=== PATIENT | female | born 1950 | race African-American/Black ===

== ENCOUNTER 2017-05-20 10:31 | Observation (INO) | payer MEDICARE, OTHER ==
[~2017-05-20] VITALS: Ht 167.6 cm; Wt 63.0 kg
[2017-05-20] VITALS (10 sets, daily range): BP systolic 116–180; BP diastolic 57–77; PULSE 59–119; RESP 16–22; TEMP 97–98.6; O2SAT 87–100
[~2017-05-20 10:31] MED LIST: ALBU8I INH; CALC667C PO; GABA100C4 PO; HYDR100T2 PO; LABE100 PO; LEVA500T PO; NIFE60TA5 PO; PERC5TAB12 PO; Z.0.OXYGENDME NC; [UNRECOGNIZED DRUG - CODE] TOP
[2017-05-20] MEDS: RESP: ALBUTEROL 2.5 MG/IPRATROPIUM 0.5 MG NEB (SCH) INH (11:11)
[2017-05-20] MEDS ORDERED: methylPREDNISolone SOD SUCC 125 MG/2 ML VIAL IV PUSH ONE (11:15)
--- NOTE | 2017-05-20 11:19 | PD ---
HPI Chief Complaint: Cold / Flu Symptoms Time Seen by Provider: 10:53 Travel History International Travel<30 days: No Contact w/Intl Traveler<30days: No Traveled to known affect area: No History of Present Illness HPI 66-year-old female states that she missed her dialysis on Sunday because she wasn't feeling good. States that she's been having cough and congestion and flulike symptoms over the past couple of days. She states she feels worse when she moves around. She denies other modifying factors. Duration is about 3 days. She states [facility] but she cannot remember their name. She denies other specific concurrent complaints. She states she is on 2 L of oxygen all the time for her COPD. PFSH Past Medical History Asthma: Yes Cardiovascular Problems: Yes Congestive Heart Failure: Yes COPD: Yes Dialysis: Yes (M-W-F) Diminished Hearing: No Hypertension: Yes Implanted Vascular Access Dvce: Yes Insomnia: Yes Respiratory: Yes Renal Failure: Yes Ulcer: Yes Tetanus Vaccination: Unknown Influenza Vaccination: Yes Past Surgical History Cardiac Surgery: Yes (PACEMAKER) Gynecologic Surgery: Yes Hysterectomy: Yes (PARTIAL) Pacemaker: Yes Other Surgery: Yes (AV FISTULA RIGHT UPPER ARM) Social History Alcohol Use: No Tobacco Use: Yes (FORMER 1/2 PPD) Substance Use: Yes (occ. marijuana ) Allergies-Medications (Allergen,Severity, Reaction): Coded Allergies: penicillin G (Unverified Allergy, Intermediate, Hives, 12/05/16) Reported Meds & Prescriptions Reported Meds & Active Scripts Active Reported Renvela (Sevelamer Carbonate) 800 Mg Tab 800 Mg PO TID Omeprazole 20 Mg Tab 20 Mg PO DAILY Labetalol (Labetalol HCl) 300 Mg Tab 300 Mg PO TID Hydrocodone-Acetaminophen 10-325 mg Tab 1 Tab PO Q6H PRN Review of Systems Except as stated in HPI: all other systems reviewed are Neg Physical Exam Exam Limitations: Other: (Gen. weakness) Narrative GENERAL: Well-nourished, well-developed patient. SKIN: Warm and dry. HEAD: Normocephalic and atraumatic. EYES: No injection or drainage. ENT: No nasal drainage noted. NECK: Supple, trachea midline. CARDIOVASCULAR: Regular rate and rhythm RESPIRATORY: Expiratory wheezing bilaterally. No accessory muscle use. GASTROINTESTINAL: Abdomen nondistended. NEUROLOGICAL: Awake and alert. Moves all extremities and sensory grossly within normal limits. Normal speech. Data Data Last Documented VS Vital Signs Date Time Temp Pulse Resp B/P (MAP) Pulse Ox O2 Delivery O2 Flow Rate FiO2 05/20/17 12:00 72 19 180/77 (111) 100 Nasal Cannula 2.00 05/20/17 10:43 98.3 Orders Orders Electrocardiogram (05/20/17 10:52) Complete Blood Count With Diff (05/20/17 10:52) Comprehensive Metabolic Panel (05/20/17 10:52) Prothrombin Time / Inr (Pt) (05/20/17 10:52) Act Partial Throm Time (Ptt) (05/20/17 10:52) Lactic Acid Sepsis Protocol (05/20/17 10:52) Magnesium (Mg) (05/20/17 10:52) Phosphorus (Po4) (05/20/17 10:52) Blood Culture (05/20/17 10:52) Chest, Single Ap (05/20/17 10:52) Ecg Monitoring (05/20/17 10:52) Iv Access Insert/Monitor (05/20/17 10:52) Oximetry (05/20/17 10:52) Oxygen Administration (05/20/17 10:52) Influenzae A/B Antigen (05/20/17 10:52) Methylprednisolone So Succ Inj (Solumedr (05/20/17 11:15) Albuterol-Ipratropium Neb (Duoneb Neb) (05/20/17 11:15) Consult Nephrology (05/20/17 ) Sodium Polysty Sulfate Liq (Kayexalate L (05/20/17 13:00) (Hub Use Only)Inp Phy Cons/Ref (05/20/17 ) Admit Order (Ed Use Only) (05/20/17 13:12) Acetamin-Hydrocod 325-10 Mg (Sobieski 10-32 (05/20/17 13:15) Labetalol (Trandate) (05/20/17 18:00) Sevelamer (Renvela) (05/20/17 18:00) Pantoprazole (Protonix) (05/21/17 09:00) Labs Laboratory Tests Test 05/20/17 11:00 05/20/17 11:05 White Blood Count 6.4 TH/MM3 Red Blood Count 3.09 MIL/MM3 Hemoglobin 9.7 GM/DL Hematocrit 29.3 % Mean Corpuscular Volume 94.9 FL Mean Corpuscular Hemoglobin 31.3 PG Mean Corpuscular Hemoglobin Concent 33.0 % Red Cell Distribution Width 15.3 % Platelet Count 237 TH/MM3 Mean Platelet Volume 9.1 FL Neutrophils (%) (Auto) 76.1 % Lymphocytes (%) (Auto) 11.7 % Monocytes (%) (Auto) 10.9 % Eosinophils (%) (Auto) 0.2 % Basophils (%) (Auto) 1.1 % Neutrophils # (Auto) 4.9 TH/MM3 Lymphocytes # (Auto) 0.7 TH/MM3 Monocytes # (Auto) 0.7 TH/MM3 Eosinophils # (Auto) 0.0 TH/MM3 Basophils # (Auto) 0.1 TH/MM3 CBC Comment DIFF FINAL Differential Comment Prothrombin Time 12.5 SEC Prothromb Time International Ratio 1.2 RATIO Activated Partial Thromboplast Time 27.5 SEC Blood Urea Nitrogen 55 MG/DL Creatinine 10.72 MG/DL Random Glucose 83 MG/DL Total Protein 7.4 GM/DL Albumin 3.0 GM/DL Calcium Level 9.4 MG/DL Phosphorus Level 4.3 MG/DL Magnesium Level 2.6 MG/DL Alkaline Phosphatase 95 U/L Aspartate Amino Transf (AST/SGOT) 23 U/L Alanine Aminotransferase (ALT/SGPT) 10 U/L Total Bilirubin 0.8 MG/DL Sodium Level 137 MEQ/L Potassium Level 5.8 MEQ/L Chloride Level 99 MEQ/L Carbon Dioxide Level 25.0 MEQ/L Anion Gap 13 MEQ/L Estimat Glomerular Filtration Rate 4 ML/MIN Lactic Acid Level 1.5 mmol/L [facility] Medical Decision Making Medical Screen Exam Complete: Yes Emergency Medical Condition: Yes Medical Record Reviewed: Yes (past history confirmed, patient seen by dr han in past) Interpretation(s) CBC & BMP Diagram 05/20/17 11:00 Total Protein 7.4, Albumin 3.0 L, Calcium Level 9.4, Phosphorus Level 4.3, Magnesium Level 2.6 H, Alkaline Phosphatase 95, Aspartate Amino Transf (AST/SGOT ) 23, Alanine Aminotransferase (ALT/SGPT) 10, Total Bilirubin 0.8 Last 24 hours Impressions Chest X-Ray 05/20/17 1052 Signed Impressions: Service Date/Time: Saturday, May 20, 2017 11:41 - CONCLUSION: Chronic cardiac silhouette enlargement. No acute cardiopulmonary disease identified. Octaviano Irby MD Differential Diagnosis Pneumonia, influenza, effusion, fluid overload, anemia, COPD exacerbation Narrative Course Will check blood work, influenza, chest x-ray and dose with DuoNeb's and Solu- Medrol and reevaluate On recheck patient states she's having pain all over and out of her pain medication. She states that her breathing feels a little bit better. She agrees to observation Physician Communication Physician Communication dr dacosta states can give Kayexalate and will follow dr canchola agrees to admit Diagnosis Primary Impression: COPD exacerbation Additional Impressions: Upper respiratory infection Qualified Codes: J06.9 - Acute upper respiratory infection, unspecified missed dialysisis Hyperkalemia Admitting Information Admitting Physician Requests: Observation Joyce Souza MD May 20, 2017 11:19
[2017-05-20 11:42] LABS: AUTOMATED NEUTROPHIL # 4.9 TH/MM3 (1.8-7.7); BASOPHIL # 0.1 TH/MM3 (0-0.2); BASOPHIL % 1.1 % (0.0-2.0); EOSINOPHIL % 0.2 % (0.0-4.0); HEMATOCRIT 29.3 % (35.0-46.0); HEMOGLOBIN 9.7 GM/DL (11.6-15.3); LYMPH % 11.7 % (9.0-44.0); LYMPHOCYTE # 0.7 TH/MM3 (1.0-4.8); MEAN CELL VOLUME 94.9 FL (80.0-100.0); MEAN CORPUSCULAR HEMOGLOBIN 31.3 PG (27.0-34.0); MEAN PLATELET VOLUME 9.1 FL (7.0-11.0); MONO % 10.9 % (0.0-8.0); MONOCYTE # 0.7 TH/MM3 (0-0.9); NEUT % 76.1 % (16.0-70.0); PLATELET COUNT 237 TH/MM3 (150-450); RED BLOOD COUNT 3.09 MIL/MM3 (4.00-5.30); RED CELL DISTRIBUTION WIDTH 15.3 % (11.6-17.2); WHITE BLOOD COUNT 6.4 TH/MM3 (4.0-11.0)
[2017-05-20 11:51] LABS: INTERNATIONAL NORMALIZED RATIO 1.2 RATIO; PROTHROMBIN TIME - PATIENT 12.5 SEC (9.8-11.6)
[2017-05-20 12:07] LABS: ALKALINE PHOSPHATASE 95 U/L (45-117); ALT (GPT) 10 U/L (10-53); AST (GOT) 23 U/L (15-37); BLOOD UREA NITROGEN 55 MG/DL (7-18); CALCIUM 9.4 MG/DL (8.5-10.1); CHLORIDE 99 MEQ/L (98-107); GLOMERULAR FILTRATION RATE 4 ML/MIN (>89); GLUCOSE,RANDOM 83 MG/DL (74-106); MAGNESIUM 2.6 MG/DL (1.5-2.5); PHOSPHORUS 4.3 MG/DL (2.5-4.9); SODIUM (NA) 137 MEQ/L (136-145); TOTAL BILIRUBIN ADULT 0.8 MG/DL (0.2-1.0); TOTAL PROTEIN 7.4 GM/DL (6.4-8.2)
--- NOTE | 2017-05-20 12:24 | RADRPT ---
EXAM DATE/TIME: 05/20/2017 11:41 [facility] COMPARISON: CHEST SINGLE AP, August 28, 2015, 21:19. INDICATIONS : Short of Breath MEDICAL HISTORY : Chronic obstructive pulmonary disease. SURGICAL HISTORY : Pacemaker. ENCOUNTER: Initial ACUITY: 1 week PAIN SCORE: 0/10 LOCATION: chest FINDINGS: Single AP view of the chest. Moderate cardiac silhouette enlargement unchanged. Dual-lead cardiac pac emaker in place. The lungs are clear. No evidence of pleural effusion or pneumothorax. CONCLUSION: Chronic cardiac silhouette enlargement. No acute cardiopulmonary disease identified. Octaviano Irby MD on May 20, 2017 at 12:21 Board Certified Radiologist. This report was verified electronically.
[2017-05-20 12:40] LABS: CREATININE 10.72 MG/DL (0.50-1.00)
[2017-05-20] MEDS ORDERED: LABE300T PO (12:42)
[2017-05-20] MEDS ORDERED: HYDR-3583 PO (12:42)
[2017-05-20] MEDS ORDERED: OMEP20TA93 PO (12:42)
[2017-05-20] MEDS ORDERED: SEVEL800 PO (12:42)
[2017-05-20] MEDS ORDERED: SODIUM POLYSTYRENE SULFONATE SUSP 15 GM/60 ML CUP PO ONE (13:00)
[2017-05-20] MEDS ORDERED: SODIUM CHLORIDE 0.9% FLUSH 10 ML FLUSH IV FLUSH PRN ×2 (13:15→16:15)
[2017-05-20] MEDS ORDERED: BISACODYL 10 MG SUPP RECTAL PRN (13:15)
[2017-05-20] MEDS ORDERED: SENNOSIDES 8.6 MG TAB PO PRN (13:15)
[2017-05-20] MEDS ORDERED: RESP: ALBUTEROL 2.5 MG/IPRATROPIUM 0.5 MG NEB (PRN) NEB (13:15)
[2017-05-20] MEDS ORDERED: MAGNESIUM HYDROXIDE SUSP 30 ML CUP PO PRN (13:15)
[2017-05-20] MEDS ORDERED: NALOXONE HCL 0.4 MG/ML AMP IV PUSH PRN (13:15)
[2017-05-20] MEDS ORDERED: ONDANSETRON HCL 4 MG/2 ML VIAL IVP PRN (13:15)
[2017-05-20] MEDS ORDERED: ACETAMINOPHEN 325 MG TAB PO PRN ×2 (13:15→16:15)
[2017-05-20] MEDS ORDERED: LACTULOSE SYRUP 20 GM/30 ML CUP PO PRN (13:15)
--- NOTE | 2017-05-20 13:24 | HHI.HP ---
[facility] Krista Vieyra MD Admission Diagnosis copd exacerbation, hyperkalemia Diagnoses: Chief Complaint: sob Travel History International Travel<30 Days: No Contact w/Intl Traveler <30 Da: No Traveled to Known Affected Are: No History of Present Illness 66-year-old female with past medical history of ESRD on hemodialysis Sunday, COPD, hypertension, diabetes, states that she missed her dialysis on Sunday because she wasn't feeling good. States that she's been having cough and congestion and flulike symptoms over the past couple of days. She states she feels worse when she moves around. She denies other modifying factors. Duration is about 3 days. She states [facility] but she cannot remember their name. She denies other specific concurrent complaints. She states she is on 2 L of oxygen all the time for her COPD. Review of Systems ROS Limitations: Clinical Condition Except as stated in HPI: all other systems reviewed are Neg Past Family Social History Past Medical History Hypertension Diabetesstates only when she is in the hospital ESRD on hemodialysis COPD on home oxygen Status post pacemaker for bradycardia Past Surgical History AV fistula placement PPM Partial hysterectomy Allergies: Coded Allergies: penicillin G (Unverified Allergy, Intermediate, Hives, 12/05/16) Family History sister with lung cancer smoker mother cancer unspecified HTN runs in family Social History Quitting smoking. Denies any alcohol abuse or drug abuse. Physical Exam Vital Signs Vital Signs Date Time Temp Pulse Resp B/P (MAP) Pulse Ox O2 Delivery O2 Flow Rate FiO2 05/20/17 12:00 72 19 180/77 (111) 100 Nasal Cannula 2.00 05/20/17 11:15 77 22 98 Nasal Cannula 2.00 05/20/17 11:11 98 Nasal Cannula 2.00 05/20/17 11:01 79 16 99 Nasal Cannula 2.00 05/20/17 10:59 79 17 99 Nasal Cannula 2.00 05/20/17 10:59 96 Nasal Cannula 2.00 05/20/17 10:43 98.3 119 22 146/70 (95) 87 Physical Exam GENERAL: This is a well-nourished, well-developed patient, in no apparent distress. SKIN: No rashes, ecchymoses or lesions. Cool and dry. HEAD: Atraumatic. Normocephalic. No temporal or scalp tenderness. EYES: Pupils equal round and reactive. Extraocular motions intact. No scleral icterus. No injection or drainage. ENT: Nose without bleeding, purulent drainage or septal hematoma. Throat without erythema, tonsillar hypertrophy or exudate. Uvula midline. Airway patent. NECK: Trachea midline. No JVD or lymphadenopathy. Supple, nontender, no meningeal signs. CARDIOVASCULAR: Regular rate and rhythm without murmurs, gallops, or rubs. RESPIRATORY: Dereased breath sounds. No wheezes, rales, or rhonchi. GASTROINTESTINAL: Abdomen soft, non-tender, nondistended. No hepato-splenomegaly , or palpable masses. No guarding. MUSCULOSKELETAL: Extremities without clubbing, cyanosis, or edema. No joint tenderness, effusion, or edema noted. No calf tenderness. Negative Homans sign bilaterally. NEUROLOGICAL: Awake and alert. Cranial nerves II through XII intact. Motor and sensory grossly within normal limits. Five out of 5 muscle strength in all muscle groups. Normal speech. Laboratory Laboratory Tests Test 05/20/17 11:00 05/20/17 11:05 White Blood Count 6.4 Red Blood Count 3.09 Hemoglobin 9.7 Hematocrit 29.3 Mean Corpuscular Volume 94.9 Mean Corpuscular Hemoglobin 31.3 Mean Corpuscular Hemoglobin Concent 33.0 Red Cell Distribution Width 15.3 Platelet Count 237 Mean Platelet Volume 9.1 Neutrophils (%) (Auto) 76.1 Lymphocytes (%) (Auto) 11.7 Monocytes (%) (Auto) 10.9 Eosinophils (%) (Auto) 0.2 Basophils (%) (Auto) 1.1 Neutrophils # (Auto) 4.9 Lymphocytes # (Auto) 0.7 Monocytes # (Auto) 0.7 Eosinophils # (Auto) 0.0 Basophils # (Auto) 0.1 CBC Comment DIFF FINAL Differential Comment Prothrombin Time 12.5 Prothromb Time International Ratio 1.2 Activated Partial Thromboplast Time 27.5 Blood Urea Nitrogen 55 Creatinine 10.72 Random Glucose 83 Total Protein 7.4 Albumin 3.0 Calcium Level 9.4 Phosphorus Level 4.3 Magnesium Level 2.6 Alkaline Phosphatase 95 Aspartate Amino Transf (AST/SGOT) 23 Alanine Aminotransferase (ALT/SGPT) 10 Total Bilirubin 0.8 Sodium Level 137 Potassium Level 5.8 Chloride Level 99 Carbon Dioxide Level 25.0 Anion Gap 13 Estimat Glomerular Filtration Rate 4 Lactic Acid Level 1.5 Date/Time Source Procedure Growth Status 05/20/17 11:05 Blood Peripheral Aerobic Blood Culture Pending Received 05/20/17 11:05 Blood Peripheral Anaerobic Blood Culture Pending Received 05/20/17 11:05 Nasal Aspirate Influenza Types A,B Antigen (SHANTHI) - Final NEGATIVE FOR FLU A AND B ANTIGEN.... Complete Result Diagram: 05/20/17 1100 05/20/17 1100 Caprini VTE Risk Assessment Caprini VTE Risk Assessment: Mod/High Risk (score >= 2) Caprini Risk Assessment Model Point Value = 1 Point Value = 2 Point Value = 3 Point Value = 5 Age 41-60 Minor surgery BMI > 25 kg/m2 Swollen legs Varicose veins or History of unexplained or recurrent spontaneous Oral contraceptives or hormone replacement Sepsis (< 1 month) Serious lung disease, including pneumonia (< 1 month) Abnormal pulmonary function Acute myocardial infarction Congestive heart failure (< 1 month) History of inflammatory bowel disease Medical patient at bed rest Age 61-74 Arthroscopic surgery Major open surgery (> 45 min) Laparoscopic surgery (> 45 min) Malignancy Confined to bed (> 72 hours) Immobilizing plaster cast Central venous access Age >= 75 History of VTE Family history of VTE Factor V Leiden Prothrombin [id number] Lupus anticoagulant Anticardiolipin antibodies Elevated serum homocysteine Heparin-induced thrombocytopenia Other congenital or acquired thrombophilia Stroke (< 1 month) Elective arthroplasty Hip, pelvis, or leg fracture Acute spinal cord injury (< 1 month) Prophylaxis Regimen Total Risk Factor Score Risk Level Prophylaxis Regimen 0-1 Low Early ambulation 2 Moderate Order ONE of the following: *Sequential Compression Device (SCD) *Heparin 5000 units SQ BID 3-4 Higher Order ONE of the following medications: *Heparin 5000 units SQ TID *Enoxaparin/Lovenox 40 mg SQ daily (WT < 150 kg, CrCl > 30 mL/min) *Enoxaparin/Lovenox 30 mg SQ daily (WT < 150 kg, CrCl > 10-29 mL/min) *Enoxaparin/Lovenox 30 mg SQ BID (WT < 150 kg, CrCl > 30 mL/min) AND/OR *Sequential Compression Device (SCD) 5 or more Highest Order ONE of the following medications: *Heparin 5000 units SQ TID (Preferred with Epidurals) *Enoxaparin/Lovenox 40 mg SQ daily (WT < 150 kg, CrCl > 30 mL/min) *Enoxaparin/Lovenox 30 mg SQ daily (WT < 150 kg, CrCl > 10-29 mL/min) *Enoxaparin/Lovenox 30 mg SQ BID (WT < 150 kg, CrCl > 30 mL/min) AND *Sequential Compression Device (SCD) Assessment and Plan Assessment and Plan COPD with exacerbation, chronic respiratory failure on 2L home oxygen Status post pacemaker for bradycardia Hypertension Fluid overload Missed dialysis session Suspect medications noncompliance and dialysis noncompliance Chronic pain syndrome Anxiety/from social issues at home Diabetesstates only when she is in the hospital ESRD on hemodialysis, nephrology consult to resume HD Plan: Duonebs, solumedrol, taper as tolerated O2 supplement keep O2 sat > 92 % HD today Resume home meds as appropriate Case management consult for discharge planning. DVT ppx scd/teds//heparin Discussed Condition With Patient, nurse, ED physician Alexandria Wright MD May 20, 2017 13:24
[2017-05-20] MEDS: methylPREDNISolone SOD SUCC 40 MG/1 ML VIAL IV PUSH SCH ×2 (13:44→21:33)
[2017-05-20] MEDS: HEPARIN SODIUM - SQ 10,000 UNITS/ML VIAL SQ SCH (14:00)
[2017-05-20] MEDS: ACETAMINOPHEN/HYDROcodone 325 MG/10 MG TAB PO PRN ×2 (14:28→21:42)
[2017-05-20] MEDS ORDERED: SODIUM CHLOR 0.9% 1000 ML INJ 1,000 ML OTHER PRN ×2 (16:03)
[2017-05-20] MEDS ORDERED: SODIUM CHLOR 0.9% 1000 ML INJ 1,000 ML IV PRN (16:03)
[2017-05-20] MEDS ORDERED: diphenhydrAMINE HCL 25 MG CAP PO PRN (16:15)
[2017-05-20] MEDS ORDERED: NITROGLYCERIN 0.4 MG SL 25 TABS/BTL SL PRN (16:15)
[2017-05-20] MEDS ORDERED: EPOETIN ALFA 10,000 UNITS/ML VIAL IV PUSH PRN (16:15)
[2017-05-20] MEDS ORDERED: MANNITOL 12.5 GM/50 ML VIAL IV PRN (16:15)
[2017-05-20] MEDS ORDERED: HEPARIN SODIUM - IV 10,000 UNITS/10 ML VIAL IV FLUSH PRN (16:15)
[2017-05-20] MEDS ORDERED: HEPARIN SODIUM - IV 10,000 UNITS/10 ML VIAL PRN (16:15)
[2017-05-20] MEDS ORDERED: ONDANSETRON HCL 4 MG/2 ML VIAL IV PUSH PRN (16:15)
[2017-05-20] MEDS ORDERED: cloNIDine HCL 0.1 MG TAB PO PRN (16:15)
[2017-05-20] MEDS ORDERED: GENTAMICIN SULFATE 20 MG/2 ML VIAL OTHER PRN (16:15)
[2017-05-20] MEDS ORDERED: ALBUMIN 25% INJ 100 ML IV PRN (16:15)
[2017-05-20] MEDS ORDERED: GELATIN 12 MM/7 MM FOAM TOP PRN (16:15)
[2017-05-20] MEDS: RESP: ALBUTEROL 2.5 MG/IPRATROPIUM 0.5 MG NEB (SCH) NEB ×2 (16:24→19:02)
--- NOTE | 2017-05-20 17:08 | PD.CONS ---
HPI Service Nephrology Consult Requested By Reason for Consult ESRD, hyperkalemia Primary Care Physician Krista Vieyra MD History of Present Illness This is a 66 year old lady with history of ESRD for which she is on HD MWF. Apparently missed dialysis treatment on Sunday because of cough, not feeling well. Denies fever. Has had abdominal discomfort and diarrhea. Nausea is also a complaint. Came to the ER with these complaints. Found to be hyperkalemic and hypoxic. CXR is unremarkable. Because of hyperkalemia and also due to the fact that she had missed dialysis on Sunday, dialysis was arranged. She was seen during dialysis: on 1K, BFR 350 ml/min. AVF in the right arm is currently cannulated. She is tolerating dialysis. Review of Systems Constitutional: COMPLAINS OF: Fatigue, DENIES: Fever Respiratory: COMPLAINS OF: Cough, Wheezing, Shortness of breath, DENIES: Hemoptysis, Sputum production Cardiovascular: DENIES: Chest pain, Palpitations Gastrointestinal: COMPLAINS OF: Abdominal pain, Diarrhea, Nausea Hematologic/lymphatic: DENIES: Bruising Neurologic: DENIES: Localized weakness Psychiatric: DENIES: Confusion Past Family Social History Allergies: Coded Allergies: penicillin G (Unverified Allergy, Intermediate, Hives, 12/05/16) Past Medical History ESRD Hypertension COPD s/p pacemaker: for bradycardia Past Surgical History pacemaker placement. AVF placement. Hysterectomy Reported Medications Renvela (Sevelamer Carbonate) 800 Mg Tab 800 Mg PO TID Omeprazole 20 Mg Tab 20 Mg PO DAILY Labetalol (Labetalol HCl) 300 Mg Tab 300 Mg PO TID Hydrocodone-Acetaminophen 10-325 mg Tab 1 Tab PO Q6H PRN Active Ordered Medications Current Medications Medications (Trade) Dose Ordered Sig/Quinton Route Start Time Stop Time Status Last Admin ([place] 10-325 Mg) 1 tab Q6H PRN PO 05/20/17 13:15 05/20/17 14:28 (Trandate) 300 mg TID PO 05/20/17 18:00 (Renvela) 800 mg TID PO 05/20/17 18:00 (Protonix) 20 mg DAILY PO 05/21/17 09:00 (NS Flush) 2 ml UNSCH PRN IV FLUSH 05/20/17 13:15 (NS Flush) 2 ml BID IV FLUSH 05/20/17 21:00 (Tylenol) 650 mg Q4H PRN PO 05/20/17 13:15 (Zofran Inj) 4 mg Q6H PRN IVP 05/20/17 13:15 (Heparin Inj) 5,000 units Q12H SQ 05/20/17 14:00 (Narcan Inj) 0.4 mg UNSCH PRN IV PUSH 05/20/17 13:15 (Maria G-Colace) 1 tab BID PO 05/20/17 21:00 (Milk Of Magnesia Liq) 30 ml Q12H PRN PO 05/20/17 13:15 (Senokot) 17.2 mg Q12H PRN PO 05/20/17 13:15 (Dulcolax Supp) 10 mg DAILY PRN RECTAL 05/20/17 13:15 (Lactulose Liq) 30 ml DAILY PRN PO 05/20/17 13:15 (Duoneb Neb) 1 ampule Q2HR NEB PRN NEB 05/20/17 13:15 (Duoneb Neb) 1 ampule Q4HR WHILE AWAKE NEB NEB 05/20/17 16:00 (SoluMEDROL INJ) 40 mg Q8HR IV PUSH 05/20/17 14:00 Sodium Chloride 1,000 ml @ 0 mls/hr Q0M PRN OTHER 05/20/17 16:03 (Heparin Inj) 8,000 units UNSCH PRN IV FLUSH 05/20/17 16:15 Sodium Chloride 1,000 ml @ 200 mls/hr Q5H PRN IV 05/20/17 16:03 Sodium Chloride 1,000 ml @ 0 mls/hr Q0M PRN OTHER 05/20/17 16:03 (Mannitol Inj) 12.5 gm UNSCH PRN IV 05/20/17 16:15 Albumin Human 100 ml @ 60 mls/hr UNSCH PRN IV 05/20/17 16:15 (NS Flush) 5 ml UNSCH PRN IV FLUSH 05/20/17 16:15 (Heparin Inj) UNSCH PRN .XX 05/20/17 16:15 (Gentamicin Inj) 20 mg UNSCH PRN OTHER 05/20/17 16:15 (Zofran Inj) 4 mg UNSCH PRN IV PUSH 05/20/17 16:15 (Tylenol) 650 mg UNSCH PRN PO 05/20/17 16:15 (Benadryl) 25 mg UNSCH PRN PO 05/20/17 16:15 (Nitrostat Sl) 0.4 mg UNSCH PRN SL 05/20/17 16:15 (Catapres) 0.1 mg UNSCH PRN PO 05/20/17 16:15 (Epogen Inj) 10,000 units UNSCH PRN IV PUSH 05/20/17 16:15 05/20/17 16:25 (Gelfoam 12 Mm/7 Mm Top) 1 foam UNSCH PRN TOP 05/20/17 16:15 05/20/17 16:25 Family History reviewed, non contributory Social History continues to smoke, she reports that she is trying to quit. No ETOH. Lives alone in an apartment. Physical Exam Vital Signs Vital Signs Date Time Temp Pulse Resp B/P (MAP) Pulse Ox O2 Delivery O2 Flow Rate FiO2 05/20/17 14:22 98.6 63 18 149/72 (97) 98 05/20/17 13:56 05/20/17 12:00 72 19 180/77 (111) 100 Nasal Cannula 2.00 05/20/17 11:15 77 22 98 Nasal Cannula 2.00 05/20/17 11:11 98 Nasal Cannula 2.00 05/20/17 11:01 79 16 99 Nasal Cannula 2.00 05/20/17 10:59 79 17 99 Nasal Cannula 2.00 05/20/17 10:59 96 Nasal Cannula 2.00 05/20/17 10:43 98.3 119 22 146/70 (95) 87 Physical Exam GENERAL: awake, alert. SKIN: Warm and dry. HEAD: Normocephalic. EYES: No scleral icterus. No injection or drainage. NECK: Supple, trachea midline. No JVD or lymphadenopathy. CARDIOVASCULAR: Regular rate and rhythm without murmurs, gallops, or rubs. RESPIRATORY: Breath sounds equal bilaterally. No accessory muscle use. GASTROINTESTINAL: Abdomen soft, non-tender, nondistended. MUSCULOSKELETAL: No cyanosis, or edema. BACK: Nontender without obvious deformity. No CVA tenderness. Laboratory Laboratory Tests Test 05/20/17 11:00 05/20/17 11:05 White Blood Count 6.4 Red Blood Count 3.09 Hemoglobin 9.7 Hematocrit 29.3 Mean Corpuscular Volume 94.9 Mean Corpuscular Hemoglobin 31.3 Mean Corpuscular Hemoglobin Concent 33.0 Red Cell Distribution Width 15.3 Platelet Count 237 Mean Platelet Volume 9.1 Neutrophils (%) (Auto) 76.1 Lymphocytes (%) (Auto) 11.7 Monocytes (%) (Auto) 10.9 Eosinophils (%) (Auto) 0.2 Basophils (%) (Auto) 1.1 Neutrophils # (Auto) 4.9 Lymphocytes # (Auto) 0.7 Monocytes # (Auto) 0.7 Eosinophils # (Auto) 0.0 Basophils # (Auto) 0.1 CBC Comment DIFF FINAL Differential Comment Prothrombin Time 12.5 Prothromb Time International Ratio 1.2 Activated Partial Thromboplast Time 27.5 Blood Urea Nitrogen 55 Creatinine 10.72 Random Glucose 83 Total Protein 7.4 Albumin 3.0 Calcium Level 9.4 Phosphorus Level 4.3 Magnesium Level 2.6 Alkaline Phosphatase 95 Aspartate Amino Transf (AST/SGOT) 23 Alanine Aminotransferase (ALT/SGPT) 10 Total Bilirubin 0.8 Sodium Level 137 Potassium Level 5.8 Chloride Level 99 Carbon Dioxide Level 25.0 Anion Gap 13 Estimat Glomerular Filtration Rate 4 Lactic Acid Level 1.5 Date/Time Source Procedure Growth Status 05/20/17 11:05 Blood Peripheral Aerobic Blood Culture Pending Received 05/20/17 11:05 Blood Peripheral Anaerobic Blood Culture Pending Received 05/20/17 11:05 Nasal Aspirate Influenza Types A,B Antigen (SHANTHI) - Final NEGATIVE FOR FLU A AND B ANTIGEN.... Complete Result Diagram: 05/20/17 1100 05/20/17 1100 Assessment and Plan Problem List: (1) ESRD (end stage renal disease) on dialysis ICD Codes: N18.6 - End stage renal disease; Z99.2 - Dependence on renal dialysis Status: Acute Plan: usually dialyzes MWF. Dialysis arranged today due to hyperkalemia and symptoms of shortness of breath. Dialysis tomorrow and MWF. Monitor fluid and electrolyte status. Monitor phosphorus intermittently and use binder if appropriate. (2) Hyperkalemia ICD Codes: E87.5 - Hyperkalemia Status: Acute Plan: Low potassium diet. Dialysis. Monitor. (3) COPD exacerbation ICD Codes: J44.1 - Chronic obstructive pulmonary disease with (acute) exacerbation Status: Acute Plan: bronchodilators. Smoking cessation encouraged. (4) Anemia ICD Codes: D64.9 - Anemia, unspecified Plan: Epogen ordered to be administered with dialysis. Assessment and Plan Thanks for the consult. Kirby Deleon MD May 20, 2017 17:08
[2017-05-20] MEDS: SEVELAMER CARBONATE 800 MG TAB PO SCH (18:01)
[2017-05-20] MEDS: LABETALOL HCL 300 MG TAB PO SCH (18:01)
[2017-05-20] MEDS: DOCUSATE SODIUM 50 MG/SENNA 8.6 MG TAB PO SCH (21:00)
[2017-05-20] MEDS: SODIUM CHLORIDE 0.9% FLUSH 10 ML FLUSH IV FLUSH SCH (21:33)
[2017-05-21] VITALS (7 sets, daily range): BP systolic 90–119; BP diastolic 51–70; PULSE 62–71; RESP 18–19; TEMP 97.5–98.1; O2SAT 95–100
[2017-05-21] MEDS: HEPARIN SODIUM - SQ 10,000 UNITS/ML VIAL SQ SCH ×2 (02:17→13:52)
[2017-05-21] MEDS: methylPREDNISolone SOD SUCC 40 MG/1 ML VIAL IV PUSH SCH ×3 (05:33→21:46)
[2017-05-21] MEDS: ACETAMINOPHEN/HYDROcodone 325 MG/10 MG TAB PO PRN ×3 (05:34→21:47)
[2017-05-21] MEDS: RESP: ALBUTEROL 2.5 MG/IPRATROPIUM 0.5 MG NEB (SCH) NEB ×4 (07:54→20:14)
[2017-05-21 08:27] LABS: AUTOMATED NEUTROPHIL # 4.2 TH/MM3 (1.8-7.7); BASOPHIL % 0.2 % (0.0-2.0); HEMATOCRIT 28.8 % (35.0-46.0); HEMOGLOBIN 9.6 GM/DL (11.6-15.3); LYMPH % 6.5 % (9.0-44.0); LYMPHOCYTE # 0.3 TH/MM3 (1.0-4.8); MEAN CELL VOLUME 93.9 FL (80.0-100.0); MEAN CORPUSCULAR HEMOGLOBIN 31.2 PG (27.0-34.0); MEAN CORPUSCULAR HGB CONC 33.2 % (32.0-36.0); MEAN PLATELET VOLUME 9.1 FL (7.0-11.0); MONO % 5.5 % (0.0-8.0); MONOCYTE # 0.3 TH/MM3 (0-0.9); NEUT % 87.8 % (16.0-70.0); PLATELET COUNT 217 TH/MM3 (150-450); RED BLOOD COUNT 3.07 MIL/MM3 (4.00-5.30); RED CELL DISTRIBUTION WIDTH 15.4 % (11.6-17.2); WHITE BLOOD COUNT 4.8 TH/MM3 (4.0-11.0)
[2017-05-21] MEDS: DOCUSATE SODIUM 50 MG/SENNA 8.6 MG TAB PO SCH ×2 (09:00→21:47)
[2017-05-21 09:07] LABS: BICARBONATE 29.4 MEQ/L (21.0-32.0); CALCIUM 9.8 MG/DL (8.5-10.1); CREATININE 7.28 MG/DL (0.50-1.00)
[2017-05-21 10:35] LABS: OVALOCYTES 1+ (NORMAL); TEARDROP RBCS 1+ (NORMAL)
--- NOTE | 2017-05-21 10:42 | HHI.NPPN ---
Subjective History of Present Illness 66 year old female with ESRD HTN, had missed dialysis on Sunday came with cough shortness of breath Review of Systems Respiratory Lungs: SOB, Cough Cardiovascular Cardiac: JACOBSON Objective Data Data Vital Signs Date Time Temp Pulse Resp B/P (MAP) Pulse Ox O2 Delivery O2 Flow Rate FiO2 05/21/17 07:55 100 Nasal Cannula 3.00 05/21/17 03:39 97.5 68 18 118/70 (86) 98 05/20/17 23:53 97.4 64 18 116/57 (76) 99 05/20/17 20:25 97.0 59 18 120/62 (81) 94 05/20/17 19:04 96 Nasal Cannula 2.50 05/20/17 18:05 97.5 68 18 135/72 (93) 94 05/20/17 14:22 98.6 63 18 149/72 (97) 98 05/20/17 13:56 05/20/17 12:00 72 19 180/77 (111) 100 Nasal Cannula 2.00 05/20/17 11:15 77 22 98 Nasal Cannula 2.00 05/20/17 11:11 98 Nasal Cannula 2.00 05/20/17 11:01 79 16 99 Nasal Cannula 2.00 05/20/17 10:59 79 17 99 Nasal Cannula 2.00 05/20/17 10:59 96 Nasal Cannula 2.00 05/20/17 10:43 98.3 119 22 146/70 (95) 87 -: 05/21/17 0813 05/21/17 0813 Microbiology 05/20/17 Aerobic Blood Culture, Received Pending 05/20/17 Anaerobic Blood Culture, Received Pending 05/20/17 Aerobic Blood Culture, Received Pending 05/20/17 Anaerobic Blood Culture, Received Pending 05/20/17 Influenza Types A,B Antigen (SHANTHI) - Final, Complete NEGATIVE FOR FLU A AND B ANTIGEN.... Physical Exam General Appearance: Well Developed, Well Nourished Neck Neck Exam: Neck Supple Pulmonary Resp Exam: Clear Bilaterally, Breath Sounds Equal Cardiology CV Exam: Regular, Normal Sinus Rhythm Gastrointestinal/Abdomen GI Exam: Soft, Non-Tender, Bowel Sounds Present Extremeties Extremities Exam: No Edema Assessment/Plan Problem List: (1) ESRD (end stage renal disease) on dialysis ICD Codes: N18.6 - End stage renal disease; Z99.2 - Dependence on renal dialysis Status: Acute Plan: seen during dialysis UF 3 L tolerating it well Monitor fluid and electrolyte status. Monitor phosphorus intermittently and use binder if appropriate. (2) Hyperkalemia ICD Codes: E87.5 - Hyperkalemia Status: Acute Plan: Low potassium diet. Dialysis. Monitor. (3) COPD exacerbation ICD Codes: J44.1 - Chronic obstructive pulmonary disease with (acute) exacerbation Status: Acute Plan: bronchodilators. Smoking cessation encouraged. (4) Anemia ICD Codes: D64.9 - Anemia, unspecified Plan: Epogen ordered to be administered with dialysis. Lisa Ferro MD May 21, 2017 10:42
[2017-05-21] MEDS: PANTOPRAZOLE SOD 20 MG DELAYED RELEASE TAB PO SCH (12:25)
[2017-05-21] MEDS: SEVELAMER CARBONATE 800 MG TAB PO SCH ×3 (12:25→17:13)
[2017-05-21] MEDS: LABETALOL HCL 300 MG TAB PO SCH ×3 (12:25→17:13)
[2017-05-21] MEDS: SODIUM CHLORIDE 0.9% FLUSH 10 ML FLUSH IV FLUSH SCH ×2 (12:26→21:46)
--- NOTE | 2017-05-21 16:22 | HHI.FF ---
Face to Face Verification Diagnosis: (1) HTN (hypertension) (2) ESRD (end stage renal disease) on dialysis (3) Anemia (4) COPD (chronic obstructive pulmonary disease) (5) Upper respiratory infection Physical Therapy Order: Evaluate and Treat, Improve ambulation, Strength and gait training Home Health Nursing Order: Medical education Signs/symptoms of disease process Oxygen administration education Nursing assessment with vital signs Home Health Aide Order: To Assist In: Bathing and personal care, credit director and meal prep I have seen patient Micah Estrada on 05/21/17. My clinical findings support the need for the requested home health care services because: Ltd mobility - disease progression Patient has SOB Deconditioned w/ increased weakness Limited ability to care for self I certify that my clinical findings support that this patient is homebound because: Hx COPD- exertion dyspnea/weakness Unsafe to leave home unassisted Unable to use public transportation Juana Guajardo PA-C May 21, 2017 4:22 pm
--- NOTE | 2017-05-21 17:14 | HHI.PR ---
Subjective Remarks Follow up for fluid overload, dehydration, URI. The patient is seen after dialysis today. She does not feel well. She reports continued nonproductive cough and shortness of breath, although improving compared to yesterday. Denies fevers/chills. She does not want to go home. She states she just feels weak. Blood pressure low this afternoon, 90/54. She states sometimes she has low blood pressures during dialysis. She lives in independent living apartment but has friends that help her out. She is requesting if we can arrange additional help for in the home. Objective Vitals Vital Signs Date Time Temp Pulse Resp B/P (MAP) Pulse Ox O2 Delivery O2 Flow Rate FiO2 05/21/17 13:49 97.8 71 18 90/54 (66) 95 05/21/17 13:38 22 05/21/17 07:55 100 Nasal Cannula 3.00 05/21/17 03:39 97.5 68 18 118/70 (86) 98 05/20/17 23:53 97.4 64 18 116/57 (76) 99 05/20/17 20:25 97.0 59 18 120/62 (81) 94 05/20/17 19:04 96 Nasal Cannula 2.50 05/20/17 18:05 97.5 68 18 135/72 (93) 94 I/O 05/20/17 05/20/17 05/20/17 05/21/17 05/21/17 05/21/17 06:59 14:59 22:59 06:59 14:59 22:59 Intake Total 840 ml Output Total 3000 ml 3000 ml Balance -3000 ml 840 ml -3000 ml Intake Oral 840 ml Hemodialysis 3000 ml 3000 ml # Bowel Movements 3 Result Diagram: 05/21/17 0813 05/21/17 0813 Imaging Last Impressions Chest X-Ray 05/20/17 1052 Signed Impressions: Service Date/Time: Saturday, May 20, 2017 11:41 - CONCLUSION: Chronic cardiac silhouette enlargement. No acute cardiopulmonary disease identified. Octaviano Irby MD Objective Remarks GENERAL: Well-nourished, well-developed patient in [facility]. SKIN: Warm and dry. No rash. RUE AV fistula with +thrill. HEENT: Normocephalic. Atraumatic.Pupils equal and round. Mucous membranes pink and moist. NECK: Supple. Trachea midline. CARDIOVASCULAR: Regular rate and rhythm. S1, S2 noted. No murmur appreciated. RESPIRATORY: No accessory muscle use. Breath sounds diminished at bilateral bases, some upper airway congestion noted, otherwise clear to auscultation. Breath sounds equal bilaterally. GASTROINTESTINAL: Abdomen soft, non-tender, nondistended. Normoactive bowel sounds x4. MUSCULOSKELETAL: No obvious deformities. Extremities without clubbing, cyanosis , or edema. NEUROLOGICAL: Awake and alert. No obvious cranial nerve deficits. Motor grossly within normal limits. Moves all extremities spontaneously. Normal speech. PSYCHIATRIC: Appropriate mood and affect; insight and judgment normal. Medications and IVs Current Medications Medications (Trade) Dose Ordered Sig/[place] Route Start Time Stop Time Status Last Admin ([place] 10-325 Mg) 1 tab Q6H PRN PO 05/20/17 13:15 05/21/17 12:30 (Trandate) 300 mg TID PO 05/20/17 18:00 05/21/17 12:25 (Renvela) 800 mg TID PO 05/20/17 18:00 05/21/17 13:52 (Protonix) 20 mg DAILY PO 05/21/17 09:00 05/21/17 12:25 (NS Flush) 2 ml UNSCH PRN IV FLUSH 05/20/17 13:15 (NS Flush) 2 ml BID IV FLUSH 05/20/17 21:00 05/21/17 12:26 (Tylenol) 650 mg Q4H PRN PO 05/20/17 13:15 (Zofran Inj) 4 mg Q6H PRN IVP 05/20/17 13:15 (Heparin Inj) 5,000 units Q12H SQ 05/20/17 14:00 05/21/17 13:52 (Narcan Inj) 0.4 mg UNSCH PRN IV PUSH 05/20/17 13:15 (Maria G-Colace) 1 tab BID PO 05/20/17 21:00 (Milk Of Magnesia Liq) 30 ml Q12H PRN PO 05/20/17 13:15 (Senokot) 17.2 mg Q12H PRN PO 05/20/17 13:15 (Dulcolax Supp) 10 mg DAILY PRN RECTAL 05/20/17 13:15 (Lactulose Liq) 30 ml DAILY PRN PO 05/20/17 13:15 (Duoneb Neb) 1 ampule Q2HR NEB PRN NEB 05/20/17 13:15 (Duoneb Neb) 1 ampule Q4HR WHILE AWAKE NEB NEB 05/20/17 16:00 05/21/17 07:54 (SoluMEDROL INJ) 40 mg Q8HR IV PUSH 05/20/17 14:00 05/21/17 13:52 Sodium Chloride 1,000 ml @ 0 mls/hr Q0M PRN OTHER 05/20/17 16:03 (Heparin Inj) 8,000 units UNSCH PRN IV FLUSH 05/20/17 16:15 Sodium Chloride 1,000 ml @ 200 mls/hr Q5H PRN IV 05/20/17 16:03 Sodium Chloride 1,000 ml @ 0 mls/hr Q0M PRN OTHER 05/20/17 16:03 (Mannitol Inj) 12.5 gm UNSCH PRN IV 05/20/17 16:15 Albumin Human 100 ml @ 60 mls/hr UNSCH PRN IV 05/20/17 16:15 (NS Flush) 5 ml UNSCH PRN IV FLUSH 05/20/17 16:15 (Heparin Inj) UNSCH PRN .XX 05/20/17 16:15 (Gentamicin Inj) 20 mg UNSCH PRN OTHER 05/20/17 16:15 (Zofran Inj) 4 mg UNSCH PRN IV PUSH 05/20/17 16:15 (Tylenol) 650 mg UNSCH PRN PO 05/20/17 16:15 (Benadryl) 25 mg UNSCH PRN PO 05/20/17 16:15 (Nitrostat Sl) 0.4 mg UNSCH PRN SL 05/20/17 16:15 (Catapres) 0.1 mg UNSCH PRN PO 05/20/17 16:15 (Epogen Inj) 10,000 units UNSCH PRN IV PUSH 05/20/17 16:15 05/20/17 16:25 (Gelfoam 12 Mm/7 Mm Top) 1 foam UNSCH PRN TOP 05/20/17 16:15 05/20/17 16:25 A/P Assessment and Plan 66-year-old female with past medical history of ESRD on hemodialysis MWF, COPD O2 dependent, hypertension, diabetes, states that she missed her dialysis on Sunday because she wasn't feeling good. States that she's been having cough and congestion and flulike symptoms over the past couple of days. Acute on Chronic Respiratory Failure: secondary to URI with COPD Exacerbation. O2 dependent at home. O2 sat 87% upon arrival. Suspect combination of COPD exacerbation with fluid overload secondary to missing dialysis. CXR images reviewed, shows no acute findings. Afebrile, no leukocytosis, however does meet sepsis criteria secondary to tachycardia HR 119, RR 22, and suspected source URI /bronchitis. -influenza negative -check urinary legionella and pneumococcal antigen -check sputum culture -in light of productive cough w/sepsis, will start on antibiotics with IV Levaquin for possible early pneumonia -continue duonebs q4h -continue steroids with IV Solumedrol 40mg q8h, can likely change to prednisone in am -continue O2, incentive spirometry -monitor for improvement ESRD on HD MWF: patient missed dialysis Thursday 05/18 secondary to feeling ill. -consult nephrology -patient received dialysis 05/20 and 05/21 -continue patient's phosphate binder Generalized Weakness: suspect secondary to infection as above. -consult PT, awaiting recommendations -case management consulted to arrange [facility] Diabetes Mellitus: chronic, patient reports only requiring insulin while in the hospital. Expect blood glucose to be higher while on steroids -monitor Accu-checks and cover with SSI -check HgbA1c for baseline Hypertension: chronic, now with hypotension following dialysis -continue patient's labetalol with hold parameters -monitor BP, adjust antihypertensives as needed Chronic Pain: patient reports chronic back pain, on lortab at home prescribed by PCP Dr. Vieyra -continue lortab for now -patient requesting refill for lortab at discharge as she ran out recently and does not see her PCP until 05/31 DVT Prophylaxis: heparin sq Discharge Planning Likely discharge tomorrow. Awaiting PT recommendations. C ordered for now unless PT recommends rehab. Discussed with case management. Juana Guajardo PA-C May 21, 2017 5:14 pm
[2017-05-21] MEDS ORDERED: DEXTROSE 50% IN WATER 50 ML VIAL(D50) IV PUSH PRN (17:15)
[2017-05-21] MEDS ORDERED: GLUCAGON 1 MG/ML VIAL OTHER PRN (17:15)
[2017-05-21] MEDS ORDERED: LEVOFLOXACIN 750 MG PREMIX INJ 150 ML IV SCH (18:00)
--- NOTE | 2017-05-21 18:40 | EKG ---
Date Performed: 05/20/2017 Time Performed: 10:58:46 PTAGE: 66 years EKG: ELECTRONIC ATRIAL PACEMAKER ELECTRONIC VENTRICULAR PACEMAKER Prolonged corrected QT interva l. ABNORMAL RHYTHM ECG PREVIOUS TRACING : 08/26/2015 16.51 DOCTOR: Eladio Vieira Interpretating Date/Time 05/21/2017 18:39:40
[2017-05-21] MEDS: INSULIN ASPART SUPPLEMENTAL SCALE SQ SCH (21:46)
[2017-05-21 22:20] LABS: HEMOGLOBIN A1C 5.1 % (4.3-6.0)
[2017-05-22] MEDS: HEPARIN SODIUM - SQ 10,000 UNITS/ML VIAL SQ SCH ×2 (01:49→15:13)
[2017-05-22 04:02] VITALS: BP 110/61; PULSE 65; RESP 18; TEMP 97.8; O2SAT 99
[2017-05-22] MEDS: methylPREDNISolone SOD SUCC 40 MG/1 ML VIAL IV PUSH SCH ×2 (04:32→15:12)
[2017-05-22] MEDS: ACETAMINOPHEN/HYDROcodone 325 MG/10 MG TAB PO PRN ×2 (04:32→12:38)
[2017-05-22 06:54] LABS: AUTOMATED NEUTROPHIL # 9.1 TH/MM3 (1.8-7.7); BASOPHIL % 0.2 % (0.0-2.0); HEMATOCRIT 30.8 % (35.0-46.0); HEMOGLOBIN 10.3 GM/DL (11.6-15.3); LYMPH % 2.7 % (9.0-44.0); LYMPHOCYTE # 0.3 TH/MM3 (1.0-4.8); MEAN CELL VOLUME 95.3 FL (80.0-100.0); MEAN CORPUSCULAR HEMOGLOBIN 31.8 PG (27.0-34.0); MEAN CORPUSCULAR HGB CONC 33.4 % (32.0-36.0); MEAN PLATELET VOLUME 9.2 FL (7.0-11.0); MONO % 3.7 % (0.0-8.0); MONOCYTE # 0.4 TH/MM3 (0-0.9); NEUT % 93.4 % (16.0-70.0); PLATELET COUNT 236 TH/MM3 (150-450); RED BLOOD COUNT 3.23 MIL/MM3 (4.00-5.30); RED CELL DISTRIBUTION WIDTH 15.1 % (11.6-17.2); WHITE BLOOD COUNT 9.7 TH/MM3 (4.0-11.0)
[2017-05-22 07:20] LABS: BICARBONATE 32.4 MEQ/L (21.0-32.0); CALCIUM 10.1 MG/DL (8.5-10.1); CREATININE 5.37 MG/DL (0.50-1.00)
[2017-05-22 08:26] VITALS: BP 116/66; PULSE 61; RESP 16; TEMP 97.6; O2SAT 99
[2017-05-22] MEDS: RESP: ALBUTEROL 2.5 MG/IPRATROPIUM 0.5 MG NEB (SCH) NEB ×3 (08:26→15:29)
[2017-05-22 08:29] VITALS: O2SAT 99
[2017-05-22] MEDS: SEVELAMER CARBONATE 800 MG TAB PO SCH ×2 (09:23→12:37)
[2017-05-22] MEDS: PANTOPRAZOLE SOD 20 MG DELAYED RELEASE TAB PO SCH (09:23)
[2017-05-22] MEDS: DOCUSATE SODIUM 50 MG/SENNA 8.6 MG TAB PO SCH (09:23)
[2017-05-22] MEDS: LABETALOL HCL 300 MG TAB PO SCH ×2 (09:23→12:37)
[2017-05-22] MEDS: SODIUM CHLORIDE 0.9% FLUSH 10 ML FLUSH IV FLUSH SCH (09:24)
[2017-05-22] MEDS ORDERED: GETGO ROLLING W1 MI1 (12:23)
[2017-05-22] MEDS: INSULIN ASPART SUPPLEMENTAL SCALE SQ SCH ×2 (12:39→12:40)
--- NOTE | 2017-05-22 12:40 | HHI.NPPN ---
Subjective History of Present Illness 66 year old female with ESRD HTN, had missed dialysis on Sunday came with cough shortness of breath Review of Systems Respiratory Lungs: SOB, Cough Cardiovascular Cardiac: [place] Objective Data Data Vital Signs Date Time Temp Pulse Resp B/P (MAP) Pulse Ox O2 Delivery O2 Flow Rate FiO2 05/22/17 10:30 22 05/22/17 08:29 99 Nasal Cannula 2.00 05/22/17 08:26 97.6 61 16 116/66 (83) 99 05/22/17 04:02 97.8 65 18 110/61 (77) 99 05/21/17 23:36 97.8 62 18 119/64 (82) 99 05/21/17 20:14 99 Nasal Cannula 3.00 05/21/17 19:24 98.1 62 18 119/55 (76) 98 05/21/17 16:26 97.8 70 19 91/51 (64) 96 05/21/17 13:49 97.8 71 18 90/54 (66) 95 05/21/17 13:38 22 -: 05/22/17 0615 05/22/17 0615 Physical Exam General Appearance: Well Developed, Well Nourished Neck Neck Exam: Neck Supple Pulmonary Resp Exam: Decreased Bases Cardiology CV Exam: Regular, Normal Sinus Rhythm Gastrointestinal/Abdomen GI Exam: Soft, Non-Tender, Bowel Sounds Present Extremeties Extremities Exam: No Edema Assessment/Plan Problem List: (1) ESRD (end stage renal disease) on dialysis ICD Codes: N18.6 - End stage renal disease; Z99.2 - Dependence on renal dialysis Status: Acute Plan: Hemodialysis on Sunday, Sunday and Sunday Still has some cough Monitor fluid and electrolyte status. Monitor phosphorus intermittently and use binder if appropriate. (2) Hyperkalemia ICD Codes: E87.5 - Hyperkalemia Status: Acute Plan: Low potassium diet. Dialysis. Monitor. (3) COPD exacerbation ICD Codes: J44.1 - Chronic obstructive pulmonary disease with (acute) exacerbation Status: Acute Plan: bronchodilators. Smoking cessation encouraged. (4) Anemia ICD Codes: D64.9 - Anemia, unspecified Plan: Epogen ordered to be administered with dialysis. Lisa Ferro MD May 22, 2017 12:40
[2017-05-22 14:05] VITALS: RESP 22
[2017-05-22] MEDS ORDERED: HYDR-3583 PO (15:33)
[2017-05-22] MEDS ORDERED: LEVA750T9 PO (15:33)
--- NOTE | 2017-05-22 16:46 | HHI.DS ---
Discharge Summary Admission Date May 20, 2017 at 1:14 pm Discharge Date: May 22, 2017 Admitting Diagnosis copd exacerbation, hyperkalemia (1) Upper respiratory infection ICD Code: J06.9 - Acute upper respiratory infection, unspecified (2) ESRD (end stage renal disease) on dialysis ICD Code: N18.6 - End stage renal disease; Z99.2 - Dependence on renal dialysis Status: Acute Procedures None. Brief History - From Admission 66-year-old female with past medical history of ESRD on hemodialysis Sunday, COPD, hypertension, diabetes, states that she missed her dialysis on Sunday because she wasn't feeling good. States that she's been having cough and congestion and flulike symptoms over the past couple of days. She states she feels worse when she moves around. She denies other modifying factors. Duration is about 3 days. She states [facility] but she cannot remember their name. She denies other specific concurrent complaints. She states she is on 2 L of oxygen all the time for her COPD. CBC/BMP: 05/22/17 0615 05/22/17 0615 Significant Findings Laboratory Tests Test 05/20/17 11:00 05/20/17 11:05 05/21/17 08:13 05/22/17 06:15 Red Blood Count 3.09 MIL/MM3 (4.00-5.30) 3.07 MIL/MM3 (4.00-5.30) 3.23 MIL/MM3 (4.00-5.30) Hemoglobin 9.7 GM/DL (11.6-15.3) 9.6 GM/DL (11.6-15.3) 10.3 GM/DL (11.6-15.3) Hematocrit 29.3 % (35.0-46.0) 28.8 % (35.0-46.0) 30.8 % (35.0-46.0) Neutrophils (%) (Auto) 76.1 % (16.0-70.0) 87.8 % (16.0-70.0) 93.4 % (16.0-70.0) Monocytes (%) (Auto) 10.9 % (0.0-8.0) Lymphocytes # (Auto) 0.7 TH/MM3 (1.0-4.8) 0.3 TH/MM3 (1.0-4.8) 0.3 TH/MM3 (1.0-4.8) Prothrombin Time 12.5 SEC (9.8-11.6) Blood Urea Nitrogen 55 MG/DL (7-18) 41 MG/DL (7-18) 33 MG/DL (7-18) Creatinine 10.72 MG/DL (0.50-1.00) 7.28 MG/DL (0.50-1.00) 5.37 MG/DL (0.50-1.00) Albumin 3.0 GM/DL (3.4-5.0) Magnesium Level 2.6 MG/DL (1.5-2.5) Potassium Level 5.8 MEQ/L (3.5-5.1) Estimat Glomerular Filtration Rate 4 ML/MIN (>89) 7 ML/MIN (>89) 10 ML/MIN (>89) Lymphocytes (%) (Auto) 6.5 % (9.0-44.0) 2.7 % (9.0-44.0) Tear Drop Cells 1+ (NORMAL) Ovalocytes 1+ (NORMAL) Random Glucose 189 MG/DL (74-106) 143 MG/DL (74-106) Sodium Level 134 MEQ/L (136-145) 134 MEQ/L (136-145) Chloride Level 93 MEQ/L (98-107) 92 MEQ/L (98-107) Neutrophils # (Auto) 9.1 TH/MM3 (1.8-7.7) Carbon Dioxide Level 32.4 MEQ/L (21.0-32.0) Imaging Last Impressions Chest X-Ray 05/20/17 1052 Signed Impressions: Service Date/Time: Saturday, May 20, 2017 11:41 - CONCLUSION: Chronic cardiac silhouette enlargement. No acute cardiopulmonary disease identified. Octaviano Irby MD PE at Discharge GENERAL: Well-nourished, well-developed patient in [facility]. SKIN: Warm and dry. No rash. RUE AV fistula with +thrill. HEENT: Normocephalic. Atraumatic.Pupils equal and round. Mucous membranes pink and moist. NECK: Supple. Trachea midline. CARDIOVASCULAR: Regular rate and rhythm. S1, S2 noted. No murmur appreciated. RESPIRATORY: No accessory muscle use. Breath sounds diminished at bilateral bases, some upper airway congestion noted, otherwise clear to auscultation. Breath sounds equal bilaterally. GASTROINTESTINAL: Abdomen soft, non-tender, nondistended. Normoactive bowel sounds x4. MUSCULOSKELETAL: No obvious deformities. Extremities without clubbing, cyanosis , or edema. NEUROLOGICAL: Awake and alert. No obvious cranial nerve deficits. Motor grossly within normal limits. Moves all extremities spontaneously. Normal speech. PSYCHIATRIC: Appropriate mood and affect; insight and judgment normal. Pt update on day of discharge Patient is currently doing well. No fever, chills. PT recommended a walker with seat which will be delivered to her house in the next day or so. Patient agrees with our discharge plan. Hospital Course 66-year-old female with past medical history of ESRD on hemodialysis MWF, COPD O2 dependent, hypertension, diabetes, states that she missed her dialysis on Sunday because she wasn't feeling good. States that she's been having cough and congestion and flulike symptoms over the past couple of days. Acute on Chronic Respiratory Failure: secondary to URI with COPD Exacerbation. O2 dependent at home. O2 sat 87% upon arrival. Suspect combination of COPD exacerbation with fluid overload secondary to missing dialysis. CXR images reviewed, shows no acute findings. Afebrile, no leukocytosis, however does meet sepsis criteria secondary to tachycardia HR 119, RR 22, and suspected source URI /bronchitis. -influenza negative -in light of productive cough w/sepsis, started antibiotics with IV Levaquin -continue duonebs q4h -continue steroids with IV Solumedrol 40mg q8h in patient. -continue O2, incentive spirometry. Patient has home O2. ESRD on HD MWF: patient missed dialysis Thursday 05/18 secondary to feeling ill. -consulted nephrology -patient received dialysis 05/20 and 05/21 -continue patient's phosphate binder Generalized Weakness: suspect secondary to infection as above. -consult PT - recommended C if walker with seat can be arranged. -case management consulted to arrange HHC Diabetes Mellitus: chronic, patient reports only requiring insulin while in the hospital. Expect blood glucose to be higher while on steroids -monitor Accu-checks and cover with SSI -check HgbA1c for baseline Hypertension: chronic, now with hypotension following dialysis -continue patient's labetalol with hold parameters -monitor BP, adjust antihypertensives as needed Chronic Pain: patient reports chronic back pain, on lortab at home prescribed by PCP Dr. Vieyra -continue lortab for now -patient requesting refill for lortab at discharge as she ran out recently and does not see her PCP until 05/31 - Will give [place] #20 - this should be enough until patient sees her PCP. DVT Prophylaxis: heparin sq Pt Condition on Discharge: Good Discharge Disposition: Disch w/ Home Health Serv Discharge Time: <= 30 minutes Discharge Instructions DIET: Follow Instructions for: Renal Failure Diet Activities you can perform: Regular-No Restrictions Follow up Referrals: PCP Follow-up - 1 Week New Medications: Levofloxacin (Levaquin) 750 Mg Tablet 750 MG PO EVERY OTHER DAY for Infection, #3 TAB 0 Refills START on 05/23/2017. Walker Rolling/GetGo (Walker Rolling/GetGo) 1 Mis Mis EA .XX DIRECTED, #1 Continued Medications: Hydrocodone-Acetaminophen (Hydrocodone-Acetaminophen) 10-325 mg Tab 1 TAB PO Q6H PRN for PAIN, #20 TAB 0 Refills (This prescription has been renewed ) Labetalol (Labetalol) 300 Mg Tab 300 MG PO TID for Blood Pressure Management, TAB 0 Refills Omeprazole (Omeprazole) 20 Mg Tab 20 MG PO DAILY, #30 TAB 0 Refills Sevelamer Carbonate (Renvela) 800 Mg Tab 800 MG PO TID for Control phosphorous levels, #90 TAB 0 Refills Kelsey Hicks DO May 22, 2017 16:46
== END 2017-05-22 18:00 | disposition home or self-care (01) ==
LOC: NEPC 10:31 → NEDA 13:14 → NEPHCDU 14:13
PROVIDERS: ADMIT Hospitalist; ATTEND Hospitalist
DX: J44.1 Chronic obstructive pulmonary disease with (acute) exacerbation (principal); J06.9 Acute upper respiratory infection, unspecified; E87.5 Hyperkalemia; N18.6 End stage renal disease; Z99.2 Dependence on renal dialysis; E11.22 Type 2 diabetes mellitus with diabetic chronic kidney disease; Z99.81 Dependence on supplemental oxygen; R00.1 Bradycardia, unspecified; F41.9 Anxiety disorder, unspecified; R11.0 Nausea; R09.02 Hypoxemia; R06.02 Shortness of breath; F17.200 Nicotine dependence, unspecified, uncomplicated; D64.9 Anemia, unspecified; I95.9 Hypotension, unspecified; G89.29 Other chronic pain; M54.9 Dorsalgia, unspecified; I50.9 Heart failure, unspecified; I13.2 Hypertensive heart and chronic kidney disease with heart failure and with stage 5 chronic kidney disease, or end stage renal disease; G47.00 Insomnia, unspecified; Z79.899 Other long term (current) drug therapy; R19.7 Diarrhea, unspecified; R94.31 Abnormal electrocardiogram [ECG] [EKG]; D63.1 Anemia in chronic kidney disease
CPT/HCPCS: 71045; 80048; 80053; 82948; 83036; 83605; 83735; 84100; 85025; 85610; 85730; 87040; 87804; 93005; 94150; 94640; 94664; 96365; 96372; 96374; 96375; 96376; 97162; 99285; G0257; G0378; G8987; G8988; J1644; J1815; J1956; J2920; J2930; Q4081; 90935

== ENCOUNTER 2017-06-20 12:04 | Inpatient (IN) | payer MEDICARE, OTHER ==
[~2017-06-20] VITALS: Ht 167.6 cm; Wt 66.3 kg
[2017-06-20] VITALS (8 sets, daily range): BP systolic 117–169; BP diastolic 69–83; PULSE 68–83; RESP 17–20; TEMP 97.6–97.9; O2SAT 94–99
[~2017-06-20 12:04] MED LIST changes: -ALBU8I INH; -CALC667C PO; -GABA100C4 PO; +GETGO ROLLING W1 MI1; +HYDR-3583 PO; -HYDR100T2 PO; -LABE100 PO; +LABE300T PO; -LEVA500T PO; +LEVA750T9 PO; -NIFE60TA5 PO; +OMEP20TA93 PO; -PERC5TAB12 PO; +SEVEL800 PO; -Z.0.OXYGENDME NC; -[UNRECOGNIZED DRUG - CODE] TOP
--- NOTE | 2017-06-20 13:02 | RADRPT ---
EXAM DATE/TIME: 06/20/2017 12:32 [place] COMPARISON: CHEST SINGLE AP, August 28, 2015, 21:19. CHEST SINGLE AP, May 20, 2017, 11: 41. INDICATIONS : Chest pain. MEDICAL HISTORY : Chronic obstructive pulmonary disease. Renal failure, chronic. Cardiac D isorder. Asthma. SURGICAL HISTORY : Pacemaker. ENCOUNTER: Initial ACUITY: 1 day PAIN SCORE: 3/10 LOCATION: Left upper chest FINDINGS: Portable AP view of the chest demonstrates mildly enlarged cardiac silhouette. Left chest wall cardia c pacing device remains present. There is right lower lung zone airspace consolidation with blunting of the right costophrenic sulcus. Prominent interstitial opacities are present bilaterally. No pneumo thorax is identified. Bones demonstrate no acute finding. CONCLUSION: Airspace consolidation at the right lung base with small right pleural effusion. This could represent an infectious process in the appropriate clinical setting. Aurelio Zayas MD on June 20, 2017 at 13:00 Board Certified Radiologist. This report was verified electronically.
[2017-06-20 13:26] LABS: AUTOMATED NEUTROPHIL # 6.2 TH/MM3 (1.8-7.7); BASOPHIL % 0.5 % (0.0-2.0); EOSINOPHIL # 0.1 TH/MM3 (0-0.4); EOSINOPHIL % 0.9 % (0.0-4.0); HEMATOCRIT 28.5 % (35.0-46.0); HEMOGLOBIN 9.3 GM/DL (11.6-15.3); LYMPH % 11.1 % (9.0-44.0); LYMPHOCYTE # 0.9 TH/MM3 (1.0-4.8); MEAN CELL VOLUME 92.4 FL (80.0-100.0); MEAN CORPUSCULAR HEMOGLOBIN 30.3 PG (27.0-34.0); MEAN CORPUSCULAR HGB CONC 32.8 % (32.0-36.0); MONO % 6.5 % (0.0-8.0); MONOCYTE # 0.5 TH/MM3 (0-0.9); PLATELET COUNT 298 TH/MM3 (150-450); RED BLOOD COUNT 3.08 MIL/MM3 (4.00-5.30); RED CELL DISTRIBUTION WIDTH 15.8 % (11.6-17.2); WHITE BLOOD COUNT 7.7 TH/MM3 (4.0-11.0)
--- NOTE | 2017-06-20 14:03 | PD ---
HPI Chief Complaint: Chest Pain Time Seen by Provider: 13:41 Travel History International Travel<30 days: No Contact w/Intl Traveler<30days: No Traveled to known affect area: No History of Present Illness HPI 66-year-old female with end-stage renal disease on hemodialysis, COPD, asthma, status post pacemaker presents emergency department with intermittent chest pain for about 3 days. Says the pain is located in the left midsternal border without radiation. Patient states that she was laying down at the onset and has been occurring about 5-10 minute intervals lasting 10 minutes and goes away on its own. She has multiple episodes of these a day. No palliative or provocative factors. States that she received nitroglycerin which decreased her pain from 9/10 to 0 /10. States that she was at dialysis today and she determined that she was tired of having this pain, decided to come to the emergency department. Patient states that she had 1 hour of dialysis left. Says that she is on constant 2-3 L/min nasal cannula at home. Has hemodialysis Sunday and Sunday. No family history of heart problems to include heart attacks or congestive heart failure. Patient states she does have a history of hypertension and is a previous history of tobacco use. Denies history of hyperlipidemia. PFSH Past Medical History Asthma: No Blood Disorders: No Heart Rhythm Problems: No Cancer: No Cardiovascular Problems: Yes (PACER) High Cholesterol: No Chest Pain: No Congestive Heart Failure: Yes COPD: Yes Dialysis: Yes (-W-) Diminished Hearing: No Endocrine: No Gastrointestinal Disorders: Yes (BLEEDING GASTRIC ULCER) Genitourinary: Yes (ESRD) Hypertension: Yes Immune Disorder: No Implanted Vascular Access Dvce: Yes Insomnia: Yes Musculoskeletal: No Neurologic: Yes (RIGHT LOWER ARM NEUROPATHY) Psychiatric: No Reproductive: Yes (PARTIAL HYSTERECTOMY) Respiratory: Yes Renal Failure: Yes Sleep Apnea: No Ulcer: Yes Tetanus Vaccination: < 5 Years Influenza Vaccination: Yes Past Surgical History Body Medical Devices: PACER Cardiac Surgery: Yes (PACEMAKER) Gynecologic Surgery: Yes Hysterectomy: Yes (PARTIAL) Pacemaker: Yes Other Surgery: Yes (AV FISTULA RIGHT UPPER ARM) Social History Alcohol Use: No Tobacco Use: No Substance Use: No Allergies-Medications (Allergen,Severity, Reaction): Coded Allergies: penicillin G (Verified Allergy, Intermediate, Hives, 06/20/17) Reported Meds & Prescriptions Reported Meds & Active Scripts Active Hydrocodone-Acetaminophen 10-325 mg Tab 1 Tab PO Q6H PRN Reported Renvela (Sevelamer Carbonate) 800 Mg Tab 800 Mg PO TID Omeprazole 20 Mg Tab 20 Mg PO DAILY Labetalol (Labetalol HCl) 300 Mg Tab 300 Mg PO TID Review of Systems Except as stated in HPI: all other systems reviewed are Neg Physical Exam Narrative GENERAL: Well developed, well-nourished in no apparent distress SKIN: Focused skin assessment warm/dry. HEAD: Atraumatic. Normocephalic. EYES: Pupils equal and round. No scleral icterus. No injection or drainage. ENT: No nasal bleeding or discharge. Mucous membranes pink and moist. NECK: Trachea midline. No JVD. No lymphadenopathy CARDIOVASCULAR: Regular rate and rhythm. No murmur appreciated. RESPIRATORY: No accessory muscle use. Clear to auscultation. Breath sounds equal bilaterally. GASTROINTESTINAL: Abdomen soft, non-tender, nondistended. Hepatic and splenic margins not palpable. MUSCULOSKELETAL: No obvious deformities. No clubbing. No cyanosis. No edema. Pacemaker in left midsternal region. No CVA tenderness NEUROLOGICAL: Awake and alert. No obvious cranial nerve deficits. Motor grossly within normal limits. Normal speech. PSYCHIATRIC: Appropriate mood and affect; insight and judgment normal. Data Data Last Documented VS Vital Signs Date Time Temp Pulse Resp B/P (MAP) Pulse Ox O2 Delivery O2 Flow Rate FiO2 06/20/17 15:12 77 18 169/83 (111) 97 Nasal Cannula 3.00 06/20/17 14:35 97.8 Orders Orders Electrocardiogram (06/20/17 12:12) Complete Blood Count With Diff (06/20/17 12:12) Basic Metabolic Panel (Bmp) (06/20/17 12:12) Ckmb (Isoenzyme) Profile (06/20/17 12:12) Troponin I (06/20/17 12:12) Chest, Single Ap (06/20/17 12:12) Iv Access Insert/Monitor (06/20/17 12:12) Ecg Monitoring (06/20/17 12:12) Oxygen Administration (06/20/17 12:12) Oximetry (06/20/17 12:12) Act Partial Throm Time (Ptt) (06/20/17 12:12) Prothrombin Time / Inr (Pt) (06/20/17 12:12) Levofloxacin 750 Mg Premix Inj (Levaquin (06/20/17 14:30) Acetamin-Hydrocod 325-7.5 Mg ([place] 7.5 (06/20/17 14:30) Diet Heart Healthy (06/20/17 Dinner) Admit Order (Ed Use Only) (06/20/17 16:47) Labs Laboratory Tests Test 06/20/17 13:00 06/20/17 13:30 White Blood Count 7.7 TH/MM3 Red Blood Count 3.08 MIL/MM3 Hemoglobin 9.3 GM/DL Hematocrit 28.5 % Mean Corpuscular Volume 92.4 FL Mean Corpuscular Hemoglobin 30.3 PG Mean Corpuscular Hemoglobin Concent 32.8 % Red Cell Distribution Width 15.8 % Platelet Count 298 TH/MM3 Mean Platelet Volume 8.0 FL Neutrophils (%) (Auto) 81.0 % Lymphocytes (%) (Auto) 11.1 % Monocytes (%) (Auto) 6.5 % Eosinophils (%) (Auto) 0.9 % Basophils (%) (Auto) 0.5 % Neutrophils # (Auto) 6.2 TH/MM3 Lymphocytes # (Auto) 0.9 TH/MM3 Monocytes # (Auto) 0.5 TH/MM3 Eosinophils # (Auto) 0.1 TH/MM3 Basophils # (Auto) 0.0 TH/MM3 CBC Comment AUTO DIFF Differential Total Cells Counted 100 Neutrophils % (Manual) 71 % Band Neutrophils % 2 % Lymphocytes % 12 % Monocytes % 11 % Neutrophils # (Manual) 5.9 TH/MM3 Myelocytes 4 % Differential Comment FINAL DIFF MANUAL Toxic Vacuolation PRESENT Platelet Estimate NORMAL Platelet Morphology Comment NORMAL Tear Drop Cells 1+ Ovalocytes 1+ Prothrombin Time 11.4 SEC Prothromb Time International Ratio 1.1 RATIO Activated Partial Thromboplast Time 26.4 SEC Blood Urea Nitrogen 10 MG/DL Creatinine 3.98 MG/DL Random Glucose 72 MG/DL Calcium Level 8.7 MG/DL Sodium Level 137 MEQ/L Potassium Level 3.6 MEQ/L Chloride Level 100 MEQ/L Carbon Dioxide Level 32.3 MEQ/L Anion Gap 5 MEQ/L Estimat Glomerular Filtration Rate 14 ML/MIN Total Creatine Kinase 56 U/L Troponin I 0.09 NG/ML MDM Medical Decision Making Medical Screen Exam Complete: Yes Emergency Medical Condition: Yes Differential Diagnosis STEMI, pneumonia, pleural effusion, PE, upper respiratory infection Narrative Course 66-year-old female with a complicated medical history presents to the emergency department from her dialysis center with a 3 day history of right midsternal chest pain without radiation that occurs in 5-10 minute intervals lasting 5 minutes then resolving without intervention. Patient denies nausea or vomiting. States she did not feel more short of breath than normal with these episodes. Patient was at the dialysis center and was having episode and decided that she went to come to the emergency department. Dialysis administered nitroglycerin and decreased her pain from 9/10-0/10. Patient has no prior history of heart attack or stroke. Vital signs stable although patient requires 4 L/min oxygen nasal cannula to remain at 97%. Her normal O2 administrations to 3 L/min. for a time. Last Impressions Chest X-Ray 06/20/17 1212 Signed Impressions: Service Date/Time: Tuesday, June 20, 2017 12:32 - CONCLUSION: Airspace consolidation at the right lung base with small right pleural effusion. This could represent an infectious process in the appropriate clinical setting. Aurelio Zayas MD There is a concern for developing pneumonia. Levaquin 750 mg administered IV. Patient does frequent the dialysis center so the concern for HCAP. There is a small pleural effusion as well which may require interventional radiology consult. Patient was in the emergency department an extended amount of time as initial labs required recollection and troponin not available for a time. Hydrocodone administered as she does have chronic pain. Her pain is located in the right arm near her AV fistula. Labs demonstrate no leukocytosis, chronic left shift of neutrophils, stable anemia. EGFR, creatinine stable. Note that patient had dialysis just prior to arrival today. Troponin 0.09. Note that patient is end-stage renal disease on hemodialysis. History and physical suggest pneumonia as a cause of her chest discomfort today. Patient should be admitted for pneumonia and pleural effusion studies associated with shortness of breath. She has required 4 L/min oxygen nasal cannula instead of her normal 2-3 L/min. Consider interventional radiology consult for her pleural effusion, serial chest x-rays. Diagnosis Primary Impression: Pleural effusion, right Additional Impressions: ESRD (end stage renal disease) on dialysis Pneumonia Qualified Codes: J18.1 - Lobar pneumonia, unspecified organism Admitting Information Admitting Physician Requests: Admit Condition: Stable Charlee Thompson Jun 20, 2017 14:03
[2017-06-20 14:04] LABS: BANDS 2 % (0-6); LYMPHOCYTES 12 % (9-44); MONOCYTES 11 % (0-8); MYELOCYTES 4 % (0-0); NEUTROPHIL # MANUAL DIFF 5.9 TH/MM3 (1.8-7.7); POLYS (SEG NEUTROPHILS) 71 % (16-70)
[2017-06-20 14:06] LABS: OVALOCYTES 1+ (NORMAL); TEARDROP RBCS 1+ (NORMAL); TOXIC VACUOLATION PRESENT (NONE SEEN)
[2017-06-20 14:20] LABS: BICARBONATE 32.3 MEQ/L (21.0-32.0); CALCIUM 8.7 MG/DL (8.5-10.1); CREATININE 3.98 MG/DL (0.50-1.00)
[2017-06-20] MEDS ORDERED: ACETAMINOPHEN/HYDROcodone 325 MG/7.5 MG TAB PO ONE (14:30)
[2017-06-20] MEDS ORDERED: LEVOFLOXACIN 750 MG PREMIX INJ 150 ML IV ONE (14:30)
[2017-06-20 15:29] LABS: INTERNATIONAL NORMALIZED RATIO 1.1 RATIO; PROTHROMBIN TIME - PATIENT 11.4 SEC (9.8-11.6)
[2017-06-20 16:14] LABS: TROPONIN I 0.09 NG/ML (0.02-0.05)
--- NOTE | 2017-06-20 16:51 | HHI.HP ---
HPI Service Family Medicine Primary Care Physician Krista Vieyra MD Admission Diagnosis Pleural effusion, PNA, hypoxia Diagnoses: International Travel<30 Days: No Contact w/Intl Traveler<30days: No Known Affected Area: No History of Present Illness Patient is 66-year-old female with past medical history of end-stage renal disease on HD, HTN, COPD and CHF presented to the ED from dialysis center with complaints of chest pain. Patient stated chest pain started a few days ago, described as nonradiating throbbing chest pain located on the left sternal border. She reports chest pain is intermittent in and occurs about 3-4 times a day and is worsened by deep inspiration. Patient reports cough productive of clear sputum for the past week. Patient also reports progressively worsening shortness of breath over the past 2 weeks. She is on home oxygen at 2 L.Denies nausea /vomiting. Endorses abdominal pain brought on by coughing. Review of Systems Constitutional: COMPLAINS OF: Chills (few days), Dizziness, DENIES: Fever, Weight loss, Change in appetite Eyes: COMPLAINS OF: Blurred vision (1 month ago), DENIES: Eye pain Ears, nose, mouth, throat: DENIES: Throat pain, Running Nose Respiratory: COMPLAINS OF: Cough, Wheezing, Sputum production, DENIES: Shortness of breath Cardiovascular: COMPLAINS OF: Chest pain, DENIES: Palpitations, Lower Extremity Edema Gastrointestinal: COMPLAINS OF: Abdominal pain (with cought), DENIES: Bloody stools, Diarrhea, Nausea, Vomiting Musculoskeletal: COMPLAINS OF: Joint pain (due arthritis, RIght hand) Integumentary: DENIES: Rash Hematologic/lymphatic: DENIES: Bruising Neurologic: COMPLAINS OF: Headache, Paresthesias, DENIES: Seizures Psychiatric: DENIES: Confusion Past Family Social History Past Medical History COPD and emphysema arthritis- Right hand ESRD, Dr. Ferro, HD: Sun, sun, sunday HTN CHF Past Surgical History pace maker, around 10 yrs ago ulcer stomach, 7 yrs ago fistula, 7 yr ago Allergies: Coded Allergies: penicillin G (Verified Allergy, Intermediate, Hives, 06/20/17) Family History sister- lung ca sister- breast ca mother- cardiac conditions Family hx of HTN Social History lives in [facility], [facility] Patient is able to care of herself. smoked 1/2 pack since [place] high, quit 3 months alcohol use, quit 4 yrs ago illicit drugs stopped using marijuana 3 months ago, denies any other illicit drugs Physical Exam Vital Signs Vital Signs Date Time Temp Pulse Resp B/P (MAP) Pulse Ox O2 Delivery O2 Flow Rate FiO2 06/20/17 15:12 77 18 169/83 (111) 97 Nasal Cannula 3.00 06/20/17 14:35 97.8 68 18 149/72 (97) 99 Nasal Cannula 2.00 06/20/17 13:30 97.8 74 17 157/75 (102) 95 Nasal Cannula 2.00 06/20/17 12:26 18 94 06/20/17 12:25 94 Nasal Cannula 2.00 06/20/17 12:24 97.6 79 18 117/69 (85) 94 Nasal Cannula 2.00 Physical Exam GENERAL: This is a well-nourished, well-developed patient, in no apparent distress. SKIN: No rashes, ecchymoses or lesions. Cool and dry. HEAD: Atraumatic. Normocephalic. No temporal or scalp tenderness. EYES: Pupils equal round and reactive. Extraocular motions intact. No scleral icterus. No injection or drainage. ENT: Nose without bleeding, purulent drainage or septal hematoma. Throat without erythema, tonsillar hypertrophy or exudate. Uvula midline. Airway patent. NECK: Trachea midline. No JVD or lymphadenopathy. Supple, nontender, no meningeal signs. CARDIOVASCULAR: Normal S1 and S2. Regular rate and rhythm without murmurs, gallops, or rubs. Chest pain reproducible upon palpation of left costal margin. RESPIRATORY: Clear to auscultation. Coarse breath sounds/ exp wheezing at bases. No rales, or rhonchi. GASTROINTESTINAL: Abdomen soft, tender to palpation on lower abdomen, nondistended. No hepato-splenomegaly, or palpable masses. No guarding. MUSCULOSKELETAL: Extremities without clubbing, cyanosis, or edema. No joint tenderness, effusion, or edema noted. No calf tenderness. Negative Homans sign bilaterally. +2 DP pulses BL. NEUROLOGICAL: Awake and alert. Cranial nerves II through XII intact. Motor and sensory grossly within normal limits. Five out of 5 muscle strength in all muscle groups. Normal speech. Laboratory Laboratory Tests Test 06/20/17 13:00 06/20/17 13:30 White Blood Count 7.7 Red Blood Count 3.08 Hemoglobin 9.3 Hematocrit 28.5 Mean Corpuscular Volume 92.4 Mean Corpuscular Hemoglobin 30.3 Mean Corpuscular Hemoglobin Concent 32.8 Red Cell Distribution Width 15.8 Platelet Count 298 Mean Platelet Volume 8.0 Neutrophils (%) (Auto) 81.0 Lymphocytes (%) (Auto) 11.1 Monocytes (%) (Auto) 6.5 Eosinophils (%) (Auto) 0.9 Basophils (%) (Auto) 0.5 Neutrophils # (Auto) 6.2 Lymphocytes # (Auto) 0.9 Monocytes # (Auto) 0.5 Eosinophils # (Auto) 0.1 Basophils # (Auto) 0.0 CBC Comment AUTO DIFF Differential Total Cells Counted 100 Neutrophils % (Manual) 71 Band Neutrophils % 2 Lymphocytes % 12 Monocytes % 11 Neutrophils # (Manual) 5.9 Myelocytes 4 Differential Comment FINAL DIFF MANUAL Toxic Vacuolation PRESENT Platelet Estimate NORMAL Platelet Morphology Comment NORMAL Tear Drop Cells 1+ Ovalocytes 1+ Prothrombin Time 11.4 Prothromb Time International Ratio 1.1 Activated Partial Thromboplast Time 26.4 Blood Urea Nitrogen 10 Creatinine 3.98 Random Glucose 72 Calcium Level 8.7 Sodium Level 137 Potassium Level 3.6 Chloride Level 100 Carbon Dioxide Level 32.3 Anion Gap 5 Estimat Glomerular Filtration Rate 14 Total Creatine Kinase 56 Troponin I 0.09 Result Diagram: 06/20/17 1300 06/20/17 1330 Imaging Last Impressions Chest X-Ray 06/20/17 1212 Signed Impressions: Service Date/Time: Tuesday, June 20, 2017 12:32 - CONCLUSION: Airspace consolidation at the right lung base with small right pleural effusion. This could represent an infectious process in the appropriate clinical setting. MD Bernard Gaonai VTE Risk Assessment Caprini VTE Risk Assessment: Mod/High Risk (score >= 2) Caprini Risk Assessment Model Point Value = 1 Point Value = 2 Point Value = 3 Point Value = 5 Age 41-60 Minor surgery BMI > 25 kg/m2 Swollen legs Varicose veins or History of unexplained or recurrent spontaneous Oral contraceptives or hormone replacement Sepsis (< 1 month) Serious lung disease, including pneumonia (< 1 month) Abnormal pulmonary function Acute myocardial infarction Congestive heart failure (< 1 month) History of inflammatory bowel disease Medical patient at bed rest Age 61-74 Arthroscopic surgery Major open surgery (> 45 min) Laparoscopic surgery (> 45 min) Malignancy Confined to bed (> 72 hours) Immobilizing plaster cast Central venous access Age >= 75 History of VTE Family history of VTE Factor V Leiden Prothrombin [id number] Lupus anticoagulant Anticardiolipin antibodies Elevated serum homocysteine Heparin-induced thrombocytopenia Other congenital or acquired thrombophilia Stroke (< 1 month) Elective arthroplasty Hip, pelvis, or leg fracture Acute spinal cord injury (< 1 month) Prophylaxis Regimen Total Risk Factor Score Risk Level Prophylaxis Regimen 0-1 Low Early ambulation 2 Moderate Order ONE of the following: *Sequential Compression Device (SCD) *Heparin 5000 units SQ BID 3-4 Higher Order ONE of the following medications: *Heparin 5000 units SQ TID *Enoxaparin/Lovenox 40 mg SQ daily (WT < 150 kg, CrCl > 30 mL/min) *Enoxaparin/Lovenox 30 mg SQ daily (WT < 150 kg, CrCl > 10-29 mL/min) *Enoxaparin/Lovenox 30 mg SQ BID (WT < 150 kg, CrCl > 30 mL/min) AND/OR *Sequential Compression Device (SCD) 5 or more Highest Order ONE of the following medications: *Heparin 5000 units SQ TID (Preferred with Epidurals) *Enoxaparin/Lovenox 40 mg SQ daily (WT < 150 kg, CrCl > 30 mL/min) *Enoxaparin/Lovenox 30 mg SQ daily (WT < 150 kg, CrCl > 10-29 mL/min) *Enoxaparin/Lovenox 30 mg SQ BID (WT < 150 kg, CrCl > 30 mL/min) AND *Sequential Compression Device (SCD) Assessment and Plan Assessment and Plan Patient is 66-year-old female with past medical history of end-stage renal disease on HD, HTN, COPD and CHF presented to the ED from dialysis center with complaints of chest pain. In the ED pt was found to have PNA. Pt admitted for treatment of PNA and w/u of chest pain. Code Status Full code Discussed Condition With SDW Dr. David GARCIAW Dr. [place] Problem List: (1) Chest pain ICD Codes: R07.9 - Chest pain, unspecified Status: Acute Plan: Patient with one-week history of cough, three-day history of pleuritic chest pain and worsening shortness of breath over the past month. Differential diagnoses include: PNA, CO, costochondritis Chest pain reproducible upon palpation of left costal margin. troponin 0.09-->0.10 Patient has ESRD, elevated troponin can be likely due to kidney failure f/u serial troponin and EKG f/u am labs see plan for PNA below (2) Pneumonia ICD Codes: J18.9 - Pneumonia, unspecified organism Status: Acute Plan: Afebrile, elevated BP, other VS WNL. No leukocytosis. Coarse expiratory wheezes at base noted on lung exam CXR: Airspace consolidation at the right lung base with small right pleural effusion. Possible infectious process. -Patient placed on aztreonam and Levofloxacin for treatment of PNA -Consider broadening antibiotic to vancomycin is patient clinically not improving or symptoms worsen -f/u am labs, legionella and pneumococcal urine ag -f/u sputum cx, blood cx (3) COPD (chronic obstructive pulmonary disease) ICD Codes: J44.9 - Chronic obstructive pulmonary disease, unspecified Status: Chronic Plan: -DuoNeb's Q6h -Albuterol neb Q2h PRN for SOB -Patient with O2 saturations of 97% on 3 L nasal cannula -plan to set up O2 walk test prior to discharge (4) HTN (hypertension) ICD Codes: I10 - Essential (primary) hypertension Status: Chronic Plan: Patient with elevated blood pressures, we'll continue to monitor Patient says she did not take any medication today -Continue with home medication: Labetalol 300mg po TID (5) ESRD (end stage renal disease) on dialysis ICD Codes: N18.6 - End stage renal disease; Z99.2 - Dependence on renal dialysis Status: Chronic Plan: Nephrology consulted, appreciate recommendations c/w in with hemodialysis Hemodialysis scheduled for: Sunday, Sunday, Sunday Patient stated she received 2 hours of hemodialysis today 06/20 -c/w Renvela po TID monitor electrolytes (6) Arthritis ICD Codes: M19.90 - Unspecified osteoarthritis, unspecified site Status: Chronic Plan: HTN with past medical history arthritis on right hand for which she stated she takes hydrocodone-acetaminophen 10/325 mg Q6h PRN -c/w hydrocodone-acetaminophen pain scale (7) Nutrition, metabolism, and development symptoms ICD Codes: R63.8 - Other symptoms and signs concerning food and fluid intake Plan: Fluids: per nephrology rec Electrolytes: replete as needed, continue to monitor Nutrition: Renal diet DVT ppx: heparin Sq Q12h Physician Certification 2 Midnight Certification Type: Admission for Inpatient Services Order for Inpatient Services The services are ordered in accordance with Medicare regulations or non- Medicare payer requirements, as applicable. In the case of services not specified as inpatient-only, they are appropriately provided as inpatient services in accordance with the 2-midnight benchmark. Estimated LOS (days): 3 days is the estimated time the patient will need to remain in the hospital, assuming treatment plan goals are met and no additional complications. Post-Hospital Plan: Not yet determined Problem Qualifiers (1) Pneumonia: Qualified Codes: J18.1 - Lobar pneumonia, unspecified organism Filiberto Ferreira MD, R1 Jun 20, 2017 16:51
[2017-06-20] MEDS ORDERED: ACETAMINOPHEN 325 MG TAB PO PRN ×2 (18:00→20:00)
[2017-06-20] MEDS ORDERED: ACETAMINOPHEN/HYDROcodone 325 MG/5 MG TAB PO PRN (18:00)
[2017-06-20] MEDS ORDERED: RESP: ALBUTEROL 2.5 MG/3 ML NEB (PRN) NEB (18:00)
[2017-06-20] MEDS ORDERED: NALOXONE HCL 0.4 MG/ML AMP IV PUSH PRN (18:00)
[2017-06-20] MEDS ORDERED: LACTULOSE SYRUP 20 GM/30 ML CUP PO PRN (18:00)
[2017-06-20] MEDS ORDERED: ONDANSETRON HCL 4 MG/2 ML VIAL IV PUSH PRN ×2 (18:00→20:00)
[2017-06-20] MEDS ORDERED: SODIUM CHLORIDE 0.9% FLUSH 10 ML FLUSH IV FLUSH PRN ×2 (18:00→19:45)
[2017-06-20] MEDS ORDERED: BISACODYL 10 MG SUPP RECTAL PRN (18:00)
[2017-06-20] MEDS ORDERED: SENNOSIDES 8.6 MG TAB PO PRN (18:00)
--- NOTE | 2017-06-20 18:41 | PD.CONS ---
HPI Service Nephrology Consult Requested By Reason for Consult ESRD Primary Care Physician Krista Vieyra MD History of Present Illness Patient is a 66-year-old female with history of end-stage renal disease, hypertension, COPD who had commented to the hospital after receiving her dialysis complaining of chest pain, patient has a past admission to this hospital for bronchitis she does smoke cigarettes in past last used last month now claimed to stop it, her dialysis days are Sunday, Sunday and Sunday done today cut short due to CP by 1 hr Review of Systems Constitutional: COMPLAINS OF: Fatigue Respiratory: COMPLAINS OF: Cough Cardiovascular: COMPLAINS OF: Chest pain Psychiatric: COMPLAINS OF: Anxiety Past Family Social History Allergies: Coded Allergies: penicillin G (Verified Allergy, Intermediate, Hives, 06/20/17) Past Medical History COPD and emphysema arthritis- Right hand ESRD,HD: Sunday and Sunday HTN CHF arthritis Rt hand Past Surgical History AV fistula Pacemaker Partial hysterectomy Reported Medications Reported Meds & Active Scripts Active Hydrocodone-Acetaminophen 10-325 mg Tab 1 Tab PO Q6H PRN Reported Renvela (Sevelamer Carbonate) 800 Mg Tab 800 Mg PO TID Omeprazole 20 Mg Tab 20 Mg PO DAILY Labetalol (Labetalol HCl) 300 Mg Tab 300 Mg PO TID Active Ordered Medications Current Medications Medications (Trade) Dose Ordered Sig/[place] Route Start Time Stop Time Status Last Admin (NS Flush) 2 ml UNSCH PRN IV FLUSH 06/20/17 18:00 (NS Flush) 2 ml BID IV FLUSH 06/20/17 21:00 Aztreonam 1000 mg/ Sodium Chloride 100 ml @ 200 mls/hr Q8H IV 06/20/17 20:00 Levofloxacin/ Dextrose 100 ml @ 100 mls/hr Q48H IV 06/22/17 14:00 (Duoneb Neb) 1 ampule Q6HR NEB INH 06/20/17 22:00 (Zofran Inj) 4 mg Q6H PRN IV PUSH 06/20/17 18:00 (Heparin Inj) 5,000 units Q12H SQ 06/20/17 18:00 (Tylenol) 650 mg Q6H PRN PO 06/20/17 18:00 ([place] 5-325 Mg) 1 tab Q4H PRN PO 2/28/18 18:00 ([place] 7.5-325 Mg) 1 tab Q4H PRN PO 06/20/17 18:00 (Narcan Inj) 0.4 mg UNSCH PRN IV PUSH 06/20/17 18:00 (Maria G-Colace) 1 tab BID PO 06/20/17 21:00 (Milk Of Magnesia Liq) 30 ml Q12H PRN PO 06/20/17 18:00 (Senokot) 17.2 mg Q12H PRN PO 06/20/17 18:00 (Dulcolax Supp) 10 mg DAILY PRN RECTAL 06/20/17 18:00 (Lactulose Liq) 30 ml DAILY PRN PO 06/20/17 18:00 (Albuterol Neb) 2.5 mg Q2HR NEB PRN NEB 06/20/17 18:00 (Trandate) 300 mg TID PO 06/20/17 18:00 UNV (Renvela) 800 mg TID PO 06/20/17 18:00 (Protonix) 20 mg DAILY PO 06/21/17 09:00 Family History Sister has cancer Social History History of smoking positive claimed stopped last month Physical Exam Vital Signs Vital Signs Date Time Temp Pulse Resp B/P (MAP) Pulse Ox O2 Delivery O2 Flow Rate FiO2 06/20/17 15:12 77 18 169/83 (111) 97 Nasal Cannula 3.00 06/20/17 14:35 97.8 68 18 149/72 (97) 99 Nasal Cannula 2.00 06/20/17 13:30 97.8 74 17 157/75 (102) 95 Nasal Cannula 2.00 06/20/17 12:26 18 94 06/20/17 12:25 94 Nasal Cannula 2.00 06/20/17 12:24 97.6 79 18 117/69 (85) 94 Nasal Cannula 2.00 Physical Exam GENERAL: Well-nourished, well-developed patient. SKIN: Warm and dry. HEAD: Normocephalic. EYES: No scleral icterus. No injection or drainage. NECK: Supple, trachea midline. No JVD or lymphadenopathy. CARDIOVASCULAR: Regular rate and rhythm without murmurs, gallops, or rubs. RESPIRATORY: Breath diminished at bases. GASTROINTESTINAL: Abdomen soft, non-tender, nondistended. EXTREMITIES: No cyanosis, or edema. NEUROLOGICAL: Awake, alert, and oriented x 3. Non-focal. Laboratory Laboratory Tests Test 06/20/17 13:00 06/20/17 13:30 06/20/17 18:18 White Blood Count 7.7 Red Blood Count 3.08 Hemoglobin 9.3 Hematocrit 28.5 Mean Corpuscular Volume 92.4 Mean Corpuscular Hemoglobin 30.3 Mean Corpuscular Hemoglobin Concent 32.8 Red Cell Distribution Width 15.8 Platelet Count 298 Mean Platelet Volume 8.0 Neutrophils (%) (Auto) 81.0 Lymphocytes (%) (Auto) 11.1 Monocytes (%) (Auto) 6.5 Eosinophils (%) (Auto) 0.9 Basophils (%) (Auto) 0.5 Neutrophils # (Auto) 6.2 Lymphocytes # (Auto) 0.9 Monocytes # (Auto) 0.5 Eosinophils # (Auto) 0.1 Basophils # (Auto) 0.0 CBC Comment AUTO DIFF Differential Total Cells Counted 100 Neutrophils % (Manual) 71 Band Neutrophils % 2 Lymphocytes % 12 Monocytes % 11 Neutrophils # (Manual) 5.9 Myelocytes 4 Differential Comment FINAL DIFF MANUAL Toxic Vacuolation PRESENT Platelet Estimate NORMAL Platelet Morphology Comment NORMAL Tear Drop Cells 1+ Ovalocytes 1+ Prothrombin Time 11.4 Prothromb Time International Ratio 1.1 Activated Partial Thromboplast Time 26.4 Blood Urea Nitrogen 10 Creatinine 3.98 Random Glucose 72 Calcium Level 8.7 Sodium Level 137 Potassium Level 3.6 Chloride Level 100 Carbon Dioxide Level 32.3 Anion Gap 5 Estimat Glomerular Filtration Rate 14 Total Creatine Kinase 56 Troponin I 0.09 Date/Time Source Procedure Growth Status 06/20/17 18:18 Blood Peripheral Aerobic Blood Culture Pending Received 06/20/17 18:18 Blood Peripheral Anaerobic Blood Culture Pending Received Result Diagram: 06/20/17 1300 06/20/17 1330 Imaging Last Impressions Chest X-Ray 06/20/17 1212 Signed Impressions: Service Date/Time: Tuesday, June 20, 2017 12:32 - CONCLUSION: Airspace consolidation at the right lung base with small right pleural effusion. This could represent an infectious process in the appropriate clinical setting. Aurelio Zayas MD Assessment and Plan Problem List: (1) ESRD (end stage renal disease) on dialysis ICD Codes: N18.6 - End stage renal disease; Z99.2 - Dependence on renal dialysis Status: Acute Plan: Hemodialysis on Sunday there is no acute need of dialysis she did receive her dialysis today she wants home O2 arranged as cannot operate her cylinder due to rt hand pain (2) Pleural effusion, right ICD Codes: J90 - Pleural effusion, not elsewhere classified Status: Acute Plan: Chronic (3) HTN (hypertension) ICD Codes: I10 - Essential (primary) hypertension Plan: Continue to monitor (4) COPD (chronic obstructive pulmonary disease) ICD Codes: J44.9 - Chronic obstructive pulmonary disease, unspecified Status: Acute Plan: Will monitor Lisa Ferro MD Jun 20, 2017 18:41
[2017-06-20] MEDS: SEVELAMER CARBONATE 800 MG TAB PO SCH (19:08)
[2017-06-20] MEDS: HEPARIN SODIUM - SQ 10,000 UNITS/ML VIAL SQ SCH (19:08)
[2017-06-20] MEDS ORDERED: SODIUM CHLOR 0.9% 1000 ML INJ 1,000 ML OTHER PRN ×2 (19:43→20:00)
[2017-06-20] MEDS ORDERED: HEPARIN SODIUM - IV 10,000 UNITS/10 ML VIAL IV FLUSH PRN (19:45)
[2017-06-20] MEDS ORDERED: diphenhydrAMINE HCL 25 MG CAP PO PRN (20:00)
[2017-06-20] MEDS ORDERED: SODIUM CHLOR 0.9% 1000 ML INJ 1,000 ML IV PRN (20:00)
[2017-06-20] MEDS ORDERED: MANNITOL 12.5 GM/50 ML VIAL IV PRN (20:00)
[2017-06-20] MEDS ORDERED: GELATIN 12 MM/7 MM FOAM TOP PRN (20:00)
[2017-06-20] MEDS ORDERED: EPOETIN ALFA 10,000 UNITS/ML VIAL IV PUSH PRN (20:00)
[2017-06-20] MEDS ORDERED: cloNIDine HCL 0.1 MG TAB PO PRN (20:00)
[2017-06-20] MEDS ORDERED: NITROGLYCERIN 0.4 MG SL 25 TABS/BTL SL PRN (20:00)
[2017-06-20] MEDS ORDERED: ALBUMIN 25% INJ 100 ML IV PRN (20:15)
[2017-06-20] MEDS: AZTREONAM INJ 1,000 MG in SODIUM CHLORIDE 0.9% INJ 100 ML IV SCH (21:54)
[2017-06-20] MEDS: ACETAMINOPHEN/HYDROcodone 325 MG/7.5 MG TAB PO PRN (21:54)
[2017-06-20] MEDS: DOCUSATE SODIUM 50 MG/SENNA 8.6 MG TAB PO SCH (21:54)
[2017-06-20] MEDS: SODIUM CHLORIDE 0.9% FLUSH 10 ML FLUSH IV FLUSH SCH (21:55)
[2017-06-20] MEDS: RESP: ALBUTEROL 2.5 MG/IPRATROPIUM 0.5 MG NEB (SCH) INH (22:00)
[2017-06-20] MEDS: LABETALOL HCL 300 MG TAB PO SCH (22:01)
[2017-06-21] VITALS (11 sets, daily range): BP systolic 82–104; BP diastolic 50–67; PULSE 60–99; RESP 17–20; TEMP 96–98.3; O2SAT 93–99
[2017-06-21] MEDS: ACETAMINOPHEN/HYDROcodone 325 MG/7.5 MG TAB PO PRN ×5 (02:02→22:37)
[2017-06-21 02:10] LABS: AUTOMATED NEUTROPHIL # 5.9 TH/MM3 (1.8-7.7); BASOPHIL % 0.6 % (0.0-2.0); EOSINOPHIL # 0.1 TH/MM3 (0-0.4); EOSINOPHIL % 1.2 % (0.0-4.0); HEMATOCRIT 26.6 % (35.0-46.0); HEMOGLOBIN 8.5 GM/DL (11.6-15.3); LYMPH % 5.4 % (9.0-44.0); LYMPHOCYTE # 0.4 TH/MM3 (1.0-4.8); MEAN CELL VOLUME 92.2 FL (80.0-100.0); MEAN CORPUSCULAR HEMOGLOBIN 29.6 PG (27.0-34.0); MEAN CORPUSCULAR HGB CONC 32.1 % (32.0-36.0); MEAN PLATELET VOLUME 7.8 FL (7.0-11.0); MONO % 5.9 % (0.0-8.0); MONOCYTE # 0.4 TH/MM3 (0-0.9); NEUT % 86.9 % (16.0-70.0); PLATELET COUNT 227 TH/MM3 (150-450); RED BLOOD COUNT 2.88 MIL/MM3 (4.00-5.30); RED CELL DISTRIBUTION WIDTH 15.4 % (11.6-17.2); WHITE BLOOD COUNT 6.7 TH/MM3 (4.0-11.0)
[2017-06-21 02:20] LABS: CREATININE 5.12 MG/DL (0.50-1.00)
[2017-06-21 02:31] LABS: TROPONIN I 0.08 NG/ML (0.02-0.05)
[2017-06-21] MEDS: RESP: ALBUTEROL 2.5 MG/IPRATROPIUM 0.5 MG NEB (SCH) INH ×3 (03:50→21:06)
[2017-06-21 03:54] LABS: BANDS 2 % (0-6); LYMPHOCYTES 2 % (9-44); METAMYELOCYTES 4 % (0-1); MONOCYTES 7 % (0-8); MYELOCYTES 3 % (0-0); POLYS (SEG NEUTROPHILS) 80 % (16-70); PROMYELOCYTES 1 % (0-0)
[2017-06-21 03:55] LABS: ACANTHOCYTES OCC (NORMAL)
[2017-06-21 03:56] LABS: OVALOCYTES 1+ (NORMAL)
[2017-06-21 03:57] LABS: POLYCHROMASIA 2.2 % (0.0-1.9)
[2017-06-21] MEDS: AZTREONAM INJ 1,000 MG in SODIUM CHLORIDE 0.9% INJ 100 ML IV SCH ×3 (05:19→21:47)
[2017-06-21] MEDS: HEPARIN SODIUM - SQ 10,000 UNITS/ML VIAL SQ SCH ×2 (05:23→18:41)
[2017-06-21] MEDS: DOCUSATE SODIUM 50 MG/SENNA 8.6 MG TAB PO SCH ×2 (10:05→21:46)
[2017-06-21] MEDS: LABETALOL HCL 300 MG TAB PO SCH ×3 (10:05→18:00)
[2017-06-21] MEDS: SEVELAMER CARBONATE 800 MG TAB PO SCH ×3 (10:05→18:41)
[2017-06-21] MEDS: PANTOPRAZOLE SOD 20 MG DELAYED RELEASE TAB PO SCH (10:05)
[2017-06-21] MEDS: SODIUM CHLORIDE 0.9% FLUSH 10 ML FLUSH IV FLUSH SCH ×2 (10:15→21:47)
--- NOTE | 2017-06-21 11:12 | EKG ---
Date Performed: 06/20/2017 Time Performed: 12:17:58 PTAGE: 66 years EKG: Sinus rhythm POSSIBLE LEFT ATRIAL ENLARGEMENT BORDERLINE LEFT AXIS DEVIATION POSSIBLE RIGHT VENTRICULAR CONDUCTIO N DELAY MODERATE T-WAVE ABNORMALITY, CONSIDER LATERAL ISCHEMIA MODERATE T-WAVE ABNORMALITY, CONSIDER INFERIOR ISCHEMIA ABNORMAL ECG INTERPRETATION BASED ON A DEFAULT AGE OF 40 YEARS PREVIOUS TRACING 05/20/17 10.58.46 When compared to prior EKG, prior EKG shows paced rhyt hm. DOCTOR: Urbano Cabrera Interpretating Date/Time 06/21/2017 11:09:36
--- NOTE | 2017-06-21 11:13 | EKG ---
Date Performed: 06/20/2017 Time Performed: 19:16:35 PTAGE: 66 years EKG: Sinus rhythm BORDERLINE LEFT AXIS DEVIATION INCOMPLETE RIGHT BUNDLE BRANCH BLOCK MODERATE T-WAVE ABNORMALITY, CON FUDGE CANDY MAKER ANTEROLATERAL ISCHEMIA MODERATE T-WAVE ABNORMALITY, CONSIDER INFERIOR ISCHEMIA ABNORMAL ECG PREVIOUS TRACING 06/20/17 Since the prior tracing, there has been no significant change DOCTOR: Urbano Cabrera Interpretating Date/Time 06/21/2017 11:10:29
--- NOTE | 2017-06-21 11:25 | RADRPT ---
EXAM DATE/TIME: 06/21/2017 10:37 [facility] COMPARISON: CHEST SINGLE AP, June 20, 2017, 12:32. INDICATIONS : Pleural effusion RADIATION DOSE: 6.61 CTDIvol (mGy) MEDICAL HISTORY : Congestive hearrt failure. Hypertension. Chronic obstructive pulmonary disease. SURGICAL HISTORY : Pacemaker. ENCOUNTER: Initial ACUITY: 2 months PAIN SCALE: 0/10 LOCATION: chest TECHNIQUE: Volumetric scanning of the chest was performed. Using automated exposure control and adjustment of t he mA and/or kV according to patient size, radiation dose was kept as low as reasonably achievable to obtain optimal diagnostic quality images. DICOM format image data is available electronically for r eview and comparison. Follow-up recommendations for detected pulmonary nodules are based at a minimum on nodule size and pa tient risk factors according to Fleischner Society Guidelines. FINDINGS: LUNGS: Diffuse interstitial parenchymal opacity most consistent with edema. Mild basilar atelectasis. PLEURAE: Moderate right pleural effusion MEDIASTINUM: The heart and great vessels demonstrate no acute abnormality. Mild cardiac enlargement. There is no mediastinal or hilar lymphadenopathy. Atherosclerotic calcifications, including within the coronaries . AXILLAE: Within normal limits. No lymphadenopathy. MUSCULOSKELETAL: Within normal limits for patient age. MISCELLANEOUS: The visualized upper abdominal organs demonstrate no acute abnormality. CONCLUSION: Diffuse interstitial parenchymal opacity which is presumably edema. Moderate right effusion. Aurelio Greer MD on June 21, 2017 at 11:21 Board Certified Radiologist. This report was verified electronically.
--- NOTE | 2017-06-21 12:26 | HHI.FPPN ---
Subjective Remarks Patient seen and examined at bedside this morning. No acute events overnight. Patient stated that her chest pain and shortness of breath have improved. Last bowel movement was yesterday morning. Denies fevers, chills or recent weight loss. Patient endorses night sweats that have been occurring chronically her. (Filiberto Edwards MD, R1) Objective Vitals Vital Signs Date Time Temp Pulse Resp B/P (MAP) Pulse Ox O2 Delivery O2 Flow Rate FiO2 06/21/17 08:02 95 Nasal Cannula 4.00 06/21/17 08:00 62 20 104/65 (78) 99 06/21/17 08:00 69 06/21/17 04:00 96.0 62 20 90/64 (73) 96 06/21/17 04:00 63 06/21/17 03:51 95 Nasal Cannula 4.00 06/21/17 00:00 98.3 73 20 88/50 (63) 93 06/20/17 20:55 95 Nasal Cannula 4.00 06/20/17 19:45 97.9 83 20 151/69 (96) 99 06/20/17 19:43 06/20/17 19:08 71 18 163/69 (100) 98 Room Air 06/20/17 15:12 77 18 169/83 (111) 97 Nasal Cannula 3.00 06/20/17 14:35 97.8 68 18 149/72 (97) 99 Nasal Cannula 2.00 06/20/17 13:30 97.8 74 17 157/75 (102) 95 Nasal Cannula 2.00 06/20/17 12:26 18 94 06/20/17 12:25 94 Nasal Cannula 2.00 06/20/17 12:24 97.6 79 18 117/69 (85) 94 Nasal Cannula 2.00 I/O 06/20/17 06/20/17 06/20/17 06/21/17 06/21/17 06/21/17 07:00 15:00 23:00 07:00 15:00 23:00 Intake Total 150 ml 240 ml Balance 150 ml 240 ml Intake Oral 240 ml IV Total 150 ml # Voids 0 # Bowel Movements 0 (Filiberto Edwards MD, R1) Result Diagram: 06/21/17 0146 06/21/17 0146 Imaging Last Impressions Chest CT 06/21/17 0000 Signed Impressions: Service Date/Time: June 10:37 - CONCLUSION: Diffuse interstitial parenchymal opacity which is presumably edema. Moderate right effusion. Aurelio Greer MD Chest X-Ray 06/20/17 1212 Signed Impressions: Service Date/Time: Tuesday, June 20, 2017 12:32 - CONCLUSION: Airspace consolidation at the right lung base with small right pleural effusion. This could represent an infectious process in the appropriate clinical setting. Aurelio Zayas MD Objective Remarks GENERAL: This is a well-nourished, well-developed patient, in no apparent distress. SKIN: No rashes, ecchymoses or lesions. Cool and dry. HEAD: Atraumatic. Normocephalic. No temporal or scalp tenderness. EYES: Pupils equal round and reactive. Extraocular motions intact. No scleral icterus. No injection or drainage. CARDIOVASCULAR: Normal S1 and S2. Regular rate and rhythm without murmurs, gallops, or rubs. Chest pain reproducible upon palpation of left costal margin. RESPIRATORY: Clear to auscultation. Coarse breath sounds/ exp wheezing at bases. No rales, or rhonchi. GASTROINTESTINAL: Abdomen soft, tender to palpation on lower abdomen, nondistended. No hepato-splenomegaly, or palpable masses. No guarding. MUSCULOSKELETAL: Extremities without clubbing, cyanosis, or edema. No joint tenderness, effusion, or edema noted. No calf tenderness. Negative Homans sign bilaterally. +2 DP pulses BL. NEUROLOGICAL: Awake and alert. Cranial nerves II through XII intact. Motor and sensory grossly within normal limits. Five out of 5 muscle strength in all muscle groups. Normal speech. (Filiberto Edwards MD, R1) A/P Assessment and Plan Patient is 66-year-old female with past medical history of end-stage renal disease on HD, HTN, COPD and CHF presented to the ED from dialysis center with complaints of chest pain. In the ED pt was found to have PNA. Pt admitted for treatment of PNA and w/u of chest pain. (Filiberto Edwards MD, R1) Attending Attestation THIS CASE WAS DISCUSSED WITH THE RESIDENT PHYSICIANS DR DE LEON>DR MOJICA AND DR EDWARDS.PATIENT WAS SEEN AND EXAMINED. I HAVE REVIEWED THE RECORD AND AGREE WITH THE ABOVE NOTE AND PLAN OF CARE WAS DISCUSSED. I HAVE AUTHORIZED THE ORDER FOR ADMISSION TO AN IN-PATIENT STATUS. (Charly Orona MD) Problem List: (1) Chest pain ICD Codes: R07.9 - Chest pain, unspecified Status: Acute Plan: Patient with one-week history of cough, three-day history of pleuritic chest pain and worsening shortness of breath over the past month. Differential diagnoses include: PNA, HI, costochondritis Chest pain reproducible upon palpation of left costal margin. troponin 0.09-->0.10-->0.08 Patient has ESRD, elevated troponin can be likely due to kidney failure EKG: Borderline left axis deviation and incomplete right bundle branch block moderate T-wave abnormalities. No change since prior tracing. see plan for PNA below (2) Pneumonia ICD Codes: J18.9 - Pneumonia, unspecified organism Status: Acute Plan: Afebrile, elevated BP, other VS WNL. No leukocytosis. Coarse expiratory wheezes at base noted on lung exam CXR: Airspace consolidation at the right lung base with small right pleural effusion. Possible infectious process. -Patient placed on aztreonam and Levofloxacin for treatment of PNA -Consider broadening antibiotic to vancomycin is patient clinically not improving or symptoms worsen -f/u sputum cx, CT chest blood cx no growth 1 day (3) COPD (chronic obstructive pulmonary disease) ICD Codes: J44.9 - Chronic obstructive pulmonary disease, unspecified Status: Chronic Plan: -DuoNeb's Q6h -Albuterol neb Q2h PRN for SOB -Patient with O2 saturations of 96% on 4 L nasal cannula -plan to set up O2 walk test prior to discharge (4) HTN (hypertension) ICD Codes: I10 - Essential (primary) hypertension Status: Chronic Plan: Patient with elevated blood pressures, will continue to monitor Patient says she did not take any medication today -Continue with home medication: Labetalol 300mg po TID (5) ESRD (end stage renal disease) on dialysis ICD Codes: N18.6 - End stage renal disease; Z99.2 - Dependence on renal dialysis Status: Chronic Plan: Nephrology consulted, appreciate recommendations c/w in with hemodialysis Hemodialysis scheduled for: Sunday, Sunday, Sunday -c/w Renvela po TID monitor electrolytes (6) Arthritis ICD Codes: M19.90 - Unspecified osteoarthritis, unspecified site Status: Chronic Plan: HTN with past medical history arthritis on right hand for which she stated she takes hydrocodone-acetaminophen 10/325 mg Q6h PRN -c/w hydrocodone-acetaminophen pain scale (7) Nutrition, metabolism, and development symptoms ICD Codes: R63.8 - Other symptoms and signs concerning food and fluid intake Plan: Fluids: per nephrology rec Electrolytes: replete as needed, continue to monitor Nutrition: Renal diet DVT ppx: heparin Sq Q12h (Filiberto Edwards MD, R1) Problem Qualifiers (1) Pneumonia: Qualified Codes: J18.1 - Lobar pneumonia, unspecified organism Filiberto Edwards MD, R1 Jun 21, 2017 12:26 Charly Orona MD Jun 22, 2017 14:12
--- NOTE | 2017-06-21 17:09 | HHI.NPPN ---
Subjective History of Present Illness 66 year old with ESRD, CP, Sob Objective Data Data Vital Signs Date Time Temp Pulse Resp B/P (MAP) Pulse Ox O2 Delivery O2 Flow Rate FiO2 06/21/17 16:06 3.00 06/21/17 08:02 95 Nasal Cannula 4.00 06/21/17 08:00 62 20 104/65 (78) 99 06/21/17 08:00 69 06/21/17 04:00 96.0 62 20 90/64 (73) 96 06/21/17 04:00 63 06/21/17 03:51 95 Nasal Cannula 4.00 06/21/17 00:00 98.3 73 20 88/50 (63) 93 06/20/17 20:55 95 Nasal Cannula 4.00 06/20/17 19:45 97.9 83 20 151/69 (96) 99 06/20/17 19:43 06/20/17 19:08 71 18 163/69 (100) 98 Room Air -: 06/21/17 0146 06/21/17 0146 Microbiology 06/20/17 Aerobic Blood Culture - Preliminary, Resulted NO GROWTH IN 1 DAY 06/20/17 Anaerobic Blood Culture - Preliminary, Resulted NO GROWTH IN 1 DAY 06/20/17 Aerobic Blood Culture - Preliminary, Resulted NO GROWTH IN 1 DAY 06/20/17 Anaerobic Blood Culture - Preliminary, Resulted NO GROWTH IN 1 DAY Physical Exam General Appearance: Well Developed Neck Neck Exam: Neck Supple Pulmonary Resp Exam: Decreased Bases Cardiology CV Exam: Regular Gastrointestinal/Abdomen GI Exam: Soft, Bowel Sounds Present Extremeties Extremities Exam: No Edema Neurologic Neuro Exam: Alert, Awake Assessment/Plan Problem List: (1) ESRD (end stage renal disease) on dialysis ICD Codes: N18.6 - End stage renal disease; Z99.2 - Dependence on renal dialysis Status: Chronic Plan: Hemodialysis on Sunday next HD in am follow BMP (2) Pleural effusion, right ICD Codes: J90 - Pleural effusion, not elsewhere classified Status: Acute Plan: Chronic (3) HTN (hypertension) ICD Codes: I10 - Essential (primary) hypertension Status: Chronic Plan: Continue to monitor (4) COPD (chronic obstructive pulmonary disease) ICD Codes: J44.9 - Chronic obstructive pulmonary disease, unspecified Status: Chronic Plan: improved Lisa Ferro MD Jun 21, 2017 17:09
[2017-06-22] VITALS (10 sets, daily range): BP systolic 91–110; BP diastolic 49–60; PULSE 62–81; RESP 18–20; TEMP 97–98.4; O2SAT 93–99
[2017-06-22] MEDS: RESP: ALBUTEROL 2.5 MG/IPRATROPIUM 0.5 MG NEB (SCH) INH ×4 (02:40→21:07)
[2017-06-22] MEDS: ACETAMINOPHEN/HYDROcodone 325 MG/7.5 MG TAB PO PRN ×3 (03:33→17:14)
[2017-06-22] MEDS: AZTREONAM INJ 1,000 MG in SODIUM CHLORIDE 0.9% INJ 100 ML IV SCH ×3 (03:33→20:46)
[2017-06-22] MEDS: HEPARIN SODIUM - SQ 10,000 UNITS/ML VIAL SQ SCH ×2 (05:26→17:18)
[2017-06-22] MEDS: DOCUSATE SODIUM 50 MG/SENNA 8.6 MG TAB PO SCH ×2 (09:00→20:46)
[2017-06-22] MEDS: SODIUM CHLORIDE 0.9% FLUSH 10 ML FLUSH IV FLUSH SCH ×2 (09:00→20:46)
[2017-06-22] MEDS: PANTOPRAZOLE SOD 20 MG DELAYED RELEASE TAB PO SCH (09:00)
[2017-06-22] MEDS: LABETALOL HCL 300 MG TAB PO SCH ×3 (09:00→18:00)
[2017-06-22] MEDS: SEVELAMER CARBONATE 800 MG TAB PO SCH ×3 (09:00→17:15)
--- NOTE | 2017-06-22 10:04 | HHI.NPPN ---
Subjective History of Present Illness 66 year old with ESRD, CP, Sob Objective Data Data Vital Signs Date Time Temp Pulse Resp B/P (MAP) Pulse Ox O2 Delivery O2 Flow Rate FiO2 06/22/17 07:00 Nasal Cannula 2.00 06/22/17 04:00 97.0 68 18 93/57 (69) 98 06/22/17 03:46 75 06/22/17 00:00 97.4 76 18 105/60 (75) 98 06/21/17 23:41 67 06/21/17 21:07 95 Nasal Cannula 3.00 06/21/17 20:00 98.0 71 17 82/52 (62) 96 06/21/17 19:41 99 06/21/17 16:06 3.00 06/21/17 16:00 84 06/21/17 16:00 97.8 69 20 102/58 (73) 95 06/21/17 12:00 97.2 60 20 101/67 (78) 06/21/17 12:00 62 -: 06/21/17 0146 06/21/17 0146 Physical Exam General Appearance: Well Developed Neck Neck Exam: Neck Supple Pulmonary Resp Exam: Decreased Bases Cardiology CV Exam: Regular Gastrointestinal/Abdomen GI Exam: Soft, Bowel Sounds Present Extremeties Extremities Exam: No Edema Neurologic Neuro Exam: Alert, Awake Assessment/Plan Problem List: (1) ESRD (end stage renal disease) on dialysis ICD Codes: N18.6 - End stage renal disease; Z99.2 - Dependence on renal dialysis Status: Chronic Plan: Hemodialysis on Sunday HD seen during treatment BP low UF 1 L continue with treatment of COPD/Pneumonia Aztreonam/Levaquin follow BMP (2) Pleural effusion, right ICD Codes: J90 - Pleural effusion, not elsewhere classified Status: Acute Plan: Chronic (3) HTN (hypertension) ICD Codes: I10 - Essential (primary) hypertension Status: Chronic Plan: Continue to monitor (4) COPD (chronic obstructive pulmonary disease) ICD Codes: J44.9 - Chronic obstructive pulmonary disease, unspecified Status: Chronic Plan: improved Lisa Ferro MD Jun 22, 2017 10:04
[2017-06-22] MEDS ORDERED: BENZONATATE 100 MG CAP PO PRN (11:15)
--- NOTE | 2017-06-22 12:07 | EKG ---
Date Performed: 06/21/2017 Time Performed: 02:28:04 PTAGE: 66 years EKG: A paced rhythm Left axis deviation RBBB with left anterior fascicular block Extensive infar ct - age undetermined Tall T waves - consider acute ischemia or hyperkalemia Abnormal ECG PREVIOUS TRACING : 06/20/2017 19.16 When compared to prior EKG, the patient is now paced. DOCTOR: Jaky Adam Interpretating Date/Time 06/22/2017 12:06:59
--- NOTE | 2017-06-22 13:39 | HHI.FPPN ---
Subjective Remarks Patient seen this morning while in dialysis. No acute events overnight. States her breathing is stable. Continued cough, however not very productive. Denies any fever/chills, dizziness, chest pain, leg pain. Objective Vitals Vital Signs Date Time Temp Pulse Resp B/P (MAP) Pulse Ox O2 Delivery O2 Flow Rate FiO2 06/22/17 08:00 97.9 81 20 110/59 (76) 93 06/22/17 08:00 63 06/22/17 07:00 Nasal Cannula 2.00 06/22/17 04:00 97.0 68 18 93/57 (69) 98 06/22/17 03:46 75 06/22/17 00:00 97.4 76 18 105/60 (75) 98 06/21/17 23:41 67 06/21/17 21:07 95 Nasal Cannula 3.00 06/21/17 20:00 98.0 71 17 82/52 (62) 96 06/21/17 19:41 99 06/21/17 16:06 3.00 06/21/17 16:00 84 06/21/17 16:00 97.8 69 20 102/58 (73) 95 I/O 06/21/17 06/21/17 06/21/17 06/22/17 06/22/17 06/22/17 07:00 15:00 23:00 07:00 15:00 23:00 Intake Total 240 ml 480 ml 300 ml Output Total 0 ml 1000 ml Balance 240 ml 480 ml 300 ml -1000 ml Intake Oral 240 ml 480 ml 300 ml Output Urine Total 0 ml Hemodialysis 1000 ml # Voids 0 0 # Bowel Movements 0 0 0 Result Diagram: 06/21/17 0146 06/21/17 0146 Imaging Last Impressions Chest CT 06/21/17 0000 Signed Impressions: Service Date/Time: June 10:37 - CONCLUSION: Diffuse interstitial parenchymal opacity which is presumably edema. Moderate right effusion. Aurelio Greer MD Chest X-Ray 06/20/17 1212 Signed Impressions: Service Date/Time: Tuesday, June 20, 2017 12:32 - CONCLUSION: Airspace consolidation at the right lung base with small right pleural effusion. This could represent an infectious process in the appropriate clinical setting. Aurelio Zayas MD Objective Remarks GENERAL: This is a well-nourished, well-developed patient, in no apparent distress. CARDIOVASCULAR: Normal S1 and S2. Regular rate and rhythm without murmurs, gallops, or rubs. RESPIRATORY: Clear to auscultation. Coarse breath sounds/ exp wheezing at bases. No rales, or rhonchi. GASTROINTESTINAL: Abdomen soft, tender to palpation on lower abdomen, nondistended. MUSCULOSKELETAL: Extremities without clubbing, cyanosis, or edema. +2 DP pulses BL. NEUROLOGICAL: Awake and alert. Motor and sensory grossly within normal limits.Normal speech. A/P Assessment and Plan Patient is 66-year-old female with past medical history of end-stage renal disease on HD, HTN, COPD and CHF presented to the ED from dialysis center with complaints of chest pain. In the ED pt was found to have PNA. Pt admitted for treatment of PNA and w/u of chest pain. Discharge Planning Pending clinical improvement Problem List: (1) Pneumonia ICD Codes: J18.9 - Pneumonia, unspecified organism Status: Acute Plan: Coarse expiratory wheezes at base noted on lung exam CXR: Airspace consolidation at the right lung base with small right pleural effusion. Possible infectious process. CT chest: Diffuse interstitial parenchymal opacity, presumably edema. Moderate right effusion. -Continue aztreonam and Levofloxacin for treatment of PNA -Sputum culture pending -Blood cx NGTD -[facility] [place] (2) Chest pain ICD Codes: R07.9 - Chest pain, unspecified Status: Acute Plan: Patient with one-week history of cough, three-day history of pleuritic chest pain and worsening shortness of breath over the past month. Improved. Likely due to PNA, costochondritis Chest pain reproducible upon palpation of left costal margin. troponin 0.09-->0.10-->0.08 Patient has ESRD, elevated troponin can be likely due to kidney failure EKG: Borderline left axis deviation and incomplete right bundle branch block moderate T-wave abnormalities. No change since prior tracing. see plan for PNA below (3) COPD (chronic obstructive pulmonary disease) ICD Codes: J44.9 - Chronic obstructive pulmonary disease, unspecified Status: Chronic Plan: -DuoNeb's Q6h -Albuterol neb Q2h PRN for SOB -Patient with O2 saturations of 96% on 4 L nasal cannula -plan to set up O2 walk test prior to discharge (4) HTN (hypertension) ICD Codes: I10 - Essential (primary) hypertension Status: Chronic Plan: Patient with elevated blood pressures, will continue to monitor -Continue with home medication: Labetalol 300mg po TID (5) ESRD (end stage renal disease) on dialysis ICD Codes: N18.6 - End stage renal disease; Z99.2 - Dependence on renal dialysis Status: Chronic Plan: Nephrology consulted, appreciate recommendations c/w in with hemodialysis Hemodialysis scheduled for: Sunday, Sunday, Sunday -c/w Renvela po TID monitor electrolytes (6) Arthritis ICD Codes: M19.90 - Unspecified osteoarthritis, unspecified site Status: Chronic Plan: HTN with past medical history arthritis on right hand for which she stated she takes hydrocodone-acetaminophen 10/325 mg Q6h PRN -c/w hydrocodone-acetaminophen (7) Nutrition, metabolism, and development symptoms ICD Codes: R63.8 - Other symptoms and signs concerning food and fluid intake Plan: Fluids: per nephrology rec Electrolytes: replete as needed, continue to monitor Nutrition: Renal diet DVT ppx: heparin Sq Q12h Problem Qualifiers (1) Pneumonia: Qualified Codes: J18.1 - Lobar pneumonia, unspecified organism Mariusz Hernandez MD Jun 22, 2017 13:39
[2017-06-22] MEDS: LEVOFLOXACIN 500 MG PREMIX INJ 100 ML IV SCH (14:14)
[2017-06-22] MEDS ORDERED: ACETAMINOPHEN/HYDROcodone 325 MG/10 MG TAB PO ONE (21:15)
[2017-06-23] VITALS (11 sets, daily range): BP systolic 101–124; BP diastolic 53–59; PULSE 62–91; RESP 18–20; TEMP 97.3–98.2; O2SAT 94–98
[2017-06-23] MEDS: ACETAMINOPHEN/HYDROcodone 325 MG/7.5 MG TAB PO PRN ×2 (01:39→06:20)
[2017-06-23] MEDS: RESP: ALBUTEROL 2.5 MG/IPRATROPIUM 0.5 MG NEB (SCH) INH ×4 (03:13→20:55)
[2017-06-23] MEDS: AZTREONAM INJ 1,000 MG in SODIUM CHLORIDE 0.9% INJ 100 ML IV SCH ×3 (06:20→20:46)
[2017-06-23] MEDS: HEPARIN SODIUM - SQ 10,000 UNITS/ML VIAL SQ SCH ×2 (06:20→18:42)
[2017-06-23 08:50] LABS: AUTOMATED NEUTROPHIL # 3.2 TH/MM3 (1.8-7.7); EOSINOPHIL # 0.1 TH/MM3 (0-0.4); EOSINOPHIL % 2.5 % (0.0-4.0); HEMATOCRIT 25.8 % (35.0-46.0); HEMOGLOBIN 8.4 GM/DL (11.6-15.3); LYMPHOCYTE # 0.6 TH/MM3 (1.0-4.8); MEAN CELL VOLUME 93.7 FL (80.0-100.0); MEAN CORPUSCULAR HEMOGLOBIN 30.6 PG (27.0-34.0); MEAN CORPUSCULAR HGB CONC 32.6 % (32.0-36.0); MEAN PLATELET VOLUME 8.2 FL (7.0-11.0); MONO % 9.2 % (0.0-8.0); MONOCYTE # 0.4 TH/MM3 (0-0.9); NEUT % 74.3 % (16.0-70.0); PLATELET COUNT 208 TH/MM3 (150-450); RED BLOOD COUNT 2.75 MIL/MM3 (4.00-5.30); RED CELL DISTRIBUTION WIDTH 15.5 % (11.6-17.2); WHITE BLOOD COUNT 4.3 TH/MM3 (4.0-11.0)
[2017-06-23] MEDS: LABETALOL HCL 300 MG TAB PO SCH ×3 (09:00→18:41)
[2017-06-23] MEDS: SEVELAMER CARBONATE 800 MG TAB PO SCH ×3 (09:00→18:41)
[2017-06-23 09:04] LABS: BICARBONATE 30.6 MEQ/L (21.0-32.0); CALCIUM 9.1 MG/DL (8.5-10.1); CREATININE 5.02 MG/DL (0.50-1.00)
[2017-06-23] MEDS: PANTOPRAZOLE SOD 20 MG DELAYED RELEASE TAB PO SCH (09:19)
[2017-06-23] MEDS: DOCUSATE SODIUM 50 MG/SENNA 8.6 MG TAB PO SCH ×2 (09:19→20:45)
[2017-06-23] MEDS: SODIUM CHLORIDE 0.9% FLUSH 10 ML FLUSH IV FLUSH SCH ×2 (09:20→20:46)
[2017-06-23 09:45] LABS: BANDS 3 % (0-6); CORRECTED NUCLEATED RBC 1 /100 WBC (0-0); LYMPHOCYTES 5 % (9-44); METAMYELOCYTES 2 % (0-1); MONOCYTES 5 % (0-8); MYELOCYTES 2 % (0-0); NEUTROPHIL # MANUAL DIFF 3.7 TH/MM3 (1.8-7.7); NUCLEATED RED BLOOD CELL 1 (0-0); POLYS (SEG NEUTROPHILS) 78 % (16-70)
[2017-06-23 09:46] LABS: OVALOCYTES 1+ (NORMAL); TOXIC VACUOLATION PRESENT (NONE SEEN)
--- NOTE | 2017-06-23 11:23 | HHI.FPPN ---
Subjective Remarks Patient seen and examined at bedside this morning. No acute events overnight. Patient stated that cough is stable and shortness of breath is improved. Denies any chest pain, nausea vomiting, or abdominal pain. Patient complains of arthritic pain on her hands worse on the right is not well controlled with the current medication of Lortab 7.5mg, she is used to Lortab 10 to control her pain , states pain is 10 / 10. Patient also reports that she is unable to use her right hand due to arthritic pain. Patient will also not be interested in rehabilitation as was recommended by physical therapy, she would be okay with at home physical therapy. She also will like help acquiring an O2 concentrator she stated she is not able to use her oxygen tank into to her arthritis in her hands. Objective Vitals Vital Signs Date Time Temp Pulse Resp B/P (MAP) Pulse Ox O2 Delivery O2 Flow Rate FiO2 06/23/17 08:00 97.4 67 18 101/57 (72) 98 06/23/17 04:00 98.1 91 18 119/59 (79) 98 06/23/17 03:48 66 06/23/17 03:14 97 Nasal Cannula 2.00 06/23/17 00:57 98.0 90 20 102/53 (69) 97 06/23/17 00:00 Nasal Cannula 3.00 06/22/17 23:55 69 06/22/17 20:03 79 06/22/17 20:00 98.4 62 20 106/59 (75) 99 06/22/17 20:00 Nasal Cannula 3.00 06/22/17 16:00 70 06/22/17 16:00 98.1 67 20 93/50 (64) 96 06/22/17 15:28 96 Nasal Cannula 2.00 06/22/17 12:00 98.0 64 20 91/49 (63) 97 I/O 06/22/17 06/22/17 06/22/17 06/23/17 06/23/17 06/23/17 07:00 15:00 23:00 07:00 15:00 23:00 Intake Total 300 ml 820 ml Output Total 0 ml 1000 ml Balance 300 ml -1000 ml 820 ml Intake Oral 300 ml 720 ml IV Total 100 ml Output Urine Total 0 ml Hemodialysis 1000 ml # Voids 0 0 # Bowel Movements 0 1 Result Diagram: 06/23/17 0731 06/23/17 0731 Imaging Last Impressions Chest CT 06/21/17 0000 Signed Impressions: Service Date/Time: June 10:37 - CONCLUSION: Diffuse interstitial parenchymal opacity which is presumably edema. Moderate right effusion. Aurelio Greer MD Chest X-Ray 06/20/17 1212 Signed Impressions: Service Date/Time: Tuesday, June 20, 2017 12:32 - CONCLUSION: Airspace consolidation at the right lung base with small right pleural effusion. This could represent an infectious process in the appropriate clinical setting. Aurelio Zayas MD Objective Remarks GENERAL: This is a well-nourished, well-developed patient, sitting up in bed, in no apparent distress. CARDIOVASCULAR: Normal S1 and S2. Regular rate and rhythm without murmurs, gallops, or rubs. chest pain upon palpation of left costal margin, but improved per pt. RESPIRATORY: Clear to auscultation. Coarse breath sounds/ exp wheezing at bases. No rales, or rhonchi. GASTROINTESTINAL: Abdomen soft, tender to palpation on injection site of SQ heparin, nondistended. MUSCULOSKELETAL: Extremities without clubbing, cyanosis, or edema. +2 DP pulses BL. NEUROLOGICAL: Awake and alert. Motor and sensory grossly within normal limits.Normal speech. Limited range of motion on hands BL, worse on Right hand. A/P Assessment and Plan Patient is 66-year-old female with past medical history of end-stage renal disease on HD, HTN, COPD and CHF presented to the ED from dialysis center with complaints of chest pain. In the ED pt was found to have PNA. Pt admitted for treatment of PNA and w/u of chest pain. Discharge Planning Pending clinical improvement Problem List: (1) Pneumonia ICD Codes: J18.9 - Pneumonia, unspecified organism Status: Acute Plan: Coarse expiratory wheezes at base noted on lung exam CXR: Airspace consolidation at the right lung base with small right pleural effusion. Possible infectious process. CT chest: Diffuse interstitial parenchymal opacity, presumably edema. Moderate right effusion. Patient Afebrile -Continue aztreonam and Levofloxacin for treatment of PNA -Sputum culture pending -Blood cx NGTD -[facility] [place] (2) Chest pain ICD Codes: R07.9 - Chest pain, unspecified Status: Acute Plan: Patient with one-week history of cough, three-day history of pleuritic chest pain and worsening shortness of breath over the past month. No active CP. Improved. Likely due to PNA, costochondritis Chest pain reproducible upon palpation of left costal margin, but improved from admission. troponin 0.09-->0.10-->0.08 Patient has ESRD, elevated troponin can be likely due to kidney failure EKG: Borderline left axis deviation and incomplete right bundle branch block moderate T-wave abnormalities. No change since prior tracing. see plan for PNA below (3) COPD (chronic obstructive pulmonary disease) ICD Codes: J44.9 - Chronic obstructive pulmonary disease, unspecified Status: Chronic Plan: -DuoNeb's Q6h -Albuterol neb Q2h PRN for SOB -SOB improved. Patient with O2 saturations of 98% on 3 L nasal cannula - O2 walk test ordered -CM consulted to assist patient with obtaining O2 concentrator (4) HTN (hypertension) ICD Codes: I10 - Essential (primary) hypertension Status: Chronic Plan: BP range 90-100s/50s , will continue to monitor -Continue with home medication: Labetalol 300mg po TID (5) ESRD (end stage renal disease) on dialysis ICD Codes: N18.6 - End stage renal disease; Z99.2 - Dependence on renal dialysis Status: Chronic Plan: Nephrology consulted, appreciate recommendations c/w in with hemodialysis Hemodialysis scheduled for: Sunday, Sunday, Sunday -c/w Renvela po TID monitor electrolytes (6) Arthritis ICD Codes: M19.90 - Unspecified osteoarthritis, unspecified site Status: Chronic Plan: HTN with past medical history arthritis on right hand for which she stated she takes hydrocodone-acetaminophen 10/325 mg PRN -c/w hydrocodone-acetaminophen increased to 10mg (7) Nutrition, metabolism, and development symptoms ICD Codes: R63.8 - Other symptoms and signs concerning food and fluid intake Plan: Fluids: per nephrology rec Electrolytes: replete as needed, continue to monitor Nutrition: Renal diet DVT ppx: heparin Sq Q12h Problem Qualifiers (1) Pneumonia: Qualified Codes: J18.1 - Lobar pneumonia, unspecified organism Filiberto Ferreira MD, R1 Jun 23, 2017 11:23
[2017-06-23] MEDS: ACETAMINOPHEN/HYDROcodone 325 MG/10 MG TAB PO PRN ×3 (13:52→23:21)
[2017-06-23] MEDS: MAGNESIUM HYDROXIDE SUSP 30 ML CUP PO PRN (18:41)
[2017-06-24] VITALS (13 sets, daily range): BP systolic 83–125; BP diastolic 52–66; PULSE 63–85; RESP 14–19; TEMP 97.4–98.1; O2SAT 93–100
[2017-06-24] MEDS: ACETAMINOPHEN/HYDROcodone 325 MG/10 MG TAB PO PRN ×5 (03:22→23:03)
[2017-06-24] MEDS: AZTREONAM INJ 1,000 MG in SODIUM CHLORIDE 0.9% INJ 100 ML IV SCH ×3 (03:22→20:53)
[2017-06-24] MEDS: RESP: ALBUTEROL 2.5 MG/IPRATROPIUM 0.5 MG NEB (SCH) INH ×4 (03:52→20:34)
[2017-06-24] MEDS: HEPARIN SODIUM - SQ 10,000 UNITS/ML VIAL SQ SCH ×2 (06:25→19:01)
[2017-06-24] MEDS: LABETALOL HCL 300 MG TAB PO SCH ×3 (08:53→18:00)
[2017-06-24] MEDS: DOCUSATE SODIUM 50 MG/SENNA 8.6 MG TAB PO SCH ×2 (08:53→20:53)
[2017-06-24] MEDS: SEVELAMER CARBONATE 800 MG TAB PO SCH ×3 (08:53→19:01)
[2017-06-24] MEDS: PANTOPRAZOLE SOD 20 MG DELAYED RELEASE TAB PO SCH (08:53)
[2017-06-24] MEDS: SODIUM CHLORIDE 0.9% FLUSH 10 ML FLUSH IV FLUSH SCH ×2 (08:54→20:54)
--- NOTE | 2017-06-24 11:39 | HHI.FPPN ---
Subjective Remarks Pt. seen and examined; discussed with the medicine team. Pt. complains of pain in her hands from severe arthritis. she states she is unable to turn on her oxygen and needs to use a concentrator. Per CM, the Oxygen has been delivered to her home as of 06-23-17. She is agreeable to going to dialysis tomorrow, then home thereafter. Objective Vitals Vital Signs Date Time Temp Pulse Resp B/P (MAP) Pulse Ox O2 Delivery O2 Flow Rate FiO2 06/24/17 09:22 97 Nasal Cannula 3.00 06/24/17 08:00 97.5 69 18 125/66 (85) 98 06/24/17 04:00 96 Nasal Cannula 2.00 06/24/17 04:00 69 06/24/17 04:00 97.4 63 19 102/54 (70) 100 06/24/17 04:00 Nasal Cannula 3.00 06/24/17 00:38 71 06/24/17 00:00 Nasal Cannula 3.00 06/24/17 00:00 97.4 65 18 100/57 (71) 97 06/23/17 20:14 73 06/23/17 20:00 97.7 62 20 109/59 (76) 94 06/23/17 20:00 Nasal Cannula 3.00 06/23/17 16:00 98.2 69 18 124/59 (80) 97 06/23/17 16:00 Nasal Cannula 3.00 06/23/17 15:42 66 06/23/17 14:25 Nasal Cannula 2.00 06/23/17 12:00 Nasal Cannula 3.00 06/23/17 12:00 97.3 69 18 108/56 (73) 96 06/23/17 11:47 69 I/O 06/23/17 06/23/17 06/23/17 06/24/17 06/24/17 06/24/17 07:00 15:00 23:00 07:00 15:00 23:00 Intake Total 580 ml 500 ml Output Total 0 ml Balance 580 ml 500 ml Intake Oral 480 ml 400 ml IV Total 100 ml 100 ml Output Urine Total 0 ml # Voids 0 4 # Bowel Movements 2 Result Diagram: 06/23/1773006/23/17 0731 Objective Remarks GENERAL: This is a well-nourished, well-developed patient, sitting up in bed, in no apparent distress. CARDIOVASCULAR: Normal S1 and S2. Regular rate and rhythm without murmurs, gallops, or rubs. chest pain upon palpation of left costal margin, but improved per pt. RESPIRATORY: Clear to auscultation. Coarse breath sounds/ exp wheezing at bases. No rales, or rhonchi. GASTROINTESTINAL: Abdomen soft, tender to palpation on injection site of SQ heparin, nondistended. MUSCULOSKELETAL: Extremities without clubbing, cyanosis, or edema. +2 DP pulses BL. NEUROLOGICAL: Awake and alert. Motor and sensory grossly within normal limits.Normal speech. Limited range of motion on hands BL, worse on Right hand. I agree with these findings as per my own exam today. A/P Assessment and Plan Patient is 66-year-old female with past medical history of end-stage renal disease on HD, HTN, COPD and CHF presented to the ED from dialysis center with complaints of chest pain. In the ED pt was found to have PNA. Pt admitted for treatment of PNA and w/u of chest pain. Discharge Planning Pending clinical improvement Attending Attestation Patient seen and examined. Case reviewed and discussed with the resident team. Agree with plan of care as discussed with me and documented in the resident note. Problem List: (1) Pneumonia ICD Codes: J18.9 - Pneumonia, unspecified organism Status: Acute Plan: Coarse expiratory wheezes at base noted on lung exam CXR: Airspace consolidation at the right lung base with small right pleural effusion. Possible infectious process. CT chest: Diffuse interstitial parenchymal opacity, presumably edema. Moderate right effusion. Patient Afebrile -Continue aztreonam and Levofloxacin for treatment of PNA -Sputum culture pending -Blood cx NGTD -[facility] [place] (2) Chest pain ICD Codes: R07.9 - Chest pain, unspecified Status: Acute Plan: Patient with one-week history of cough, three-day history of pleuritic chest pain and worsening shortness of breath over the past month. No active CP. Improved. Likely due to PNA, costochondritis Chest pain reproducible upon palpation of left costal margin, but improved from admission. troponin 0.09-->0.10-->0.08 Patient has ESRD, elevated troponin can be likely due to kidney failure EKG: Borderline left axis deviation and incomplete right bundle branch block moderate T-wave abnormalities. No change since prior tracing. see plan for PNA below (3) COPD (chronic obstructive pulmonary disease) ICD Codes: J44.9 - Chronic obstructive pulmonary disease, unspecified Status: Chronic Plan: -DuoNeb's Q6h -Albuterol neb Q2h PRN for SOB -SOB improved. Patient with O2 saturations of 98% on 3 L nasal cannula - O2 walk test ordered -CM consulted to assist patient with obtaining O2 concentrator (4) HTN (hypertension) ICD Codes: I10 - Essential (primary) hypertension Status: Chronic Plan: BP range 90-100s/50s , will continue to monitor -Continue with home medication: Labetalol 300mg po TID (5) ESRD (end stage renal disease) on dialysis ICD Codes: N18.6 - End stage renal disease; Z99.2 - Dependence on renal dialysis Status: Chronic Plan: Nephrology consulted, appreciate recommendations c/w in with hemodialysis Hemodialysis scheduled for: Sunday, Sunday, Sunday -c/w Renvela po TID monitor electrolytes (6) Arthritis ICD Codes: M19.90 - Unspecified osteoarthritis, unspecified site Status: Chronic Plan: HTN with past medical history arthritis on right hand for which she stated she takes hydrocodone-acetaminophen 10/325 mg PRN -c/w hydrocodone-acetaminophen increased to 10mg (7) Nutrition, metabolism, and development symptoms ICD Codes: R63.8 - Other symptoms and signs concerning food and fluid intake Plan: Fluids: per nephrology rec Electrolytes: replete as needed, continue to monitor Nutrition: Renal diet DVT ppx: heparin Sq Q12h Problem Qualifiers (1) Pneumonia: Qualified Codes: J18.1 - Lobar pneumonia, unspecified organism Love White MD Jun 24, 2017 11:39
[2017-06-24] MEDS: LEVOFLOXACIN 500 MG PREMIX INJ 100 ML IV SCH (12:57)
[2017-06-24 17:00] LABS: HEMATOCRIT 28.2 % (35.0-46.0); HEMOGLOBIN 9.1 GM/DL (11.6-15.3); MEAN CELL VOLUME 93.4 FL (80.0-100.0); MEAN CORPUSCULAR HEMOGLOBIN 30.1 PG (27.0-34.0); MEAN CORPUSCULAR HGB CONC 32.3 % (32.0-36.0); MEAN PLATELET VOLUME 8.3 FL (7.0-11.0); PLATELET COUNT 202 TH/MM3 (150-450); RED BLOOD COUNT 3.02 MIL/MM3 (4.00-5.30); RED CELL DISTRIBUTION WIDTH 15.5 % (11.6-17.2)
[2017-06-24 17:20] LABS: BICARBONATE 27.4 MEQ/L (21.0-32.0); CALCIUM 9.3 MG/DL (8.5-10.1); CREATININE 7.15 MG/DL (0.50-1.00)
[2017-06-25] VITALS (7 sets, daily range): BP systolic 95–106; BP diastolic 52–60; PULSE 70–84; RESP 16–18; TEMP 97.6–98.7; O2SAT 92–97
[2017-06-25] MEDS: AZTREONAM INJ 1,000 MG in SODIUM CHLORIDE 0.9% INJ 100 ML IV SCH ×2 (03:02→12:00)
[2017-06-25] MEDS: ACETAMINOPHEN/HYDROcodone 325 MG/10 MG TAB PO PRN ×3 (03:02→14:40)
[2017-06-25] MEDS: MAGNESIUM HYDROXIDE SUSP 30 ML CUP PO PRN (03:07)
[2017-06-25 06:08] LABS: AUTOMATED NEUTROPHIL # 5.1 TH/MM3 (1.8-7.7); BASOPHIL # 0.1 TH/MM3 (0-0.2); BASOPHIL % 1.3 % (0.0-2.0); EOSINOPHIL # 0.1 TH/MM3 (0-0.4); EOSINOPHIL % 1.2 % (0.0-4.0); HEMATOCRIT 25.4 % (35.0-46.0); HEMOGLOBIN 8.2 GM/DL (11.6-15.3); LYMPH % 9.3 % (9.0-44.0); LYMPHOCYTE # 0.6 TH/MM3 (1.0-4.8); MEAN CELL VOLUME 93.2 FL (80.0-100.0); MEAN CORPUSCULAR HGB CONC 32.2 % (32.0-36.0); MEAN PLATELET VOLUME 8.7 FL (7.0-11.0); MONO % 7.7 % (0.0-8.0); MONOCYTE # 0.5 TH/MM3 (0-0.9); NEUT % 80.5 % (16.0-70.0); PLATELET COUNT 192 TH/MM3 (150-450); RED BLOOD COUNT 2.73 MIL/MM3 (4.00-5.30); RED CELL DISTRIBUTION WIDTH 15.9 % (11.6-17.2); WHITE BLOOD COUNT 6.3 TH/MM3 (4.0-11.0)
[2017-06-25 06:26] LABS: BICARBONATE 24.7 MEQ/L (21.0-32.0); CALCIUM 9.2 MG/DL (8.5-10.1); CREATININE 7.58 MG/DL (0.50-1.00)
[2017-06-25] MEDS: HEPARIN SODIUM - SQ 10,000 UNITS/ML VIAL SQ SCH (06:45)
[2017-06-25 07:17] LABS: OVALOCYTES 1+ (NORMAL)
[2017-06-25] MEDS: SODIUM CHLORIDE 0.9% FLUSH 10 ML FLUSH IV FLUSH SCH (09:00)
[2017-06-25] MEDS: DOCUSATE SODIUM 50 MG/SENNA 8.6 MG TAB PO SCH (09:08)
[2017-06-25] MEDS: LABETALOL HCL 300 MG TAB PO SCH ×2 (09:08→13:00)
[2017-06-25] MEDS: PANTOPRAZOLE SOD 20 MG DELAYED RELEASE TAB PO SCH (09:08)
[2017-06-25] MEDS: SEVELAMER CARBONATE 800 MG TAB PO SCH ×2 (09:08→13:00)
[2017-06-25] MEDS ORDERED: HYDR-3583 PO (10:33)
--- NOTE | 2017-06-25 10:53 | HHI.NPPN ---
Subjective History of Present Illness 66 year old with ESRD, CP, Sob Objective Data Data Vital Signs Date Time Temp Pulse Resp B/P (MAP) Pulse Ox O2 Delivery O2 Flow Rate FiO2 06/25/17 09:40 95 Nasal Cannula 2.00 06/25/17 08:00 97.6 75 18 106/52 (70) 92 06/25/17 04:02 70 06/25/17 04:00 Nasal Cannula 3.00 06/25/17 04:00 98.5 74 16 95/57 (70) 96 06/25/17 00:15 84 06/25/17 00:00 Nasal Cannula 3.00 06/25/17 00:00 98.7 80 16 106/60 (75) 97 06/24/17 20:34 96 Nasal Cannula 2.00 06/24/17 20:00 98.1 75 14 107/52 (70) 98 06/24/17 20:00 Nasal Cannula 3.00 06/24/17 19:45 75 06/24/17 16:09 76 06/24/17 16:00 97.8 80 18 83/57 (66) 93 06/24/17 16:00 Nasal Cannula 3.00 06/24/17 12:07 66 06/24/17 12:00 98.1 85 18 110/61 (77) 96 06/24/17 12:00 Nasal Cannula 3.00 -: 06/25/17 0433 06/25/17 0433 Physical Exam General Appearance: Well Developed Neck Neck Exam: Neck Supple Pulmonary Resp Exam: Decreased Bases Cardiology CV Exam: Regular Gastrointestinal/Abdomen GI Exam: Soft, Bowel Sounds Present Extremeties Extremities Exam: No Edema Neurologic Neuro Exam: Alert, Awake Assessment/Plan Problem List: (1) ESRD (end stage renal disease) on dialysis ICD Codes: N18.6 - End stage renal disease; Z99.2 - Dependence on renal dialysis Status: Chronic Plan: Hemodialysis on Sunday HD seen during treatment BP low UF 1 L continue with treatment of COPD/Pneumonia Aztreonam/Levaquin follow BMP if dc follow as out pt (2) Pleural effusion, right ICD Codes: J90 - Pleural effusion, not elsewhere classified Status: Acute Plan: Chronic (3) HTN (hypertension) ICD Codes: I10 - Essential (primary) hypertension Status: Chronic Plan: Continue to monitor (4) COPD (chronic obstructive pulmonary disease) ICD Codes: J44.9 - Chronic obstructive pulmonary disease, unspecified Status: Chronic Plan: improved Lisa eFrro MD Jun 25, 2017 10:53
--- NOTE | 2017-06-25 11:25 | HHI.FPPN ---
Subjective Remarks Patient seen and examined this morning. Temperature 97.6, pulse 75, respiratory rate 18, blood pressure 106/52, pulse ox 95 on 2 L nasal cannula. She was seen while she was receiving dialysis. Per nephrology she is clear for discharge upon receiving the dialysis. Her home oxygen has been set up as well as home health/PT. She is looking forward to getting out of the hospital. She has no major complaints today. (Slava Jones MD, R3) Objective Vitals Vital Signs Date Time Temp Pulse Resp B/P (MAP) Pulse Ox O2 Delivery O2 Flow Rate FiO2 06/25/17 09:40 95 Nasal Cannula 2.00 06/25/17 08:00 97.6 75 18 106/52 (70) 92 06/25/17 07:00 Nasal Cannula 3.00 06/25/17 04:02 70 06/25/17 04:00 Nasal Cannula 3.00 06/25/17 04:00 98.5 74 16 95/57 (70) 96 06/25/17 00:15 84 06/25/17 00:00 Nasal Cannula 3.00 06/25/17 00:00 98.7 80 16 106/60 (75) 97 06/24/17 20:34 96 Nasal Cannula 2.00 06/24/17 20:00 98.1 75 14 107/52 (70) 98 06/24/17 20:00 Nasal Cannula 3.00 06/24/17 19:45 75 06/24/17 16:09 76 06/24/17 16:00 97.8 80 18 83/57 (66) 93 06/24/17 16:00 Nasal Cannula 3.00 06/24/17 12:07 66 06/24/17 12:00 98.1 85 18 110/61 (77) 96 06/24/17 12:00 Nasal Cannula 3.00 I/O 06/24/17 06/24/17 06/24/17 06/25/17 06/25/17 06/25/17 07:00 15:00 23:00 07:00 15:00 23:00 Intake Total 500 ml 580 ml Output Total 0 ml Balance 500 ml 580 ml Intake Oral 400 ml 480 ml IV Total 100 ml 100 ml Output Urine Total 0 ml # Voids 4 # Bowel Movements 2 1 (Slava Jones MD, R3) Result Diagram: 06/25/17 0433 06/25/17 0433 Imaging Last Impressions Chest CT 06/21/17 0000 Signed Impressions: Service Date/Time: June 10:37 - CONCLUSION: Diffuse interstitial parenchymal opacity which is presumably edema. Moderate right effusion. Aurelio Greer MD Chest X-Ray 06/20/17 1212 Signed Impressions: Service Date/Time: Tuesday, June 20, 2017 12:32 - CONCLUSION: Airspace consolidation at the right lung base with small right pleural effusion. This could represent an infectious process in the appropriate clinical setting. Aurelio Zayas MD Objective Remarks GENERAL: This is a well-nourished, well-developed patient, lying in bed, receiving dialysis, in no apparent distress. CARDIOVASCULAR: Normal S1 and S2. Regular rate and rhythm without murmurs, gallops, or rubs. chest pain upon palpation of left costal margin, but improved per pt. RESPIRATORY: Clear to auscultation. Coarse breath sounds/ exp wheezing at bases. No rales, or rhonchi. GASTROINTESTINAL: Abdomen soft, tender to palpation on injection site of SQ heparin, nondistended. MUSCULOSKELETAL: Extremities without clubbing, cyanosis, or edema. +2 DP pulses BL. NEUROLOGICAL: Awake and alert. Motor and sensory grossly within normal limits.Normal speech. Limited range of motion on hands BL, worse on Right hand. Medications and IVs Current Medications Medications (Trade) Dose Ordered Sig/Quinton Route Start Time Stop Time Status Last Admin (NS Flush) 2 ml UNSCH PRN IV FLUSH 06/20/17 18:00 (NS Flush) 2 ml BID IV FLUSH 06/20/17 21:00 06/25/17 09:00 Aztreonam 1000 mg/ Sodium Chloride 100 ml @ 200 mls/hr Q8H IV 06/20/17 20:00 06/25/17 03:02 Levofloxacin/ Dextrose 100 ml @ 100 mls/hr Q48H IV 06/22/17 14:00 06/24/17 12:57 (Zofran Inj) 4 mg Q6H PRN IV PUSH 06/20/17 18:00 (Heparin Inj) 5,000 units Q12H SQ 06/20/17 18:00 06/25/17 06:45 (Tylenol) 650 mg Q6H PRN PO 06/20/17 18:00 (Narcan Inj) 0.4 mg UNSCH PRN IV PUSH 06/20/17 18:00 (Maria G-Colace) 1 tab BID PO 06/20/17 21:00 06/25/17 09:08 (Milk Of Magnesia Liq) 30 ml Q12H PRN PO 06/20/17 18:00 06/25/17 03:07 (Senokot) 17.2 mg Q12H PRN PO 06/20/17 18:00 (Dulcolax Supp) 10 mg DAILY PRN RECTAL 06/20/17 18:00 (Lactulose Liq) 30 ml DAILY PRN PO 06/20/17 18:00 06/23/17 20:46 (Albuterol Neb) 2.5 mg Q2HR NEB PRN NEB 06/20/17 18:00 06/23/17 14:24 (Trandate) 300 mg TID PO 06/20/17 18:00 06/25/17 09:08 (Renvela) 800 mg TID PO 06/20/17 18:00 06/25/17 09:08 (Protonix) 20 mg DAILY PO 06/21/17 09:00 06/25/17 09:08 Sodium Chloride 1,000 ml @ 0 mls/hr Q0M PRN OTHER 06/20/17 19:43 (Heparin Inj) 8,000 units UNSCH PRN IV FLUSH 06/20/17 19:45 Sodium Chloride 1,000 ml @ 200 mls/hr Q5H PRN IV 06/20/17 20:00 Sodium Chloride 1,000 ml @ 0 mls/hr Q0M PRN OTHER 06/20/17 20:00 (Mannitol Inj) 12.5 gm UNSCH PRN IV 06/20/17 20:00 Albumin Human 100 ml @ 60 mls/hr UNSCH PRN IV 06/20/17 20:15 (NS Flush) 5 ml UNSCH PRN IV FLUSH 06/20/17 19:45 (Zofran Inj) 4 mg UNSCH PRN IV PUSH 06/20/17 20:00 (Tylenol) 650 mg UNSCH PRN PO 06/20/17 20:00 (Benadryl) 25 mg UNSCH PRN PO 06/20/17 20:00 (Nitrostat Sl) 0.4 mg UNSCH PRN SL 06/20/17 20:00 (Catapres) 0.1 mg UNSCH PRN PO 06/20/17 20:00 (Epogen Inj) 10,000 units UNSCH PRN IV PUSH 06/20/17 20:00 06/22/17 12:24 (Gelfoam 12 Mm/7 Mm Top) 1 foam UNSCH PRN TOP 06/20/17 20:00 06/22/17 12:25 (Tessalon) 100 mg TID PRN PO 06/22/17 11:15 ([place] 10-325 Mg) 1 tab Q4H PRN PO 06/23/17 10:00 06/25/17 06:45 (Slava Jones MD, R3) A/P Assessment and Plan Patient is 66-year-old female with past medical history of end-stage renal disease on HD, HTN, COPD and CHF presented to the ED from dialysis center with complaints of chest pain. In the ED pt was found to have PNA. Pt admitted for treatment of PNA and w/u of chest pain. Discharge Planning Plan for discharge home today (Slava Jones MD, R3) Attending Attestation Patient was seen and examined with the entire medicine team in dialysis this morning around 11 AM. She is in no acute distress, eager to go home. She still has some concerns about her oxygen for transport, but per case management note, her home oxygen is delivered and her concentrator is there. She does have significant arthritis in her hands and has difficulty using the regular portable oxygen. We will give her a prescription for her pain medicine to get her through until she sees her primary care doctor on . Patient seen and examined. Case reviewed and discussed with the resident team. Agree with plan of care as discussed with me and documented in the resident note. (Love White MD) Problem List: (1) Pneumonia ICD Codes: J18.9 - Pneumonia, unspecified organism Status: Acute Plan: Clear lung exam today. Patient Afebrile -Continue aztreonam and Levofloxacin for treatment of PNA -Sputum culture pending -Blood cx NGTD -[place] (2) Chest pain ICD Codes: R07.9 - Chest pain, unspecified Status: Acute Plan: Patient with one-week history of cough, three-day history of pleuritic chest pain and worsening shortness of breath over the past month. No active CP. Improved. Likely due to PNA, costochondritis Chest pain reproducible upon palpation of left costal margin, but improved from admission. troponin 0.09-->0.10-->0.08 Patient has ESRD, elevated troponin can be likely due to kidney failure EKG: Borderline left axis deviation and incomplete right bundle branch block moderate T-wave abnormalities. No change since prior tracing. see plan for PNA above (3) COPD (chronic obstructive pulmonary disease) ICD Codes: J44.9 - Chronic obstructive pulmonary disease, unspecified Status: Chronic Plan: -DuoNeb's Q6h -Albuterol neb Q2h PRN for SOB -SOB improved. Patient with O2 saturations of 95% on 2 L nasal cannula - O2 walk test: Requiring oxygen -CM consulted to assist patient with obtaining O2 concentrator, has been obtained (4) HTN (hypertension) ICD Codes: I10 - Essential (primary) hypertension Status: Chronic Plan: BP range 90-100s/50s , will continue to monitor -Continue with home medication: Labetalol 300mg po TID (5) ESRD (end stage renal disease) on dialysis ICD Codes: N18.6 - End stage renal disease; Z99.2 - Dependence on renal dialysis Status: Chronic Plan: Nephrology consulted, appreciate recommendations c/w in with hemodialysis Hemodialysis scheduled for: Sunday, Sunday, Sunday -c/w Renvela po TID monitor electrolytes (6) Arthritis ICD Codes: M19.90 - Unspecified osteoarthritis, unspecified site Status: Chronic Plan: HTN with past medical history arthritis on right hand for which she stated she takes hydrocodone-acetaminophen 10/325 mg PRN -c/w hydrocodone-acetaminophen increased to 10mg (7) Nutrition, metabolism, and development symptoms ICD Codes: R63.8 - Other symptoms and signs concerning food and fluid intake Plan: Fluids: per nephrology rec Electrolytes: replete as needed, continue to monitor Nutrition: Renal diet DVT ppx: heparin Sq Q12h (Slava Jones MD, R3) Problem Qualifiers (1) Pneumonia: Qualified Codes: J18.1 - Lobar pneumonia, unspecified organism Slava Jones MD, R3 Jun 25, 2017 11:25 Love White MD Jun 25, 2017 11:59
[2017-06-25] MEDS ORDERED: Albuterol Neb NEB (12:02)
--- NOTE | 2017-06-25 13:18 | HHI.DCPOC ---
Discharge Care Plan Diagnosis: (1) Pneumonia (2) ESRD (end stage renal disease) on dialysis (3) COPD (chronic obstructive pulmonary disease) (4) HTN (hypertension) (5) Chest pain (6) Arthritis Goals to Promote Your Health * To prevent worsening of your condition and complications * To maintain your health at the optimal level Directions to Meet Your Goals Take your medications as prescribed Follow your dietary instruction Follow activity as directed Keep your appointments as scheduled Take your immunizations and boosters as scheduled If your symptoms worsen call your PCP, if no PCP go to Urgent Care Center or Emergency Room Smoking is Dangerous to Your Health. Avoid second hand smoke Call the 24-hour hour crisis hotline for domestic abuse at Slava Jones MD, R3 Jun 25, 2017 13:18
--- NOTE | 2017-06-25 13:29 | HHI.DS ---
Discharge Summary Admission Date Jun 20, 2017 at 16:48 Discharge Date: Jun 25, 2017 Admitting Diagnosis Pleural effusion, PNA, hypoxia (1) Pneumonia Diagnosis: Principal Plan: Clear lung exam today. Patient Afebrile -Continue aztreonam and Levofloxacin for treatment of PNA -Sputum culture pending -Blood cx PATRICTD -[place] ICD Codes: J18.9 - Pneumonia, unspecified organism Status: Acute (2) Chest pain Diagnosis: Secondary Plan: Patient with one-week history of cough, three-day history of pleuritic chest pain and worsening shortness of breath over the past month. No active CP. Improved. Likely due to PNA, costochondritis Chest pain reproducible upon palpation of left costal margin, but improved from admission. troponin 0.09-->0.10-->0.08 Patient has ESRD, elevated troponin can be likely due to kidney failure EKG: Borderline left axis deviation and incomplete right bundle branch block moderate T-wave abnormalities. No change since prior tracing. see plan for PNA above ICD Codes: R07.9 - Chest pain, unspecified Status: Acute (3) COPD (chronic obstructive pulmonary disease) Diagnosis: Secondary Plan: -DuoNeb's Q6h -Albuterol neb Q2h PRN for SOB -SOB improved. Patient with O2 saturations of 95% on 2 L nasal cannula - O2 walk test: Requiring oxygen -CM consulted to assist patient with obtaining O2 concentrator, has been obtained ICD Codes: J44.9 - Chronic obstructive pulmonary disease, unspecified Status: Chronic (4) HTN (hypertension) Diagnosis: Secondary Plan: BP range 90-100s/50s , will continue to monitor -Continue with home medication: Labetalol 300mg po TID ICD Codes: I10 - Essential (primary) hypertension Status: Chronic (5) ESRD (end stage renal disease) on dialysis Diagnosis: Secondary Plan: Nephrology consulted, appreciate recommendations c/w in with hemodialysis Hemodialysis scheduled for: Sunday, Sunday, Sunday -c/w Renvela po TID monitor electrolytes ICD Codes: N18.6 - End stage renal disease; Z99.2 - Dependence on renal dialysis Status: Chronic (6) Arthritis Diagnosis: Secondary Plan: HTN with past medical history arthritis on right hand for which she stated she takes hydrocodone-acetaminophen 10/325 mg PRN -c/w hydrocodone-acetaminophen increased to 10mg ICD Codes: M19.90 - Unspecified osteoarthritis, unspecified site Status: Chronic (7) Nutrition, metabolism, and development symptoms Plan: Fluids: per nephrology rec Electrolytes: replete as needed, continue to monitor Nutrition: Renal diet DVT ppx: heparin Sq Q12h ICD Codes: R63.8 - Other symptoms and signs concerning food and fluid intake Consultants Nephrology Procedures Dialysis Brief History Patient is 66-year-old female with past medical history of end-stage renal disease on HD, HTN, COPD and CHF presented to the ED from dialysis center with complaints of chest pain. Patient stated chest pain started a few days ago, described as nonradiating throbbing chest pain located on the left sternal border. She reports chest pain is intermittent in and occurs about 3-4 times a day and is worsened by deep inspiration. Patient reports cough productive of clear sputum for the past week. Patient also reports progressively worsening shortness of breath over the past 2 weeks. She is on home oxygen at 2 L.Denies nausea /vomiting. Endorses abdominal pain brought on by coughing. CBC/BMP: 06/25/17 0433 06/25/17 0433 Significant Findings Laboratory Tests Test 06/23/17 07:31 06/24/17 16:20 06/25/17 04:33 Red Blood Count 2.75 MIL/MM3 (4.00-5.30) 3.02 MIL/MM3 (4.00-5.30) 2.73 MIL/MM3 (4.00-5.30) Hemoglobin 8.4 GM/DL (11.6-15.3) 9.1 GM/DL (11.6-15.3) 8.2 GM/DL (11.6-15.3) Hematocrit 25.8 % (35.0-46.0) 28.2 % (35.0-46.0) 25.4 % (35.0-46.0) Neutrophils (%) (Auto) 74.3 % (16.0-70.0) 80.5 % (16.0-70.0) Monocytes (%) (Auto) 9.2 % (0.0-8.0) Lymphocytes # (Auto) 0.6 TH/MM3 (1.0-4.8) 0.6 TH/MM3 (1.0-4.8) Neutrophils % (Manual) 78 % (16-70) Lymphocytes % 5 % (9-44) Eosinophils % 5 % (0-4) Metamyelocytes 2 % (0-1) Myelocytes 2 % (0-0) Nucleated Red Blood Cells 1 /100 WBC (0-0) Toxic Vacuolation PRESENT (NONE SEEN) Ovalocytes 1+ (NORMAL) 1+ (NORMAL) Creatinine 5.02 MG/DL (0.50-1.00) 7.15 MG/DL (0.50-1.00) 7.58 MG/DL (0.50-1.00) Estimat Glomerular Filtration Rate 10 ML/MIN (>89) 7 ML/MIN (>89) 7 ML/MIN (>89) Blood Urea Nitrogen 28 MG/DL (7-18) 33 MG/DL (7-18) Random Glucose 107 MG/DL (74-106) 107 MG/DL (74-106) Potassium Level 5.8 MEQ/L (3.5-5.1) 5.9 MEQ/L (3.5-5.1) Imaging Last Impressions Chest CT 06/21/17 0000 Signed Impressions: Service Date/Time: June 10:37 - CONCLUSION: Diffuse interstitial parenchymal opacity which is presumably edema. Moderate right effusion. Aurelio Greer MD Chest X-Ray 06/20/17 1212 Signed Impressions: Service Date/Time: Tuesday, June 20, 2017 12:32 - CONCLUSION: Airspace consolidation at the right lung base with small right pleural effusion. This could represent an infectious process in the appropriate clinical setting. Aurelio Zayas MD PE at Discharge GENERAL: This is a well-nourished, well-developed patient, lying in bed, receiving dialysis, in no apparent distress. CARDIOVASCULAR: Normal S1 and S2. Regular rate and rhythm without murmurs, gallops, or rubs. chest pain upon palpation of left costal margin, but improved per pt. RESPIRATORY: Clear to auscultation. Coarse breath sounds/ exp wheezing at bases. No rales, or rhonchi. GASTROINTESTINAL: Abdomen soft, tender to palpation on injection site of SQ heparin, nondistended. MUSCULOSKELETAL: Extremities without clubbing, cyanosis, or edema. +2 DP pulses BL. NEUROLOGICAL: Awake and alert. Motor and sensory grossly within normal limits.Normal speech. Limited range of motion on hands BL, worse on Right hand. Hospital Course Patient was admitted on 06/20/17 for chest pain or shortness of breath. On further workup she was found to have pneumonia. Patient has history of end- stage renal disease requiring dialysis. She continued her dialysis during his hospitalization. She was started on antibiotics throughout this hospitalization and slowly recovered. She does have a history of COPD requiring oxygen and did not completely improved no longer needing oxygen. Was provided oxygen at home. On 06/25/17 she was found to be stable enough to return home with home health care as well as oxygen at home. She completed her course of antibiotics during this hospitalization via IV and was sent out on a 5 day course of PO antibiotics. Pt Condition on Discharge: Stable Discharge Disposition: Disch w/ Home Health Serv Discharge Instructions DIET: Follow Instructions for: Renal Failure Diet Activities you can perform: Regular-No Restrictions Follow up Referrals: Nephrology - 1 Week PCP Follow-up - 1 Week New Medications: Azithromycin (Azithromycin) 500 Mg Tab 500 MG PO DAILY for Infection, #5 TAB 0 Refills Hydrocodone/Acetaminophen (Hydrocodone-Acetamin 10-325 mg) 10 Mg-325 Mg Tablet 1 TAB PO Q4H PRN for PAIN3-10, #30 0 Refills [Albuterol Neb] () 2.5 MG/3 ML NEBU 2.5 MG NEB Q2HR NEB PRN for SHORTNESS OF BREATH, #10 APPLIC 1 Refill Continued Medications: Labetalol (Labetalol) 300 Mg Tab 300 MG PO TID for Blood Pressure Management, TAB 0 Refills Omeprazole (Omeprazole) 20 Mg Tab 20 MG PO DAILY, #30 TAB 0 Refills Sevelamer Carbonate (Renvela) 800 Mg Tab 800 MG PO TID for Control phosphorous levels, #90 TAB 0 Refills Discontinued Medications: Hydrocodone-Acetaminophen (Hydrocodone-Acetaminophen) 10-325 mg Tab 1 TAB PO Q6H PRN for PAIN, #20 TAB 0 Refills Slava Jones MD, R3 Jun 25, 2017 13:29
[2017-06-25] MEDS ORDERED: AZIT500T2 PO (13:30)
== END 2017-06-25 16:00 | disposition home health service (06) | DRG 193 ==
LOC: NEPC 12:04 → NEDA 16:48 → N04A 19:46
PROVIDERS: ADMIT Family Medicine; ATTEND Family Medicine
PROC: 5A1D70Z Performance of Urinary Filtration, Intermittent, Less than 6 Hours Per Day (ICD-10-PCS; principal; 2017-06-22)
DX: J18.9 Pneumonia, unspecified organism (principal); N18.6 End stage renal disease; I13.2 Hypertensive heart and chronic kidney disease with heart failure and with stage 5 chronic kidney disease, or end stage renal disease; J43.9 Emphysema, unspecified; Z99.81 Dependence on supplemental oxygen; M94.0 Chondrocostal junction syndrome [Tietze]; I50.9 Heart failure, unspecified; G47.00 Insomnia, unspecified; I45.10 Unspecified right bundle-branch block; R09.02 Hypoxemia; M19.041 Primary osteoarthritis, right hand; G56.91 Unspecified mononeuropathy of right upper limb; R74.8 Abnormal levels of other serum enzymes; Z87.891 Personal history of nicotine dependence; Z88.0 Allergy status to penicillin; Z95.0 Presence of cardiac pacemaker; Z99.2 Dependence on renal dialysis
CPT/HCPCS: 71045; 71250; 80048; 82550; 84484; 85007; 85025; 85027; 85610; 85730; 87040; 90935; 93005; 94150; 94618; 94640; 94664; 96365; 96374; J1644; J1956; J7613; Q4081

== ENCOUNTER 2017-07-18 11:24 | Inpatient (IN) | payer MEDICARE, OTHER ==
[~2017-07-18] VITALS: Ht 167.6 cm; Wt 65.0 kg
[2017-07-18] VITALS (15 sets, daily range): BP systolic 95–199; BP diastolic 54–102; PULSE 63–88; RESP 16–37; TEMP 97.7–98.4; O2SAT 89–100
[~2017-07-18 11:24] MED LIST changes: +AZIT500T2 PO; +Albuterol Neb NEB; -GETGO ROLLING W1 MI1; -LEVA750T9 PO
--- NOTE | 2017-07-18 11:58 | PD ---
HPI Chief Complaint: Pain: Acute or Chronic Time Seen by Provider: 11:54 Travel History International Travel<30 days: No Contact w/Intl Traveler<30days: No Traveled to known affect area: No History of Present Illness HPI 66-year-old female came to the emergency room with history of shortness of breath, chronic arm pain, vomiting and diarrhea. Patient has end-stage renal disease and hemodialysis dependent. Her sand conditioner is Dr. Perez and she just had her dialysis this morning after which she came here. He has history of COPD as well. Her oxygen saturation was 91% on 3 L of oxygen. Patient has 24/7 oxygen requirement at home at 2-3 L. However when I went to see her she did seem to be in somewhat respiratory distress and oxygen saturation was in mid 80s. She complains of some chest pain as well. Patient is awake and answering questions appropriately. Patient says that she is on chronic pain medication and needs her pain medication dose now. PFSH Past Medical History Narrative Medical List of her past medical, surgical, social and family history is reviewed from the nursing note. Asthma: No Blood Disorders: No Heart Rhythm Problems: No Cancer: No Cardiovascular Problems: Yes (PACER) High Cholesterol: No Chest Pain: No Congestive Heart Failure: Yes COPD: Yes Dialysis: Yes (M-W-) Diminished Hearing: No Endocrine: No Gastrointestinal Disorders: Yes (BLEEDING GASTRIC ULCER) Genitourinary: Yes (ESRD) Hypertension: Yes Immune Disorder: No Implanted Vascular Access Dvce: Yes Insomnia: Yes Musculoskeletal: No Neurologic: Yes (RIGHT LOWER ARM NEUROPATHY) Psychiatric: No Reproductive: Yes (PARTIAL HYSTERECTOMY) Respiratory: Yes (ON 2L NC) Renal Failure: Yes Sleep Apnea: No Ulcer: Yes Past Surgical History Body Medical Devices: PACER Cardiac Surgery: Yes (PACEMAKER) Gynecologic Surgery: Yes Hysterectomy: Yes (PARTIAL) Pacemaker: Yes Other Surgery: Yes (AV FISTULA RIGHT UPPER ARM) Social History Alcohol Use: No Tobacco Use: No Substance Use: No Allergies-Medications (Allergen,Severity, Reaction): Coded Allergies: penicillin G (Verified Allergy, Intermediate, Hives, 07/18/17) Comments List of her allergies reviewed from the nursing note. Reported Meds & Prescriptions Reported Meds & Active Scripts Active [Albuterol Neb] 2.5 MG/3 ML Nebu 2.5 Mg NEB Q2HR NEB PRN Hydrocodone-Acetamin 10-325 mg (Hydrocodone/Acetaminophen) 10 Mg-325 Mg Tablet 1 Tab PO Q4H PRN Reported Renvela (Sevelamer Carbonate) 800 Mg Tab 800 Mg PO TID Omeprazole 20 Mg Tab 20 Mg PO DAILY Labetalol (Labetalol HCl) 300 Mg Tab 300 Mg PO TID Narrative Medication List of her home medications reviewed from the nursing note. Review of Systems Except as stated in HPI: all other systems reviewed are Neg Cardiovascular: Positive: Chest Pain or Discomfort Respiratory: Positive: Shortness of Breath Musculoskeletal: Positive: Pain Physical Exam Narrative GENERAL: Awake, alert, moderate distress SKIN: Focused skin assessment warm/dry. HEAD: Atraumatic. Normocephalic. EYES: Pupils equal and round. No scleral icterus. No injection or drainage. ENT: No nasal bleeding or discharge. Mucous membranes pink and moist. NECK: Trachea midline. No JVD. CARDIOVASCULAR: Regular rate and rhythm. No murmur appreciated. RESPIRATORY: Decreased air entry with end expiratory wheeze GASTROINTESTINAL: Abdomen soft, non-tender, nondistended. Hepatic and splenic margins not palpable. MUSCULOSKELETAL: No obvious deformities. No clubbing. No cyanosis. No edema. NEUROLOGICAL: Awake and alert. No obvious cranial nerve deficits. Motor grossly within normal limits. Normal speech. PSYCHIATRIC: Appropriate mood and affect; insight and judgment normal. Data Data Last Documented VS Vital Signs Date Time Temp Pulse Resp B/P (MAP) Pulse Ox O2 Delivery O2 Flow Rate FiO2 07/18/17 15:00 81 16 100 BiPAP 100 07/18/17 14:00 3.00 07/18/17 11:43 97.7 Orders Orders Electrocardiogram (07/18/17 12:11) Basic Metabolic Panel (Bmp) (07/18/17 12:11) B-Type Natriuretic Peptide (07/18/17 12:11) Complete Blood Count With Diff (07/18/17 12:11) Magnesium (Mg) (07/18/17 12:11) Prothrombin Time / Inr (Pt) (07/18/17 12:11) Troponin I (07/18/17 12:11) Chest, Single Ap (07/18/17 12:11) Ecg Monitoring (07/18/17 12:11) Bilateral Bp Monitoring (07/18/17 12:11) Iv Access Insert/Monitor (07/18/17 12:11) Oximetry (07/18/17 12:11) Oxygen Administration (07/18/17 12:11) Sodium Chloride 0.9% Flush (Ns Flush) (07/18/17 12:15) Ketorolac Inj (Toradol Inj) (07/18/17 12:15) Methylprednisolone So Succ Inj (Solumedr (07/18/17 12:15) Albuterol-Ipratropium Neb (Duoneb Neb) (07/18/17 12:15) Furosemide Inj (Lasix Inj) (07/18/17 14:00) Arterial Blood Gas (Abg) (07/18/17 ) Resp Bipap / Cpap Non Invas Vt (07/18/17 ) Potassium Chloride (Kcl) (07/18/17 15:00) Admit Order (Ed Use Only) (07/18/17 15:33) Labs Laboratory Tests Test 07/18/17 12:35 07/18/17 13:58 07/18/17 14:05 White Blood Count 6.1 TH/MM3 Red Blood Count 3.83 MIL/MM3 Hemoglobin 10.9 GM/DL Hematocrit 34.3 % Mean Corpuscular Volume 89.6 FL Mean Corpuscular Hemoglobin 28.3 PG Mean Corpuscular Hemoglobin Concent 31.6 % Red Cell Distribution Width 16.2 % Platelet Count 366 TH/MM3 Mean Platelet Volume 7.4 FL Neutrophils (%) (Auto) 80.0 % Lymphocytes (%) (Auto) 11.9 % Monocytes (%) (Auto) 5.9 % Eosinophils (%) (Auto) 1.2 % Basophils (%) (Auto) 1.0 % Neutrophils # (Auto) 4.9 TH/MM3 Lymphocytes # (Auto) 0.7 TH/MM3 Monocytes # (Auto) 0.4 TH/MM3 Eosinophils # (Auto) 0.1 TH/MM3 Basophils # (Auto) 0.1 TH/MM3 CBC Comment DIFF FINAL Differential Comment B-Type Natriuretic Peptide 2489 PG/ML Prothrombin Time 10.8 SEC Prothromb Time International Ratio 1.1 RATIO Blood Urea Nitrogen 8 MG/DL Creatinine 4.23 MG/DL Random Glucose 102 MG/DL Calcium Level 9.3 MG/DL Magnesium Level 2.0 MG/DL Sodium Level 141 MEQ/L Potassium Level 2.5 MEQ/L Chloride Level 103 MEQ/L Carbon Dioxide Level 28.6 MEQ/L Anion Gap 9 MEQ/L Estimat Glomerular Filtration Rate 13 ML/MIN Troponin I 0.12 NG/ML Blood Gas Puncture Site LT RADIAL Blood Gas Patient Temperature 98.6 Blood Gas HCO3 28 mmol/L Blood Gas Base Excess 3.9 mmol/L Blood Gas Oxygen Saturation 81 % Arterial Blood pH 7.47 Arterial Blood Partial Pressure CO2 39 mmHg Arterial Blood Partial Pressure O2 45 mmHG Arterial Blood Oxygen Content 10.9 Vol % Arterial Blood Carboxyhemoglobin 2.2 % Arterial Blood Methemoglobin 0.5 % Blood Gas Hemoglobin 9.6 G/DL Oxygen Delivery Device NASAL CANNULA Blood Gas Liter Flow 3 L/M MDM Medical Decision Making Medical Screen Exam Complete: Yes Emergency Medical Condition: Yes Medical Record Reviewed: Yes Interpretation(s) Twelve-lead EKG was reviewed by me. Normal sinus rhythm, left axis deviation, LVH by voltage criteria, lateral T wave inversions, PVC. Heart rate of 90 bpm. Differential Diagnosis COPD exacerbation, CHF, ACS, non-STEMI, acute on chronic pain Narrative Course 2:32 PM CBC is back and within acceptable limits. Patient has elevated BNP and chest x-ray suggestive of pulmonary edema. The chemistry is a week collected still waiting on the results. I've ordered for 40 mg of IV Lasix. Hence patient continued to be high 80s oxygen saturation on 3 L of nasal cannula I decided to get a blood gas which shows the hypoxia. I've ordered for a BiPAP for the patient. She'll need to be admitted. Critical Care Narrative Aggregate critical care time was 45 minutes. Time to perform other separately billable procedures was not included in the critical care time. My time did not include minutes spent treating any other patients simultaneously or on activities that did not directly contribute to the patient's treatment. The services I provided to this patient were to treat and/or prevent clinically significant deterioration that could result in: Respiratory distress, hypoxia, BiPAP, pulmonary edema I provided critical care services requiring my management, as noted below: Chart data review, documentation time, medication orders and management, vital sign assessments/reviewing monitor data, ordering and reviewing lab tests, ordering and interpreting/reviewing x-rays and diagnostic studies, care of the patient and discussion of the patient with the admitting physicians. Procedures EKG Prior to Arrival: No Diagnosis Primary Impression: Respiratory distress Additional Impressions: Pulmonary edema Qualified Codes: J81.0 - Acute pulmonary edema End stage renal disease Dependent on hemodialysis acute on chronic pain Hypokalemia Elevated troponin I level Admitting Information Admitting Physician Requests: Admit Scripts [Albuterol-Ipratropium Neb] 1 AMPULE NEBU No Conflict Check 1 AMPULE NEB Q6HR NEB Y for sob, #30 Prov: Mala Munoz MD 07/20/17 Prednisone (Prednisone) 5 Mg Tab 5 MG PO DAILY for PULM, #14 TAB 0 Refills 2 tabs po bid x 2 days then 1 tab po bid x 2 dasy then 1 tab po daily x 2 days then DC Prov: Mala Munoz MD 07/20/17 Oxygen (O2) (Oxygen (O2)) Device LITER CORNELIUS.CANULA CONTINUOUS for Prevent Hypoxemia, #2 Oxygen Concentrator Portable Gaseous 2 L/min via Nasal Canula Continuous For 99 months Prov: Mala Munoz MD 07/20/17 Catia Torres MD Jul 18, 2017 11:58
[2017-07-18] MEDS ORDERED: methylPREDNISolone SOD SUCC 125 MG/2 ML VIAL IV PUSH ONE (12:15)
[2017-07-18] MEDS ORDERED: SODIUM CHLORIDE 0.9% FLUSH 10 ML FLUSH IVF PRN (12:15)
[2017-07-18] MEDS ORDERED: KETOROLAC TROMETHAMINE 30 MG/ML (IVP) VIAL IV PUSH ONE (12:15)
[2017-07-18] MEDS: RESP: ALBUTEROL 2.5 MG/IPRATROPIUM 0.5 MG NEB (SCH) INH ×2 (12:16→12:17)
[2017-07-18 12:55] LABS: AUTOMATED NEUTROPHIL # 4.9 TH/MM3 (1.8-7.7); BASOPHIL # 0.1 TH/MM3 (0-0.2); EOSINOPHIL # 0.1 TH/MM3 (0-0.4); EOSINOPHIL % 1.2 % (0.0-4.0); HEMATOCRIT 34.3 % (35.0-46.0); HEMOGLOBIN 10.9 GM/DL (11.6-15.3); LYMPH % 11.9 % (9.0-44.0); LYMPHOCYTE # 0.7 TH/MM3 (1.0-4.8); MEAN CELL VOLUME 89.6 FL (80.0-100.0); MEAN CORPUSCULAR HEMOGLOBIN 28.3 PG (27.0-34.0); MEAN CORPUSCULAR HGB CONC 31.6 % (32.0-36.0); MEAN PLATELET VOLUME 7.4 FL (7.0-11.0); MONO % 5.9 % (0.0-8.0); MONOCYTE # 0.4 TH/MM3 (0-0.9); PLATELET COUNT 366 TH/MM3 (150-450); RED BLOOD COUNT 3.83 MIL/MM3 (4.00-5.30); RED CELL DISTRIBUTION WIDTH 16.2 % (11.6-17.2); WHITE BLOOD COUNT 6.1 TH/MM3 (4.0-11.0)
--- NOTE | 2017-07-18 13:32 | RADRPT ---
EXAM DATE/TIME: 07/18/2017 13:03 [facility] COMPARISON: CHEST SINGLE AP, June 20, 2017, 12:32. INDICATIONS : Short of breath with wheezing. MEDICAL HISTORY : Myocardial infarction. SURGICAL HISTORY : Pacemaker. ENCOUNTER: Initial ACUITY: 1 day PAIN SCORE: 2/10 LOCATION: Bilateral chest FINDINGS: There is increased interstitial markings bilaterally. There is improving infiltrate in the right lung base compared to prior study. No new areas of parenchymal consolidation are demonstrated. The heart size is enlarged but stable. No evidence of pneumothorax. There is a pacemaker on the left chest. CONCLUSION: 1. Increased interstitial markings bilaterally suggestive of pulmonary edema. 2. Improving right lower lung infiltrate. Teo Mejia MD on July 18, 2017 at 13:30 Board Certified Radiologist. This report was verified electronically.
[2017-07-18] MEDS ORDERED: FUROSEMIDE 40 MG/4 ML VIAL IV PUSH ONE (14:00)
[2017-07-18 14:29] LABS: INTERNATIONAL NORMALIZED RATIO 1.1 RATIO; PROTHROMBIN TIME - PATIENT 10.8 SEC (9.8-11.6)
[2017-07-18 14:41] LABS: BICARBONATE 28.6 MEQ/L (21.0-32.0); CALCIUM 9.3 MG/DL (8.5-10.1); CREATININE 4.23 MG/DL (0.50-1.00)
[2017-07-18] MEDS ORDERED: POTASSIUM CHLORIDE 20 MEQ CONTROLLED RELEASE TAB PO ONE ×2 (15:00→16:30)
[2017-07-18 15:15] LABS: TROPONIN I 0.12 NG/ML (0.02-0.05)
[2017-07-18] MEDS ORDERED: SENNOSIDES 8.6 MG TAB PO PRN (16:00)
[2017-07-18] MEDS ORDERED: ONDANSETRON HCL 4 MG/2 ML VIAL IVP PRN (16:00)
[2017-07-18] MEDS ORDERED: RESP: ALBUTEROL 2.5 MG/IPRATROPIUM 0.5 MG NEB (PRN) NEB (16:00)
[2017-07-18] MEDS ORDERED: oxyCODONE/ACETAMINOPHEN 5 MG/325 MG TAB PO PRN (16:00)
[2017-07-18] MEDS ORDERED: NALOXONE HCL 0.4 MG/ML AMP IV PUSH PRN (16:00)
[2017-07-18] MEDS ORDERED: GLUCAGON 1 MG/ML VIAL OTHER PRN (16:00)
[2017-07-18] MEDS ORDERED: DEXTROSE 50% IN WATER 50 ML VIAL(D50) IV PUSH PRN (16:00)
[2017-07-18] MEDS ORDERED: cloNIDine HCL 0.1 MG TAB PO PRN ×2 (16:00→18:00)
[2017-07-18] MEDS ORDERED: LACTULOSE SYRUP 20 GM/30 ML CUP PO PRN (16:00)
[2017-07-18] MEDS ORDERED: MORPHINE SULFATE 2 MG/ML SYRINGE IV PUSH PRN ×2 (16:00)
[2017-07-18] MEDS ORDERED: ACETAMINOPHEN 325 MG TAB PO PRN ×3 (16:00→18:00)
[2017-07-18] MEDS ORDERED: PROCHLORPERAZINE 25 MG SUPP RECTAL PRN (16:00)
[2017-07-18] MEDS ORDERED: BISACODYL 10 MG SUPP RECTAL PRN (16:00)
[2017-07-18] MEDS ORDERED: MAGNESIUM HYDROXIDE SUSP 30 ML CUP PO PRN (16:00)
[2017-07-18] MEDS ORDERED: SODIUM CHLORIDE 0.9% FLUSH 10 ML FLUSH IV FLUSH PRN ×2 (16:00→18:00)
--- NOTE | 2017-07-18 16:13 | HHI.HP ---
[facility] Primary Care Physician Krista Vieyra MD Admission Diagnosis respiratory distress, pulmonary edema, elevated troponin, hypokalemi Diagnoses: (1) Dependent on hemodialysis Diagnosis: Secondary (2) Pulmonary edema Diagnosis: Principal (3) Respiratory distress Diagnosis: Principal (4) End stage renal disease Diagnosis: Secondary (5) Elevated troponin I level Diagnosis: Principal (6) Hypokalemia Diagnosis: Principal (7) ESRD (end stage renal disease) on dialysis Diagnosis: Secondary (8) HTN (hypertension) Diagnosis: Secondary (9) COPD (chronic obstructive pulmonary disease) Diagnosis: Principal (10) Hypoxia Diagnosis: Principal Chief Complaint: Acute on chronic pain Travel History International Travel<30 Days: No Contact w/Intl Traveler <30 Da: No Traveled to Known Affected Are: No History of Present Illness Patient is a 66-year-old -[place] female. Presented emergency department with increasing shortness of breath with a history of chronic pain and vomiting and diarrhea. Patient has history of end-stage renal disease on hemodialysis. was seen in dialysis today and underwent 2-1/2 out of 3 and a half hours of dialysis today. The patient remained very short of breath and therefore was sent to the emergency department for evaluation. She normally sees Dr. Ferro of nephrology. She had her hemodialysis partially this morning and was still short of breath so was sent to the emergency department. Has a history of COPD has home oxygen a couple liters. Her O2 saturation was 91% on 3 liters by nasal cannula. Of oxygen. She has oxygen 247 requirement at home at least 2-3 L. Patient was in more respiratory distress when she presented O2 sat was in the mid 80s she had some chest pain as well.. Patient is on chronic pain medication needed pain medication now per the emergency department. Patient has positive troponin and hypoxia and fluid overload and pulmonary edema and will be admitted for further evaluation treatment will consult nephrology as well as pulmonary. May need cardiology depending if troponins are flat or not Review of Systems Constitutional: COMPLAINS OF: Fatigue, DENIES: Diaphoretic episodes, Fever, Weight gain, Weight loss, Chills, Dizziness, Change in appetite, Night Sweats Endocrine: DENIES: Abnorml menstrual pattern, Heat/cold intolerance, Polydipsia , Polyuria, Polyphagia Eyes: DENIES: Blurred vision, Diplopia, Eye inflammation, Eye pain, Vision loss , Photosensitivity, Double Vision Ears, nose, mouth, throat: DENIES: Tinnitus, Hearing loss, Vertigo, Nasal discharge, Oral lesions, Throat pain, Hoarseness, Ear Pain, Epistaxis, Sinus Pain, Toothache, Odynophagia Respiratory: COMPLAINS OF: Shortness of breath, DENIES: Apneas, Cough, Snoring , Wheezing, Hemoptysis, Sputum production Cardiovascular: COMPLAINS OF: Dyspnea on Exertion, DENIES: Chest pain, Palpitations, Syncope, PND, Lower Extremity Edema, Orthopnea, Claudication Gastrointestinal: DENIES: Abdominal pain, Black stools, Bloody stools, Constipation, Diarrhea, Nausea Genitourinary: DENIES: Abnormal vaginal bleeding, Dysmenorrhea, Dyspareunia, Sexual dysfunction, Urinary frequency Musculoskeletal: DENIES: Joint pain, Muscle aches, Stiffness, Joint Swelling, Back pain, Neck pain Integumentary: DENIES: Abnormal pigmentation, Pruritus, Rash, Nail changes, Breast masses Hematologic/lymphatic: DENIES: Bruising, Lymphadenopathy Immunologic/allergic: DENIES: Eczema, Urticaria Neurologic: DENIES: Abnormal gait, Headache, Localized weakness, Paresthesias, Seizures, Speech Problems, Tremor, Poor Balance Psychiatric: DENIES: Anxiety, Confusion, Mood changes, Depression, Hallucinations, Agitation, Suicidal Ideation, Homicidal Ideation, Delusions Except as stated in HPI: all other systems reviewed are Neg Past Family Social History Past Medical History End-stage renal disease on hemodialysis COPD on home oxygen History of congestive heart failure History of pacemaker placement History of hemodialysis on Sunday History of bleeding gastric ulcer Hypertension Right upper extremity AV fistula Right lower arm neuropathy chronic History of partial hysterectomy History of ulcers Past Surgical History End-stage renal disease on hemodialysis with history of right upper extremity AV fistula partial hysterectomy Pacemaker placement AV fistula right upper arm Reported Medications Reported Meds & Active Scripts Active [Albuterol Neb] 2.5 MG/3 ML Nebu 2.5 Mg NEB Q2HR NEB PRN Hydrocodone-Acetamin 10-325 mg (Hydrocodone/Acetaminophen) 10 Mg-325 Mg Tablet 1 Tab PO Q4H PRN Reported Renvela (Sevelamer Carbonate) 800 Mg Tab 800 Mg PO TID Omeprazole 20 Mg Tab 20 Mg PO DAILY Labetalol (Labetalol HCl) 300 Mg Tab 300 Mg PO TID Allergies: Coded Allergies: penicillin G (Verified Allergy, Intermediate, Hives, 07/18/17) Active Ordered Medications Current Medications Sodium Chloride (NS Flush) 2 ml UNSCH PRN IVF FLUSH AFTER USING IV ACCESS Last administered on 07/18/17at 12:37; Start 07/18/17 at 12:15 Ketorolac Tromethamine (Toradol Inj) 30 mg ONCE ONCE IV PUSH Last administered on 07/18/17at 12:37; Start 07/18/17 at 12:15; Stop 07/18/17 at 12:16 ; Status DC Methylprednisolone Sodium Succinate (SoluMEDROL INJ) 125 mg ONCE ONCE IV PUSH Last administered on 07/18/17at 12:37; Start 07/18/17 at 12:15; Stop 07/18/17 at 12:16; Status DC Albuterol/ Ipratropium (Duoneb Neb) 1 ampule Q15M INH Last administered on 07/18at 12:17; Start 07/18/17 at 12:15; Stop 07/18/17 at 12:46; Status DC Furosemide (Lasix Inj) 40 mg ONCE ONCE IV PUSH Last administered on 07/18/17at 14:59; Start 07/18/17 at 14:00; Stop 07/18/17 at 14:03; Status DC Potassium Chloride (KCl) 40 meq ONCE ONCE PO Last administered on 07/18/17at 15 :00; Start 07/18/17 at 15:00; Stop 07/18/17 at 15:01; Status DC Dextrose (D50w (Vial) Inj) 50 ml UNSCH PRN IV PUSH HYPOGLYCEMIA-SEE COMMENTS; Start 07/18/17 at 16:00; Status UNV Glucagon (Glucagon Inj) 1 mg UNSCH PRN OTHER HYPOGLYCEMIA-SEE COMMENTS; Start 07/18/17 at 16:00; Status UNV Insulin Aspart (NovoLOG SUPPLEMENTAL SCALE) 1 ACHS SLIDING SCALE SQ ; Start at 17:00; Status UNV Clonidine (Catapres) 0.1 mg Q4H PRN PO SBP>160, DBP>90; Start 07/18/17 at 16:00 ; Status UNV Labetalol HCl (Trandate) 300 mg TID PO ; Start 07/18/17 at 18:00; Status UNV Sevelamer Carbonate (Renvela) 800 mg TID PO ; Start 07/18/17 at 18:00; Status UNV Non-Formulary Medication 20 mg DAILY PO ; Start 07/18/17 at 16:00; Status UNV Sodium Chloride (NS Flush) 2 ml UNSCH PRN IV FLUSH FLUSH AFTER USING IV ACCESS ; Start 07/18/17 at 16:00; Status UNV Sodium Chloride (NS Flush) 2 ml BID IV FLUSH ; Start 07/18/17 at 21:00; Status UNV Acetaminophen (Tylenol) 650 mg Q4H PRN PO TEMP > 100.4; Start 07/18/17 at 16:00 ; Status UNV Ondansetron HCl (Zofran Inj) 4 mg Q6H PRN IVP NAUSEA OR VOMITING; Start at 16:00; Status UNV Prochlorperazine (Compazine Supp) 25 mg Q12H PRN PA NAUSEA OR VOMITING; Start 07/18/17 at 16:00; Status UNV Acetaminophen (Tylenol) 650 mg Q6H PRN PO PAIN SCALE 1 TO 2; Start 07/18/17 at 16:00; Status UNV Oxycodone/ Acetaminophen (Percocet 5-325 Mg) 1 tab Q6H PRN PO PAIN SCALE 3 TO 5; Start 07/18/17 at 16:00; Status UNV Oxycodone/ Acetaminophen (Percocet 10-325 Mg) 1 tab Q6H PRN PO PAIN SCALE 6 TO 10; Start 07/18/17 at 16:00; Status UNV Morphine Sulfate (Morphine Inj) 2 mg Q3H PRN IV PUSH Pain 3-5; if unable to take PO; Start 07/18/17 at 16:00; Status UNV Morphine Sulfate (Morphine Inj) 4 mg Q3H PRN IV PUSH Pain 6-10;if unable to take PO; Start 07/18/17 at 16:00; Status UNV Naloxone HCl (Narcan Inj) 0.4 mg UNSCH PRN IV PUSH SEE LABEL COMMENTS; Start at 16:00; Status UNV Senna/Docusate Sodium (Maria G-Colace) 1 tab BID PO ; Start 07/18/17 at 21:00; Status UNV Magnesium Hydroxide (Milk Of Magnesia Liq) 30 ml Q12H PRN PO Mild constipation ; Start 07/18/17 at 16:00; Status UNV Sennosides (Senokot) 17.2 mg Q12H PRN PO Moderate constipation; Start 07/18/17 at 16:00; Status UNV Bisacodyl (Dulcolax Supp) 10 mg DAILY PRN RECTAL SEVERE CONSITIPATION; Start at 16:00; Status UNV Lactulose (Lactulose Liq) 30 ml DAILY PRN PO SEVERE CONSITIPATION; Start at 16:00; Status UNV Albuterol/ Ipratropium (Duoneb Neb) 1 ampule Q4HR NEB PRN NEB sob; Start at 16:00; Status UNV Family History Hypertension and renal failure possibly diabetes Social History Denies any tobacco, alcohol, or illicits Physical Exam Vital Signs Vital Signs Date Time Temp Pulse Resp B/P (MAP) Pulse Ox O2 Delivery O2 Flow Rate FiO2 07/18/17 15:00 81 16 100 BiPAP 100 07/18/17 14:30 100 100 07/18/17 14:20 95 BiPAP 07/18/17 14:00 77 18 189/86 (120) 89 Nasal Cannula 3.00 07/18/17 13:11 88 18 199/102 (134) 07/18/17 13:00 84 18 199/102 (134) 92 Nasal Cannula 4.00 07/18/17 12:21 97 Nasal Cannula 4.00 07/18/17 11:56 91 Nasal Cannula 3.00 07/18/17 11:43 97.7 84 28 175/80 (111) 90 Physical Exam GENERAL: This is a well-nourished, well-developed patient, in moderate distress. Patient remains on BiPAP at this time SKIN: No rashes, ecchymoses or lesions. Cool and dry. HEAD: Atraumatic. Normocephalic. No temporal or scalp tenderness. EYES: Pupils equal round and reactive. Extraocular motions intact. No scleral icterus. No injection or drainage. ENT: Nose without bleeding, purulent drainage or septal hematoma. Throat without erythema, tonsillar hypertrophy or exudate. Uvula midline. Airway patent. NECK: Trachea midline. No JVD or lymphadenopathy. Supple, nontender, no meningeal signs. CARDIOVASCULAR: Regular rate and rhythm without murmurs, gallops, or rubs. S1- S2 no S3 or S4 RESPIRATORY: Breath sounds equal bilaterally. No wheezes, rales, or rhonchi. Decreased breath sounds bilaterally with decreased air entry bilaterally scattered rhonchi GASTROINTESTINAL: Abdomen soft, non-tender, nondistended. No hepato-splenomegaly , or palpable masses. No guarding. MUSCULOSKELETAL: Extremities without clubbing, cyanosis, or edema. No joint tenderness, effusion, or edema noted. No calf tenderness. Negative Homans sign bilaterally. Right upper extremity AV fistula with good thrill and bruit NEUROLOGICAL: Awake and alert. Cranial nerves II through XII intact. Motor and sensory grossly within normal limits. Five out of 5 muscle strength in all muscle groups. Normal speech. Insight and judgment appear good Mood and behavior appropriate Laboratory Laboratory Tests Test 07/18/17 12:35 07/18/17 13:58 07/18/17 14:05 White Blood Count 6.1 Red Blood Count 3.83 Hemoglobin 10.9 Hematocrit 34.3 Mean Corpuscular Volume 89.6 Mean Corpuscular Hemoglobin 28.3 Mean Corpuscular Hemoglobin Concent 31.6 Red Cell Distribution Width 16.2 Platelet Count 366 Mean Platelet Volume 7.4 Neutrophils (%) (Auto) 80.0 Lymphocytes (%) (Auto) 11.9 Monocytes (%) (Auto) 5.9 Eosinophils (%) (Auto) 1.2 Basophils (%) (Auto) 1.0 Neutrophils # (Auto) 4.9 Lymphocytes # (Auto) 0.7 Monocytes # (Auto) 0.4 Eosinophils # (Auto) 0.1 Basophils # (Auto) 0.1 CBC Comment DIFF FINAL Differential Comment B-Type Natriuretic Peptide 2489 Prothrombin Time 10.8 Prothromb Time International Ratio 1.1 Blood Urea Nitrogen 8 Creatinine 4.23 Random Glucose 102 Calcium Level 9.3 Magnesium Level 2.0 Sodium Level 141 Potassium Level 2.5 Chloride Level 103 Carbon Dioxide Level 28.6 Anion Gap 9 Estimat Glomerular Filtration Rate 13 Troponin I 0.12 Blood Gas Puncture Site LT RADIAL Blood Gas Patient Temperature 98.6 Blood Gas HCO3 28 Blood Gas Base Excess 3.9 Blood Gas Oxygen Saturation 81 Arterial Blood pH 7.47 Arterial Blood Partial Pressure CO2 39 Arterial Blood Partial Pressure O2 45 Arterial Blood Oxygen Content 10.9 Arterial Blood Carboxyhemoglobin 2.2 Arterial Blood Methemoglobin 0.5 Blood Gas Hemoglobin 9.6 Oxygen Delivery Device NASAL CANNULA Blood Gas Liter Flow 3 Result Diagram: 07/18/17 1235 07/18/17 1358 Imaging Last Impressions Chest X-Ray 07/18/17 1211 Signed Impressions: Service Date/Time: Tuesday, July 18, 2017 13:03 - CONCLUSION: 1. Increased interstitial markings bilaterally suggestive of pulmonary edema. 2. Improving right lower lung infiltrate. MD Farnaz Rosas VTE Risk Assessment Caprini VTE Risk Assessment: Mod/High Risk (score >= 2) Caprini Risk Assessment Model Point Value = 1 Point Value = 2 Point Value = 3 Point Value = 5 Age 41-60 Minor surgery BMI > 25 kg/m2 Swollen legs Varicose veins or History of unexplained or recurrent spontaneous Oral contraceptives or hormone replacement Sepsis (< 1 month) Serious lung disease, including pneumonia (< 1 month) Abnormal pulmonary function Acute myocardial infarction Congestive heart failure (< 1 month) History of inflammatory bowel disease Medical patient at bed rest Age 61-74 Arthroscopic surgery Major open surgery (> 45 min) Laparoscopic surgery (> 45 min) Malignancy Confined to bed (> 72 hours) Immobilizing plaster cast Central venous access Age >= 75 History of VTE Family history of VTE Factor V Leiden Prothrombin [id number] Lupus anticoagulant Anticardiolipin antibodies Elevated serum homocysteine Heparin-induced thrombocytopenia Other congenital or acquired thrombophilia Stroke (< 1 month) Elective arthroplasty Hip, pelvis, or leg fracture Acute spinal cord injury (< 1 month) Prophylaxis Regimen Total Risk Factor Score Risk Level Prophylaxis Regimen 0-1 Low Early ambulation 2 Moderate Order ONE of the following: *Sequential Compression Device (SCD) *Heparin 5000 units SQ BID 3-4 Higher Order ONE of the following medications: *Heparin 5000 units SQ TID *Enoxaparin/Lovenox 40 mg SQ daily (WT < 150 kg, CrCl > 30 mL/min) *Enoxaparin/Lovenox 30 mg SQ daily (WT < 150 kg, CrCl > 10-29 mL/min) *Enoxaparin/Lovenox 30 mg SQ BID (WT < 150 kg, CrCl > 30 mL/min) AND/OR *Sequential Compression Device (SCD) 5 or more Highest Order ONE of the following medications: *Heparin 5000 units SQ TID (Preferred with Epidurals) *Enoxaparin/Lovenox 40 mg SQ daily (WT < 150 kg, CrCl > 30 mL/min) *Enoxaparin/Lovenox 30 mg SQ daily (WT < 150 kg, CrCl > 10-29 mL/min) *Enoxaparin/Lovenox 30 mg SQ BID (WT < 150 kg, CrCl > 30 mL/min) AND *Sequential Compression Device (SCD) Assessment and Plan Assessment and Plan Respiratory distress and hypoxia requiring oxygenation and BiPAP we will consult pulmonary medicine for this. Will also consult nephrology for end- stage renal disease End-stage renal disease with fluid overload consult nephrology may need repeat dialysis consult Dr. Kasie Castanon on chronic pain continue on home pain medications and as needed morphine Hypertension continue on home medications COPD continue on duo nebs and Mucinex and fluid restrict and steroids Leukocytosis due to steroids Hypokalemia will replace with oral supplementation GERD/ulcers continue on PPI DVT and GI prophylaxis Code Status Full code Discussed Condition With ER physician and RN and patient Physician Certification 2 Midnight Certification Type: Admission for Inpatient Services Order for Inpatient Services The services are ordered in accordance with Medicare regulations or non- Medicare payer requirements, as applicable. In the case of services not specified as inpatient-only, they are appropriately provided as inpatient services in accordance with the 2-midnight benchmark. Estimated LOS (days): 3 days is the estimated time the patient will need to remain in the hospital, assuming treatment plan goals are met and no additional complications. Post-Hospital Plan: Not yet determined Problem Qualifiers (1) Pulmonary edema: Qualified Codes: J81.0 - Acute pulmonary edema Henrik Ackerman DO Jul 18, 2017 16:13
[2017-07-18] MEDS ORDERED: SIMETHICONE 125 MG CHEWABLE TAB PO PRN (17:45)
[2017-07-18] MEDS ORDERED: SODIUM CHLOR 0.9% 1000 ML INJ 1,000 ML IV PRN (17:51)
[2017-07-18] MEDS ORDERED: SODIUM CHLOR 0.9% 1000 ML INJ 1,000 ML OTHER PRN ×2 (17:51)
--- NOTE | 2017-07-18 17:56 | PD.CONS ---
HPI Service Nephrology Consult Requested By Dr. Ackerman Reason for Consult ESRD management Primary Care Physician Krista Vieyra MD History of Present Illness Patient is a 66-year-old black female with history of end-stage renal disease, hypertension, COPD, pacemaker insertion, cardiomyopathy who had been admitted with increasing shortness of breath, according to the patient she was at dialysis of emergency could not get well with the dialysis and it was cut short as she was short of breath and cough, she is a former smoker and stopped smoking last month. Review of Systems Constitutional: COMPLAINS OF: Fatigue Respiratory: COMPLAINS OF: Cough, Shortness of breath Cardiovascular: COMPLAINS OF: Orthopnea Musculoskeletal: COMPLAINS OF: Joint pain, Muscle aches, Stiffness, Joint Swelling, Back pain Psychiatric: COMPLAINS OF: Anxiety Past Family Social History Allergies: Coded Allergies: penicillin G (Verified Allergy, Intermediate, Hives, 07/18/17) Past Medical History End-stage renal disease on hemodialysis COPD on home oxygen History of congestive heart failure History of pacemaker placement History of hemodialysis on Sunday History of bleeding gastric ulcer Hypertension Right upper extremity AV fistula Right lower arm neuropathy chronic History of partial hysterectomy History of ulcers Past Surgical History AV fistula right arm Pacemaker insertion Reported Medications Reported Meds & Active Scripts Active [Albuterol Neb] 2.5 MG/3 ML Nebu 2.5 Mg NEB Q2HR NEB PRN Hydrocodone-Acetamin 10-325 mg (Hydrocodone/Acetaminophen) 10 Mg-325 Mg Tablet 1 Tab PO Q4H PRN Reported Renvela (Sevelamer Carbonate) 800 Mg Tab 800 Mg PO TID Omeprazole 20 Mg Tab 20 Mg PO DAILY Labetalol (Labetalol HCl) 300 Mg Tab 300 Mg PO TID Active Ordered Medications Current Medications Medications (Trade) Dose Ordered Sig/Quinton Route Start Time Stop Time Status Last Admin (D50w (Vial) Inj) 50 ml UNSCH PRN IV PUSH 07/18/17 16:00 (Glucagon Inj) 1 mg UNSCH PRN OTHER 07/18/17 16:00 (NovoLOG SUPPLEMENTAL SCALE) 1 ACHS SLIDING SCALE SQ 07/18/17 17:00 07/18/17 18:07 (Catapres) 0.1 mg Q4H PRN PO 07/18/17 16:00 (Trandate) 300 mg TID PO 07/18/17 18:00 07/18/17 19:42 (Renvela) 800 mg TID PO 07/18/17 18:00 (Protonix) 20 mg DAILY PO 07/18/17 18:00 07/18/17 18:07 (NS Flush) 2 ml UNSCH PRN IV FLUSH 07/18/17 16:00 (NS Flush) 2 ml BID IV FLUSH 07/18/17 21:00 07/18/17 22:20 (Tylenol) 650 mg Q4H PRN PO 07/18/17 16:00 (Zofran Inj) 4 mg Q6H PRN IVP 07/18/17 16:00 (Compazine Supp) 25 mg Q12H PRN RECTAL 07/18/17 16:00 (Tylenol) 650 mg Q6H PRN PO 07/18/17 16:00 (Percocet 5-325 Mg) 1 tab Q6H PRN PO 07/18/17 16:00 (Percocet 10-325 Mg) 1 tab Q6H PRN PO 07/18/17 16:00 07/18/17 19:42 (Morphine Inj) 2 mg Q3H PRN IV PUSH 07/18/17 16:00 (Morphine Inj) 4 mg Q3H PRN IV PUSH 07/18/17 16:00 (Narcan Inj) 0.4 mg UNSCH PRN IV PUSH 07/18/17 16:00 (Maria G-Colace) 1 tab BID PO 07/18/17 21:00 (Milk Of Magnesia Liq) 30 ml Q12H PRN PO 07/18/17 16:00 (Senokot) 17.2 mg Q12H PRN PO 07/18/17 16:00 (Dulcolax Supp) 10 mg DAILY PRN RECTAL 07/18/17 16:00 (Lactulose Liq) 30 ml DAILY PRN PO 07/18/17 16:00 (Duoneb Neb) 1 ampule Q4HR NEB PRN NEB 07/18/17 16:00 (SoluMEDROL INJ) 40 mg Q6HR IV PUSH 07/18/17 18:00 07/18/17 18:10 (Mucinex Er) 600 mg BID PO 07/18/17 18:00 07/18/17 18:07 (Phazyme Chew) 125 mg Q8HR PRN PO 07/18/17 17:45 Sodium Chloride 1,000 ml @ 0 mls/hr Q0M PRN OTHER 07/18/17 17:51 (Heparin Inj) 8,000 units UNSCH PRN IV FLUSH 07/18/17 18:00 Sodium Chloride 1,000 ml @ 200 mls/hr Q5H PRN IV 07/18/17 17:51 Sodium Chloride 1,000 ml @ 0 mls/hr Q0M PRN OTHER 07/18/17 17:51 (Mannitol Inj) 12.5 gm UNSCH PRN IV 07/18/17 18:00 Albumin Human 100 ml @ 60 mls/hr UNSCH PRN IV 07/18/17 18:00 (NS Flush) 5 ml UNSCH PRN IV FLUSH 07/18/17 18:00 (Zofran Inj) 4 mg UNSCH PRN IV PUSH 07/18/17 18:00 07/18/17 22:19 (Tylenol) 650 mg UNSCH PRN PO 07/18/17 18:00 (Benadryl) 25 mg UNSCH PRN PO 07/18/17 18:00 (Nitrostat Sl) 0.4 mg UNSCH PRN SL 07/18/17 18:00 (Catapres) 0.1 mg UNSCH PRN PO 07/18/17 18:00 (Gelfoam 12 Mm/7 Mm Top) 1 foam UNSCH PRN TOP 07/18/17 18:00 Family History Noncontributory Social History History of smoking 1 pack per day to half pack per day quit 1 month, denies alcohol use Physical Exam Vital Signs Vital Signs Date Time Temp Pulse Resp B/P (MAP) Pulse Ox O2 Delivery O2 Flow Rate FiO2 07/18/17 16:30 Nasal Cannula 3.00 07/18/17 15:00 81 16 100 BiPAP 100 07/18/17 14:30 100 100 07/18/17 14:20 95 BiPAP 07/18/17 14:00 77 18 189/86 (120) 89 Nasal Cannula 3.00 07/18/17 13:11 88 18 199/102 (134) 07/18/17 13:00 84 18 199/102 (134) 92 Nasal Cannula 4.00 07/18/17 12:21 97 Nasal Cannula 4.00 07/18/17 11:56 91 Nasal Cannula 3.00 07/18/17 11:43 97.7 84 28 175/80 (962) 90 Physical Exam GENERAL: Well-nourished, well-developed patient. SKIN: Warm and dry. HEAD: Normocephalic. EYES: No scleral icterus. No injection or drainage. NECK: Supple, trachea midline. No JVD or lymphadenopathy. CARDIOVASCULAR: Regular rate and rhythm without murmurs, gallops, or rubs. RESPIRATORY: Breath sounds decreased at bases, few rales left base GASTROINTESTINAL: Abdomen soft, non-tender, nondistended. EXTREMITIES: No cyanosis, or edema. Rt hand wrist painful arthritis NEUROLOGICAL: Awake, alert, and oriented x 3. Non-focal. Laboratory Laboratory Tests Test 07/18/17 12:35 07/18/17 13:58 07/18/17 14:05 White Blood Count 6.1 Red Blood Count 3.83 Hemoglobin 10.9 Hematocrit 34.3 Mean Corpuscular Volume 89.6 Mean Corpuscular Hemoglobin 28.3 Mean Corpuscular Hemoglobin Concent 31.6 Red Cell Distribution Width 16.2 Platelet Count 366 Mean Platelet Volume 7.4 Neutrophils (%) (Auto) 80.0 Lymphocytes (%) (Auto) 11.9 Monocytes (%) (Auto) 5.9 Eosinophils (%) (Auto) 1.2 Basophils (%) (Auto) 1.0 Neutrophils # (Auto) 4.9 Lymphocytes # (Auto) 0.7 Monocytes # (Auto) 0.4 Eosinophils # (Auto) 0.1 Basophils # (Auto) 0.1 CBC Comment DIFF FINAL Differential Comment B-Type Natriuretic Peptide 2489 Prothrombin Time 10.8 Prothromb Time International Ratio 1.1 Blood Urea Nitrogen 8 Creatinine 4.23 Random Glucose 102 Calcium Level 9.3 Magnesium Level 2.0 Sodium Level 141 Potassium Level 2.5 Chloride Level 103 Carbon Dioxide Level 28.6 Anion Gap 9 Estimat Glomerular Filtration Rate 13 Troponin I 0.12 Blood Gas Puncture Site LT RADIAL Blood Gas Patient Temperature 98.6 Blood Gas HCO3 28 Blood Gas Base Excess 3.9 Blood Gas Oxygen Saturation 81 Arterial Blood pH 7.47 Arterial Blood Partial Pressure CO2 39 Arterial Blood Partial Pressure O2 45 Arterial Blood Oxygen Content 10.9 Arterial Blood Carboxyhemoglobin 2.2 Arterial Blood Methemoglobin 0.5 Blood Gas Hemoglobin 9.6 Oxygen Delivery Device NASAL CANNULA Blood Gas Liter Flow 3 Result Diagram: 07/18/17 1235 07/18/17 1358 Imaging Last Impressions Chest X-Ray 07/18/17 1211 Signed Impressions: Service Date/Time: Tuesday, July 18, 2017 13:03 - CONCLUSION: 1. Increased interstitial markings bilaterally suggestive of pulmonary edema. 2. Improving right lower lung infiltrate. Teo Mejia MD Assessment and Plan Problem List: (1) ESRD (end stage renal disease) on dialysis ICD Codes: N18.6 - End stage renal disease; Z99.2 - Dependence on renal dialysis Status: Chronic Plan: Hemodialysis done today as out patient, but had respiratory distress, it improved on Bipap doing better on Nasal Cannula O2 she did not complete her dialysis treatment may do her dialysis treatment 2 hrs tomorrow am get 2.5 L off again as CXR showed Pulmonary edema potassium was low replaced (2) HTN (hypertension) ICD Codes: I10 - Essential (primary) hypertension Status: Chronic Plan: BP Labile, started out patient medications (3) COPD (chronic obstructive pulmonary disease) ICD Codes: J44.9 - Chronic obstructive pulmonary disease, unspecified Status: Chronic Plan: if improved can be dc and follow up as out patient due to right hand arthritis she is unable to use O2 tank wants diffuser to carry out (4) CHF (congestive heart failure) ICD Codes: I50.9 - Heart failure, unspecified Status: Acute Plan: Hemodialysis planned for morning Problem Qualifiers (1) COPD (chronic obstructive pulmonary disease): Lisa Ferro MD Jul 18, 2017 17:56
[2017-07-18] MEDS ORDERED: NITROGLYCERIN 0.4 MG SL 25 TABS/BTL SL PRN (18:00)
[2017-07-18] MEDS: LABETALOL HCL 300 MG TAB PO SCH ×2 (18:00→19:42)
[2017-07-18] MEDS ORDERED: MANNITOL 12.5 GM/50 ML VIAL IV PRN (18:00)
[2017-07-18] MEDS ORDERED: ALBUMIN 25% INJ 100 ML IV PRN (18:00)
[2017-07-18] MEDS ORDERED: ONDANSETRON HCL 4 MG/2 ML VIAL IV PUSH PRN (18:00)
[2017-07-18] MEDS ORDERED: HEPARIN SODIUM - IV 10,000 UNITS/10 ML VIAL IV FLUSH PRN (18:00)
[2017-07-18] MEDS ORDERED: GELATIN 12 MM/7 MM FOAM TOP PRN (18:00)
[2017-07-18] MEDS: SEVELAMER CARBONATE 800 MG TAB PO SCH (18:00)
[2017-07-18] MEDS ORDERED: diphenhydrAMINE HCL 25 MG CAP PO PRN (18:00)
[2017-07-18] MEDS: INSULIN ASPART SUPPLEMENTAL SCALE SQ SCH ×2 (18:07→21:00)
[2017-07-18] MEDS: PANTOPRAZOLE SOD 20 MG DELAYED RELEASE TAB PO SCH (18:07)
[2017-07-18] MEDS: guaiFENesin E.R. 600 MG TAB PO SCH (18:07)
[2017-07-18] MEDS: methylPREDNISolone SOD SUCC 40 MG/1 ML VIAL IV PUSH SCH (18:10)
[2017-07-18] MEDS: oxyCODONE/ACETAMINOPHEN 10 MG/325 MG TAB PO PRN (19:42)
[2017-07-18] MEDS: DOCUSATE SODIUM 50 MG/SENNA 8.6 MG TAB PO SCH (21:00)
[2017-07-18] MEDS: SODIUM CHLORIDE 0.9% FLUSH 10 ML FLUSH IV FLUSH SCH (22:20)
[2017-07-18 23:17] LABS: TROPONIN I 0.08 NG/ML (0.02-0.05)
[2017-07-19] VITALS (15 sets, daily range): BP systolic 93–137; BP diastolic 54–78; PULSE 59–67; RESP 17–22; TEMP 96.2–98; O2SAT 94–100
[2017-07-19] MEDS: methylPREDNISolone SOD SUCC 40 MG/1 ML VIAL IV PUSH SCH ×4 (00:03→18:23)
[2017-07-19] MEDS: oxyCODONE/ACETAMINOPHEN 10 MG/325 MG TAB PO PRN ×4 (00:03→18:36)
[2017-07-19 03:40] LABS: AUTOMATED NEUTROPHIL # 3.8 TH/MM3 (1.8-7.7); BASOPHIL % 0.5 % (0.0-2.0); HEMATOCRIT 29.3 % (35.0-46.0); HEMOGLOBIN 9.3 GM/DL (11.6-15.3); LYMPH % 7.8 % (9.0-44.0); LYMPHOCYTE # 0.3 TH/MM3 (1.0-4.8); MEAN CELL VOLUME 89.5 FL (80.0-100.0); MEAN CORPUSCULAR HEMOGLOBIN 28.4 PG (27.0-34.0); MEAN CORPUSCULAR HGB CONC 31.7 % (32.0-36.0); MEAN PLATELET VOLUME 8.5 FL (7.0-11.0); MONOCYTE # 0.1 TH/MM3 (0-0.9); NEUT % 89.7 % (16.0-70.0); PLATELET COUNT 281 TH/MM3 (150-450); RED BLOOD COUNT 3.27 MIL/MM3 (4.00-5.30); RED CELL DISTRIBUTION WIDTH 16.1 % (11.6-17.2); WHITE BLOOD COUNT 4.2 TH/MM3 (4.0-11.0)
[2017-07-19 04:09] LABS: ALBUMIN 2.7 GM/DL (3.4-5.0); ALKALINE PHOSPHATASE 161 U/L (45-117); ALT (GPT) 11 U/L (10-53); AST (GOT) 17 U/L (15-37); BICARBONATE 25.3 MEQ/L (21.0-32.0); BLOOD UREA NITROGEN 13 MG/DL (7-18); CHLORIDE 107 MEQ/L (98-107); CREATININE 5.31 MG/DL (0.50-1.00); FREE T4 1.09 NG/DL (0.76-1.46); GLOMERULAR FILTRATION RATE 10 ML/MIN (>89); GLUCOSE,RANDOM 149 MG/DL (74-106); MAGNESIUM 2.2 MG/DL (1.5-2.5); PHOSPHORUS 3.7 MG/DL (2.5-4.9); SODIUM (NA) 141 MEQ/L (136-145); TOTAL BILIRUBIN ADULT 0.5 MG/DL (0.2-1.0); TOTAL PROTEIN 7.2 GM/DL (6.4-8.2); TROPONIN I 0.08 NG/ML (0.02-0.05)
[2017-07-19 05:05] LABS: BANDS 4 % (0-6); LYMPHOCYTES 2 % (9-44); METAMYELOCYTES 2 % (0-1); MONOCYTES 1 % (0-8); MYELOCYTES 4 % (0-0); NEUTROPHIL # MANUAL DIFF 4.1 TH/MM3 (1.8-7.7); POLYS (SEG NEUTROPHILS) 87 % (16-70)
[2017-07-19 05:07] LABS: ACANTHOCYTES OCC (NORMAL); OVALOCYTES 1+ (NORMAL)
[2017-07-19] MEDS: INSULIN ASPART SUPPLEMENTAL SCALE SQ SCH ×4 (08:00→22:14)
[2017-07-19] MEDS: guaiFENesin E.R. 600 MG TAB PO SCH ×2 (08:28→22:14)
[2017-07-19] MEDS: DOCUSATE SODIUM 50 MG/SENNA 8.6 MG TAB PO SCH ×2 (08:29→21:00)
[2017-07-19] MEDS: SODIUM CHLORIDE 0.9% FLUSH 10 ML FLUSH IV FLUSH SCH ×2 (08:29→22:15)
[2017-07-19] MEDS: PANTOPRAZOLE SOD 20 MG DELAYED RELEASE TAB PO SCH (08:29)
--- NOTE | 2017-07-19 10:08 | MB ---
cc: Rai Barahona MD DATE: 07/18/2017 REQUESTING PHYSICIAN: Dr. Henrik Ackerman REASON FOR CONSULTATION: Shortness of breath. HISTORY OF PRESENT ILLNESS: Ms. Estrada is a 66-year-old female with a history of hypertension, and end-stage renal disease. She is on hemodialysis. The patient was discharged from the hospital 1 month ago. She has been having diarrhea ever since, has occasional abdominal pain. Does not have fever, chills. No night sweats. She was feeling weak, tired, short of breath at rest. She came to the hospital. She had dialysis today. She was evaluated in the emergency room. WBC 6.1, hemoglobin 10.9, hematocrit 34.3, MCV 92, platelet count 366. Sodium 140, potassium 2.5, chloride 103, CO2 28, BUN 8, creatinine 4.23. The chest x-ray shows increased interstitial markings suggestive of pulmonary edema. PAST MEDICAL HISTORY: Significant for history of hypertension, endstage renal disease, COPD, pacemaker placement, congestive heart failure, AV fistula placement. PAST SURGICAL HISTORY: History of hysterectomy. MEDICATIONS: She is currently taking Renvela 800 mg 3 times a day, Protonix 20 mg, Solu-Medrol 40 mg q. 6 hours, Mucinex 600 mg twice a day, IV albumin, clonidine p.r.n., oxycodone for pain. ALLERGIES: PENICILLIN. SOCIAL HISTORY: She is single and lives alone. Has a long history of smoking until 1 month ago. No alcohol use. She used to work making car parts. FAMILY HISTORY: She has a son and daughter. REVIEW OF SYSTEMS: She feels weak, tired, mild shortness of breath. No DVT or pulmonary embolism. Does not use oxygen all the time. PHYSICAL EXAMINATION: GENERAL: Elderly female, mild short of breath. VITAL SIGNS: Blood pressure 120/64, heart rate 75, respiratory rate 20, temperature 98.2. HEENT: Pupils are equal and reactive to light. Oral mucosa and nasal mucosa normal. NECK: Supple. JVD not raised. CHEST: Equal air entry bilaterally. Few rhonchi. CARDIOVASCULAR: S1, S2 normal. ABDOMEN: Mildly distended, nontender. Bowel sounds are present. EXTREMITIES: No edema. IMPRESSION: 1. Chronic obstructive pulmonary disease with mild exacerbation. 2. Hypoxia. 3. Pulmonary edema. 4. End-stage renal disease, on dialysis. 5. Electrolyte imbalance. 6. Chronic diarrhea. PLAN: Will give her aerosol treatment, supplemental oxygen, correct her electrolytes, Solu-Medrol 40 mg q. 6 hours, Protonix 20 mg a day. Further treatment pending on the course in the hospital. Thank you Dr. Ackerman for this consult. Rai Barahona MD ADA/rt , 08:33 PM , 08:52 PM [email or web address]
[2017-07-19] MEDS: SEVELAMER CARBONATE 800 MG TAB PO SCH ×4 (11:19→18:35)
--- NOTE | 2017-07-19 11:45 | HHI.PR ---
Subjective Remarks Patient is a 66-year-old -[place]ames[place] female. Presented emergency department with increasing shortness of breath with a history of chronic pain and vomiting and diarrhea. Patient has history of end-stage renal disease on hemodialysis. was seen in dialysis today and underwent 2-1/2 out of 3 and a half hours of dialysis today. The patient remained very short of breath and therefore was sent to the emergency department for evaluation. She normally sees Dr. Ferro of nephrology. She had her hemodialysis partially this morning and was still short of breath so was sent to the emergency department. Has a history of COPD has home oxygen a couple liters. Her O2 saturation was 91% on 3 liters by nasal cannula. Of oxygen. She has oxygen 247 requirement at home at least 2-3 L. Patient was in more respiratory distress when she presented O2 sat was in the mid 80s she had some chest pain as well.. Patient is on chronic pain medication needed pain medication now per the emergency department. Patient has positive troponin and hypoxia and fluid overload and pulmonary edema and will be admitted for further evaluation treatment will consult nephrology as well as pulmonary. May need cardiology depending if troponins are flat or not 3 had HD -LESS SOB AFTER HD CONTINUE PT AND OT OFF BIPAP DW RN AND PT FLUID RESTRICT TO 1 LITER Objective Vitals Vital Signs Date Time Temp Pulse Resp B/P (MAP) Pulse Ox O2 Delivery O2 Flow Rate FiO2 07/19/17 10:00 60 07/19/17 09:09 98 Nasal Cannula 3.00 07/19/17 08:00 60 07/19/17 08:00 96.2 60 18 137/78 (97) 100 07/19/17 08:00 100 Nasal Cannula 3.00 07/19/17 06:00 63 07/19/17 04:00 60 07/19/17 04:00 59 96 07/19/17 02:50 100 Nasal Cannula 3.00 07/19/17 02:00 62 07/19/17 02:00 60 116/61 (79) 100 07/19/17 01:00 60 93/54 (67) 100 07/19/17 00:00 98.0 67 109/61 (77) 100 07/19/17 00:00 60 07/19/17 00:00 99 Nasal Cannula 3.00 07/18/17 23:00 63 103/57 (72) 96 07/18/17 22:00 63 07/18/17 22:00 75 95/54 (68) 98 07/18/17 21:00 66 165/75 (105) 100 07/18/17 20:00 98.4 68 37 186/79 (114) 100 07/18/17 20:00 68 07/18/17 20:00 98 Nasal Cannula 3.00 07/18/17 19:00 98.2 75 32 163/76 (105) 89 07/18/17 19:00 75 07/18/17 18:30 07/18/17 18:00 75 18 177/78 (111) 91 Nasal Cannula 3.00 07/18/17 16:34 96 Nasal Cannula 2.00 07/18/17 16:30 Nasal Cannula 3.00 07/18/17 15:00 81 16 100 BiPAP 100 07/18/17 14:30 100 100 07/18/17 14:20 95 BiPAP 07/18/17 14:00 77 18 189/86 (120) 89 Nasal Cannula 3.00 07/18/17 13:11 88 18 199/102 (134) 07/18/17 13:00 84 18 199/102 (134) 92 Nasal Cannula 4.00 07/18/17 12:21 97 Nasal Cannula 4.00 07/18/17 11:56 91 Nasal Cannula 3.00 07/18/17 11:43 97.7 84 28 175/80 (111) 90 I/O 07/18/17 07/18/17 07/18/17 07/19/17 07/19/17 07/19/17 07:00 15:00 23:00 07:00 15:00 23:00 Intake Total 480 ml 480 ml Output Total 0 ml 2500 ml Balance 480 ml 480 ml -2500 ml Intake Oral 480 ml 480 ml IV Total 0 ml Output Urine Total 0 ml Hemodialysis 2500 ml # Voids 1 # Bowel Movements 1 Result Diagram: 07/19/1725607/19/17256 Other Results Laboratory Tests Test 07/18/17 12:35 07/18/17 13:58 07/18/17 14:05 07/18/17 19:15 White Blood Count 6.1 TH/MM3 Red Blood Count 3.83 MIL/MM3 Hemoglobin 10.9 GM/DL Hematocrit 34.3 % Mean Corpuscular Volume 89.6 FL Mean Corpuscular Hemoglobin 28.3 PG Mean Corpuscular Hemoglobin Concent 31.6 % Red Cell Distribution Width 16.2 % Platelet Count 366 TH/MM3 Mean Platelet Volume 7.4 FL Neutrophils (%) (Auto) 80.0 % Lymphocytes (%) (Auto) 11.9 % Monocytes (%) (Auto) 5.9 % Eosinophils (%) (Auto) 1.2 % Basophils (%) (Auto) 1.0 % Neutrophils # (Auto) 4.9 TH/MM3 Lymphocytes # (Auto) 0.7 TH/MM3 Monocytes # (Auto) 0.4 TH/MM3 Eosinophils # (Auto) 0.1 TH/MM3 Basophils # (Auto) 0.1 TH/MM3 CBC Comment DIFF FINAL Differential Comment B-Type Natriuretic Peptide 2489 PG/ML Prothrombin Time 10.8 SEC Prothromb Time International Ratio 1.1 RATIO Blood Urea Nitrogen 8 MG/DL Creatinine 4.23 MG/DL Random Glucose 102 MG/DL Calcium Level 9.3 MG/DL Magnesium Level 2.0 MG/DL Sodium Level 141 MEQ/L Potassium Level 2.5 MEQ/L Chloride Level 103 MEQ/L Carbon Dioxide Level 28.6 MEQ/L Anion Gap 9 MEQ/L Estimat Glomerular Filtration Rate 13 ML/MIN Troponin I 0.12 NG/ML Blood Gas Puncture Site LT RADIAL Blood Gas Patient Temperature 98.6 Blood Gas HCO3 28 mmol/L Blood Gas Base Excess 3.9 mmol/L Blood Gas Oxygen Saturation 81 % Arterial Blood pH 7.47 Arterial Blood Partial Pressure CO2 39 mmHg Arterial Blood Partial Pressure O2 45 mmHG Arterial Blood Oxygen Content 10.9 Vol % Arterial Blood Carboxyhemoglobin 2.2 % Arterial Blood Methemoglobin 0.5 % Blood Gas Hemoglobin 9.6 G/DL Oxygen Delivery Device NASAL CANNULA Blood Gas Liter Flow 3 L/M Nasal Screen MRSA (PCR) MRSA NOT DETECTED Test 07/18/17 22:30 07/19/17 02:57 Total Creatine Kinase 23 U/L 17 U/L Troponin I 0.08 NG/ML 0.08 NG/ML White Blood Count 4.2 TH/MM3 Red Blood Count 3.27 MIL/MM3 Hemoglobin 9.3 GM/DL Hematocrit 29.3 % Mean Corpuscular Volume 89.5 FL Mean Corpuscular Hemoglobin 28.4 PG Mean Corpuscular Hemoglobin Concent 31.7 % Red Cell Distribution Width 16.1 % Platelet Count 281 TH/MM3 Mean Platelet Volume 8.5 FL Neutrophils (%) (Auto) 89.7 % Lymphocytes (%) (Auto) 7.8 % Monocytes (%) (Auto) 2.0 % Eosinophils (%) (Auto) 0.0 % Basophils (%) (Auto) 0.5 % Neutrophils # (Auto) 3.8 TH/MM3 Lymphocytes # (Auto) 0.3 TH/MM3 Monocytes # (Auto) 0.1 TH/MM3 Eosinophils # (Auto) 0.0 TH/MM3 Basophils # (Auto) 0.0 TH/MM3 CBC Comment AUTO DIFF Differential Total Cells Counted 100 Neutrophils % (Manual) 87 % Band Neutrophils % 4 % Lymphocytes % 2 % Monocytes % 1 % Neutrophils # (Manual) 4.1 TH/MM3 Metamyelocytes 2 % Myelocytes 4 % Differential Comment FINAL DIFF MANUAL Platelet Estimate NORMAL Platelet Morphology Comment NORMAL Ovalocytes 1+ Acanthocytes OCC Blood Urea Nitrogen 13 MG/DL Creatinine 5.31 MG/DL Random Glucose 149 MG/DL Total Protein 7.2 GM/DL Albumin 2.7 GM/DL Calcium Level 10.0 MG/DL Phosphorus Level 3.7 MG/DL Magnesium Level 2.2 MG/DL Alkaline Phosphatase 161 U/L Aspartate Amino Transf (AST/SGOT) 17 U/L Alanine Aminotransferase (ALT/SGPT) 11 U/L Total Bilirubin 0.5 MG/DL Sodium Level 141 MEQ/L Potassium Level 4.9 MEQ/L Chloride Level 107 MEQ/L Carbon Dioxide Level 25.3 MEQ/L Anion Gap 9 MEQ/L Estimat Glomerular Filtration Rate 10 ML/MIN Free Thyroxine 1.09 NG/DL Thyroid Stimulating Hormone 3rd Gen 0.573 uIU/ML Imaging Last Impressions Chest X-Ray 07/18/17 1211 Signed Impressions: Service Date/Time: Tuesday, July 18, 2017 13:03 - CONCLUSION: 1. Increased interstitial markings bilaterally suggestive of pulmonary edema. 2. Improving right lower lung infiltrate. Teo Mejia MD Objective Remarks GENERAL: Awake alert oriented 3 talkative and cooperative SKIN: Warm and dry. HEAD: Atraumatic. Normocephalic. EYES: Pupils equal and round. No scleral icterus. No injection or drainage. extraocular muscles intact ENT: No nasal bleeding or discharge. Mucous membranes pink and moist. Tongue is midline NECK: Trachea midline. No JVD. Supple CARDIOVASCULAR: Regular rate and rhythm. S1-S2 no S3-S4 RESPIRATORY: No accessory muscle use. Clear to auscultation. Breath sounds equal bilaterally. Decreased breath sounds bilaterally GASTROINTESTINAL: Abdomen soft, non-tender, nondistended. Hepatic and splenic margins not palpable. MUSCULOSKELETAL: Extremities without clubbing, cyanosis, or edema. No obvious deformities. NEUROLOGICAL: Awake and alert. No obvious cranial nerve deficits. Motor grossly within normal limits. Five out of 5 muscle strength in the arms and legs. Normal speech. PSYCHIATRIC: Appropriate mood and affect; insight and judgment normal. Procedures HD Medications and IVs Current Medications Sodium Chloride (NS Flush) 2 ml UNSCH PRN IVF FLUSH AFTER USING IV ACCESS Last administered on 07/18/17at 12:37; Start 07/18/17 at 12:15; Stop 07/18/17 at 16:10 ; Status DC Ketorolac Tromethamine (Toradol Inj) 30 mg ONCE ONCE IV PUSH Last administered on 07/18/17at 12:37; Start 07/18/17 at 12:15; Stop 07/18/17 at 12:16 ; Status DC Methylprednisolone Sodium Succinate (SoluMEDROL INJ) 125 mg ONCE ONCE IV PUSH Last administered on 07/18/17at 12:37; Start 07/18/17 at 12:15; Stop 07/18/17 at 12:16; Status DC Albuterol/ Ipratropium (Duoneb Neb) 1 ampule Q15M INH Last administered on 07/18at 12:17; Start 07/18/17 at 12:15; Stop 07/18/17 at 12:46; Status DC Furosemide (Lasix Inj) 40 mg ONCE ONCE IV PUSH Last administered on 07/18/17at 14:59; Start 07/18/17 at 14:00; Stop 07/18/17 at 14:03; Status DC Potassium Chloride (KCl) 40 meq ONCE ONCE PO Last administered on 07/18/17at 15 :00; Start 07/18/17 at 15:00; Stop 07/18/17 at 15:01; Status DC Dextrose (D50w (Vial) Inj) 50 ml UNSCH PRN IV PUSH HYPOGLYCEMIA-SEE COMMENTS; Start 07/18/17 at 16:00 Glucagon (Glucagon Inj) 1 mg UNSCH PRN OTHER HYPOGLYCEMIA-SEE COMMENTS; Start 07/18/17 at 16:00 Insulin Aspart (NovoLOG SUPPLEMENTAL SCALE) 1 ACHS SLIDING SCALE SQ Last administered on 07/19/17at 08:00; Start 07/18/17 at 17:00 Clonidine (Catapres) 0.1 mg Q4H PRN PO SBP>160, DBP>90; Start 07/18/17 at 16:00 Labetalol HCl (Trandate) 300 mg TID PO Last administered on 07/18/17at 19:42; Start 07/18/17 at 18:00 Sevelamer Carbonate (Renvela) 800 mg TID PO Last administered on 07/19/17at 11: 19; Start 07/18/17 at 18:00 Pantoprazole Sodium (Protonix) 20 mg DAILY PO Last administered on 07/19/17at 08 :29; Start 07/18/17 at 18:00 Sodium Chloride (NS Flush) 2 ml UNSCH PRN IV FLUSH FLUSH AFTER USING IV ACCESS ; Start 07/18/17 at 16:00 Sodium Chloride (NS Flush) 2 ml BID IV FLUSH Last administered on 07/19/17at 08: 29; Start 07/18/17 at 21:00 Acetaminophen (Tylenol) 650 mg Q4H PRN PO TEMP > 100.4; Start 07/18/17 at 16:00 Ondansetron HCl (Zofran Inj) 4 mg Q6H PRN IVP NAUSEA OR VOMITING; Start at 16:00 Prochlorperazine (Compazine Supp) 25 mg Q12H PRN RECTAL NAUSEA OR VOMITING; Start 07/18/17 at 16:00 Acetaminophen (Tylenol) 650 mg Q6H PRN PO PAIN SCALE 1 TO 2; Start 07/18/17 at 16:00 Oxycodone/ Acetaminophen (Percocet 5-325 Mg) 1 tab Q6H PRN PO PAIN SCALE 3 TO 5 Last administered on 07/19/17at 03:21; Start 07/18/17 at 16:00 Oxycodone/ Acetaminophen (Percocet 10-325 Mg) 1 tab Q6H PRN PO PAIN SCALE 6 TO 10 Last administered on 07/19/17at 05:40; Start 07/18/17 at 16:00 Morphine Sulfate (Morphine Inj) 2 mg Q3H PRN IV PUSH Pain 3-5; if unable to take PO; Start 07/18/17 at 16:00 Morphine Sulfate (Morphine Inj) 4 mg Q3H PRN IV PUSH Pain 6-10;if unable to take PO; Start 07/18/17 at 16:00 Naloxone HCl (Narcan Inj) 0.4 mg UNSCH PRN IV PUSH SEE LABEL COMMENTS; Start at 16:00 Senna/Docusate Sodium (Maria G-Colace) 1 tab BID PO ; Start 07/18/17 at 21:00 Magnesium Hydroxide (Milk Of Magnesia Liq) 30 ml Q12H PRN PO Mild constipation ; Start 07/18/17 at 16:00 Sennosides (Senokot) 17.2 mg Q12H PRN PO Moderate constipation; Start 07/18/17 at 16:00 Bisacodyl (Dulcolax Supp) 10 mg DAILY PRN RECTAL SEVERE CONSITIPATION; Start at 16:00 Lactulose (Lactulose Liq) 30 ml DAILY PRN PO SEVERE CONSITIPATION; Start at 16:00 Albuterol/ Ipratropium (Duoneb Neb) 1 ampule Q4HR NEB PRN NEB sob Last administered on 07/19/17at 09:09; Start 07/18/17 at 16:00 Potassium Chloride (KCl) 40 meq ONCE ONCE PO Last administered on 07/18/17at 18 :06; Start 07/18/17 at 16:30; Stop 07/18/17 at 16:31; Status DC Methylprednisolone Sodium Succinate (SoluMEDROL INJ) 40 mg Q6HR IV PUSH Last administered on 07/19/17at 05:40; Start 07/18/17 at 18:00 Guaifenesin (Mucinex Er) 600 mg BID PO Last administered on 07/19/17at 08:28; Start 07/18/17 at 18:00 Simethicone (Phazyme Chew) 125 mg Q8HR PRN PO GAS RETENTION; Start 07/18/17 at 17:45 Sodium Chloride 1,000 ml @ 0 mls/hr Q0M PRN OTHER For Prime & Rinse Back; Start 07/18/17 at 17:51 Heparin Sodium (Porcine) (Heparin Inj) 8,000 units UNSCH PRN IV FLUSH WITH DIALYSIS; Start 07/18/17 at 18:00 Sodium Chloride 1,000 ml @ 200 mls/hr Q5H PRN IV WITH DIALYSIS; Start 07/18/17 at 17:51 Sodium Chloride 1,000 ml @ 0 mls/hr Q0M PRN OTHER WITH DIALYSIS; Start at 17:51 Mannitol (Mannitol Inj) 12.5 gm UNSCH PRN IV WITH DIALYSIS; Start 07/18/17 at 18:00 Albumin Human 100 ml @ 60 mls/hr UNSCH PRN IV WITH DIALYSIS; Start 07/18/17 at 18:00 Sodium Chloride (NS Flush) 5 ml UNSCH PRN IV FLUSH WITH DIALYSIS; Start at 18:00 Ondansetron HCl (Zofran Inj) 4 mg UNSCH PRN IV PUSH WITH DIALYSIS Last administered on 07/18/17at 22:19; Start 07/18/17 at 18:00 Acetaminophen (Tylenol) 650 mg UNSCH PRN PO for headach, pain, temp > 101F; Start 07/18/17 at 18:00 Diphenhydramine HCl (Benadryl) 25 mg UNSCH PRN PO for hives/itching/anaphylaxis ; Start 07/18/17 at 18:00 Nitroglycerin (Nitrostat Sl) 0.4 mg UNSCH PRN SL CHEST PAIN; Start 07/18/17 at 18:00 Clonidine (Catapres) 0.1 mg UNSCH PRN PO for BP > 180/100 X 2 readings; Start 07/18/17 at 18:00 Gelatin (Gelfoam 12 Mm/7 Mm Top) 1 foam UNSCH PRN TOP SEE LABEL COMMENTS; Start 07/18/17 at 18:00 A/P Problem List: (1) Dependent on hemodialysis ICD Code: Z99.2 - Dependence on renal dialysis Status: Acute (2) Pulmonary edema ICD Code: J81.1 - Chronic pulmonary edema Status: Acute (3) Respiratory distress ICD Code: R06.03 - Acute respiratory distress Status: Acute (4) End stage renal disease ICD Code: N18.6 - End stage renal disease Status: Acute (5) Elevated troponin I level ICD Code: R74.8 - Abnormal levels of other serum enzymes Status: Acute (6) Hypokalemia ICD Code: E87.6 - Hypokalemia Status: Acute (7) ESRD (end stage renal disease) on dialysis ICD Code: N18.6 - End stage renal disease; Z99.2 - Dependence on renal dialysis Status: Chronic (8) HTN (hypertension) ICD Code: I10 - Essential (primary) hypertension Status: Chronic (9) COPD (chronic obstructive pulmonary disease) ICD Code: J44.9 - Chronic obstructive pulmonary disease, unspecified Status: Chronic (10) Hypoxia ICD Code: R09.02 - Hypoxemia Assessment and Plan Respiratory distress and hypoxia requiring oxygenation and BiPAP we will consult pulmonary medicine for this. Will also consult nephrology for end- stage renal disease Continue on duo nebs continue on steroids continue on antibiotics End-stage renal disease with fluid overload consult nephrology may need repeat dialysis consult Dr. Ferro underwent hemodialysis today July 19 Acute on chronic pain continue on home pain medications and as needed morphine Hypertension continue on home medications COPD continue on duo nebs and Mucinex and fluid restrict and steroids Leukocytosis due to steroids Hypokalemia will replace with oral supplementation Poor compliance/noncompliance and does not fluid restrict does not really use her oxygen well when she leaves the house GERD/ulcers continue on PPI DVT and GI prophylaxis Discharge Planning Pending breathing improvement Problem Qualifiers (1) Pulmonary edema: Qualified Codes: J81.0 - Acute pulmonary edema (2) COPD (chronic obstructive pulmonary disease): Henrik Ackerman DO Jul 19, 2017 11:45
[2017-07-19] MEDS: LABETALOL HCL 300 MG TAB PO SCH ×2 (12:19→18:23)
--- NOTE | 2017-07-19 12:44 | HHI.NPPN ---
Subjective History of Present Illness Patient is a 66-year-old black female with history of end-stage renal disease, CHF, hypertension, COPD Review of Systems Respiratory Lungs: SOB Objective Data Data 07/19/17 07/20/17 19:00 07:00 Output Total 2500 ml Balance -2500 ml Hemodialysis 2500 ml Vital Signs Date Time Temp Pulse Resp B/P (MAP) Pulse Ox O2 Delivery O2 Flow Rate FiO2 07/19/17 12:00 99 Nasal Cannula 3.00 07/19/17 12:00 97.7 67 17 126/60 (82) 99 07/19/17 12:00 67 07/19/17 10:00 60 07/19/17 09:09 98 Nasal Cannula 3.00 07/19/17 08:00 60 07/19/17 08:00 96.2 60 18 137/78 (97) 100 07/19/17 08:00 100 Nasal Cannula 3.00 07/19/17 06:00 63 07/19/17 04:00 60 07/19/17 04:00 59 96 07/19/17 02:50 100 Nasal Cannula 3.00 07/19/17 02:00 62 07/19/17 02:00 60 116/61 (79) 100 07/19/17 01:00 60 93/54 (67) 100 07/19/17 00:00 98.0 67 109/61 (77) 100 07/19/17 00:00 60 07/19/17 00:00 99 Nasal Cannula 3.00 07/18/17 23:00 63 103/57 (72) 96 07/18/17 22:00 63 07/18/17 22:00 75 95/54 (68) 98 07/18/17 21:00 66 165/75 (105) 100 07/18/17 20:00 98.4 68 37 186/79 (114) 100 07/18/17 20:00 68 07/18/17 20:00 98 Nasal Cannula 3.00 07/18/17 19:00 98.2 75 32 163/76 (105) 89 07/18/17 19:00 75 07/18/17 18:30 07/18/17 18:00 75 18 177/78 (111) 91 Nasal Cannula 3.00 07/18/17 16:34 96 Nasal Cannula 2.00 07/18/17 16:30 Nasal Cannula 3.00 07/18/17 15:00 81 16 100 BiPAP 100 07/18/17 14:30 100 100 07/18/17 14:20 95 BiPAP 07/18/17 14:00 77 18 189/86 (120) 89 Nasal Cannula 3.00 07/18/17 13:11 88 18 199/102 (134) 07/18/17 13:00 84 18 199/102 (134) 92 Nasal Cannula 4.00 -: 07/19/17 0257 07/19/17 0257 Physical Exam General Appearance: Well Developed, Well Nourished Neck Neck Exam: Neck Supple Pulmonary Resp Exam: Decreased Bases Cardiology CV Exam: Regular, Normal Sinus Rhythm Gastrointestinal/Abdomen GI Exam: Soft, Non-Tender, Bowel Sounds Present Extremeties Extremities Exam: No Edema Assessment/Plan Problem List: (1) ESRD (end stage renal disease) on dialysis ICD Codes: N18.6 - End stage renal disease; Z99.2 - Dependence on renal dialysis Status: Chronic Plan: Hemodialysis was done early of 2.5 L removed she tolerated well on Nasal Cannula O2 May transfer to floor (2) HTN (hypertension) ICD Codes: I10 - Essential (primary) hypertension Status: Chronic Plan: BP control, started out patient medications (3) COPD (chronic obstructive pulmonary disease) ICD Codes: J44.9 - Chronic obstructive pulmonary disease, unspecified Status: Chronic Plan: if improved can be dc and follow up as out patient (4) CHF (congestive heart failure) ICD Codes: I50.9 - Heart failure, unspecified Status: Acute Plan: Hemodialysis planned for Sunday Problem Qualifiers (1) COPD (chronic obstructive pulmonary disease): Lisa Ferro MD Jul 19, 2017 12:43
--- NOTE | 2017-07-19 14:14 | EKG ---
Date Performed: 07/18/2017 Time Performed: 14:20:29 PTAGE: 66 years EKG: Sinus rhythm WITH OCCASIONAL VENTRICULAR PREMATURE COMPLEXES LEFT ATRIAL ENLARGEMENT BORDERLINE LEFT AXIS DEVIATI ON LEFT VENTRICULAR HYPERTROPHY AND ST-T CHANGE ABNORMAL ECG Compared to PREVIOUS TRACING , the patient is no longer paced. PREVIOUS TRACIN06/21/2017 02.28 DOCTOR: Vinny Cohen Interpretating Date/Time 07/19/2017 14:14:09
--- NOTE | 2017-07-19 14:16 | EKG ---
Date Performed: 07/18/2017 Time Performed: 22:05:42 PTAGE: 66 years EKG: DUAL CHAMBERED PACING CANNOT VERIFY ATRIAL LEAD CAPTURE, CLINICAL CORRELATION IS NEEDED ABN ORMAL RHYTHM ECG PREVIOUS TRACING : 07/18/2017 14.20 DOCTOR: Vinny Cohen Interpretating Date/Time 07/19/2017 14:14:46
--- NOTE | 2017-07-19 14:24 | ECHRPT ---
Indication: Heart Failure CONCLUSIONS The left ventricular systolic function is normal with an estimated ejection fraction in the range of 60-65%. Normal left ventricular size. Moderate concentric left ventricular hypertrophy. Normal wall motion. The left atrial size is xfbk-zb-lvogevbszo dilated. The right atrial size is mildly dilated. Moderate mitral annular calcification is present. Sbaor-pz-lvgz mitral valve regurgitation. Trileaflet aortic valve. Diffuse mild calcification of the aortic valve. There is moderate tricuspid regurgitation. The estimated pulmonary arterial pressure is 62 mmHg. BP: 116 / 61 HR: 62 Rhythm: Sinus MEASUREMENTS (Male / Female) Normal Values Technical Quality:Fair 2D ECHO LV Diastolic Diameter PLAX 4.7 cm 4.2 - 5.9 / 3.9 - 5.3 cm LV Systolic Diameter PLAX 3.2 cm IVS Diastolic Thickness 1.1 cm 0.6 - 1.0 / 0.6 - 0.9 cm LVPW Diastolic Thickness 1.2 cm 0.6 - 1.0 / 0.6 - 0.9 cm LV Relative Wall Thickness 0.5 RV Internal Dim ED PLAX 2.7 cm LVOT Diameter 1.8 cm LA Systolic Diameter LX 4.6 cm 3.0 - 4.0 / 2.7 - 3.8 cm LA Volume Index 46.0 cm/m 16 - 28 cm/m M-MODE Aortic Root Diameter MM 2.6 cm LA Systolic Diameter MM 4.6 cm LA Ao Ratio MM 1.8 AV Cusp Separation MM 1.7 cm DOPPLER AV Peak Velocity 199.0 cm/s AV Peak Gradient 15.8 mmHg AV Mean Gradient 7.0 mmHg AV Velocity Time Integral 31.0 cm LVOT Peak Velocity 122.0 cm/s LVOT Peak Gradient 6.0 mmHg LVOT Velocity Time Integral 20.3 cm LVOT Cardiac Index 1866.1 cm/minm AV Area Cont Eq vti 1.7 cm AV Area Cont Eq pk 1.6 cm MV Peak Velocity 89.3 cm/s MV Peak Gradient 3.2 mmHg MV Mean Velocity 62.2 cm/s MV Mean Gradient 2.0 mmHg MV Area PHT 1.9 cm Mitral E Point Velocity 83.9 cm/s Mitral A Point Velocity 90.3 cm/s Mitral E to A Ratio 0.9 LV E' Lateral Velocity 3.6 cm/s Mitral E to LV E' Lateral Ratio 23.2 LV E' Septal Velocity 3.2 cm/s Mitral E to LV E' Septal Ratio 26.1 TR Peak Velocity 360.0 cm/s TR Peak Gradient 51.8 mmHg Right Atrial Pressure 10.0 mmHg Pulmonary Artery Systolic Pressu 61.8 mmHg Right Ventricular Systolic Press 61.8 mmHg FINDINGS LEFT VENTRICLE The left ventricular systolic function is normal with an estimated ejection fraction in the range of 60-65%. Normal left ventricular size. Moderate concentric left ventricular hypertrophy. Normal wall motion. RIGHT VENTRICLE Normal right ventricular size and systolic function. LEFT ATRIUM The left atrial size is dewx-ly-cbqzofowsu dilated. RIGHT ATRIUM There is a pacemaker wire present in the right atrial cavity. The right atrial size is mildly dilated. ATRIAL SEPTUM Normal atrial septal thickness without atrial level shunting by limited color doppler interrogation. AORTA The aortic root and proximal ascending aorta are normal in size on limited imaging. MITRAL VALVE Moderate mitral annular calcification is present. Escsm-ka-dvoh mitral valve regurgitation. AORTIC VALVE Trileaflet aortic valve. Diffuse mild calcification of the aortic valve. TRICUSPID VALVE Structurally normal tricuspid valve. There is moderate tricuspid regurgitation. The estimated pulmonary arterial pressure is 62 mmHg. PULMONARY VALVE No pulmonary valve regurgitation or stenosis. VESSELS The inferior vena cava is normal in size. PERICARDIUM No pericardial effusion. Pipo Miles MD (Electronically Signed) Final Date:19 July 2017 14:23
[2017-07-19 15:09] LABS: HEMOGLOBIN A1C 4.8 % (4.3-6.0)
--- NOTE | 2017-07-19 20:24 | HHI.PR ---
Subjective Remarks 66 YOAA female with COPD exac, pulm odema breathing betetr On NC Denies cough or sp Objective Vital Signs Vital Signs Date Time Temp Pulse Resp B/P (MAP) Pulse Ox O2 Delivery O2 Flow Rate FiO2 07/19/17 20:17 97.2 63 18 101/57 (72) 97 07/19/17 19:57 94 Nasal Cannula 3.00 07/19/17 16:00 99 Nasal Cannula 3.00 07/19/17 16:00 64 07/19/17 16:00 97.7 64 22 122/62 (82) 99 07/19/17 14:00 64 07/19/17 13:19 18 07/19/17 12:00 99 Nasal Cannula 3.00 07/19/17 12:00 97.7 67 17 126/60 (82) 99 07/19/17 12:00 67 07/19/17 10:00 60 07/19/17 09:09 98 Nasal Cannula 3.00 07/19/17 08:00 60 07/19/17 08:00 96.2 60 18 137/78 (97) 100 07/19/17 08:00 100 Nasal Cannula 3.00 07/19/17 06:00 63 07/19/17 04:00 60 07/19/17 04:00 59 96 07/19/17 02:50 100 Nasal Cannula 3.00 07/19/17 02:00 62 07/19/17 02:00 60 116/61 (79) 100 07/19/17 01:00 60 93/54 (67) 100 07/19/17 00:00 98.0 67 109/61 (77) 100 07/19/17 00:00 60 07/19/17 00:00 99 Nasal Cannula 3.00 07/18/17 23:00 63 103/57 (72) 96 07/18/17 22:00 63 07/18/17 22:00 75 95/54 (68) 98 07/18/17 21:00 66 165/75 (105) 100 I/O 07/18/17 07/18/17 07/18/17 07/19/17 07/19/17 07/19/17 07:00 15:00 23:00 07:00 15:00 23:00 Intake Total 480 ml 480 ml Output Total 0 ml 2500 ml Balance 480 ml 480 ml -2500 ml Intake Oral 480 ml 480 ml IV Total 0 ml Output Urine Total 0 ml Hemodialysis 2500 ml # Voids 1 # Bowel Movements 1 Result Diagram: 07/19/1725607/19/17256 Objective Remarks GENERAL: WBWN AA female, NAD SKIN: Warm and dry. HEAD: Normocephalic. EYES: No scleral icterus. No injection or drainage. NECK: Supple, trachea midline. No JVD or lymphadenopathy. CARDIOVASCULAR: Regular rate and rhythm without murmurs, gallops, or rubs. RESPIRATORY: Breath sounds equal bilaterally. No accessory muscle use. GASTROINTESTINAL: Abdomen soft, non-tender, nondistended. MUSCULOSKELETAL: No cyanosis, or edema. BACK: Nontender without obvious deformity. No CVA tenderness. A/P Assessment and Plan IMPRESSION: 1. Chronic obstructive pulmonary disease with mild exacerbation. 2. Hypoxia. 3. Pulmonary edema. 4. End-stage renal disease, on dialysis. 5. Electrolyte imbalance. 6. Chronic diarrhea. PLAN: DC Solumedrol Pred 10 mg bid Monitor lytes Supplement 02 Rai Barahona MD Jul 19, 2017 20:24
[2017-07-19] MEDS: predniSONE 10 MG TAB PO SCH (22:14)
[2017-07-20] VITALS (7 sets, daily range): BP systolic 104–122; BP diastolic 54–66; PULSE 61–67; RESP 18–20; TEMP 97.1–97.7; O2SAT 96–98
[2017-07-20] MEDS: oxyCODONE/ACETAMINOPHEN 10 MG/325 MG TAB PO PRN ×3 (00:51→12:17)
[2017-07-20 07:31] LABS: AUTOMATED NEUTROPHIL # 6.2 TH/MM3 (1.8-7.7); BASOPHIL % 0.2 % (0.0-2.0); HEMATOCRIT 30.3 % (35.0-46.0); HEMOGLOBIN 9.3 GM/DL (11.6-15.3); LYMPH % 5.3 % (9.0-44.0); LYMPHOCYTE # 0.4 TH/MM3 (1.0-4.8); MEAN CELL VOLUME 90.9 FL (80.0-100.0); MEAN CORPUSCULAR HGB CONC 30.8 % (32.0-36.0); MEAN PLATELET VOLUME 8.4 FL (7.0-11.0); MONO % 3.5 % (0.0-8.0); MONOCYTE # 0.2 TH/MM3 (0-0.9); PLATELET COUNT 274 TH/MM3 (150-450); RED BLOOD COUNT 3.33 MIL/MM3 (4.00-5.30); RED CELL DISTRIBUTION WIDTH 16.3 % (11.6-17.2); WHITE BLOOD COUNT 6.8 TH/MM3 (4.0-11.0)
[2017-07-20] MEDS: INSULIN ASPART SUPPLEMENTAL SCALE SQ SCH ×2 (08:00→12:00)
[2017-07-20 08:02] LABS: ALBUMIN 2.7 GM/DL (3.4-5.0); AST (GOT) 11 U/L (15-37); BICARBONATE 27.8 MEQ/L (21.0-32.0); BLOOD UREA NITROGEN 22 MG/DL (7-18); CALCIUM 9.5 MG/DL (8.5-10.1); CHLORIDE 100 MEQ/L (98-107); GLOMERULAR FILTRATION RATE 11 ML/MIN (>89); GLUCOSE,RANDOM 171 MG/DL (74-106); MAGNESIUM 2.2 MG/DL (1.5-2.5); SODIUM (NA) 137 MEQ/L (136-145)
[2017-07-20 08:04] LABS: ALT (GPT) 11 U/L (10-53); PHOSPHORUS 4.5 MG/DL (2.5-4.9)
[2017-07-20 08:06] LABS: ALKALINE PHOSPHATASE 155 U/L (45-117); TOTAL BILIRUBIN ADULT 0.7 MG/DL (0.2-1.0); TOTAL PROTEIN 7.1 GM/DL (6.4-8.2)
--- NOTE | 2017-07-20 08:45 | HHI.PR ---
Subjective Remarks seen 130 pm back from HD no complains' states ready to go home but needs a 02- has a concentrator at home Objective Vitals Vital Signs Date Time Temp Pulse Resp B/P (MAP) Pulse Ox O2 Delivery O2 Flow Rate FiO2 07/20/17 04:10 97.4 65 20 122/66 (84) 96 07/20/17 03:40 62 07/20/17 00:47 97.1 61 18 120/62 (81) 98 07/20/17 00:00 Nasal Cannula 3.00 07/19/17 23:47 59 07/19/17 20:17 97.2 63 18 101/57 (72) 97 07/19/17 20:10 Nasal Cannula 3.00 07/19/17 19:57 94 Nasal Cannula 3.00 07/19/17 16:00 99 Nasal Cannula 3.00 07/19/17 16:00 64 07/19/17 16:00 97.7 64 22 122/62 (82) 99 07/19/17 14:00 64 07/19/17 13:19 18 07/19/17 12:00 99 Nasal Cannula 3.00 07/19/17 12:00 97.7 67 17 126/60 (82) 99 07/19/17 12:00 67 07/19/17 10:00 60 07/19/17 09:09 98 Nasal Cannula 3.00 I/O 07/19/17 07/19/17 07/19/17 07/20/17 07/20/17 07/20/17 07:00 15:00 23:00 07:00 15:00 23:00 Intake Total 480 ml 360 ml Output Total 0 ml 2500 ml 0 ml Balance 480 ml -2500 ml 360 ml Intake Oral 480 ml 360 ml IV Total 0 ml Output Urine Total 0 ml 0 ml Hemodialysis 2500 ml # Bowel Movements 1 0 Result Diagram: 07/20/17 0555 07/20/17 0555 Imaging Last Impressions Chest X-Ray 07/18/17 1211 Signed Impressions: Service Date/Time: Tuesday, July 18, 2017 13:03 - CONCLUSION: 1. Increased interstitial markings bilaterally suggestive of pulmonary edema. 2. Improving right lower lung infiltrate. Teo Mejia MD Objective Remarks awake and alert, no acute distress anciteric lungs- no rales, decreased breath sounds, no wheezes regular rhythm abdomen soft, nontender extremities no edema Procedures HD A/P Problem List: (1) Dependent on hemodialysis ICD Code: Z99.2 - Dependence on renal dialysis Status: Acute (2) Pulmonary edema ICD Code: J81.1 - Chronic pulmonary edema Status: Acute (3) Respiratory distress ICD Code: R06.03 - Acute respiratory distress Status: Acute (4) End stage renal disease ICD Code: N18.6 - End stage renal disease Status: Acute (5) Elevated troponin I level ICD Code: R74.8 - Abnormal levels of other serum enzymes Status: Acute (6) Hypokalemia ICD Code: E87.6 - Hypokalemia Status: Acute (7) ESRD (end stage renal disease) on dialysis ICD Code: N18.6 - End stage renal disease; Z99.2 - Dependence on renal dialysis Status: Chronic (8) HTN (hypertension) ICD Code: I10 - Essential (primary) hypertension Status: Chronic (9) COPD (chronic obstructive pulmonary disease) ICD Code: J44.9 - Chronic obstructive pulmonary disease, unspecified Status: Chronic (10) Hypoxia ICD Code: R09.02 - Hypoxemia Assessment and Plan 66 years old female Respiratory distress and hypoxia requiring oxygenation - improved arrange for DC- CM- assit with 02 End-stage renal disease with fluid overload consult nephrology may need repeat dialysis consult Dr. Ferro underwent hemodialysis today July 19 OP ff up Acute on chronic pain continue on home pain medications Hypertension continue on home medications COPD continue on duo nebs and Mucinex and fluid restrict and steroids- taper dose- OP ff up with [place] Leukocytosis due to steroids Hypokalemia will replace with oral supplementation- corrected Poor compliance/noncompliance and does not fluid restrict does not really use her oxygen well when she leaves the house GERD/ulcers continue on PPI DVT and GI prophylaxis CM - assist with DC plan Problem Qualifiers (1) Pulmonary edema: Qualified Codes: J81.0 - Acute pulmonary edema (2) COPD (chronic obstructive pulmonary disease): Mala Munoz MD Jul 20, 2017 08:45
[2017-07-20 08:51] LABS: BANDS 2 % (0-6); HELMET CELLS OCC (NORMAL); KERATOCYTES OCC (NORMAL); LYMPHOCYTES 4 % (9-44); MONOCYTES 3 % (0-8); MYELOCYTES 2 % (0-0); NEUTROPHIL # MANUAL DIFF 6.3 TH/MM3 (1.8-7.7); OVALOCYTES 1+ (NORMAL); POLYS (SEG NEUTROPHILS) 89 % (16-70)
[2017-07-20 08:52] LABS: TEARDROP RBCS 1+ (NORMAL)
--- NOTE | 2017-07-20 10:56 | HHI.NPPN ---
Subjective History of Present Illness Patient is a 66-year-old black female with history of end-stage renal disease, CHF, hypertension, COPD Review of Systems Respiratory Lungs: SOB Objective Data Data Vital Signs Date Time Temp Pulse Resp B/P (MAP) Pulse Ox O2 Delivery O2 Flow Rate FiO2 07/20/17 09:13 97 Nasal Cannula 3.00 07/20/17 08:00 Nasal Cannula 3.00 07/20/17 08:00 97.6 67 18 110/65 (80) 97 07/20/17 04:10 97.4 65 20 122/66 (84) 96 07/20/17 03:40 62 07/20/17 00:47 97.1 61 18 120/62 (81) 98 07/20/17 00:00 Nasal Cannula 3.00 07/19/17 23:47 59 07/19/17 20:17 97.2 63 18 101/57 (72) 97 07/19/17 20:10 Nasal Cannula 3.00 07/19/17 19:57 94 Nasal Cannula 3.00 07/19/17 16:00 99 Nasal Cannula 3.00 07/19/17 16:00 64 07/19/17 16:00 97.7 64 22 122/62 (82) 99 07/19/17 14:00 64 07/19/17 13:19 18 07/19/17 12:00 99 Nasal Cannula 3.00 07/19/17 12:00 97.7 67 17 126/60 (82) 99 07/19/17 12:00 67 -: 07/20/17 0555 07/20/17 0555 Physical Exam General Appearance: Well Developed, Well Nourished Neck Neck Exam: Neck Supple Pulmonary Resp Exam: Decreased Bases Cardiology CV Exam: Regular, Normal Sinus Rhythm Gastrointestinal/Abdomen GI Exam: Soft, Non-Tender, Bowel Sounds Present Extremeties Extremities Exam: No Edema Assessment/Plan Problem List: (1) ESRD (end stage renal disease) on dialysis ICD Codes: N18.6 - End stage renal disease; Z99.2 - Dependence on renal dialysis Status: Chronic Plan: Hemodialysis seen during hemodialysis treatment told she tolerating it well blood pressure on the lower side UF is at 2 L on 3K bath on Nasal Cannula O2 May discharge her from nephrology point of view (2) HTN (hypertension) ICD Codes: I10 - Essential (primary) hypertension Status: Chronic Plan: BP control, started out patient medications (3) COPD (chronic obstructive pulmonary disease) ICD Codes: J44.9 - Chronic obstructive pulmonary disease, unspecified Status: Chronic Plan: if improved can be dc and follow up as out patient (4) CHF (congestive heart failure) ICD Codes: I50.9 - Heart failure, unspecified Status: Acute Plan: Hemodialysis planned for Sunday Problem Qualifiers (1) COPD (chronic obstructive pulmonary disease): Lisa Ferro MD Jul 20, 2017 10:56
[2017-07-20] MEDS: SEVELAMER CARBONATE 800 MG TAB PO SCH (12:17)
[2017-07-20] MEDS: PANTOPRAZOLE SOD 20 MG DELAYED RELEASE TAB PO SCH (12:17)
[2017-07-20] MEDS: guaiFENesin E.R. 600 MG TAB PO SCH (12:18)
[2017-07-20] MEDS: predniSONE 10 MG TAB PO SCH (12:18)
[2017-07-20] MEDS: DOCUSATE SODIUM 50 MG/SENNA 8.6 MG TAB PO SCH (12:18)
[2017-07-20] MEDS: LABETALOL HCL 300 MG TAB PO SCH ×2 (12:18→12:19)
[2017-07-20] MEDS: SODIUM CHLORIDE 0.9% FLUSH 10 ML FLUSH IV FLUSH SCH (12:18)
[2017-07-20] MEDS ORDERED: OXYGENDME NAS.CANULA (13:36)
--- NOTE | 2017-07-20 13:46 | HHI.FF ---
Face to Face Verification Diagnosis: (1) Physical deconditioning (2) End stage renal disease (3) Pulmonary edema Physical Therapy Order: Evaluate and Treat Home Health Nursing Order: Medical education Signs/symptoms of disease process CHF education Oxygen administration education Medication education-adverse effect Nursing assessment with vital signs I have seen patient Micah Estrada on 07/20/17. My clinical findings support the need for the requested home health care services because: Ltd mobility - disease progression Patient has SOB Deconditioned w/ increased weakness Need for psychosocial assistance I certify that my clinical findings support that this patient is homebound because: Hx COPD- exertion dyspnea/weakness Need for psychosocial assistance Poor cardiac reserve Mala Munoz MD Jul 20, 2017 13:46
[2017-07-20] MEDS ORDERED: PRED5TAB PO (13:51)
[2017-07-20] MEDS ORDERED: Albuterol-Ipratropium Neb NEB (13:52)
--- NOTE | 2017-07-20 13:56 | HHI.DS ---
Discharge Summary Admission Date Jul 18, 2017 at 15:35 Discharge Date: Jul 20, 2017 Admitting Diagnosis respiratory distress, pulmonary edema, elevated troponin, hypokalemi (1) Dependent on hemodialysis ICD Code: Z99.2 - Dependence on renal dialysis Diagnosis: Principal Status: Acute (2) Pulmonary edema ICD Code: J81.1 - Chronic pulmonary edema Diagnosis: Principal Status: Acute (3) Respiratory distress ICD Code: R06.03 - Acute respiratory distress Diagnosis: Secondary Status: Acute (4) End stage renal disease ICD Code: N18.6 - End stage renal disease Diagnosis: Principal Status: Acute (5) Elevated troponin I level ICD Code: R74.8 - Abnormal levels of other serum enzymes Diagnosis: Secondary Status: Acute (6) Hypokalemia ICD Code: E87.6 - Hypokalemia Diagnosis: Secondary Status: Acute (7) ESRD (end stage renal disease) on dialysis ICD Code: N18.6 - End stage renal disease; Z99.2 - Dependence on renal dialysis Status: Chronic (8) HTN (hypertension) ICD Code: I10 - Essential (primary) hypertension Status: Chronic (9) COPD (chronic obstructive pulmonary disease) ICD Code: J44.9 - Chronic obstructive pulmonary disease, unspecified Status: Chronic (10) Hypoxia ICD Code: R09.02 - Hypoxemia Procedures HD Brief History - From Admission Patient is a 66-year-old -[place] female. Presented emergency department with increasing shortness of breath with a history of chronic pain and vomiting and diarrhea. Patient has history of end-stage renal disease on hemodialysis. was seen in dialysis today and underwent 2-1/2 out of 3 and a half hours of dialysis today. The patient remained very short of breath and therefore was sent to the emergency department for evaluation. She normally sees Dr. Ferro of nephrology. She had her hemodialysis partially this morning and was still short of breath so was sent to the emergency department. Has a history of COPD has home oxygen a couple liters. Her O2 saturation was 91% on 3 liters by nasal cannula. Of oxygen. She has oxygen 247 requirement at home at least 2-3 L. Patient was in more respiratory distress when she presented O2 sat was in the mid 80s she had some chest pain as well.. Patient is on chronic pain medication needed pain medication now per the emergency department. Patient has positive troponin and hypoxia and fluid overload and pulmonary edema and will be admitted for further evaluation treatment will consult nephrology as well as pulmonary. May need cardiology depending if troponins are flat or not CBC/BMP: 07/20/17 0555 07/20/17 0555 Significant Findings Laboratory Tests Test 07/18/17 12:35 07/18/17 13:58 07/18/17 14:05 07/18/17 19:15 Red Blood Count 3.83 MIL/MM3 (4.00-5.30) Hemoglobin 10.9 GM/DL (11.6-15.3) Hematocrit 34.3 % (35.0-46.0) Mean Corpuscular Hemoglobin Concent 31.6 % (32.0-36.0) Neutrophils (%) (Auto) 80.0 % (16.0-70.0) Lymphocytes # (Auto) 0.7 TH/MM3 (1.0-4.8) B-Type Natriuretic Peptide 2489 PG/ML (0-100) Creatinine 4.23 MG/DL (0.50-1.00) Potassium Level 2.5 MEQ/L (3.5-5.1) Estimat Glomerular Filtration Rate 13 ML/MIN (>89) Troponin I 0.12 NG/ML (0.02-0.05) Blood Gas HCO3 28 mmol/L (22-26) Blood Gas Base Excess 3.9 mmol/L (-2-2) Blood Gas Oxygen Saturation 81 % (90-100) Arterial Blood pH 7.47 (7.380-7.420) Arterial Blood Partial Pressure O2 45 mmHG (61-120) Arterial Blood Oxygen Content 10.9 Vol % (12.0-20.0) Blood Gas Hemoglobin 9.6 G/DL (12.0-16.0) Test 07/18/17 22:30 07/19/17 02:57 07/20/17 05:55 Total Creatine Kinase 23 U/L (26-192) 17 U/L (26-192) Troponin I 0.08 NG/ML (0.02-0.05) 0.08 NG/ML (0.02-0.05) Red Blood Count 3.27 MIL/MM3 (4.00-5.30) 3.33 MIL/MM3 (4.00-5.30) Hemoglobin 9.3 GM/DL (11.6-15.3) 9.3 GM/DL (11.6-15.3) Hematocrit 29.3 % (35.0-46.0) 30.3 % (35.0-46.0) Mean Corpuscular Hemoglobin Concent 31.7 % (32.0-36.0) 30.8 % (32.0-36.0) Neutrophils (%) (Auto) 89.7 % (16.0-70.0) 91.0 % (16.0-70.0) Lymphocytes (%) (Auto) 7.8 % (9.0-44.0) 5.3 % (9.0-44.0) Lymphocytes # (Auto) 0.3 TH/MM3 (1.0-4.8) 0.4 TH/MM3 (1.0-4.8) Neutrophils % (Manual) 87 % (16-70) 89 % (16-70) Lymphocytes % 2 % (9-44) 4 % (9-44) Metamyelocytes 2 % (0-1) Myelocytes 4 % (0-0) 2 % (0-0) Ovalocytes 1+ (NORMAL) 1+ (NORMAL) Acanthocytes OCC (NORMAL) Creatinine 5.31 MG/DL (0.50-1.00) 5.00 MG/DL (0.50-1.00) Random Glucose 149 MG/DL (74-106) 171 MG/DL (74-106) Albumin 2.7 GM/DL (3.4-5.0) 2.7 GM/DL (3.4-5.0) Alkaline Phosphatase 161 U/L (45-117) 155 U/L (45-117) Estimat Glomerular Filtration Rate 10 ML/MIN (>89) 11 ML/MIN (>89) Tear Drop Cells 1+ (NORMAL) Keratocytes OCC (NORMAL) Blood Urea Nitrogen 22 MG/DL (7-18) Aspartate Amino Transf (AST/SGOT) 11 U/L (15-37) Imaging Last Impressions Chest X-Ray 07/18/17 1211 Signed Impressions: Service Date/Time: Tuesday, July 18, 2017 13:03 - CONCLUSION: 1. Increased interstitial markings bilaterally suggestive of pulmonary edema. 2. Improving right lower lung infiltrate. Teo Mejia MD PE at Discharge awake and alert, no acute distress anicteric lungs- no rales, decreased breath sounds, no wheezes regular rhythm abdomen soft, nontender extremities no edema Pt update on day of discharge afebrile no complains breathing better- improved Hospital Course 66 years old female Respiratory distress and hypoxia requiring oxygenation - improved arrange for DC- CM- assit with 02 End-stage renal disease with fluid overload consult nephrology may need repeat dialysis consult Dr. Ferro underwent hemodialysis today July 19 OP ff up Acute on chronic pain continue on home pain medications Hypertension continue on home medications COPD continue on duo nebs and Mucinex and fluid restrict and steroids- taper dose- OP ff up with [place] Leukocytosis due to steroids Hypokalemia will replace with oral supplementation- corrected Poor compliance/noncompliance and does not fluid restrict does not really use her oxygen well when she leaves the house GERD/ulcers continue on PPI DVT and GI prophylaxis CM - assist with DC plan Pt Condition on Discharge: Stable Discharge Disposition: Disch w/ Home Health Serv Discharge Time: <= 30 minutes Discharge Instructions DIET: Follow Instructions for: Heart Healthy Diet, Renal Failure Diet Speech Therapy-Diet Recommends: Regular Activities you can perform: Weight Bearing as Fabienne Activities to Avoid: Strenuous Activity Follow up Referrals: Nephrology with [facility] PCP Follow-up - 1 Week with [facility] Pulmonology - 1 Week with Rai Barahona MD New Medications: Oxygen (O2) (Oxygen (O2)) Device LITER CORNELIUS.CANULA CONTINUOUS for Prevent Hypoxemia, #2 Oxygen Concentrator Portable Gaseous 2 L/min via Nasal Canula Continuous For 99 months Prednisone (Prednisone) 5 Mg Tab 5 MG PO DAILY for PULM, #14 TAB 0 Refills 2 tabs po bid x 2 days then 1 tab po bid x 2 dasy then 1 tab po daily x 2 days then DC [Albuterol-Ipratropium Neb] () 1 AMPULE NEBU 1 AMPULE NEB Q6HR NEB PRN for sob, #30 Continued Medications: Labetalol (Labetalol) 300 Mg Tab 300 MG PO TID for Blood Pressure Management, TAB 0 Refills Omeprazole (Omeprazole) 20 Mg Tab 20 MG PO DAILY, #30 TAB 0 Refills Sevelamer Carbonate (Renvela) 800 Mg Tab 800 MG PO TID for Control phosphorous levels, #90 TAB 0 Refills Mala Munoz MD Jul 20, 2017 13:56
== END 2017-07-20 16:38 | disposition home health service (06) | DRG 640 ==
LOC: NEDAMB 11:24 → NEDA 15:35 → HIME 18:50 → N04A 07-19 17:45
PROVIDERS: ADMIT Internal Medicine; ATTEND Internal Medicine
PROC: 5A09357 Assistance with Respiratory Ventilation, Less than 24 Consecutive Hours, Continuous Positive Airway Pressure (ICD-10-PCS; principal; 2017-07-18)
PROC: 5A1D70Z Performance of Urinary Filtration, Intermittent, Less than 6 Hours Per Day (ICD-10-PCS; 2017-07-19)
DX: E87.79 Other fluid overload (principal); N18.6 End stage renal disease; J81.1 Chronic pulmonary edema; I12.0 Hypertensive chronic kidney disease with stage 5 chronic kidney disease or end stage renal disease; I42.9 Cardiomyopathy, unspecified; J44.1 Chronic obstructive pulmonary disease with (acute) exacerbation; Z99.2 Dependence on renal dialysis; Z99.81 Dependence on supplemental oxygen; R06.03 Acute respiratory distress; R74.8 Abnormal levels of other serum enzymes; E87.6 Hypokalemia; R09.02 Hypoxemia; G89.29 Other chronic pain; Z91.19 Patient's noncompliance with other medical treatment and regimen; K21.9 Gastro-esophageal reflux disease without esophagitis; G56.91 Unspecified mononeuropathy of right upper limb; K52.9 Noninfective gastroenteritis and colitis, unspecified; Z87.891 Personal history of nicotine dependence; Z95.0 Presence of cardiac pacemaker
CPT/HCPCS: 36600; 71045; 80048; 80053; 82550; 82805; 82948; 83036; 83735; 83880; 84100; 84439; 84443; 84484; 85007; 85025; 85027; 85610; 87641; 90935; 93005; 93306; 94002; 94150; 94640; 94664; 96374; 96375; J1815; J1885; J1940; J2405; J2920; J2930; J7512

== ENCOUNTER 2017-08-10 07:40 | Inpatient (IN) | payer MEDICARE, OTHER ==
[~2017-08-10] VITALS: Ht 167.6 cm; Wt 60.5 kg
[2017-08-10] VITALS (8 sets, daily range): BP systolic 113–183; BP diastolic 60–84; PULSE 68–93; RESP 18–24; TEMP 98.1–99; O2SAT 95–99
[~2017-08-10 07:40] MED LIST changes: -AZIT500T2 PO; +Albuterol-Ipratropium Neb NEB; +OXYGENDME NAS.CANULA; +PRED5TAB PO
[2017-08-10 08:34] LABS: AUTOMATED NEUTROPHIL # 3.7 TH/MM3 (1.8-7.7); BASOPHIL % 0.8 % (0.0-2.0); EOSINOPHIL % 0.1 % (0.0-4.0); HEMATOCRIT 33.6 % (35.0-46.0); HEMOGLOBIN 10.4 GM/DL (11.6-15.3); LYMPH % 16.8 % (9.0-44.0); LYMPHOCYTE # 0.9 TH/MM3 (1.0-4.8); MEAN CELL VOLUME 91.4 FL (80.0-100.0); MEAN CORPUSCULAR HEMOGLOBIN 28.4 PG (27.0-34.0); MEAN CORPUSCULAR HGB CONC 31.1 % (32.0-36.0); MEAN PLATELET VOLUME 8.1 FL (7.0-11.0); MONO % 8.9 % (0.0-8.0); MONOCYTE # 0.5 TH/MM3 (0-0.9); NEUT % 73.4 % (16.0-70.0); PLATELET COUNT 165 TH/MM3 (150-450); RED BLOOD COUNT 3.67 MIL/MM3 (4.00-5.30); RED CELL DISTRIBUTION WIDTH 19.4 % (11.6-17.2); WHITE BLOOD COUNT 5.1 TH/MM3 (4.0-11.0)
[2017-08-10] MEDS: RESP: ALBUTEROL 2.5 MG/3 ML NEB (SCH) INH ×2 (08:36→08:37)
--- NOTE | 2017-08-10 08:41 | RADRPT ---
EXAM DATE/TIME: 08/10/2017 08:13 [facility] COMPARISON: CHEST SINGLE AP, July 18, 2017, 13:03. INDICATIONS : Shortness of breath, cough and chest pain. MEDICAL HISTORY : Chronic obstructive pulmonary disease. SURGICAL HISTORY : Pacemaker. ENCOUNTER: Initial ACUITY: 2 days PAIN SCORE: 4/10 LOCATION: Bilateral chest FINDINGS: Diffuse interstitial prominence with indistinct pulmonary vascularity. Redemonstration of patchy airs pace disease in the right lower lung zone with probable trace pleural effusion. Improved aeration in the left lower lung zone. Cardiac silhouette is enlarged. Remainder of the exam is unchanged. CONCLUSION: 1. Cardiomegaly with pulmonary vascular congestion. 2. Right lower lobe patchy airspace disease and likely trace pleural effusion not significantly walker ed from 07/18/2017. 3. Improved aeration of the left lower lobe. Mehul King MD on August 10, 2017 at 8:37 Board Certified Radiologist. This report was verified electronically.
[2017-08-10 08:50] LABS: ALBUMIN 3.1 GM/DL (3.4-5.0); AST (GOT) 13 U/L (15-37); BICARBONATE 26.5 MEQ/L (21.0-32.0); BLOOD UREA NITROGEN 16 MG/DL (7-18); CALCIUM 8.8 MG/DL (8.5-10.1); CHLORIDE 99 MEQ/L (98-107); CREATININE 6.79 MG/DL (0.50-1.00); GLOMERULAR FILTRATION RATE 7 ML/MIN (>89); GLUCOSE,RANDOM 87 MG/DL (74-106); SODIUM (NA) 136 MEQ/L (136-145)
[2017-08-10 08:56] LABS: ALKALINE PHOSPHATASE 165 U/L (45-117); ALT (GPT) 8 U/L (10-53); TOTAL BILIRUBIN ADULT 0.6 MG/DL (0.2-1.0); TOTAL PROTEIN 7.3 GM/DL (6.4-8.2); TROPONIN I 0.15 NG/ML (0.02-0.05)
--- NOTE | 2017-08-10 10:13 | PD ---
HPI Chief Complaint: Respiratory Symptoms Time Seen by Provider: 08:06 Travel History International Travel<30 days: No Contact w/Intl Traveler<30days: No Traveled to known affect area: No History of Present Illness HPI 66-year-old female with a history of COPD, end-stage renal disease, hypertension who presents today with complaints of shortness of breath and cough. Patient also reports fever and chills. Patient states that she has had the symptoms now for the last 2-3 days. She states that progressively gotten worse. She stated reports that she was scheduled for dialysis today however did not go because she was feeling so bad. Patient does report productive phlegm with clear and yellow phlegm. There are no other complaints at time of examination. PFSH Past Medical History Asthma: No Blood Disorders: No Heart Rhythm Problems: No Cancer: No Cardiovascular Problems: Yes (CHF, HTN, PACEMAKER UNKNOWN ) High Cholesterol: No Chest Pain: No Congestive Heart Failure: Yes COPD: Yes Dialysis: Yes (M-W-F) Diminished Hearing: No Endocrine: No Gastrointestinal Disorders: Yes (BLEEDING GASTRIC ULCER) Genitourinary: Yes (ESRD) Hypertension: Yes Immune Disorder: No Implanted Vascular Access Dvce: Yes Insomnia: Yes Musculoskeletal: No Neurologic: Yes (RIGHT LOWER ARM NEUROPATHY) Psychiatric: No Reproductive: Yes (PARTIAL HYSTERECTOMY) Respiratory: Yes (COPD ) Renal Failure: Yes Sleep Apnea: No Ulcer: Yes Past Surgical History Body Medical Devices: PACER Cardiac Surgery: Yes (PACEMAKER) Gynecologic Surgery: Yes Hysterectomy: Yes (PARTIAL) Pacemaker: Yes Other Surgery: Yes (AV FISTULA RIGHT UPPER ARM) Social History Alcohol Use: No Tobacco Use: Yes (1 CIGARETTE DAILY) Substance Use: No Allergies-Medications (Allergen,Severity, Reaction): Coded Allergies: penicillin G (Verified Allergy, Intermediate, Hives, 08/10/17) levofloxacin (Verified Adverse Reaction, Unknown, 08/10/17) ITCHING Reported Meds & Prescriptions Reported Meds & Active Scripts Active [Albuterol-Ipratropium Neb] 1 AMPULE Nebu 1 Ampule NEB Q6HR NEB PRN Oxygen (O2) Device Liter CORNELIUS.CANULA CONTINUOUS Oxygen Concentrator Portable Gaseous 2 L/min via Nasal Canula Continuous For 99 months [Albuterol Neb] 2.5 MG/3 ML Nebu 2.5 Mg NEB Q2HR NEB PRN Hydrocodone-Acetamin 10-325 mg (Hydrocodone/Acetaminophen) 10 Mg-325 Mg Tablet 1 Tab PO Q4H PRN Reported Renvela (Sevelamer Carbonate) 800 Mg Tab 800 Mg PO TID Omeprazole 20 Mg Tab 20 Mg PO DAILY Labetalol (Labetalol HCl) 300 Mg Tab 300 Mg PO TID Review of Systems Except as stated in HPI: all other systems reviewed are Neg General / Constitutional: Positive: Fever, Chills HENT: Positive: Lightheadedness, No: Headaches, Neck Pain Cardiovascular: No: Chest Pain or Discomfort, Palpitations Respiratory: Positive: Cough (White yellow phlegm), Shortness of Breath, Wheezing Gastrointestinal: Positive: Nausea, No: Vomiting, Abdominal Pain Genitourinary: Positive: Other (Patient does not make urine) Musculoskeletal: Positive: Weakness (Generalized), No: Pain Neurologic: Positive: Weakness, No: Headache (Generalized), Change in Mentation Physical Exam Narrative GENERAL: Well-developed well-nourished female in moderate respiratory distress. SKIN: Focused skin assessment warm/dry. HEAD: Atraumatic. Normocephalic. EYES: No scleral icterus. No injection or drainage. ENT: No nasal bleeding or discharge. Mucous membranes pink and moist. NECK: Trachea midline. No JVD. CARDIOVASCULAR: Paced rhythm with a rate of 69. RESPIRATORY: Diffuse expiratory wheezes in the upper airways. Fine rales heard at the bases bilaterally. GASTROINTESTINAL: Abdomen soft, non-tender, nondistended. MUSCULOSKELETAL: No obvious deformities. No clubbing. No cyanosis. No edema. NEUROLOGICAL: Awake and alert. No obvious cranial nerve deficits. Motor grossly within normal limits. Normal speech. Data Data Last Documented VS Vital Signs Date Time Temp Pulse Resp B/P (MAP) Pulse Ox O2 Delivery O2 Flow Rate FiO2 08/10/17 12:30 Nasal Cannula 2.00 08/10/17 12:00 68 22 150/65 (93) 98 08/10/17 07:58 99.0 Orders Orders Complete Blood Count With Diff (08/10/17 08:06) Comprehensive Metabolic Panel (08/10/17 08:06) B-Type Natriuretic Peptide (08/10/17 08:06) Ckmb (Isoenzyme) Profile (08/10/17 08:06) Troponin I (08/10/17 08:06) Arterial Blood Gas (Abg) (08/10/17 08:06) Influenzae A/B Antigen (08/10/17 08:06) Blood Culture (08/10/17 08:06) Iv Access Insert/Monitor (08/10/17 08:06) Electrocardiogram (08/10/17 08:06) Ecg Monitoring (08/10/17 08:06) Oximetry (08/10/17 08:06) Oxygen Administration (08/10/17 08:06) Chest, Single Ap (08/10/17 08:06) Sodium Chloride 0.9% Flush (Ns Flush) (08/10/17 08:15) Albuterol Neb (Albuterol Neb) (08/10/17 08:15) Sodium Chloride 0.9% Flush (Ns Flush) (08/10/17 10:15) Aztreonam Inj (Azactam Inj) (08/10/17 10:45) Levofloxacin 750 Mg Premix Inj (Levaquin (08/10/17 10:15) Admit To Inpatient (08/10/17 ) Vital Signs (Adult) Q4H (08/10/17 11:00) Activity Oob Ad Evonne (08/10/17 11:00) Auto Wrecker / Telemetry .CONTINUOUS (08/10/17 11:00) Intake + Output DANE.QSHIFT (08/10/17 11:00) Diet Renal (08/10/17 Lunch) Sodium Chloride 0.9% Flush (Ns Flush) (08/10/17 11:00) Sodium Chloride 0.9% Flush (Ns Flush) (08/10/17 21:00) Ondansetron Inj (Zofran Inj) (08/10/17 11:00) Basic Metabolic Panel (Bmp) (08/11/17 06:00) Creatine Kinase (Cpk) (08/10/17 11:00) Creatine Kinase (Cpk) (08/10/17 17:00) Troponin I (08/10/17 11:00) Troponin I (08/10/17 17:00) Heparin Inj (Heparin Inj) (08/10/17 12:00) Naloxone Inj (Narcan Inj) (08/10/17 11:00) Docusate Sodium-Senna (Maria G-Colace) (08/10/17 21:00) Magnesium Hydroxide Liq (Milk Of Magnesi (08/10/17 11:00) Sennosides (Senokot) (08/10/17 11:00) Bisacodyl Supp (Dulcolax Supp) (08/10/17 11:00) Lactulose Liq (Lactulose Liq) (08/10/17 11:00) Inpatient Certification (08/10/17 ) Consult Nephrology (08/10/17 ) (Hub Use Only)Inp Phy Cons/Ref (08/10/17 ) Echo 2d Comp With Doppler (08/10/17 ) Consult Cardiology (08/10/17 ) Furosemide Inj (Lasix Inj) (08/11/17 09:00) Furosemide Inj (Lasix Inj) (08/10/17 12:30) Potassium Chloride (Kcl) (08/10/17 12:00) Albuterol-Ipratropium Neb (Duoneb Neb) (08/10/17 14:00) Albuterol-Ipratropium Neb (Duoneb Neb) (08/10/17 12:00) Levofloxacin 750 Mg Premix Inj (Levaquin (08/10/17 12:15) Diphenhydramine (Benadryl) (08/10/17 12:15) Resp Incentive Spirometry (08/10/17 ) (Hub Use Only)In Phy Cons/Ref (08/10/17 ) Acetamin-Hydrocod 325-10 Mg ([place] 10-32 (08/10/17 12:15) Labetalol (Trandate) (08/10/17 13:00) Sevelamer (Renvela) (08/10/17 13:00) Pantoprazole (Protonix) (08/11/17 09:00) Hydralazine (Apresoline) (08/10/17 12:15) Consult Pt Eval & Treat (08/10/17 12:08) Enteric Path (Stool) (08/10/17 12:09) Stool Ova And Parasite Screen (08/10/17 12:09) C Diff Toxin Pcr (08/10/17 12:09) Ct Thorax/ Chest Wo Iv Contras (08/10/17 ) Occult Blood (Hemoccult) Stool (08/10/17 12:14) Consult Gastroenterology (08/10/17 ) (Hub Use Only)Inp Phy Cons/Ref (08/10/17 ) Labs Laboratory Tests Test 08/10/17 08:15 08/10/17 08:50 White Blood Count 5.1 TH/MM3 Red Blood Count 3.67 MIL/MM3 Hemoglobin 10.4 GM/DL Hematocrit 33.6 % Mean Corpuscular Volume 91.4 FL Mean Corpuscular Hemoglobin 28.4 PG Mean Corpuscular Hemoglobin Concent 31.1 % Red Cell Distribution Width 19.4 % Platelet Count 165 TH/MM3 Mean Platelet Volume 8.1 FL Neutrophils (%) (Auto) 73.4 % Lymphocytes (%) (Auto) 16.8 % Monocytes (%) (Auto) 8.9 % Eosinophils (%) (Auto) 0.1 % Basophils (%) (Auto) 0.8 % Neutrophils # (Auto) 3.7 TH/MM3 Lymphocytes # (Auto) 0.9 TH/MM3 Monocytes # (Auto) 0.5 TH/MM3 Eosinophils # (Auto) 0.0 TH/MM3 Basophils # (Auto) 0.0 TH/MM3 CBC Comment DIFF FINAL Differential Comment Blood Urea Nitrogen 16 MG/DL Creatinine 6.79 MG/DL Random Glucose 87 MG/DL Total Protein 7.3 GM/DL Albumin 3.1 GM/DL Calcium Level 8.8 MG/DL Alkaline Phosphatase 165 U/L Aspartate Amino Transf (AST/SGOT) 13 U/L Alanine Aminotransferase (ALT/SGPT) 8 U/L Total Bilirubin 0.6 MG/DL Sodium Level 136 MEQ/L Potassium Level 3.3 MEQ/L Chloride Level 99 MEQ/L Carbon Dioxide Level 26.5 MEQ/L Anion Gap 11 MEQ/L Estimat Glomerular Filtration Rate 7 ML/MIN Total Creatine Kinase 21 U/L Troponin I 0.15 NG/ML B-Type Natriuretic Peptide 3954 PG/ML Blood Gas Puncture Site LS Blood Gas Patient Temperature 98.6 Blood Gas HCO3 26 mmol/L Blood Gas Base Excess 1.7 mmol/L Blood Gas Oxygen Saturation 92 % Arterial Blood pH 7.40 Arterial Blood Partial Pressure CO2 43 mmHg Arterial Blood Partial Pressure O2 76 mmHG Arterial Blood Oxygen Content 11.9 Vol % Arterial Blood Carboxyhemoglobin 2.7 % Arterial Blood Methemoglobin 0.6 % Blood Gas Hemoglobin 9.1 G/DL Oxygen Delivery Device NASAL CANNULA Blood Gas Liter Flow 3 L/M MDM Medical Decision Making Medical Screen Exam Complete: Yes Emergency Medical Condition: Yes Interpretation(s) Last 24 hours Impressions Chest X-Ray 08/10/17 0806 Signed Impressions: Service Date/Time: Thursday, August 10, 2017 08:13 - CONCLUSION: 1. Cardiomegaly with pulmonary vascular congestion. 2. Right lower lobe patchy airspace disease and likely trace pleural effusion not significantly changed from 07/18/2017. 3. Improved aeration of the left lower lobe. Mehul King MD Differential Diagnosis COPD exacerbation versus CHF versus pneumonia Narrative Course 66-year-old female with a history of COPD, end-stage renal disease, hypertension , who presents today with complaints of cough and shortness of breath progressively worsening over the last 2-3 days. Patient also reports fever and chills. The patient states she was scheduled for dialysis today however missed because of feeling so bad. She denies chest pain. Patient does have a history of paced rhythm. The patient has a BMP over 3000. She has pulmonary vascular congestion and questionable right infiltrate. She has been started on antibiotics. Diagnosis Primary Impression: Pneumonia Additional Impressions: ESRD pn HD COPD (chronic obstructive pulmonary disease) CHF (congestive heart failure) Hypoxia Admitting Information Admitting Physician Requests: Admit David Avila MD Aug 10, 2017 10:12
[2017-08-10] MEDS ORDERED: SODIUM CHLORIDE 0.9% FLUSH 10 ML FLUSH IVF PRN (10:15)
[2017-08-10] MEDS ORDERED: LEVOFLOXACIN 750 MG PREMIX INJ 150 ML IV ONE (10:15)
[2017-08-10] MEDS ORDERED: AZTREONAM INJ 2,000 MG in SODIUM CHLORIDE 0.9% INJ 100 ML IV ONE (10:45)
[2017-08-10] MEDS ORDERED: MAGNESIUM HYDROXIDE SUSP 30 ML CUP PO PRN (11:00)
[2017-08-10] MEDS ORDERED: SODIUM CHLORIDE 0.9% FLUSH 10 ML FLUSH IV FLUSH PRN ×2 (11:00→13:30)
[2017-08-10] MEDS ORDERED: LACTULOSE SYRUP 20 GM/30 ML CUP PO PRN (11:00)
[2017-08-10] MEDS ORDERED: ONDANSETRON HCL 4 MG/2 ML VIAL IVP PRN (11:00)
[2017-08-10] MEDS ORDERED: SENNOSIDES 8.6 MG TAB PO PRN (11:00)
[2017-08-10] MEDS ORDERED: BISACODYL 10 MG SUPP RECTAL PRN (11:00)
[2017-08-10] MEDS ORDERED: NALOXONE HCL 0.4 MG/ML AMP IV PUSH PRN (11:00)
[2017-08-10] MEDS ORDERED: RESP: ALBUTEROL 2.5 MG/IPRATROPIUM 0.5 MG NEB (PRN) NEB (12:00)
--- NOTE | 2017-08-10 12:09 | HHI.HP ---
HPI Service [facility] Primary Care Physician Non-Staff Admission Diagnosis Diagnoses: Travel History International Travel<30 Days: No Contact w/Intl Traveler <30 Da: No Traveled to Known Affected Are: No History of Present Illness Patient is a 66-year-old -[place] female with past medical history of end-stage renal disease on hemodialysis Fridays, COPD on home oxygen, CHF, gastric ulcers, neuropathy on the right arm presented to the emergency room with complaints of coughing, shortness of breath spitting up, chest pain related to cough and chills. She is not sure if she had any fever that she never took her temperature. She states she was recently discharged and per records she was here and discharged at the end of June. She states the cough has been going on since her has progressively gotten worse. She also noticed some diarrhea since being discharged as well. Yesterday she had 3 loose stools however she does admit to some stool forming and it. She has lost about 9 pounds for the past month. She does not follow up with the title coordinator. Her workforce management coordinator Dr. Ferro. She notes a decrease in appetite. She overall does not feel well. She claims she is compliant with her fluid intake however I reviewed records from last admission and there was concern of noncompliance. Her last dialysis was this past Sunday and she missed today due to not feeling well. Review of Systems Except as stated in HPI: all other systems reviewed are Neg Past Family Social History Past Medical History COPD on oxygen, end-stage renal disease on dialysis Sunday, CHF , history of bleeding gastric ulcers, hypertension, neuropathy of the right arm Past Surgical History AV fistula placement, pacemaker placement, partial hysterectomy Reported Medications Reported Meds & Active Scripts Active [Albuterol-Ipratropium Neb] 1 AMPULE Nebu 1 Ampule NEB Q6HR NEB PRN Oxygen (O2) Device Liter CORNELIUS.CANULA CONTINUOUS Oxygen Concentrator Portable Gaseous 2 L/min via Nasal Canula Continuous For 99 months [Albuterol Neb] 2.5 MG/3 ML Nebu 2.5 Mg NEB Q2HR NEB PRN Hydrocodone-Acetamin 10-325 mg (Hydrocodone/Acetaminophen) 10 Mg-325 Mg Tablet 1 Tab PO Q4H PRN Reported Renvela (Sevelamer Carbonate) 800 Mg Tab 800 Mg PO TID Omeprazole 20 Mg Tab 20 Mg PO DAILY Labetalol (Labetalol HCl) 300 Mg Tab 300 Mg PO TID Allergies: Coded Allergies: penicillin G (Verified Allergy, Intermediate, Hives, 08/10/17) Family History Mother had high blood pressure and lung cancer. Father: History unknown. Sister had lung cancer and another sister had breast cancer Social History She quit smoking about 2 months ago. Denies any alcohol or illegal drug use Physical Exam Vital Signs Vital Signs Date Time Temp Pulse Resp B/P (MAP) Pulse Ox O2 Delivery O2 Flow Rate FiO2 08/10/17 10:00 93 24 139/67 (91) 97 Nasal Cannula 2.00 08/10/17 08:32 73 22 98 Nasal Cannula 2.00 08/10/17 08:32 98 Nasal Cannula 2.00 08/10/17 07:58 99.0 70 22 183/84 (117) 98 Nasal Cannula 2.00 08/10/17 07:58 71 22 98 Nasal Cannula 2.00 Physical Exam GENERAL: AA looks tired SKIN: No rashes, ecchymoses or lesions. Cool and dry. HEAD: Atraumatic. Normocephalic. EYES: Pupils equal round and reactive. Extraocular motions intact. No scleral icterus. No injection or drainage. ENT: Nose without drainage. Throat without erythema, tonsillar hypertrophy or exudate. Uvula midline. Airway patent. NECK: Trachea midline. CARDIOVASCULAR: Regular rate and rhythm without murmurs RESPIRATORY: mild exp wheezes noted, decreased breath sounds, coughing during exam GASTROINTESTINAL: Abdomen soft, non-tender, nondistended. No guarding. MUSCULOSKELETAL: Extremities without edema. NEUROLOGICAL: Awake and alert. Normal speech although she does get coughing spells. Laboratory Laboratory Tests Test 08/10/17 08:15 08/10/17 08:50 White Blood Count 5.1 Red Blood Count 3.67 Hemoglobin 10.4 Hematocrit 33.6 Mean Corpuscular Volume 91.4 Mean Corpuscular Hemoglobin 28.4 Mean Corpuscular Hemoglobin Concent 31.1 Red Cell Distribution Width 19.4 Platelet Count 165 Mean Platelet Volume 8.1 Neutrophils (%) (Auto) 73.4 Lymphocytes (%) (Auto) 16.8 Monocytes (%) (Auto) 8.9 Eosinophils (%) (Auto) 0.1 Basophils (%) (Auto) 0.8 Neutrophils # (Auto) 3.7 Lymphocytes # (Auto) 0.9 Monocytes # (Auto) 0.5 Eosinophils # (Auto) 0.0 Basophils # (Auto) 0.0 CBC Comment DIFF FINAL Differential Comment Blood Urea Nitrogen 16 Creatinine 6.79 Random Glucose 87 Total Protein 7.3 Albumin 3.1 Calcium Level 8.8 Alkaline Phosphatase 165 Aspartate Amino Transf (AST/SGOT) 13 Alanine Aminotransferase (ALT/SGPT) 8 Total Bilirubin 0.6 Sodium Level 136 Potassium Level 3.3 Chloride Level 99 Carbon Dioxide Level 26.5 Anion Gap 11 Estimat Glomerular Filtration Rate 7 Total Creatine Kinase 21 Troponin I 0.15 B-Type Natriuretic Peptide 3954 Blood Gas Puncture Site LS Blood Gas Patient Temperature 98.6 Blood Gas HCO3 26 Blood Gas Base Excess 1.7 Blood Gas Oxygen Saturation 92 Arterial Blood pH 7.40 Arterial Blood Partial Pressure CO2 43 Arterial Blood Partial Pressure O2 76 Arterial Blood Oxygen Content 11.9 Arterial Blood Carboxyhemoglobin 2.7 Arterial Blood Methemoglobin 0.6 Blood Gas Hemoglobin 9.1 Oxygen Delivery Device NASAL CANNULA Blood Gas Liter Flow 3 Date/Time Source Procedure Growth Status 08/10/17 08:15 Blood Peripheral Aerobic Blood Culture Pending Received 08/10/17 08:15 Blood Peripheral Anaerobic Blood Culture Pending Received Result Diagram: 08/10/17 0815 08/10/17 0815 Imaging Last Impressions Chest X-Ray 08/10/17 0806 Signed Impressions: Service Date/Time: Thursday, August 10, 2017 08:13 - CONCLUSION: 1. Cardiomegaly with pulmonary vascular congestion. 2. Right lower lobe patchy airspace disease and likely trace pleural effusion not significantly changed from 07/18/2017. 3. Improved aeration of the left lower lobe. MD Farnaz Velasquez VTE Risk Assessment Farnaz VTE Risk Assessment: Mod/High Risk (score >= 2) Caprini Risk Assessment Model Point Value = 1 Point Value = 2 Point Value = 3 Point Value = 5 Age 41-60 Minor surgery BMI > 25 kg/m2 Swollen legs Varicose veins or History of unexplained or recurrent spontaneous Oral contraceptives or hormone replacement Sepsis (< 1 month) Serious lung disease, including pneumonia (< 1 month) Abnormal pulmonary function Acute myocardial infarction Congestive heart failure (< 1 month) History of inflammatory bowel disease Medical patient at bed rest Age 61-74 Arthroscopic surgery Major open surgery (> 45 min) Laparoscopic surgery (> 45 min) Malignancy Confined to bed (> 72 hours) Immobilizing plaster cast Central venous access Age >= 75 History of VTE Family history of VTE Factor V Leiden Prothrombin [id number] Lupus anticoagulant Anticardiolipin antibodies Elevated serum homocysteine Heparin-induced thrombocytopenia Other congenital or acquired thrombophilia Stroke (< 1 month) Elective arthroplasty Hip, pelvis, or leg fracture Acute spinal cord injury (< 1 month) Prophylaxis Regimen Total Risk Factor Score Risk Level Prophylaxis Regimen 0-1 Low Early ambulation 2 Moderate Order ONE of the following: *Sequential Compression Device (SCD) *Heparin 5000 units SQ BID 3-4 Higher Order ONE of the following medications: *Heparin 5000 units SQ TID *Enoxaparin/Lovenox 40 mg SQ daily (WT < 150 kg, CrCl > 30 mL/min) *Enoxaparin/Lovenox 30 mg SQ daily (WT < 150 kg, CrCl > 10-29 mL/min) *Enoxaparin/Lovenox 30 mg SQ BID (WT < 150 kg, CrCl > 30 mL/min) AND/OR *Sequential Compression Device (SCD) 5 or more Highest Order ONE of the following medications: *Heparin 5000 units SQ TID (Preferred with Epidurals) *Enoxaparin/Lovenox 40 mg SQ daily (WT < 150 kg, CrCl > 30 mL/min) *Enoxaparin/Lovenox 30 mg SQ daily (WT < 150 kg, CrCl > 10-29 mL/min) *Enoxaparin/Lovenox 30 mg SQ BID (WT < 150 kg, CrCl > 30 mL/min) AND *Sequential Compression Device (SCD) Assessment and Plan Assessment and Plan End-stage renal disease on dialysis Sunday: I have consulted her workforce management coordinator Dr. Ferro. Management per nephrology. CHF exacerbation: BNP 3900. Patient claims she is compliant with not drinking too much fluids although there is concern of noncompliance at the previous visit. Started on Lasix 40 mg IV daily with potassium supplementation. Monitor electrolytes closely. Troponins mildly elevated. Patient complains of chest pain with cough but once her cough stops no chest pains. She has a pacemaker placed a long time ago however she does not follow up with the title coordinator. I will trend her cardiac enzymes. pt on renal diet w low sodium and fluid restriction. Monitor I's and O's. ECHO ordered, cards consult in place COPD with mild exacerbation: She does have wheezing on exam. I will give her DuoNeb treatments every 6 while awake scheduled and as needed. Continue supplemental oxygen to maintain oxygen saturation between 89-92%. IS q1hr while awake, pt received a dose of aztreonam/levaquin in ED. will continue levaquin for now. Chest x-ray shows cardiomegaly w vascular congestion. HTN: home med resumed. monitor. hydralazine prn ordered other home meds resumed DVT proph: heparin PT eval for d/c planning. Pt uses a walker Code Status full Discussed Condition With ER physician, pt and RN Haily Perez MD Aug 10, 2017 12:09
[2017-08-10] MEDS ORDERED: diphenhydrAMINE HCL 25 MG CAP PO PRN ×2 (12:15→13:30)
[2017-08-10] MEDS ORDERED: LEVOFLOXACIN 750 MG PREMIX INJ 150 ML IV SCH (12:15)
[2017-08-10] MEDS ORDERED: hydrALAZINE HCL 10 MG TAB PO PRN (12:15)
[2017-08-10] MEDS: POTASSIUM CHLORIDE 20 MEQ CONTROLLED RELEASE TAB PO SCH (12:16)
[2017-08-10] MEDS: SODIUM CHLORIDE 0.9% FLUSH 10 ML FLUSH IVF PRN (12:16)
[2017-08-10] MEDS: HEPARIN SODIUM - SQ 10,000 UNITS/ML VIAL SQ SCH ×2 (12:16→21:19)
[2017-08-10] MEDS ORDERED: FUROSEMIDE 40 MG/4 ML VIAL IV PUSH ONE (12:30)
[2017-08-10] MEDS ORDERED: SODIUM CHLOR 0.9% 1000 ML INJ 1,000 ML IV PRN (13:16)
[2017-08-10] MEDS ORDERED: SODIUM CHLOR 0.9% 1000 ML INJ 1,000 ML OTHER PRN ×2 (13:16)
[2017-08-10 13:19] LABS: TROPONIN I 0.14 NG/ML (0.02-0.05)
[2017-08-10] MEDS ORDERED: ACETAMINOPHEN 325 MG TAB PO PRN (13:30)
[2017-08-10] MEDS ORDERED: ONDANSETRON HCL 4 MG/2 ML VIAL IV PUSH PRN (13:30)
[2017-08-10] MEDS ORDERED: cloNIDine HCL 0.1 MG TAB PO PRN (13:30)
[2017-08-10] MEDS ORDERED: NITROGLYCERIN 0.4 MG SL 25 TABS/BTL SL PRN (13:30)
[2017-08-10] MEDS ORDERED: GELATIN 12 MM/7 MM FOAM TOP PRN (13:30)
[2017-08-10] MEDS ORDERED: MANNITOL 12.5 GM/50 ML VIAL IV PRN (13:30)
[2017-08-10] MEDS ORDERED: ALBUMIN 25% INJ 100 ML IV PRN (13:30)
[2017-08-10] MEDS ORDERED: HEPARIN SODIUM - IV 10,000 UNITS/10 ML VIAL IV FLUSH PRN (13:30)
[2017-08-10] MEDS: RESP: ALBUTEROL 2.5 MG/IPRATROPIUM 0.5 MG NEB (SCH) NEB ×2 (14:00→19:25)
--- NOTE | 2017-08-10 14:24 | PD.CONS ---
HPI History of Present Illness This is a 66 year old F with PMH significant for COPD on home O2, ESRD on HD M,W ,F, CHF, HTN, and PUD. Pt presented to the ER earlier today with complaints of not feeling well for the past week, states SOB with cough and chills. Chest x- ray revealed cardiomegaly with pulmonary vascular congestion, right lower lob patch airspace disease and likely trace pleural effusion not significantly changed from 07/18/17, improved aeration of the left lower lobe. Pt admitted for end of June with complaints of SOB. Our service has been consulted to evaluate pt for decreased appetite and weight loss. Pt states no appetite for the past week because she has not been feeling well. She reports a nine pound weight loss since last month, states she thinks it is from diarrhea. Reports diarrhea since previous discharge from the hospital, associated fecal urgency with some episodes of incontinence. Denies blood in stool. Denies abdominal pain. Reports occasional nausea and emesis, dry gagging this morning but denies emesis since last month. Also complaining of acid reflux, states takes medication for this at home and it is fairly well controlled. Last EGD over ten years ago with findings of gastric ulcer, active GI bleed at that time. Denies ever having colonoscopy in the past. Denies ETOH, smoking, illicit drug use. Denies family history of colon cancer. (Jimena Watson) PFSH Past Medical History COPD on oxygen, end-stage renal disease on dialysis Sunday, CHF , history of bleeding gastric ulcers, hypertension, neuropathy of the right arm Past Surgical History AV fistula placement, pacemaker placement, partial hysterectomy (Jimena Watson) Coded Allergies: penicillin G (Verified Allergy, Intermediate, Hives, 08/10/17) levofloxacin (Verified Adverse Reaction, Unknown, 08/10/17) ITCHING Family History Mother had high blood pressure and lung cancer. Father: History unknown. Sister had lung cancer and another sister had breast cancer Social History She quit smoking about 2 months ago. Denies any alcohol or illegal drug use (Jimena Watson) Review of Systems Gastrointestinal: COMPLAINS OF: Diarrhea, Nausea, Vomiting, Heartburn, DENIES: Abdominal pain, Black stools, Bloody stools, Constipation, Difficulty Swallowing , Odynophagia, Swelling of Abdomen, Hematemesis (Jimena Watson) GI Exam Vitals I&O Vital Signs Date Time Temp Pulse Resp B/P (MAP) Pulse Ox O2 Delivery O2 Flow Rate FiO2 08/10/17 10:00 93 24 139/67 (91) 97 Nasal Cannula 2.00 08/10/17 08:32 73 22 98 Nasal Cannula 2.00 08/10/17 08:32 98 Nasal Cannula 2.00 08/10/17 07:58 99.0 70 22 183/84 (117) 98 Nasal Cannula 2.00 08/10/17 07:58 71 22 98 Nasal Cannula 2.00 I/O 08/09/17 08/09/17 08/09/17 08/10/17 08/10/17 08/10/17 07:00 15:00 23:00 07:00 15:00 23:00 Intake Total 150 ml Balance 150 ml Intake IV Total 150 ml Imaging Last Impressions Chest X-Ray 08/10/17 0806 Signed Impressions: Service Date/Time: Thursday, August 10, 2017 08:13 - CONCLUSION: 1. Cardiomegaly with pulmonary vascular congestion. 2. Right lower lobe patchy airspace disease and likely trace pleural effusion not significantly changed from 07/18/2017. 3. Improved aeration of the left lower lobe. Mehul King MD Laboratory Test 08/10/17 08:15 08/10/17 08:50 08/10/17 12:38 White Blood Count 5.1 TH/MM3 Red Blood Count 3.67 MIL/MM3 Hemoglobin 10.4 GM/DL Hematocrit 33.6 % Mean Corpuscular Volume 91.4 FL Mean Corpuscular Hemoglobin 28.4 PG Mean Corpuscular Hemoglobin Concent 31.1 % Red Cell Distribution Width 19.4 % Platelet Count 165 TH/MM3 Mean Platelet Volume 8.1 FL Neutrophils (%) (Auto) 73.4 % Lymphocytes (%) (Auto) 16.8 % Monocytes (%) (Auto) 8.9 % Eosinophils (%) (Auto) 0.1 % Basophils (%) (Auto) 0.8 % Neutrophils # (Auto) 3.7 TH/MM3 Lymphocytes # (Auto) 0.9 TH/MM3 Monocytes # (Auto) 0.5 TH/MM3 Eosinophils # (Auto) 0.0 TH/MM3 Basophils # (Auto) 0.0 TH/MM3 CBC Comment DIFF FINAL Differential Comment Blood Urea Nitrogen 16 MG/DL Creatinine 6.79 MG/DL Random Glucose 87 MG/DL Total Protein 7.3 GM/DL Albumin 3.1 GM/DL Calcium Level 8.8 MG/DL Alkaline Phosphatase 165 U/L Aspartate Amino Transf (AST/SGOT) 13 U/L Alanine Aminotransferase (ALT/SGPT) 8 U/L Total Bilirubin 0.6 MG/DL Sodium Level 136 MEQ/L Potassium Level 3.3 MEQ/L Chloride Level 99 MEQ/L Carbon Dioxide Level 26.5 MEQ/L Anion Gap 11 MEQ/L Estimat Glomerular Filtration Rate 7 ML/MIN Total Creatine Kinase 21 U/L 15 U/L Troponin I 0.15 NG/ML 0.14 NG/ML B-Type Natriuretic Peptide 3954 PG/ML Blood Gas Puncture Site LS Blood Gas Patient Temperature 98.6 Blood Gas HCO3 26 mmol/L Blood Gas Base Excess 1.7 mmol/L Blood Gas Oxygen Saturation 92 % Arterial Blood pH 7.40 Arterial Blood Partial Pressure CO2 43 mmHg Arterial Blood Partial Pressure O2 76 mmHG Arterial Blood Oxygen Content 11.9 Vol % Arterial Blood Carboxyhemoglobin 2.7 % Arterial Blood Methemoglobin 0.6 % Blood Gas Hemoglobin 9.1 G/DL Oxygen Delivery Device NASAL CANNULA Blood Gas Liter Flow 3 L/M Date/Time Source Procedure Growth Status 08/10/17 08:15 Blood Peripheral Aerobic Blood Culture Pending Received 08/10/17 08:15 Blood Peripheral Anaerobic Blood Culture Pending Received Physical Examination HEENT: Normocephalic; atraumatic CHEST: Even/unlabored - on 2 L NC CARDIAC: RRR ABDOMEN: Obese, soft, nontender, bowel sounds active HAND INSPECTOR: No focal deficits; alert and oriented times three. (Jimena Watson) Assessment and Plan Plan Assessment: - Decreased appetite- Pt reports no appetite for the past week because she has not been feeling well. - Nausea/vomiting- no emesis since last month, reports dry heaving this morning. Denies hematemesis and coffee ground emesis. History of PUD- last EGD over 10 years ago, states GI bleed at that time - Weight loss- 9 lbs since last month- she attribute it to diarrhea - Diarrhea with fecal urgency and incontinence. Recent hospitalization on abx. Has never had colonoscopy - Anemia- multifactorial - normocytic - CKD on HD M,W,F - COPD- on home O2- 2 L NC Plan: CT abdomen and pelvis Stool studies Monitor labs EGD/colonoscopy- timing TBD- likely early next week Further recommendations based on clinical course and results of above Pt has been seen and examined by myself and Dr. Chowdary and this note is written on her behalf (Jimena Watson) Physician Comments seen, examined agree with above (Lisa Chowdary MD) Jimena Watson Aug 10, 2017 14:24 Lisa Chowdary MD Aug 10, 2017 17:38
[2017-08-10] MEDS ORDERED: DIATRIZOATE MEGLUM/DIATRIZOATE SOD 9 ML CUP PO ONE (14:45)
[2017-08-10] MEDS: EPOETIN ALFA 4,000 UNITS/ML VIAL IV PUSH PRN (15:24)
--- NOTE | 2017-08-10 15:32 | PD.CONS ---
HPI Service Nephrology Consult Requested By Dr. Martínez Reason for Consult ESRD management Primary Care Physician Non-Staff History of Present Illness Patient is a 66-year-old -[place] female with history of end-stage renal disease, hypertension, COPD, CHF, pacemaker who had been having increasing shortness of breath, patient is oxygen dependent and stated that she has neuropathy and arthritis in her right hand difficult to use oxygen. Patient goes on hemodialysis 3 times a week on Sunday, Sunday and Sunday, she complains of cough and bringing up sputum. She had some nausea and loss of appetite present as well. Review of Systems Constitutional: COMPLAINS OF: Weight loss, Change in appetite Respiratory: COMPLAINS OF: Shortness of breath Cardiovascular: COMPLAINS OF: Dyspnea on Exertion, Lower Extremity Edema Musculoskeletal: COMPLAINS OF: Joint pain, Muscle aches, Stiffness, Joint Swelling, Back pain Neurologic: COMPLAINS OF: Abnormal gait Psychiatric: COMPLAINS OF: Anxiety Past Family Social History Allergies: Coded Allergies: penicillin G (Verified Allergy, Intermediate, Hives, 08/10/17) levofloxacin (Verified Adverse Reaction, Unknown, 08/10/17) ITCHING Past Medical History ESRD CHF COPD On oxygen Peripheral edema History of smoking Anemia GERD Peptic ulcer disease Osteoarthritis involving right hand Past Surgical History AV fistula placement Hysterectomy Pacemaker Reported Medications Reported Meds & Active Scripts Active [Albuterol-Ipratropium Neb] 1 AMPULE Nebu 1 Ampule NEB Q6HR NEB PRN Oxygen (O2) Device Liter CORNELIUS.CANULA CONTINUOUS Oxygen Concentrator Portable Gaseous 2 L/min via Nasal Canula Continuous For 99 months [Albuterol Neb] 2.5 MG/3 ML Nebu 2.5 Mg NEB Q2HR NEB PRN Hydrocodone-Acetamin 10-325 mg (Hydrocodone/Acetaminophen) 10 Mg-325 Mg Tablet 1 Tab PO Q4H PRN Reported Renvela (Sevelamer Carbonate) 800 Mg Tab 800 Mg PO TID Omeprazole 20 Mg Tab 20 Mg PO DAILY Labetalol (Labetalol HCl) 300 Mg Tab 300 Mg PO TID Active Ordered Medications Current Medications Medications (Trade) Dose Ordered Sig/[place]inton Route Start Time Stop Time Status Last Admin (NS Flush) 2 ml UNSCH PRN IVF 08/10/17 08:15 08/10/17 12:16 (NS Flush) 2 ml UNSCH PRN IVF 4/20/18 10:15 (Zofran Inj) 4 mg Q6H PRN IVP 08/10/17 11:00 (Heparin Inj) 5,000 units Q8H SQ 08/10/17 12:00 08/10/17 12:16 (Narcan Inj) 0.4 mg UNSCH PRN IV PUSH 08/10/17 11:00 (Maria G-Colace) 1 tab BID PO 08/10/17 21:00 (Milk Of Magnesia Liq) 30 ml Q12H PRN PO 08/10/17 11:00 (Senokot) 17.2 mg Q12H PRN PO 08/10/17 11:00 (Dulcolax Supp) 10 mg DAILY PRN RECTAL 08/10/17 11:00 (Lactulose Liq) 30 ml DAILY PRN PO 08/10/17 11:00 (Lasix Inj) 40 mg DAILY IV PUSH 08/11/17 09:00 (KCl) 20 meq DAILY PO 08/10/17 12:00 08/10/17 12:16 (Duoneb Neb) 1 ampule Q6HR WHILE AWAKE NEB NEB 08/10/17 14:00 (Duoneb Neb) 1 ampule Q4HR NEB PRN NEB 08/10/17 12:00 (Benadryl) 25 mg Q6H PRN PO 08/10/17 12:15 ([place] 10-325 Mg) 1 tab Q4H PRN PO 08/10/17 12:15 (Trandate) 300 mg TID PO 08/10/17 13:00 (Renvela) 800 mg TID PO 08/10/17 13:00 (Protonix) 20 mg DAILY PO 08/11/17 09:00 (Apresoline) 10 mg Q6H PRN PO 08/10/17 12:15 Levofloxacin/ Dextrose 100 ml @ 100 mls/hr Q48H IV 08/12/17 10:00 Sodium Chloride 1,000 ml @ 0 mls/hr Q0M PRN OTHER 08/10/17 13:16 (Heparin Inj) 8,000 units UNSCH PRN IV FLUSH 08/10/17 13:30 Sodium Chloride 1,000 ml @ 200 mls/hr Q5H PRN IV 08/10/17 13:16 Sodium Chloride 1,000 ml @ 0 mls/hr Q0M PRN OTHER 4/20/18 13:16 (Mannitol Inj) 12.5 gm UNSCH PRN IV 08/10/17 13:30 Albumin Human 100 ml @ 60 mls/hr UNSCH PRN IV 08/10/17 13:30 (NS Flush) 5 ml UNSCH PRN IV FLUSH 08/10/17 13:30 (Zofran Inj) 4 mg UNSCH PRN IV PUSH 08/10/17 13:30 (Tylenol) 650 mg UNSCH PRN PO 08/10/17 13:30 (Benadryl) 25 mg UNSCH PRN PO 08/10/17 13:30 (Nitrostat Sl) 0.4 mg UNSCH PRN SL 08/10/17 13:30 (Catapres) 0.1 mg UNSCH PRN PO 08/10/17 13:30 (Epogen Inj) 4,000 units UNSCH PRN IV PUSH 08/10/17 13:30 08/10/17 15:24 (Gelfoam 12 Mm/7 Mm Top) 1 foam UNSCH PRN TOP 08/10/17 13:30 Family History Mother has a history of lung cancer disease, history of also history of lung cancer, another sister with breast cancer Social History Smoke cigarettes currently doing 1 cigarette a day, denies alcohol Physical Exam Vital Signs Vital Signs Date Time Temp Pulse Resp B/P (MAP) Pulse Ox O2 Delivery O2 Flow Rate FiO2 08/10/17 12:30 Nasal Cannula 2.00 08/10/17 12:00 68 22 150/65 (93) 98 Nasal Cannula 3.00 08/10/17 10:00 93 24 139/67 (91) 97 Nasal Cannula 2.00 08/10/17 08:32 73 22 98 Nasal Cannula 2.00 08/10/17 08:32 98 Nasal Cannula 2.00 08/10/17 07:58 99.0 70 22 183/84 (117) 98 Nasal Cannula 2.00 08/10/17 07:58 71 22 98 Nasal Cannula 2.00 Physical Exam GENERAL: Well-nourished, well-developed patient. SKIN: Warm and dry. HEAD: Normocephalic. EYES: No scleral icterus. No injection or drainage. NECK: Supple, trachea midline. No JVD or lymphadenopathy. CARDIOVASCULAR: Regular rate and rhythm without murmurs, gallops, or rubs. RESPIRATORY: Breath sounds bilateral rhonchi and rails GASTROINTESTINAL: Abdomen soft, non-tender, nondistended. EXTREMITIES: No cyanosis, 2+ edema. NEUROLOGICAL: Awake, alert, and oriented x 3. Non-focal. Laboratory Laboratory Tests Test 08/10/17 08:15 08/10/17 08:50 08/10/17 12:38 White Blood Count 5.1 Red Blood Count 3.67 Hemoglobin 10.4 Hematocrit 33.6 Mean Corpuscular Volume 91.4 Mean Corpuscular Hemoglobin 28.4 Mean Corpuscular Hemoglobin Concent 31.1 Red Cell Distribution Width 19.4 Platelet Count 165 Mean Platelet Volume 8.1 Neutrophils (%) (Auto) 73.4 Lymphocytes (%) (Auto) 16.8 Monocytes (%) (Auto) 8.9 Eosinophils (%) (Auto) 0.1 Basophils (%) (Auto) 0.8 Neutrophils # (Auto) 3.7 Lymphocytes # (Auto) 0.9 Monocytes # (Auto) 0.5 Eosinophils # (Auto) 0.0 Basophils # (Auto) 0.0 CBC Comment DIFF FINAL Differential Comment Blood Urea Nitrogen 16 Creatinine 6.79 Random Glucose 87 Total Protein 7.3 Albumin 3.1 Calcium Level 8.8 Alkaline Phosphatase 165 Aspartate Amino Transf (AST/SGOT) 13 Alanine Aminotransferase (ALT/SGPT) 8 Total Bilirubin 0.6 Sodium Level 136 Potassium Level 3.3 Chloride Level 99 Carbon Dioxide Level 26.5 Anion Gap 11 Estimat Glomerular Filtration Rate 7 Total Creatine Kinase 21 15 Troponin I 0.15 0.14 B-Type Natriuretic Peptide 3954 Blood Gas Puncture Site LS Blood Gas Patient Temperature 98.6 Blood Gas HCO3 26 Blood Gas Base Excess 1.7 Blood Gas Oxygen Saturation 92 Arterial Blood pH 7.40 Arterial Blood Partial Pressure CO2 43 Arterial Blood Partial Pressure O2 76 Arterial Blood Oxygen Content 11.9 Arterial Blood Carboxyhemoglobin 2.7 Arterial Blood Methemoglobin 0.6 Blood Gas Hemoglobin 9.1 Oxygen Delivery Device NASAL CANNULA Blood Gas Liter Flow 3 Date/Time Source Procedure Growth Status 08/10/17 08:15 Blood Peripheral Aerobic Blood Culture Pending Received 08/10/17 08:15 Blood Peripheral Anaerobic Blood Culture Pending Received Result Diagram: 08/10/17 0815 08/10/17 0815 Imaging Last Impressions Chest X-Ray 08/10/17 0806 Signed Impressions: Service Date/Time: Thursday, August 10, 2017 08:13 - CONCLUSION: 1. Cardiomegaly with pulmonary vascular congestion. 2. Right lower lobe patchy airspace disease and likely trace pleural effusion not significantly changed from 07/18/2017. 3. Improved aeration of the left lower lobe. Meuhl King MD Assessment and Plan Problem List: (1) ESRD (end stage renal disease) on dialysis ICD Codes: N18.6 - End stage renal disease; Z99.2 - Dependence on renal dialysis Status: Chronic Plan: Patient has started hemodialysis and seen during hemodialysis, 3 L of ultrafiltration plan Patient is Sunday, Sunday and Sunday patient Continue to monitor (2) CHF (congestive heart failure) ICD Codes: I50.9 - Heart failure, unspecified Status: Acute Plan: 3 L of fluid taken off during hemodialysis (3) Pneumonia ICD Codes: J18.9 - Pneumonia, unspecified organism Status: Acute Plan: Started on Levaquin and azithromycin Discussed with her stop smoking (4) HTN (hypertension) ICD Codes: I10 - Essential (primary) hypertension Status: Chronic Plan: Was labile Lisa Ferro MD Aug 10, 2017 15:32
--- NOTE | 2017-08-10 16:33 | MB ---
cc: Vinny Cohen MD DATE: 08/10/2017 REASON FOR CONSULTATION: Evaluation for CHF. HISTORY OF PRESENT ILLNESS: Micah Estrada is a 66-year-old woman on hemodialysis. She is noncompliant. She came in fluid overloaded and just had 3 liters taken off by dialysis. She was short of breath when she came in. The shortness of breath has improved. She still smokes, although minimally from what I can tell. She is followed by my associate, Dr. Adam. She has known hypertension. She just had an echo done 07/19/2017 showing moderate left ventricular hypertrophy with preserved left ventricular systolic function, EF of 60-65% with moderate tricuspid regurgitation and pulmonary artery pressure of 62 mmHg. She does not have any typical angina. The primary reason she presented to the ER yesterday was for shortness of breath and cough. PAST MEDICAL HISTORY: She has had a history of CHF and diastolic dysfunction, Biotronik pacemaker. She has had COPD, gastroesophageal reflux disease, pulmonary hypertension. PAST SURGICAL HISTORY: Includes fistula, pacemaker implant. MEDICATIONS: Charted. ALLERGIES: PENICILLIN. FAMILY HISTORY: Positive for hypertension and lung cancer. SOCIAL HISTORY: Still smokes a few cigarettes. PHYSICAL EXAMINATION: GENERAL: Well-developed, well-nourished female. She is not in any acute distress. I am seeing her at the dialysis center. HEENT: Unremarkable. NECK: Shows no JVD. She just had 3 liters removed. CHEST: Shows diminished breath sounds with a few scattered wheezes. HEART: S1, S2, S4. Regular rate and rhythm, 1/6 systolic murmur. ABDOMEN: Soft. EXTREMITIES: Reveal no peripheral edema. Pulses are intact. EKG shows a dual chamber paced rhythm. LABORATORY DATA: Hematocrit of 33.6. Troponins 0.08, 0.15 and 0.14. These are very nonspecific and similar to values she has had in the past. IMPRESSION: Acute on chronic diastolic congestive heart failure due to noncompliance. She has now been dialyzed with improvement. RECOMMENDATIONS: Agree with dialyzing extra fluid off. Enforced that she needs to be more compliant. I will be available on a p.r.n. basis through the weekend. Primary management at this point is correcting her volume overload status with dialysis. Thank you for ask\ing me to see her. MD LEANDRO Herman/BRINA , 04:00 PM , 04:32 PM
[2017-08-10] MEDS: ACETAMINOPHEN/HYDROcodone 325 MG/10 MG TAB PO PRN ×2 (16:45→21:18)
[2017-08-10] MEDS: SEVELAMER CARBONATE 800 MG TAB PO SCH ×2 (17:38→18:00)
[2017-08-10] MEDS: LABETALOL HCL 300 MG TAB PO SCH ×2 (17:39→18:00)
--- NOTE | 2017-08-10 18:17 | RADRPT ---
EXAM DATE/TIME: 08/10/2017 17:56 [facility] COMPARISON: CT THORAX W/O CONTRAST, June 21, 2017, 10:37. INDICATIONS : Short of breath. RADIATION DOSE: 6.39 CTDIvol (mGy) ; Combined studies - Thorax/Abdomen/Pelvis MEDICAL HISTORY : Cardiovascular disease. Congestive heart failure. Hypertension. Renal failure / dialysis patient SURGICAL HISTORY : Hysterectomy. ENCOUNTER: Initial ACUITY: 1 day PAIN SCALE: 0/10 LOCATION: chest TECHNIQUE: Volumetric scanning of the chest was performed. Using automated exposure control and adjustment of t he mA and/or kV according to patient size, radiation dose was kept as low as reasonably achievable to obtain optimal diagnostic quality images. DICOM format image data is available electronically for r eview and comparison. Follow-up recommendations for detected pulmonary nodules are based at a minimum on nodule size and pa tient risk factors according to Fleischner Society Guidelines. FINDINGS: LUNGS: There is diffuse increased interstitial markings seen throughout. There are changes of centrilobular emphysema. There is a focal consolidation at the lateral aspect of the right middle lobe. There is mi ld increased density in the subpleural region at the lung bases likely related to atelectasis. PLEURAE: There is a mild right pleural effusion. MEDIASTINUM: The heart and great vessels demonstrate no acute abnormality. There is no mediastinal or hilar lymph adenopathy. There is a pacing device in place. Coronary artery calcifications are present. AXILLAE: Within normal limits. No lymphadenopathy. MUSCULOSKELETAL: Within normal limits for patient age. MISCELLANEOUS: The visualized upper abdominal organs demonstrate no acute abnormality. CONCLUSION: 1. Diffuse interstitial disease which appears unchanged from the prior exam. This could be stable chr onic interstitial disease versus recurrent or persistent edema. 2. Right middle lobe consolidation. 3. Mild right effusion. 4. Emphysematous change. Aurelio Boudreaux MD on August 10, 2017 at 18:11 Board Certified Radiologist. This report was verified electronically.
--- NOTE | 2017-08-10 18:39 | RADRPT ---
EXAM DATE/TIME: 08/10/2017 17:56 [facility] COMPARISON: CT THORAX W/O CONTRAST, August 10, 2017, 17:56. INDICATIONS : Weight loss. ORAL CONTRAST: Prescribed oral contrast ingested. RADIATION DOSE: 6.39 CTDIvol (mGy) ; Combined studies - Thorax/Abdomen/Pelvis MEDICAL HISTORY : Cardiovascular disease. Congestive heart failure. Hyperthyroidism.Renal failure / dialysis patient SURGICAL HISTORY : Hysterectomy. ENCOUNTER: Initial ACUITY: 1 month PAIN SCALE: 0/10 LOCATION: abdomen TECHNIQUE: Volumetric scanning of the abdomen and pelvis was performed. Using automated exposure control and ad justment of the mA and/or kV according to patient size, radiation dose was kept as low as reasonably achievable to obtain optimal diagnostic quality images. DICOM format image data is available electro nically for review and comparison. FINDINGS: LOWER LUNGS: There is consolidation at the right middle lobe. The bodies appears of atelectasis or consolidation. There is a mild right pleural effusion. There is a pacing device in the right heart. LIVER: The liver does appear enlarged. No focal patent masses seen. SPLEEN: The spleen is upper limits of normal for size. PANCREAS: Within normal limits. KIDNEYS: Both kidneys are small. There are cortical calcifications. There is a 1.4 cm low-density mass at the inferior aspect of the left kidney. This is nonspecific on this noncontrast CT examination. It likely represents a cyst. ADRENAL GLANDS: Within normal limits. VASCULAR: Atherosclerotic calcifications are seen. Aneurysmal dilatation is not seen. BOWEL/MESENTERY: Colonic diverticula are seen particularly in the sigmoid region. ABDOMINAL WALL: Within normal limits. RETROPERITONEUM: There is no lymphadenopathy. BLADDER: The bladder is nearly completely empty. REPRODUCTIVE: The patient status post hysterectomy. There is mild amount of free fluid seen in the pelvis. INGUINAL: There is no lymphadenopathy or hernia. MUSCULOSKELETAL: The bones appear mildly sclerotic with multiple lucent areas seen in the lumbar spine and pelvic bone s. This is likely secondary to renal osteodystrophy given the renal failure. CONCLUSION: 1. Hepatomegaly. The spleen is upper limits of normal for size. 2. Colonic diverticula. 3. Atrophy of the kidneys. 4. Mild sclerosis of the bones with multiple small lucent lesions likely related to renal osteodystro phy. Other causes for small lucent lesions including multiple myeloma cannot be excluded by imaging a lone. Aurelio Boudreaux MD on August 10, 2017 at 18:26 Board Certified Radiologist. This report was verified electronically.
[2017-08-10] MEDS ORDERED: SODIUM CHLORIDE 0.9% FLUSH 10 ML FLUSH IV FLUSH SCH (21:00)
[2017-08-10] MEDS: DOCUSATE SODIUM 50 MG/SENNA 8.6 MG TAB PO SCH (21:18)
[2017-08-10 21:38] LABS: TROPONIN I 0.09 NG/ML (0.02-0.05)
[2017-08-11] VITALS (9 sets, daily range): BP systolic 103–161; BP diastolic 54–78; PULSE 59–75; RESP 18–19; TEMP 97.6–98.9; O2SAT 94–99
[2017-08-11] MEDS: ACETAMINOPHEN/HYDROcodone 325 MG/10 MG TAB PO PRN ×5 (02:27→21:18)
[2017-08-11] MEDS: HEPARIN SODIUM - SQ 10,000 UNITS/ML VIAL SQ SCH ×3 (04:32→21:18)
[2017-08-11] MEDS: RESP: ALBUTEROL 2.5 MG/IPRATROPIUM 0.5 MG NEB (SCH) NEB ×3 (07:32→19:21)
--- NOTE | 2017-08-11 08:58 | EKG ---
Date Performed: 08/10/2017 Time Performed: 08:52:15 PTAGE: 66 years EKG: ELECTRONIC ATRIAL PACEMAKER BORDERLINE LEFT AXIS DEVIATION ST DEVIATION AND MODERATE T-WAVE ABNORMALITY, CONSIDER LATERAL ISCHEMIA ST DEVIATION AND MODERATE T-WAVE ABNORMALITY, CONSIDER INFERI OR ISCHEMIA ABNORMAL ECG PREVIOUS TRACING : 07/18/2017 22.05 DOCTOR: Jessica Patel Interpretating Date/Time 08/11/2017 08:58:07
[2017-08-11] MEDS: SEVELAMER CARBONATE 800 MG TAB PO SCH ×3 (09:00→17:50)
[2017-08-11] MEDS: PANTOPRAZOLE SOD 20 MG DELAYED RELEASE TAB PO SCH (09:00)
[2017-08-11] MEDS: LABETALOL HCL 300 MG TAB PO SCH ×3 (09:00→17:51)
[2017-08-11] MEDS: POTASSIUM CHLORIDE 20 MEQ CONTROLLED RELEASE TAB PO SCH (09:00)
[2017-08-11] MEDS ORDERED: FUROSEMIDE 40 MG/4 ML VIAL IV PUSH SCH (09:00)
[2017-08-11] MEDS: DOCUSATE SODIUM 50 MG/SENNA 8.6 MG TAB PO SCH ×2 (09:01→21:00)
[2017-08-11 09:52] LABS: BICARBONATE 28.4 MEQ/L (21.0-32.0); CALCIUM 9.8 MG/DL (8.5-10.1); CREATININE 4.7 MG/DL (0.50-1.00)
--- NOTE | 2017-08-11 10:48 | HHI.NPPN ---
Subjective History of Present Illness 66-year-old -[place]ub[place] female with history of end-stage renal disease, hypertension, COPD, CHF, pacemaker who had been having increasing shortness of breath, patient is oxygen dependent and stated that she has neuropathy and arthritis in her right hand difficult to use oxygen. Patient goes on hemodialysis 3 times a week on Sunday, Sunday and Sunday, she complains of cough and bringing up sputum. Additional Remarks Patient has some improvement in the SOB, still has cough and with nasal cannula. Objective Data Data Vital Signs Date Time Temp Pulse Resp B/P (MAP) Pulse Ox O2 Delivery O2 Flow Rate FiO2 08/11/17 08:00 98.0 74 18 124/54 (77) 98 08/11/17 05:00 97.6 64 18 103/58 (73) 99 08/11/17 00:00 98.5 75 18 125/70 (88) 99 08/10/17 20:30 Nasal Cannula 3.00 08/10/17 20:00 98.1 69 18 113/60 (77) 95 08/10/17 19:27 99 Nasal Cannula 2.00 08/10/17 18:25 Nasal Cannula 3.00 08/10/17 18:20 08/10/17 17:38 69 20 165/74 (104) 97 Nasal Cannula 3.00 08/10/17 16:32 68 20 144/64 (90) 96 Nasal Cannula 3.00 08/10/17 12:30 Nasal Cannula 2.00 08/10/17 12:00 68 22 150/65 (93) 98 Nasal Cannula 3.00 -: 08/10/17 0815 08/11/17 0826 Physical Exam General Appearance: No Acute Distress, Comfortable Eyes Eye Exam: Pupils Equal Throat Throat Exam: Oral Mucosa [place] & Moist Pulmonary Resp Exam: Crackles, Rhonchi, Sputum, Decreased Bases, Diminished Breath Sounds Cardiology CV Exam: Arrhythmia Gastrointestinal/Abdomen GI Exam: Soft, Non-Tender, Bowel Sounds Present Extremeties Extremities Exam: Trace Edema Neurologic Neuro Exam: Alert, Awake, Oriented Assessment/Plan Problem List: (1) ESRD (end stage renal disease) on dialysis ICD Codes: N18.6 - End stage renal disease; Z99.2 - Dependence on renal dialysis Status: Chronic Plan: Patient with ESRD, she is on HD, Sunday, Sunday and Sunday. HD done yesterday and 3 liters removed. Continue antibiotics. Epogen with HD. (2) CHF (congestive heart failure) ICD Codes: I50.9 - Heart failure, unspecified Status: Acute Plan: 3 L of fluid taken off during hemodialysis (3) Pneumonia ICD Codes: J18.9 - Pneumonia, unspecified organism Status: Acute Plan: Started on Levaquin and azithromycin Discussed with her stop smoking (4) HTN (hypertension) ICD Codes: I10 - Essential (primary) hypertension Status: Chronic Plan: Was labile Problem Qualifiers (1) HTN (hypertension): Qualified Codes: I10 - Essential (primary) hypertension Jael Calabrese MD Aug 11, 2017 10:48
--- NOTE | 2017-08-11 13:10 | PD.CARD.PN ---
Subjective Subjective Remarks C/o cough. Stated she has decided to quit smoking Objective Medications Current Medications Medications (Trade) Dose Ordered Sig/[place] Route Start Time Stop Time Status Last Admin (NS Flush) 2 ml UNSCH PRN IVF 08/10/17 08:15 08/10/17 12:16 (NS Flush) 2 ml UNSCH PRN IVF 08/10/17 10:15 (Zofran Inj) 4 mg Q6H PRN IVP 08/10/17 11:00 (Heparin Inj) 5,000 units Q8H SQ 08/10/17 12:00 08/11/17 11:32 (Narcan Inj) 0.4 mg UNSCH PRN IV PUSH 08/10/17 11:00 (Maria G-Colace) 1 tab BID PO 08/10/17 21:00 08/11/17 09:01 (Milk Of Magnesia Liq) 30 ml Q12H PRN PO 08/10/17 11:00 (Senokot) 17.2 mg Q12H PRN PO 08/10/17 11:00 (Dulcolax Supp) 10 mg DAILY PRN RECTAL 08/10/17 11:00 (Lactulose Liq) 30 ml DAILY PRN PO 08/10/17 11:00 (Lasix Inj) 40 mg DAILY IV PUSH 08/11/17 09:00 08/11/17 09:01 (KCl) 20 meq DAILY PO 08/10/17 12:00 08/11/17 09:00 (Duoneb Neb) 1 ampule Q6HR WHILE AWAKE NEB NEB 08/10/17 14:00 08/11/17 12:30 (Duoneb Neb) 1 ampule Q4HR NEB PRN NEB 08/10/17 12:00 (Benadryl) 25 mg Q6H PRN PO 08/10/17 12:15 ([place] 10-325 Mg) 1 tab Q4H PRN PO 08/10/17 12:15 08/11/17 11:32 (Trandate) 300 mg TID PO 08/10/17 13:00 08/11/17 09:00 (Renvela) 800 mg TID PO 08/10/17 13:00 08/11/17 09:00 (Protonix) 20 mg DAILY PO 08/11/17 09:00 08/11/17 09:00 (Apresoline) 10 mg Q6H PRN PO 08/10/17 12:15 Levofloxacin/ Dextrose 100 ml @ 100 mls/hr Q48H IV 08/12/17 10:00 Sodium Chloride 1,000 ml @ 0 mls/hr Q0M PRN OTHER 08/10/17 13:16 (Heparin Inj) 8,000 units UNSCH PRN IV FLUSH 08/10/17 13:30 Sodium Chloride 1,000 ml @ 200 mls/hr Q5H PRN IV 08/10/17 13:16 Sodium Chloride 1,000 ml @ 0 mls/hr Q0M PRN OTHER 08/10/17 13:16 (Mannitol Inj) 12.5 gm UNSCH PRN IV 08/10/17 13:30 Albumin Human 100 ml @ 60 mls/hr UNSCH PRN IV 08/10/17 13:30 (NS Flush) 5 ml UNSCH PRN IV FLUSH 08/10/17 13:30 (Zofran Inj) 4 mg UNSCH PRN IV PUSH 08/10/17 13:30 (Tylenol) 650 mg UNSCH PRN PO 08/10/17 13:30 (Benadryl) 25 mg UNSCH PRN PO 08/10/17 13:30 08/10/17 15:33 (Nitrostat Sl) 0.4 mg UNSCH PRN SL 08/10/17 13:30 (Catapres) 0.1 mg UNSCH PRN PO 08/10/17 13:30 (Epogen Inj) 4,000 units UNSCH PRN IV PUSH 08/10/17 13:30 08/10/17 15:24 (Gelfoam 12 Mm/7 Mm Top) 1 foam UNSCH PRN TOP 08/10/17 13:30 Vital Signs / I&O Vital Signs Date Time Temp Pulse Resp B/P (MAP) Pulse Ox O2 Delivery O2 Flow Rate FiO2 08/11/17 12:08 97.7 59 18 105/55 (72) 97 08/11/17 08:35 Nasal Cannula 2.00 08/11/17 08:00 64 08/11/17 08:00 98.0 74 18 124/54 (77) 98 08/11/17 05:00 97.6 64 18 103/58 (73) 99 08/11/17 00:00 98.5 75 18 125/70 (88) 99 08/10/17 20:30 Nasal Cannula 3.00 08/10/17 20:00 98.1 69 18 113/60 (77) 95 08/10/17 19:27 99 Nasal Cannula 2.00 08/10/17 18:25 Nasal Cannula 3.00 08/10/17 18:20 08/10/17 17:38 69 20 165/74 (104) 97 Nasal Cannula 3.00 08/10/17 16:32 68 20 144/64 (90) 96 Nasal Cannula 3.00 I/O 08/10/17 08/10/17 08/10/17 08/11/17 08/11/17 08/11/17 07:00 15:00 23:00 07:00 15:00 23:00 Intake Total 150 ml 100 ml Output Total 3000 ml Balance 150 ml -2900 ml Intake IV Total 150 ml 100 ml Output Hemodialysis 3000 ml # Voids 5 Physical Exam Alert, NAD Chest diminished BS, few wheezes and rhonchi CV S1S2 RRR with 2/6 LINK no edeam Laboratory Laboratory Tests Test 08/10/17 20:32 08/11/17 08:26 Total Creatine Kinase 32 U/L Troponin I 0.09 NG/ML Blood Urea Nitrogen 19 MG/DL Creatinine 4.70 MG/DL Random Glucose 95 MG/DL Calcium Level 9.8 MG/DL Sodium Level 133 MEQ/L Potassium Level 4.4 MEQ/L Chloride Level 95 MEQ/L Carbon Dioxide Level 28.4 MEQ/L Anion Gap 10 MEQ/L Estimat Glomerular Filtration Rate 11 ML/MIN Imaging Last 48 hours Impressions Chest X-Ray 08/10/17 0806 Signed Impressions: Service Date/Time: Thursday, August 10, 2017 08:13 - CONCLUSION: 1. Cardiomegaly with pulmonary vascular congestion. 2. Right lower lobe patchy airspace disease and likely trace pleural effusion not significantly changed from 07/18/2017. 3. Improved aeration of the left lower lobe. Mehul King MD Chest CT 08/10/17 0000 Signed Impressions: Service Date/Time: Thursday, August 10, 2017 17:56 - CONCLUSION: 1. Diffuse interstitial disease which appears unchanged from the prior exam. This could be stable chronic interstitial disease versus recurrent or persistent edema. 2. Right middle lobe consolidation. 3. Mild right effusion. 4. Emphysematous change. Aurelio Boudreaux MD Abdomen/Pelvis CT 08/10/17 0000 Signed Impressions: Service Date/Time: Thursday, August 10, 2017 17:56 - CONCLUSION: 1. Hepatomegaly. The spleen is upper limits of normal for size. 2. Colonic diverticula. 3. Atrophy of the kidneys. 4. Mild sclerosis of the bones with multiple small lucent lesions likely related to renal osteodystrophy. Other causes for small lucent lesions including multiple myeloma cannot be excluded by imaging alone. Aurelio Boudreaux MD Assessment and Plan Problem List: (1) ESRD pn HD (2) HTN (hypertension) ICD Codes: I10 - Essential (primary) hypertension Status: Chronic (3) COPD (chronic obstructive pulmonary disease) ICD Codes: J44.9 - Chronic obstructive pulmonary disease, unspecified Status: Chronic (4) CHF (congestive heart failure) ICD Codes: I50.9 - Heart failure, unspecified Status: Acute Assessment and Plan has improved with dialysis - I will see prn - please call me if you need assistance Problem Qualifiers (1) HTN (hypertension): Qualified Codes: I10 - Essential (primary) hypertension Vinny Cohen MD Aug 11, 2017 13:10
--- NOTE | 2017-08-11 14:40 | HHI.PR ---
Subjective Remarks Follow-up for fluid overload, ESRD. Patient is currently doing well. She is on nasal cannula oxygen. No fever or chills. Tolerating diet well. Objective Vitals Vital Signs Date Time Temp Pulse Resp B/P (MAP) Pulse Ox O2 Delivery O2 Flow Rate FiO2 08/11/17 12:08 97.7 59 18 105/55 (72) 97 08/11/17 08:35 Nasal Cannula 2.00 08/11/17 08:00 64 08/11/17 08:00 98.0 74 18 124/54 (77) 98 08/11/17 05:00 97.6 64 18 103/58 (73) 99 08/11/17 00:00 98.5 75 18 125/70 (88) 99 08/10/17 20:30 Nasal Cannula 3.00 08/10/17 20:00 98.1 69 18 113/60 (77) 95 08/10/17 19:27 99 Nasal Cannula 2.00 08/10/17 18:25 Nasal Cannula 3.00 08/10/17 18:20 08/10/17 17:38 69 20 165/74 (104) 97 Nasal Cannula 3.00 08/10/17 16:32 68 20 144/64 (90) 96 Nasal Cannula 3.00 I/O 08/10/17 08/10/17 08/10/17 08/11/17 08/11/17 08/11/17 07:00 15:00 23:00 07:00 15:00 23:00 Intake Total 150 ml 100 ml Output Total 3000 ml Balance 150 ml -2900 ml Intake IV Total 150 ml 100 ml Output Hemodialysis 3000 ml # Voids 5 Result Diagram: 08/10/17 0815 08/11/17 0826 Imaging Last Impressions Chest X-Ray 08/10/17 0806 Signed Impressions: Service Date/Time: Thursday, August 10, 2017 08:13 - CONCLUSION: 1. Cardiomegaly with pulmonary vascular congestion. 2. Right lower lobe patchy airspace disease and likely trace pleural effusion not significantly changed from 07/18/2017. 3. Improved aeration of the left lower lobe. Mehul King MD Chest CT 08/10/17 0000 Signed Impressions: Service Date/Time: Thursday, August 10, 2017 17:56 - CONCLUSION: 1. Diffuse interstitial disease which appears unchanged from the prior exam. This could be stable chronic interstitial disease versus recurrent or persistent edema. 2. Right middle lobe consolidation. 3. Mild right effusion. 4. Emphysematous change. Aurelio Boudreaux MD Abdomen/Pelvis CT 08/10/17 0000 Signed Impressions: Service Date/Time: Thursday, August 10, 2017 17:56 - CONCLUSION: 1. Hepatomegaly. The spleen is upper limits of normal for size. 2. Colonic diverticula. 3. Atrophy of the kidneys. 4. Mild sclerosis of the bones with multiple small lucent lesions likely related to renal osteodystrophy. Other causes for small lucent lesions including multiple myeloma cannot be excluded by imaging alone. Aurelio Boudreaux MD Objective Remarks GENERAL: Alert, oriented 3, NAD. SKIN: Warm and dry. HEAD: Normocephalic. EYES: No scleral icterus. No injection or drainage. NECK: Supple, trachea midline. No JVD or lymphadenopathy. CARDIOVASCULAR: Regular rate and rhythm without murmurs, gallops, or rubs. RESPIRATORY: Breath sounds equal bilaterally. No accessory muscle use. GASTROINTESTINAL: Abdomen soft, non-tender, nondistended. MUSCULOSKELETAL: No cyanosis. Trace edema in lower extremity's. BACK: Nontender without obvious deformity. No CVA tenderness. A/P Problem List: (1) ESRD pn HD (2) Fluid overload ICD Code: E87.70 - Fluid overload, unspecified Status: Acute Assessment and Plan Patient is a 66-year-old -[place] female with past medical history of end-stage renal disease on hemodialysis Fridays, COPD on home oxygen, CHF, gastric ulcers, neuropathy on the right arm presented to the emergency room with complaints of coughing, shortness of breath spitting up, chest pain related to cough and chills. Nephrology was consulted for emergent dialysis. After dialysis patient improved significantly. Patient was also started on Levaquin for pneumonia. Acute respiratory failure hypoxia -likely due to fluid overload End-stage renal disease on dialysis Sunday Much improved after dialysis. He should to continue Sunday dialysis upon discharge. Cardiology evaluated for CHF exacerbation. No recommendation to start diuretics. Elevated BNP likely due to supply demand as well as renal failure Probable pneumonia Patient is currently on Levaquin 750 mg every 48 hours. Will continue for total 3 doses. Full code. Heparin subcutaneous Discharge plan: Likely discharge home tomorrow 08/12/2017. Kelsey Hicks DO Aug 11, 2017 2:40 pm
--- NOTE | 2017-08-11 14:59 | HHI.GIFU ---
Subjective Remarks Pt reports feeling much better after dialysis yesterday She is walking around the room during my exam Still with some SOB, on 2 L o2 via NC, wears 2L at home Denies nausea, vomiting, abdominal pain Tolerating PO (Jimena Watson) Objective Vitals I&O Vital Signs Date Time Temp Pulse Resp B/P (MAP) Pulse Ox O2 Delivery O2 Flow Rate FiO2 08/11/17 12:08 97.7 59 18 105/55 (72) 97 08/11/17 08:35 Nasal Cannula 2.00 08/11/17 08:00 64 08/11/17 08:00 98.0 74 18 124/54 (77) 98 08/11/17 05:00 97.6 64 18 103/58 (73) 99 08/11/17 00:00 98.5 75 18 125/70 (88) 99 08/10/17 20:30 Nasal Cannula 3.00 08/10/17 20:00 98.1 69 18 113/60 (77) 95 08/10/17 19:27 99 Nasal Cannula 2.00 08/10/17 18:25 Nasal Cannula 3.00 08/10/17 18:20 08/10/17 17:38 69 20 165/74 (104) 97 Nasal Cannula 3.00 08/10/17 16:32 68 20 144/64 (90) 96 Nasal Cannula 3.00 I/O 08/10/17 08/10/17 08/10/17 08/11/17 08/11/17 08/11/17 07:00 15:00 23:00 07:00 15:00 23:00 Intake Total 150 ml 100 ml Output Total 3000 ml Balance 150 ml -2900 ml Intake IV Total 150 ml 100 ml Output Hemodialysis 3000 ml # Voids 5 Laboratory Laboratory Tests Test 08/10/17 20:32 08/11/17 08:26 Total Creatine Kinase 32 Troponin I 0.09 Blood Urea Nitrogen 19 Creatinine 4.70 Random Glucose 95 Calcium Level 9.8 Sodium Level 133 Potassium Level 4.4 Chloride Level 95 Carbon Dioxide Level 28.4 Anion Gap 10 Estimat Glomerular Filtration Rate 11 Date/Time Source Procedure Growth Status 08/10/17 08:15 Blood Peripheral Aerobic Blood Culture - Preliminary NO GROWTH IN 1 DAY Resulted 08/10/17 08:15 Blood Peripheral Anaerobic Blood Culture - Preliminary NO GROWTH IN 1 DAY Resulted Imaging Last Impressions Chest X-Ray 08/10/17 0806 Signed Impressions: Service Date/Time: Thursday, August 10, 2017 08:13 - CONCLUSION: 1. Cardiomegaly with pulmonary vascular congestion. 2. Right lower lobe patchy airspace disease and likely trace pleural effusion not significantly changed from 07/18/2017. 3. Improved aeration of the left lower lobe. Mehul King MD Chest CT 08/10/17 0000 Signed Impressions: Service Date/Time: Thursday, August 10, 2017 17:56 - CONCLUSION: 1. Diffuse interstitial disease which appears unchanged from the prior exam. This could be stable chronic interstitial disease versus recurrent or persistent edema. 2. Right middle lobe consolidation. 3. Mild right effusion. 4. Emphysematous change. Aurelio Boudreaux MD Abdomen/Pelvis CT 08/10/17 0000 Signed Impressions: Service Date/Time: Thursday, August 10, 2017 17:56 - CONCLUSION: 1. Hepatomegaly. The spleen is upper limits of normal for size. 2. Colonic diverticula. 3. Atrophy of the kidneys. 4. Mild sclerosis of the bones with multiple small lucent lesions likely related to renal osteodystrophy. Other causes for small lucent lesions including multiple myeloma cannot be excluded by imaging alone. Aurelio Boudreaux MD Physical Exam HEENT: Normocephalic; atraumatic CHEST: Even/unlabored CARDIAC: RRR ABDOMEN: Soft, nondistended, nontender; bowel sounds active HAND CANDY MOLDER: No focal deficits; alert and oriented times three. (Jimena Watson [facility]) Assessment and Plan Plan Assessment: - Decreased appetite- Pt reports no appetite for the past week because she has not been feeling well. - Nausea/vomiting- no emesis since last month, reports dry heaving this morning. Denies hematemesis and coffee ground emesis. History of PUD- last EGD over 10 years ago, states GI bleed at that time - Weight loss- 9 lbs since last month- she attribute it to diarrhea - Diarrhea with fecal urgency and incontinence. Recent hospitalization on abx. Has never had colonoscopy - Anemia- multifactorial - normocytic - CKD on HD M,W,F - COPD- on home O2- 2 L NC (08/11) Pt reports feeling much better today after dialysis yesterday. Walking around the room during my exam CT abdomen and pelvis W/O IV contrast (08/10) --> Hepatomegaly. The spleen is upper limits of normal for size. Colonic diverticula. Atrophy of the kidneys. Mild sclerosis of the bones with multiple small lucent lesions likely related to renal osteodystrophy. Other causes for small lucent lesions including multiple myeloma cannot be excluded by imaging alone. Stool studies pending- pt reports formed BM today. No repeat CBC from today Levaquin added by attending for probably PNA Plan: EGD and colonoscopy on Sunday Obtain consent Clear liquids tomorrow GoLytely prep NPO after MN Stool studies Protonix Monitor labs Further recommendations based on clinical course and results of above Pt has been seen and examined by myself and Dr. Sorensen and this note is written on his behalf (Jimena Watson) Physician Comments Patient seen and examined Agree with above Continue with current supportive care Monitor labs Plan for an EGD and a colonoscopy on Sunday Weight loss possibly related to COPD (Wes Sorensen MD) Jimena Watson Aug 11, 2017 14:59 Wes Sorensen MD Aug 11, 2017 22:30
[2017-08-11] MEDS: SODIUM CHLORIDE 0.9% FLUSH 10 ML FLUSH IVF PRN (21:20)
[2017-08-12] VITALS (10 sets, daily range): BP systolic 105–130; BP diastolic 56–76; PULSE 18–75; RESP 18–20; TEMP 97.2–98.4; O2SAT 95–100
[2017-08-12] MEDS: ACETAMINOPHEN/HYDROcodone 325 MG/10 MG TAB PO PRN ×6 (01:09→21:56)
[2017-08-12] MEDS: HEPARIN SODIUM - SQ 10,000 UNITS/ML VIAL SQ SCH ×3 (04:17→20:20)
[2017-08-12] MEDS: RESP: ALBUTEROL 2.5 MG/IPRATROPIUM 0.5 MG NEB (SCH) NEB ×3 (07:29→19:19)
[2017-08-12] MEDS ORDERED: AZITHROMYCIN 250 MG TAB PO ONE (08:30)
[2017-08-12] MEDS: SEVELAMER CARBONATE 800 MG TAB PO SCH ×3 (09:47→18:01)
[2017-08-12] MEDS: PANTOPRAZOLE SOD 20 MG DELAYED RELEASE TAB PO SCH (09:47)
[2017-08-12] MEDS: POTASSIUM CHLORIDE 20 MEQ CONTROLLED RELEASE TAB PO SCH (09:47)
[2017-08-12] MEDS: DOCUSATE SODIUM 50 MG/SENNA 8.6 MG TAB PO SCH ×2 (09:48→20:21)
[2017-08-12] MEDS: LABETALOL HCL 300 MG TAB PO SCH ×3 (09:50→18:01)
--- NOTE | 2017-08-12 09:52 | HHI.NPPN ---
Subjective History of Present Illness 66-year-old -[place]ian female with history of end-stage renal disease, hypertension, COPD, CHF, pacemaker who had been having increasing shortness of breath, patient is oxygen dependent and stated that she has neuropathy and arthritis in her right hand difficult to use oxygen. Patient goes on hemodialysis 3 times a week on Sunday, Sunday and Sunday, she complains of cough and bringing up sputum. Additional Remarks Reports SOB but chronic. Plan for EGD and colonoscopy tomorrow. (Liza Kennedy) Objective Data Data Vital Signs Date Time Temp Pulse Resp B/P (MAP) Pulse Ox O2 Delivery O2 Flow Rate FiO2 08/12/17 07:32 100 Nasal Cannula 2.00 08/12/17 05:15 98.0 68 18 125/69 (87) 97 08/12/17 03:52 68 08/12/17 00:40 97.6 75 20 128/67 (87) 95 08/11/17 22:30 98.4 73 19 130/78 (95) 96 08/11/17 20:00 96 Nasal Cannula 3.00 08/11/17 19:48 68 08/11/17 19:21 96 Nasal Cannula 2.00 08/11/17 16:00 98.9 69 18 123/58 (79) 96 08/11/17 15:39 98.9 69 18 123/58 (79) 96 08/11/17 12:08 97.7 59 18 105/55 (72) 97 (Liza Kennedy) -: 08/10/17 0815 08/11/17 0826 Physical Exam General Appearance: No Acute Distress, Comfortable (Liza Kennedy) Eyes Eye Exam: Pupils Equal (Liza Kennedy) Throat Throat Exam: Oral Mucosa [place] & Moist (Liza Kennedy) Pulmonary Resp Exam: Crackles, Rhonchi, Sputum, Decreased Bases, Diminished Breath Sounds (Liza Kennedy) Cardiology CV Exam: Arrhythmia (Liza Kennedy) Gastrointestinal/Abdomen GI Exam: Soft, Non-Tender, Bowel Sounds Present (Liza Kennedy) Extremeties Extremities Exam: Trace Edema (Liza Kennedy) Neurologic Neuro Exam: Alert, Awake, Oriented (Liza Kennedy) Assessment/Plan Problem List: (1) ESRD (end stage renal disease) on dialysis ICD Codes: N18.6 - End stage renal disease; Z99.2 - Dependence on renal dialysis Status: Chronic Plan: Patient with ESRD, she is on HD, Sunday, Sunday and Sunday. Continue antibiotics. Epogen with HD. Continue Renvela for metabolic bone disorder Hemodialysis planned for tomorrow. (2) CHF (congestive heart failure) ICD Codes: I50.9 - Heart failure, unspecified Status: Acute Plan: 3 L of fluid taken off during hemodialysis (3) Pneumonia ICD Codes: J18.9 - Pneumonia, unspecified organism Status: Acute Plan: Started on Levaquin and azithromycin Discussed with her stop smoking (4) HTN (hypertension) ICD Codes: I10 - Essential (primary) hypertension Status: Chronic Plan: Was labile (Liza Kennedy) Problem List: (1) ESRD (end stage renal disease) on dialysis ICD Codes: N18.6 - End stage renal disease; Z99.2 - Dependence on renal dialysis Status: Chronic Plan: Patient with ESRD, she is on HD, Sunday, Sunday and Sunday. Continue antibiotics. Epogen with HD. Continue Renvela for metabolic bone disorder Hemodialysis planned for tomorrow. Patient seen and examined, agree with above. Continue HD as schedule. (2) CHF (congestive heart failure) ICD Codes: I50.9 - Heart failure, unspecified Status: Acute Plan: 3 L of fluid taken off during hemodialysis (3) Pneumonia ICD Codes: J18.9 - Pneumonia, unspecified organism Status: Acute Plan: Started on Levaquin and azithromycin Discussed with her stop smoking (4) HTN (hypertension) ICD Codes: I10 - Essential (primary) hypertension Status: Chronic Plan: Was labile (Jael Calabrese MD) Problem Qualifiers (1) HTN (hypertension): Qualified Codes: I10 - Essential (primary) hypertension Liza Kennedy Aug 12, 2017 09:52 Jael Calabrese MD Aug 12, 2017 14:51
[2017-08-12] MEDS ORDERED: LEVOFLOXACIN 500 MG PREMIX INJ 100 ML IV SCH (10:00)
--- NOTE | 2017-08-12 10:34 | HHI.PR ---
Subjective Remarks Follow-up for fluid overload, ESRD. Patient is currently doing well. On nasal cannula. No fever or chills. She is ambulating well. She again requests portable oxygen. Objective Vitals Vital Signs Date Time Temp Pulse Resp B/P (MAP) Pulse Ox O2 Delivery O2 Flow Rate FiO2 08/12/17 09:59 97.2 63 20 108/56 (73) 98 08/12/17 07:32 100 Nasal Cannula 2.00 08/12/17 05:15 98.0 68 18 125/69 (87) 97 08/12/17 03:52 68 08/12/17 00:40 97.6 75 20 128/67 (87) 95 08/11/17 22:30 98.4 73 19 130/78 (95) 96 08/11/17 20:00 96 Nasal Cannula 3.00 08/11/17 19:48 68 08/11/17 19:21 96 Nasal Cannula 2.00 08/11/17 16:00 98.9 69 18 123/58 (79) 96 08/11/17 15:39 98.9 69 18 123/58 (79) 96 08/11/17 12:08 97.7 59 18 105/55 (72) 97 I/O 08/11/17 08/11/17 08/11/17 08/12/17 08/12/17 08/12/17 07:00 15:00 23:00 07:00 15:00 23:00 Intake Total 400 ml 300 ml Output Total 0 ml 0 ml Balance 400 ml 300 ml Intake Oral 400 ml 300 ml Output Urine Total 0 ml 0 ml # Voids 5 # Bowel Movements 0 0 Result Diagram: 08/10/17 0815 08/11/17 0826 Imaging Last Impressions Chest X-Ray 08/10/17 0806 Signed Impressions: Service Date/Time: Thursday, August 10, 2017 08:13 - CONCLUSION: 1. Cardiomegaly with pulmonary vascular congestion. 2. Right lower lobe patchy airspace disease and likely trace pleural effusion not significantly changed from 07/18/2017. 3. Improved aeration of the left lower lobe. Mehul King MD Chest CT 08/10/17 0000 Signed Impressions: Service Date/Time: Thursday, August 10, 2017 17:56 - CONCLUSION: 1. Diffuse interstitial disease which appears unchanged from the prior exam. This could be stable chronic interstitial disease versus recurrent or persistent edema. 2. Right middle lobe consolidation. 3. Mild right effusion. 4. Emphysematous change. Aurelio Boudreaux MD Abdomen/Pelvis CT 08/10/17 0000 Signed Impressions: Service Date/Time: Thursday, August 10, 2017 17:56 - CONCLUSION: 1. Hepatomegaly. The spleen is upper limits of normal for size. 2. Colonic diverticula. 3. Atrophy of the kidneys. 4. Mild sclerosis of the bones with multiple small lucent lesions likely related to renal osteodystrophy. Other causes for small lucent lesions including multiple myeloma cannot be excluded by imaging alone. Aurelio Boudreaux MD Objective Remarks GENERAL: Alert, oriented 3, NAD. SKIN: Warm and dry. HEAD: Normocephalic. EYES: No scleral icterus. No injection or drainage. NECK: Supple, trachea midline. No JVD or lymphadenopathy. CARDIOVASCULAR: Regular rate and rhythm without murmurs, gallops, or rubs. RESPIRATORY: Breath sounds equal bilaterally. No accessory muscle use. GASTROINTESTINAL: Abdomen soft, non-tender, nondistended. MUSCULOSKELETAL: No cyanosis. Trace edema in lower extremity's. BACK: Nontender without obvious deformity. No CVA tenderness. A/P Problem List: (1) ESRD pn HD (2) Fluid overload ICD Code: E87.70 - Fluid overload, unspecified Status: Acute Assessment and Plan Patient is a 66-year-old -[place] female with past medical history of end-stage renal disease on hemodialysis Fridays, COPD on home oxygen, CHF, gastric ulcers, neuropathy on the right arm presented to the emergency room with complaints of coughing, shortness of breath spitting up, chest pain related to cough and chills. Nephrology was consulted for emergent dialysis. After dialysis patient improved significantly. Patient was also started on Levaquin for pneumonia. Acute respiratory failure hypoxia -likely due to fluid overload End-stage renal disease on dialysis Sunday Much improved after dialysis. He should to continue Sunday dialysis upon discharge. Cardiology evaluated for CHF exacerbation. No recommendation to start diuretics. Elevated BNP likely due to supply demand as well as renal failure Probable pneumonia Patient is allergic to Levaquin. Will give her 5 day course of Azithromycin. diarrhea Weight loss 9 lbs weight loss in one month. GI following. GI plans to do EGD/Colonoscopy on Sunday08/13/2017. Full code. Heparin subcutaneous Discharge plan: Likely discharge home tomorrow 08/13/2017 after EGD/Colonoscopy. Kelsey Hicks DO Aug 12, 2017 10:34 am
--- NOTE | 2017-08-12 14:43 | HHI.GIFU ---
Subjective Remarks Pt in bathroom States has already had multiple BMs today Has not started bowel prep yet Currently on clear liquids for EGD and colonoscopy tomorrow (Jimena Watson) Objective Vitals I&O Vital Signs Date Time Temp Pulse Resp B/P (MAP) Pulse Ox O2 Delivery O2 Flow Rate FiO2 08/12/17 11:38 98.2 69 20 110/61 (77) 100 08/12/17 09:59 97.2 63 20 108/56 (73) 98 08/12/17 09:45 Nasal Cannula 2.00 08/12/17 07:32 100 Nasal Cannula 2.00 08/12/17 05:15 98.0 68 18 125/69 (87) 97 08/12/17 03:52 68 08/12/17 00:40 97.6 75 20 128/67 (87) 95 08/11/17 22:30 98.4 73 19 130/78 (95) 96 08/11/17 20:00 96 Nasal Cannula 3.00 08/11/17 19:48 68 08/11/17 19:21 96 Nasal Cannula 2.00 08/11/17 16:00 98.9 69 18 123/58 (79) 96 08/11/17 15:39 98.9 69 18 123/58 (79) 96 I/O 08/11/17 08/11/17 08/11/17 08/12/17 08/12/17 08/12/17 07:00 15:00 23:00 07:00 15:00 23:00 Intake Total 400 ml 300 ml Output Total 0 ml 0 ml Balance 400 ml 300 ml Intake Oral 400 ml 300 ml Output Urine Total 0 ml 0 ml # Voids 5 # Bowel Movements 0 0 Laboratory Date/Time Source Procedure Growth Status 08/10/17 08:15 Blood Peripheral Aerobic Blood Culture - Preliminary NO GROWTH IN 2 DAYS Resulted 08/10/17 08:15 Blood Peripheral Anaerobic Blood Culture - Preliminary NO GROWTH IN 2 DAYS Resulted Imaging Last Impressions Chest X-Ray 08/10/17 0806 Signed Impressions: Service Date/Time: Thursday, August 10, 2017 08:13 - CONCLUSION: 1. Cardiomegaly with pulmonary vascular congestion. 2. Right lower lobe patchy airspace disease and likely trace pleural effusion not significantly changed from 07/18/2017. 3. Improved aeration of the left lower lobe. Mehul King MD Chest CT 08/10/17 0000 Signed Impressions: Service Date/Time: Thursday, August 10, 2017 17:56 - CONCLUSION: 1. Diffuse interstitial disease which appears unchanged from the prior exam. This could be stable chronic interstitial disease versus recurrent or persistent edema. 2. Right middle lobe consolidation. 3. Mild right effusion. 4. Emphysematous change. Aurelio Boudreaux MD Abdomen/Pelvis CT 08/10/17 0000 Signed Impressions: Service Date/Time: Thursday, August 10, 2017 17:56 - CONCLUSION: 1. Hepatomegaly. The spleen is upper limits of normal for size. 2. Colonic diverticula. 3. Atrophy of the kidneys. 4. Mild sclerosis of the bones with multiple small lucent lesions likely related to renal osteodystrophy. Other causes for small lucent lesions including multiple myeloma cannot be excluded by imaging alone. Aurelio Boudreaux MD Physical Exam HEENT: Normocephalic; atraumatic CHEST: Even/unlabored CARDIAC: RRR ABDOMEN: Soft, nondistended, nontender; bowel sounds active SILO ERECTOR: No focal deficits; alert and oriented times three. (Jimena Watson) Assessment and Plan Plan Assessment: - Decreased appetite- Pt reports no appetite for the past week because she has not been feeling well. - Nausea/vomiting- no emesis since last month, reports dry heaving this morning. Denies hematemesis and coffee ground emesis. History of PUD- last EGD over 10 years ago, states GI bleed at that time - Weight loss- 9 lbs since last month- she attribute it to diarrhea - Diarrhea with fecal urgency and incontinence. Recent hospitalization on abx. Has never had colonoscopy - Anemia- multifactorial - normocytic - CKD on HD M,W,F - COPD- on home O2- 2 L NC (08/11) Pt reports feeling much better today after dialysis yesterday. Walking around the room during my exam CT abdomen and pelvis W/O IV contrast (08/10) --> Hepatomegaly. The spleen is upper limits of normal for size. Colonic diverticula. Atrophy of the kidneys. Mild sclerosis of the bones with multiple small lucent lesions likely related to renal osteodystrophy. Other causes for small lucent lesions including multiple myeloma cannot be excluded by imaging alone. Stool studies pending- pt reports formed BM today. No repeat CBC from today Levaquin added by attending for probably PNA (08/12) No significant changes over night. Plan remains the same for EGD and colonoscopy tomorrow. Plan: EGD and colonoscopy tomorrow Obtain consent Clear liquids today GoLytely prep NPO after MN Stool studies Protonix Monitor labs Further recommendations based on clinical course and results of above Pt has been seen and examined by myself and Dr. Sorensen and this note is written on his behalf (Jimena Watson) Physician Comments Patient seen and examined Agree with above Continue with current supportive care Monitor labs EGD with colonoscopy tomorrow (Wes Sorensen MD) Jimena Watson Aug 12, 2017 14:43 Wes Sorensen MD Aug 12, 2017 21:07
[2017-08-12] MEDS ORDERED: PEG (High)/E-LYTE SOLN 4000 ML BTL PO ONE (16:00)
[2017-08-12] MEDS ORDERED: SODIUM CHLORID 0.9% 500 ML IV PRN (20:15)
[2017-08-12] MEDS ORDERED: POVIDONE IODINE 5% (ANTISEPSIS KIT) 4 APPLICATIONS EACH NARE PRN (20:15)
[2017-08-12] MEDS ORDERED: CHLORHEXIDINE GLUCONATE 2 % 1 PACK (2 CLOTHS) TOPICAL PRN (20:15)
[2017-08-12] MEDS ORDERED: LACTATED RINGER'S 1000 ML IV PRN (20:15)
[2017-08-13] VITALS (9 sets, daily range): BP systolic 94–162; BP diastolic 52–76; PULSE 62–86; RESP 16–21; TEMP 97.1–98.6; O2SAT 92–99
[2017-08-13] MEDS: ACETAMINOPHEN/HYDROcodone 325 MG/10 MG TAB PO PRN ×5 (02:10→21:11)
[2017-08-13] MEDS: RESP: ALBUTEROL 2.5 MG/IPRATROPIUM 0.5 MG NEB (SCH) NEB ×3 (08:00→20:36)
[2017-08-13] MEDS: LABETALOL HCL 300 MG TAB PO SCH ×4 (08:10→17:05)
[2017-08-13] MEDS: DOCUSATE SODIUM 50 MG/SENNA 8.6 MG TAB PO SCH ×2 (08:13→21:11)
[2017-08-13] MEDS: AZITHROMYCIN 250 MG TAB PO SCH (08:16)
[2017-08-13] MEDS: POTASSIUM CHLORIDE 20 MEQ CONTROLLED RELEASE TAB PO SCH (08:16)
[2017-08-13] MEDS: PANTOPRAZOLE SOD 20 MG DELAYED RELEASE TAB PO SCH (08:16)
[2017-08-13] MEDS: SEVELAMER CARBONATE 800 MG TAB PO SCH ×3 (08:17→17:05)
[2017-08-13] MEDS: EPOETIN ALFA 4,000 UNITS/ML VIAL IV PUSH PRN (11:45)
[2017-08-13] MEDS ORDERED: PROPOFOL 200 MG/20 ML AMP IV ONE (12:00)
[2017-08-13] MEDS ORDERED: LIDOCAINE HCL 1% PF 5 ML SYRINGE OTHER ONE (12:00)
--- NOTE | 2017-08-13 13:13 | HHI.PR ---
Subjective Remarks Follow-up for fluid overload, ESRD. Patient is currently doing well. Return from dialysis today. Waiting for EGD colonoscopy. No fever or chills. Objective Vitals Vital Signs Date Time Temp Pulse Resp B/P (MAP) Pulse Ox O2 Delivery O2 Flow Rate FiO2 08/13/17 08:12 Nasal Cannula 2.00 08/13/17 08:10 66 08/13/17 08:00 97.4 64 18 118/60 (79) 98 08/13/17 04:00 97.1 62 16 119/68 (85) 99 08/13/17 00:00 98.6 64 16 162/76 (104) 99 08/12/17 21:00 96 Nasal Cannula 2.00 08/12/17 20:00 98.4 18 18 130/76 (94) 96 08/12/17 19:50 68 08/12/17 19:22 99 Nasal Cannula 2.00 08/12/17 15:35 98.2 59 20 105/58 (74) 99 I/O 08/12/17 08/12/17 08/12/17 08/13/17 08/13/17 08/13/17 06:59 14:59 22:59 06:59 14:59 22:59 Intake Total 300 ml 720 ml Output Total 0 ml Balance 300 ml 720 ml Intake Oral 300 ml 720 ml Output Urine Total 0 ml # Voids 0 # Bowel Movements 0 9 1 Result Diagram: 08/10/17 0815 08/11/17 0826 Imaging Last Impressions Chest X-Ray 08/10/17 0806 Signed Impressions: Service Date/Time: Thursday, August 10, 2017 08:13 - CONCLUSION: 1. Cardiomegaly with pulmonary vascular congestion. 2. Right lower lobe patchy airspace disease and likely trace pleural effusion not significantly changed from 07/18/2017. 3. Improved aeration of the left lower lobe. Mehul King MD Chest CT 08/10/17 0000 Signed Impressions: Service Date/Time: Thursday, August 10, 2017 17:56 - CONCLUSION: 1. Diffuse interstitial disease which appears unchanged from the prior exam. This could be stable chronic interstitial disease versus recurrent or persistent edema. 2. Right middle lobe consolidation. 3. Mild right effusion. 4. Emphysematous change. Aurelio Boudreaux MD Abdomen/Pelvis CT 08/10/17 0000 Signed Impressions: Service Date/Time: Thursday, August 10, 2017 17:56 - CONCLUSION: 1. Hepatomegaly. The spleen is upper limits of normal for size. 2. Colonic diverticula. 3. Atrophy of the kidneys. 4. Mild sclerosis of the bones with multiple small lucent lesions likely related to renal osteodystrophy. Other causes for small lucent lesions including multiple myeloma cannot be excluded by imaging alone. Aurelio Boudreaux MD Objective Remarks GENERAL: Alert, oriented 3, NAD. SKIN: Warm and dry. HEAD: Normocephalic. EYES: No scleral icterus. No injection or drainage. NECK: Supple, trachea midline. No JVD or lymphadenopathy. CARDIOVASCULAR: Regular rate and rhythm without murmurs, gallops, or rubs. RESPIRATORY: Breath sounds equal bilaterally. No accessory muscle use. GASTROINTESTINAL: Abdomen soft, non-tender, nondistended. MUSCULOSKELETAL: No cyanosis. Trace edema in lower extremity's. BACK: Nontender without obvious deformity. No CVA tenderness. A/P Problem List: (1) ESRD pn HD (2) Fluid overload ICD Code: E87.70 - Fluid overload, unspecified Status: Acute Assessment and Plan Patient is a 66-year-old -[place] female with past medical history of end-stage renal disease on hemodialysis Fridays, COPD on home oxygen, CHF, gastric ulcers, neuropathy on the right arm presented to the emergency room with complaints of coughing, shortness of breath spitting up, chest pain related to cough and chills. Nephrology was consulted for emergent dialysis. After dialysis patient improved significantly. Patient was also started on Levaquin for pneumonia. Acute respiratory failure hypoxia -likely due to fluid overload End-stage renal disease on dialysis Sunday Much improved after dialysis. He should to continue Sunday dialysis upon discharge. Cardiology evaluated for CHF exacerbation. No recommendation to start diuretics. Elevated BNP likely due to supply demand as well as renal failure Probable pneumonia Patient is allergic to Levaquin. Continue a 5 day course of Azithromycin. diarrhea Weight loss 9 lbs weight loss in one month. GI following. GI plans to do EGD/Colonoscopy on Sunday08/13/2017. Full code. Heparin subcutaneous Discharge plan: EGD/Colonoscopy today. If patient remains hemodynamically stable, potential discharge on 08/14/2017 Kelsey Hicks DO Aug 13, 2017 1:13 pm
--- NOTE | 2017-08-13 15:12 | HHI.NPPN ---
Subjective History of Present Illness 66-year-old -[place] female with history of end-stage renal disease, hypertension, COPD, CHF, pacemaker who had been having increasing shortness of breath, patient is oxygen dependent and stated that she has neuropathy and arthritis in her right hand difficult to use oxygen. Patient goes on hemodialysis 3 times a week on Sunday, Sunday and Sunday, she complains of cough and bringing up sputum. Additional Remarks Reports SOB but chronic. Plan for EGD and colonoscopy Objective Data Data 08/13/17 08/14/17 19:00 07:00 # Bowel Movements 1 Vital Signs Date Time Temp Pulse Resp B/P (MAP) Pulse Ox O2 Delivery O2 Flow Rate FiO2 08/13/17 12:00 97.7 70 21 133/59 (83) 92 08/13/17 08:12 Nasal Cannula 2.00 08/13/17 08:10 66 08/13/17 08:00 97.4 64 18 118/60 (79) 98 08/13/17 04:00 97.1 62 16 119/68 (85) 99 08/13/17 00:00 98.6 64 16 162/76 (104) 99 08/12/17 21:00 96 Nasal Cannula 2.00 08/12/17 20:00 98.4 18 18 130/76 (94) 96 08/12/17 19:50 68 08/12/17 19:22 99 Nasal Cannula 2.00 08/12/17 15:35 98.2 59 20 105/58 (74) 99 -: 08/10/17 0815 08/11/17 0826 Physical Exam General Appearance: No Acute Distress, Comfortable Eyes Eye Exam: Pupils Equal Throat Throat Exam: Oral Mucosa [place] & Moist Pulmonary Resp Exam: Crackles, Rhonchi, Sputum, Decreased Bases, Diminished Breath Sounds Cardiology CV Exam: Arrhythmia Gastrointestinal/Abdomen GI Exam: Soft, Non-Tender, Bowel Sounds Present Extremeties Extremities Exam: Trace Edema Neurologic Neuro Exam: Alert, Awake, Oriented Assessment/Plan Problem List: (1) ESRD (end stage renal disease) on dialysis ICD Codes: N18.6 - End stage renal disease; Z99.2 - Dependence on renal dialysis Status: Chronic Plan: Patient with ESRD, she is on HD, Sunday, Sunday and Sunday. Continue antibiotics. Epogen with HD. Continue Renvela for metabolic bone disorder Hemodialysis ultrafiltration at 1.5 L Colonoscopy to follow (2) CHF (congestive heart failure) ICD Codes: I50.9 - Heart failure, unspecified Status: Acute Plan: 1.5 L of fluid taken off during hemodialysis (3) Pneumonia ICD Codes: J18.9 - Pneumonia, unspecified organism Status: Acute Plan: Started on Levaquin and azithromycin Discussed with her stop smoking (4) HTN (hypertension) ICD Codes: I10 - Essential (primary) hypertension Status: Chronic Plan: Was labile Problem Qualifiers (1) HTN (hypertension): Qualified Codes: I10 - Essential (primary) hypertension Lisa Ferro MD Aug 13, 2017 15:12
[2017-08-13] MEDS ORDERED: DO NOT ADM ANY ANTICOAGULANT DRUGS PRN ×2 (16:23→18:00)
--- NOTE | 2017-08-13 16:33 | PD.PROCEDR ---
GI Procedure PROCEDURE PERFORMED EGD with biopsy followed by colonoscopy with biopsy INDICATION FOR PROCEDURE Diarrhea, weight loss, anorexia, anemia PROCEDURE: The procedure, risks and benefits were discussed with Patient/POA and informed consent was obtained. Anesthesia sedated Patient with Diprivan. Patient was placed in the left lateral decubitus position. EGD: The Pentax videoscope was introduced through the oropharynx and advanced to the second portion of the duodenum under direct visualization. Retroflexion was performed in the stomach. FINDINGS: The esophagus this appeared to be unremarkable and within normal limits The stomach there was some mild patchy erythema noted in the antrum but no ulcerations no erosions no blood or bleeding the rest of the stomach was unremarkable antral biopsies were taken for further evaluation The duodenum this was normal random biopsies were taken to rule out celiac as potential cause for anemia and diarrhea Colonoscopy: The Pentax videoscope was introduced through the rectum and advanced to cecum where the ileocecal valve and appendiceal orifice were identified. Retroflexion was performed in the rectum. Colonic prep was good FINDINGS: Colonic withdrawal time greater than 6 minutes. As the scope was slowly withdrawn colonic mucosa was carefully inspected. The patient was noted to have diminutive polyps one in the descending colon and 3 in the rectum these were excised using cold forceps otherwise colonic mucosa appeared to be unremarkable and within normal limits all the way through random biopsies were taken from the ascending and descending colon to further investigate diarrhea the patient was also noted to have mild to moderate diverticulosis of the sigmoid region Retroflexion in the rectum was unremarkable the patient is noted to have mild to moderate external hemorrhoids ESTIMATED BLOOD LOSS: None SPECIMENS REMOVED: Stomach, duodenum, colon biopsies COMPLICATIONS: None IMPRESSION: Mild gastritis Colon polyps Diverticulosis Internal hemorrhoids PLAN: Await biopsies High-fiber diet Monitor labs Colonoscopy in 5 years Patient may follow with GI as an outpatient Not much to add at this point from a GI perspective we will sign off Wes Sorensen MD Aug 13, 2017 16:33
[2017-08-14] VITALS: BP 115/56; PULSE 73; RESP 16; TEMP 97.2; O2SAT 98
[2017-08-14] MEDS: ACETAMINOPHEN/HYDROcodone 325 MG/10 MG TAB PO PRN ×3 (01:38→11:32)
[2017-08-14 04:00] VITALS: BP 110/58; PULSE 65; RESP 16; O2SAT 98
[2017-08-14 05:46] LABS: HEMOGLOBIN 10.8 GM/DL (11.6-15.3); MEAN CELL VOLUME 89.3 FL (80.0-100.0); MEAN CORPUSCULAR HEMOGLOBIN 29.3 PG (27.0-34.0); MEAN CORPUSCULAR HGB CONC 32.8 % (32.0-36.0); MEAN PLATELET VOLUME 8.9 FL (7.0-11.0); PLATELET COUNT 173 TH/MM3 (150-450); RED BLOOD COUNT 3.69 MIL/MM3 (4.00-5.30); RED CELL DISTRIBUTION WIDTH 19.3 % (11.6-17.2); WHITE BLOOD COUNT 2.4 TH/MM3 (4.0-11.0)
[2017-08-14 06:03] LABS: ALBUMIN 2.9 GM/DL (3.4-5.0); ALKALINE PHOSPHATASE 137 U/L (45-117); ALT (GPT) 13 U/L (10-53); AST (GOT) 16 U/L (15-37); BICARBONATE 33.1 MEQ/L (21.0-32.0); BLOOD UREA NITROGEN 19 MG/DL (7-18); CHLORIDE 98 MEQ/L (98-107); CREATININE 4.89 MG/DL (0.50-1.00); GLOMERULAR FILTRATION RATE 11 ML/MIN (>89); GLUCOSE,RANDOM 81 MG/DL (74-106); SODIUM (NA) 140 MEQ/L (136-145); TOTAL BILIRUBIN ADULT 0.6 MG/DL (0.2-1.0); TOTAL PROTEIN 6.8 GM/DL (6.4-8.2)
[2017-08-14] MEDS: RESP: ALBUTEROL 2.5 MG/IPRATROPIUM 0.5 MG NEB (SCH) NEB (07:27)
[2017-08-14] MEDS: DOCUSATE SODIUM 50 MG/SENNA 8.6 MG TAB PO SCH (07:28)
[2017-08-14 07:30] VITALS: O2SAT 100
[2017-08-14] MEDS: AZITHROMYCIN 250 MG TAB PO SCH (07:45)
[2017-08-14] MEDS: LABETALOL HCL 300 MG TAB PO SCH (07:45)
[2017-08-14] MEDS: PANTOPRAZOLE SOD 20 MG DELAYED RELEASE TAB PO SCH (07:45)
[2017-08-14] MEDS: POTASSIUM CHLORIDE 20 MEQ CONTROLLED RELEASE TAB PO SCH (07:46)
[2017-08-14] MEDS: SEVELAMER CARBONATE 800 MG TAB PO SCH (07:46)
[2017-08-14 09:02] VITALS: BP 124/85; PULSE 68; RESP 20; TEMP 97.3; O2SAT 100
--- NOTE | 2017-08-14 11:11 | HHI.NPPN ---
Subjective History of Present Illness 66-year-old -[place] female with history of end-stage renal disease, hypertension, COPD, CHF, pacemaker who had been having increasing shortness of breath, patient is oxygen dependent and stated that she has neuropathy and arthritis in her right hand difficult to use oxygen. Patient goes on hemodialysis 3 times a week on Sunday, Sunday and Sunday, she complains of cough and bringing up sputum. Additional Remarks Reports SOB but chronic. Objective Data Data 08/14/17 08/15/17 19:00 07:00 # Bowel Movements 2 Vital Signs Date Time Temp Pulse Resp B/P (MAP) Pulse Ox O2 Delivery O2 Flow Rate FiO2 08/14/17 09:02 97.3 68 20 124/85 (98) 100 08/14/17 07:30 100 Nasal Cannula 3.00 08/14/17 07:25 Nasal Cannula 2.00 08/14/17 04:00 65 16 110/58 (75) 98 08/14/17 00:00 97.2 73 16 115/56 (75) 98 08/13/17 23:53 67 08/13/17 22:36 69 08/13/17 20:30 Nasal Cannula 2.00 08/13/17 20:00 98.2 63 16 94/52 (66) 98 08/13/17 19:00 Nasal Cannula 2.00 08/13/17 16:59 97.9 86 20 153/68 (96) 92 08/13/17 16:28 98.0 80 20 125/56 (79) 99 08/13/17 12:00 97.7 70 21 133/59 (83) 92 -: 08/14/17 0422 08/14/17 0422 Physical Exam General Appearance: No Acute Distress, Comfortable Eyes Eye Exam: Pupils Equal Throat Throat Exam: Oral Mucosa [place] & Moist Pulmonary Resp Exam: Crackles, Rhonchi, Sputum, Decreased Bases, Diminished Breath Sounds Cardiology CV Exam: Arrhythmia Gastrointestinal/Abdomen GI Exam: Soft, Non-Tender, Bowel Sounds Present Extremeties Extremities Exam: Trace Edema Neurologic Neuro Exam: Alert, Awake, Oriented Assessment/Plan Problem List: (1) ESRD (end stage renal disease) on dialysis ICD Codes: N18.6 - End stage renal disease; Z99.2 - Dependence on renal dialysis Status: Chronic Plan: Patient with ESRD, she is on HD, Sunday, Sunday and Sunday. Continue antibiotics. Epogen with HD. Continue Renvela for metabolic bone disorder Hemodialysis yesterday 1.5 L Colonoscopy done Biopsy taken (2) CHF (congestive heart failure) ICD Codes: I50.9 - Heart failure, unspecified Status: Acute Plan: 1.5 L of fluid taken off during hemodialysis (3) Pneumonia ICD Codes: J18.9 - Pneumonia, unspecified organism Status: Acute Plan: Started on Levaquin and azithromycin Discussed with her stop smoking (4) HTN (hypertension) ICD Codes: I10 - Essential (primary) hypertension Status: Chronic Plan: Was labile Problem Qualifiers (1) HTN (hypertension): Qualified Codes: I10 - Essential (primary) hypertension Lisa Ferro MD Aug 14, 2017 11:11
[2017-08-14] MEDS ORDERED: AZIT250T3 PO (11:26)
--- NOTE | 2017-08-14 11:28 | HHI.DS ---
Discharge Summary Admission Date Aug 10, 2017 at 12:32 Discharge Date: Aug 14, 2017 Admitting Diagnosis (1) ESRD pn HD (2) Fluid overload ICD Code: E87.70 - Fluid overload, unspecified Status: Acute Brief History - From Admission Patient is a 66-year-old -[place] female with past medical history of end-stage renal disease on hemodialysis Fridays, COPD on home oxygen, CHF, gastric ulcers, neuropathy on the right arm presented to the emergency room with complaints of coughing, shortness of breath spitting up, chest pain related to cough and chills. She is not sure if she had any fever that she never took her temperature. She states she was recently discharged and per records she was here and discharged at the end of June. She states the cough has been going on since her has progressively gotten worse. She also noticed some diarrhea since being discharged as well. Yesterday she had 3 loose stools however she does admit to some stool forming and it. She has lost about 9 pounds for the past month. She does not follow up with the route returner. Her sorter operator Dr. Ferro. She notes a decrease in appetite. She overall does not feel well. She claims she is compliant with her fluid intake however I reviewed records from last admission and there was concern of noncompliance. Her last dialysis was this past Sunday and she missed today due to not feeling well. CBC/BMP: 08/14/17 0422 08/14/17 0422 Significant Findings Laboratory Tests Test 08/14/17 04:22 White Blood Count 2.4 TH/MM3 (4.0-11.0) Red Blood Count 3.69 MIL/MM3 (4.00-5.30) Hemoglobin 10.8 GM/DL (11.6-15.3) Hematocrit 33.0 % (35.0-46.0) Red Cell Distribution Width 19.3 % (11.6-17.2) Blood Urea Nitrogen 19 MG/DL (7-18) Creatinine 4.89 MG/DL (0.50-1.00) Albumin 2.9 GM/DL (3.4-5.0) Alkaline Phosphatase 137 U/L (45-117) Carbon Dioxide Level 33.1 MEQ/L (21.0-32.0) Estimat Glomerular Filtration Rate 11 ML/MIN (>89) Imaging Last Impressions Chest X-Ray 08/10/17 0806 Signed Impressions: Service Date/Time: Thursday, August 10, 2017 08:13 - CONCLUSION: 1. Cardiomegaly with pulmonary vascular congestion. 2. Right lower lobe patchy airspace disease and likely trace pleural effusion not significantly changed from 07/18/2017. 3. Improved aeration of the left lower lobe. Mehul King MD Chest CT 08/10/17 0000 Signed Impressions: Service Date/Time: Thursday, August 10, 2017 17:56 - CONCLUSION: 1. Diffuse interstitial disease which appears unchanged from the prior exam. This could be stable chronic interstitial disease versus recurrent or persistent edema. 2. Right middle lobe consolidation. 3. Mild right effusion. 4. Emphysematous change. Aurelio Boudreaux MD Abdomen/Pelvis CT 08/10/17 0000 Signed Impressions: Service Date/Time: Thursday, August 10, 2017 17:56 - CONCLUSION: 1. Hepatomegaly. The spleen is upper limits of normal for size. 2. Colonic diverticula. 3. Atrophy of the kidneys. 4. Mild sclerosis of the bones with multiple small lucent lesions likely related to renal osteodystrophy. Other causes for small lucent lesions including multiple myeloma cannot be excluded by imaging alone. Aurelio Boudreaux MD PE at Discharge GENERAL: Alert, oriented 3, NAD. SKIN: Warm and dry. HEAD: Normocephalic. EYES: No scleral icterus. No injection or drainage. NECK: Supple, trachea midline. No JVD or lymphadenopathy. CARDIOVASCULAR: Regular rate and rhythm without murmurs, gallops, or rubs. RESPIRATORY: Breath sounds equal bilaterally. No accessory muscle use. GASTROINTESTINAL: Abdomen soft, non-tender, nondistended. MUSCULOSKELETAL: No cyanosis. Trace edema in lower extremity's. BACK: Nontender without obvious deformity. No CVA tenderness. Pt update on day of discharge Patient is doing well. No acute concerns. Pt Condition on Discharge: Good Discharge Disposition: Discharge Home Discharge Time: > 30 minutes Discharge Instructions DIET: Follow Instructions for: Renal Failure Diet Activities you can perform: Regular-No Restrictions Follow up Referrals: PCP Follow-up - 1 Week New Medications: Azithromycin (Azithromycin) 250 Mg Tab 250 MG PO DAILY for Infection, #2 TAB Continued Medications: Hydrocodone/Acetaminophen (Hydrocodone-Acetamin 10-325 mg) 10 Mg-325 Mg Tablet 1 TAB PO Q4H PRN for PAIN3-10, #30 0 Refills Labetalol (Labetalol) 300 Mg Tab 300 MG PO TID for Blood Pressure Management, TAB 0 Refills Omeprazole (Omeprazole) 20 Mg Tab 20 MG PO DAILY, #30 TAB 0 Refills Sevelamer Carbonate (Renvela) 800 Mg Tab 800 MG PO TID for Control phosphorous levels, #90 TAB 0 Refills [Albuterol Neb] () 2.5 MG/3 ML NEBU 2.5 MG NEB Q2HR NEB PRN for SHORTNESS OF BREATH, #10 APPLIC 1 Refill [Albuterol-Ipratropium Neb] () 1 AMPULE NEBU 1 AMPULE NEB Q6HR NEB PRN for sob, #30 Kelsey Hicks DO Aug 14, 2017 11:28
== END 2017-08-14 12:37 | disposition home or self-care (01) | DRG 291 ==
LOC: NEPC 07:40 → NEDA 12:32 → N05A 18:30
PROVIDERS: ADMIT Hospitalist; ATTEND Hospitalist
PROC: 5A1D70Z Performance of Urinary Filtration, Intermittent, Less than 6 Hours Per Day (ICD-10-PCS; 2017-08-10)
PROC: 0DBM8ZX Excision of Descending Colon, Via Natural or Artificial Opening Endoscopic, Diagnostic (ICD-10-PCS; 2017-08-13)
PROC: 0DBP8ZX Excision of Rectum, Via Natural or Artificial Opening Endoscopic, Diagnostic (ICD-10-PCS; 2017-08-13)
PROC: 0DBK8ZX Excision of Ascending Colon, Via Natural or Artificial Opening Endoscopic, Diagnostic (ICD-10-PCS; 2017-08-13)
PROC: 0DBM8ZX Excision of Descending Colon, Via Natural or Artificial Opening Endoscopic, Diagnostic (ICD-10-PCS; 2017-08-13)
PROC: 0DB98ZX Excision of Duodenum, Via Natural or Artificial Opening Endoscopic, Diagnostic (ICD-10-PCS; principal; 2017-08-13 15:48)
PROC: 0DB68ZX Excision of Stomach, Via Natural or Artificial Opening Endoscopic, Diagnostic (ICD-10-PCS; 2017-08-13 15:48)
DX: I13.2 Hypertensive heart and chronic kidney disease with heart failure and with stage 5 chronic kidney disease, or end stage renal disease (principal); I50.33 Acute on chronic diastolic (congestive) heart failure; J96.01 Acute respiratory failure with hypoxia; N18.6 End stage renal disease; J18.9 Pneumonia, unspecified organism; Z99.81 Dependence on supplemental oxygen; J44.1 Chronic obstructive pulmonary disease with (acute) exacerbation; J44.0 Chronic obstructive pulmonary disease with (acute) lower respiratory infection; G62.9 Polyneuropathy, unspecified; Z99.2 Dependence on renal dialysis; Z91.19 Patient's noncompliance with other medical treatment and regimen; K63.5 Polyp of colon; K62.1 Rectal polyp; K57.30 Diverticulosis of large intestine without perforation or abscess without bleeding; K64.4 Residual hemorrhoidal skin tags; K29.70 Gastritis, unspecified, without bleeding; D64.9 Anemia, unspecified; M19.041 Primary osteoarthritis, right hand; R19.7 Diarrhea, unspecified; R63.4 Abnormal weight loss; Z68.21 Body mass index [BMI] 21.0-21.9, adult; M89.8X9 Other specified disorders of bone, unspecified site; Z87.11 Personal history of peptic ulcer disease; Z95.0 Presence of cardiac pacemaker; Z87.891 Personal history of nicotine dependence
CPT/HCPCS: 36600; 71045; 71250; 74176; 80048; 80053; 82550; 82805; 83880; 84484; 85025; 85027; 87040; 88305; 88312; 90935; 93005; 94150; 94640; 94664; 96365; 96374; J1644; J1940; J1956; J7613; Q4081; Q9963